=== PATIENT | male | born 1960 | race Caucasian/White ===

== ENCOUNTER 2016-09-19 20:12 | Inpatient (IN) | payer MEDICARE, BC ==
[2016-09-19] MEDS ORDERED: ONDANSETRON 4 MG/2 ML VIAL IVP STA (23:00)
[2016-09-19] MEDS ORDERED: RX INFO: IV CONTRAST WAS GIVEN 1 EACH MISC MISCELLANE PRN (23:00)
[2016-09-19] MEDS ORDERED: SODIUM CHLORIDE 0.9% 1,000 ML IV STA ×2 (23:01)
--- NOTE | 2016-09-19 23:08 | ED ---
General Adult HPI - General Source: patient, RN notes reviewed Mode of arrival: ambulatory Limitations: no limitations <Ronny Sandy - Last Filed: 09/20/16 00:09> <Jeffrey Johansen - Last Filed: 09/20/16 00:31> - General Chief complaint: Abdominal Pain Stated complaint: abdominal & back pain Time Seen by Provider: 09/19/16 22:54 - History of Present Illness Initial comments: Patient 56-year-old male who presents emergency room today with chief complaint of increased nausea vomiting abdominal and back pain over the last week. Patient states symptoms been on and off. States having increased today. States continuous vomiting. Admits to pain both in the abdomen and the back. He states pain located on the right side shooting down in his back. Patient states never had similar symptoms in the past. Patient denies any other complaints at this time. Patient denies any recent fever, chills, shortness of breath, chest pain, numbness or tingling, dysuria or hematuria, constipation or diarrhea, visual changes, or any other complaints. (Ronny Sandy) - Related Data Home Medications Medication Instructions Recorded Confirmed Allopurinol [Zyloprim] 300 mg PO DAILY 05/21/14 09/19/16 Calcium Carbonate/Vitamin D3 1 tab PO BID 05/21/14 09/19/16 [Calcium 500-Vit D3 400 Tablet] Cholecalciferol [Vitamin D3] 5,000 unit PO BID 05/21/14 09/19/[address] [Myfortic] 360 mg PO BID 05/21/14 09/19/16 Potassium Chloride [Klor-Con 20] 40 meq PO BID 05/21/14 09/19/16 Pravastatin Sodium [Pravachol] 40 mg PO HS 05/21/14 09/19/16 Tacrolimus [Prograf] 0.5 mg PO BID 05/21/14 09/19/16 amLODIPine [Norvasc] 5 mg PO BID 05/21/14 09/19/16 predniSONE 5 mg PO DAILY 05/21/14 09/19/16 Magnesium Oxide [Mag-Ox] 400 mg PO BID 08/01/14 09/19/16 Multivitamin/Iron/Folic Acid 1 tab PO DAILY 08/01/14 09/19/16 [Centrum Complete Multivit Tab] Carvedilol [Coreg] 6.25 mg PO BID 04/02/15 09/19/16 Hydrocodone/Acetaminophen 1 tab PO Q6HR PRN 04/02/15 09/19/16 [Hydrocodone/Acetaminophen 5-300] Ascorbic Acid [Vitamin C] 1,000 mg PO DAILY 05/06/15 09/19/16 Omeprazole [PriLOSEC] 20 mg PO AC-BRKFST 05/18/15 09/19/16 Aspirin 325 mg PO HS 10/14/15 09/19/16 Allergies Allergy/AdvReac Type Severity Reaction Status Date / Time No Known Allergies Allergy Verified 09/19/16 23:01 Review of Systems ROS Other: All systems not noted in ROS Statement are negative. <Ronny Sandy - Last Filed: 09/20/16 00:09> ROS Other: All systems not noted in ROS Statement are negative. <Jeffrey Johansen - Last Filed: 09/20/16 00:31> ROS Statement: Those systems with pertinent positive or pertinent negative responses have been documented in the HPI. Past Medical History Past Medical History: Coronary Artery Disease (CAD), Cancer, Diabetes Mellitus, Deep Vein Thrombosis (DVT), GERD/Reflux, Hyperlipidemia, Hypertension, Osteoarthritis (OA), Pneumonia, Renal Disease, Skin Disorder, Vascular Disorder Additional Past Medical History / Comment(s): 10/13/15 PT presented to [facility] ER with URI and RICHARDSON. Pt has had SOB,cough, weakness, fever,chills and mild nausea. He saw his PCP yesterday and was prescibbed ABX. He continued to worsen. Pt is admitted with clinical impression of URI, community acquired pneumonia. Other HX: charcot, hx diabetes-had pancreas transplant, HTN cardiovascular disease, murmur, DVT L leg, poor circulation, bilateral feet and hand neuropathy, diabetic retinopathy, psoriasis, wound rt ankle and R heel healed - had tx in wound clinic, pt had been in end stage renal disease and had hemodialysis for 3 yrs then had kidneys and pancreas transplant In 2008 at [facility], gout, osteopenia, multiple malignant cutanous lesions with removals. History of Any Multi-Drug Resistant Organisms: None Reported Past Surgical History: Heart Catheterization With Stent, Orthopedic Surgery Additional Past Surgical History / Comment(s): 2005 failed stress test-PCI with stent to Obtuse marginal, kidney & pancrease transplant 2008, cataracts removed , surgery to reconnect rt achilles tendon with dehisence and then several debridements of wound to R ankle and R heel, skin lesion removal-basal cell cancer, A/V fistula L upper arm, parathyroidectomy, R wrist fx with surgery. Past Anesthesia/Blood Transfusion Reactions: No Reported Reaction Additional Past Anesthesia/Blood Transfusion Reaction / Comment(s): Pt states he has received blood in the past without reaction. Date of Last Stent Placement:: 2005 Past Psychological History: No Psychological Hx Reported Additional Psychological History / Comment(s): Pt resides with his spouse. There is 1 dog in the home. He is normally independent. He drives. Smoking Status: Never smoker Past Alcohol Use History: Occasional Past Drug Use History: None Reported - Past Family History Father Family Medical History: CVA/TIA, Vascular Disorder Additional Family Medical History / Comment(s): cva x2. Father is 81 yrs old. Mother Additional Family Medical History / Comment(s): arthritis. Mother is 76 yrs old. <Ronny Sandy - Last Filed: 09/20/16 00:09> General Exam Limitations: no limitations <Ronny Sandy - Last Filed: 09/20/16 00:09> <Jeffrey Johansen - Last Filed: 09/20/16 00:31> - General Exam Comments Initial Comments: General: The patient is awake and alert, in moderate distress. Eye: Pupils are equal, round and reactive to light, extra-ocular movements are intact. No nystagmus. There is normal conjunctiva bilaterally. No signs of icterus. Ears, nose, mouth and throat: There are moist mucous membranes and no oral lesions. Neck: The neck is supple, there is no tenderness or JVD. Cardiovascular: There is a regular rate and rhythm. No murmur, rub or gallop is appreciated. Respiratory: Lungs are clear to auscultation, respirations are non-labored, breath sounds are equal. No wheezes, stridor, rales, or rhonchi. Gastrointestinal: Normal appearance of the abdomen. Normal bowel sounds. No pulsatile mass. Patient has diffuse minimal tenderness throughout the abdomen. No CVA tenderness. No guarding. No rebound. Musculoskeletal: Normal ROM, no tenderness. Strength 5/5. Sensation intact. Pulses equal bilaterally 2+. Neurological: A&O x 3. CN II-XII intact, There are no obvious motor or sensory deficits. Coordination appears grossly intact. Speech is normal. Skin: Skin is warm and dry and no rashes or lesions are noted. Psychiatric: Cooperative, appropriate mood & affect, normal judgment. (Ronny Sandy) EKG Findings - EKG Comments: EKG Findings:: EKG performed at 2313: A 12-lead EKG was performed and interpreted by me as showing the following: Rate is 78, and rhythm is normal sinus. There are normal QRS complexes and normal R-wave progression. ST segments have no elevation or depression, and WI segments appear normal. <Ronny Sandy - Last Filed: 09/20/16 00:09> Medical Decision Making - Lab Data Result diagrams: 09/19/16 23:05 09/19/16 23:05 <Ronny Sandy - Last Filed: 09/20/16 00:09> - Lab Data Result diagrams: 09/19/16 23:05 09/19/16 23:05 <Jeffrey Johansen - Last Filed: 09/20/16 00:31> - Medical Decision Making Patient's CT reviewed and shows incarcerated ventral hernia or umbilical hernia that contains bowel. There is dilated small bowel consistent with mechanical SBO. Distal small bowel has normal diameter. The transition point is probably the incarcerated hernia. Results discussed with the patient. Patient had NG tube started here in the emergency room. Case discussed with attending physician Dr. Johansen who did discuss case with admitting physician Dr. Brunson who will admit the patient. (Ronny Sandy) Medical decision-making. The patient presents with vomiting abdominal pain. He did pass a small amount of loose stool and gas earlier this evening. The pain to compression of the worst of the abdomen. The patient's white count 11 hemoglobin 14.8 hematocrit of 44 with an INR 1.1. Potassium is 4.7 BUN 22 creatinine 1.1 with a GFR 57. Glucose is 139. Amylase lipase within normal limits. Patient does have history of the renal transplant 9 years ago. The patient's CT of the abdomen was done and the radiologist's impression is there is no incarcerated ventral hernia or umbilical hernia contains bowel there is dilated small bowel consistent with mechanical small bowel obstruction. Distal small bowel has normal Diameter. The transition point is probably the incarcerated hernia. There is atherosclerotic valvular vascular disease. Nonobstructive calculi in the transplant kidney. Cardiomegaly and hiatal hernia. The bowel obstruction is new compared to the old exam of 08/01/2014. Hernia is increased. And there is a chronically enlarged stomach that could relate to gastroparesis. As read by Dr. Jack. I examined the patient is tender with palpation with guarding over the ventral hernia. I discussed the case with Dr. Renner. Patient be admitted to her practice NG tube placed, analgesics and rehydration. Dr. Johansen (Jeffrey Johansen) - Lab Data Lab Results 09/19/16 09/19/16 09/19/16 Range/Units 23:05 23:05 23:05 WBC 11.5 H (3.8-10.6) k/uL RBC 4.75 (4.30-5.90) m/uL Hgb 14.8 (13.0-17.5) gm/dL Hct 46.5 (39.0-53.0) % MCV 97.9 (80.0-100.0) fL MCH 31.1 (25.0-35.0) pg MCHC 31.8 (31.0-37.0) g/dL RDW 13.6 (11.5-15.5) % Plt Count 254 (150-450) k/uL Neutrophils % 88 % Lymphocytes % 4 % Monocytes % 6 % Eosinophils % 1 % Basophils % 0 % Neutrophils # 10.1 H (1.3-7.7) k/uL Lymphocytes # 0.4 L (1.0-4.8) k/uL Monocytes # 0.7 (0-1.0) k/uL Eosinophils # 0.1 (0-0.7) k/uL Basophils # 0.0 (0-0.2) k/uL PT 11.0 (9.0-12.0) sec INR 1.1 (<1.1) APTT 22.9 (22.0-30.0) sec Sodium 142 (137-145) mmol/L Potassium 4.7 (3.5-5.1) mmol/L Chloride 106 (98-107) mmol/L Carbon Dioxide 20 L (22-30) mmol/L Anion Gap 16 mmol/L BUN 22 H (9-20) mg/dL Creatinine 1.30 H (0.66-1.25) mg/dL Est GFR (MDRD) Af Amer >60 (>60 ml/min/1.73 sqM) Est GFR (MDRD) Non-Af 57 (>60 ml/min/1.73 sqM) Glucose 139 H (74-99) mg/dL Calcium 9.4 (8.4-10.2) mg/dL Total Bilirubin 0.6 (0.2-1.3) mg/dL AST 20 (17-59) U/L ALT 36 (21-72) U/L Alkaline Phosphatase 110 (38-126) U/L Total Protein 7.5 (6.3-8.2) g/dL Albumin 4.7 (3.5-5.0) g/dL Amylase 93 (30-110) U/L Lipase 167 (23-300) U/L Disposition Time of Disposition: 00:18 <Ronny Sandy - Last Filed: 09/20/16 00:09> <Jeffrey Johansen - Last Filed: 09/20/16 00:31> Clinical Impression: Small bowel obstruction, Incarcerated hernia Disposition: ADMITTED IP TO THIS [facility] Condition: Stable Referrals: Greg Lu MD [Primary Care Provider] - 1-2 days
[2016-09-19] MEDS ORDERED: HYDROmorphone 1 MG/ML 1 ML SYRINGE IVP STA (23:10)
[2016-09-19 23:18] LABS: Basophils % (A) 0 %; CH 32.3; CHCM 33.2; Eosinophils # (A) 0.1 k/uL (0-0.7); Eosinophils % (A) 1 %; HCT 46.5 % (39.0-53.0); HDW 2.46; HGB 14.8 gm/dL (13.0-17.5); Luc # (Auto) 0.18; Luc % (Auto) 2; Lymphocytes # (A) 0.4 k/uL (1.0-4.8); Lymphocytes % (A) 4 %; MCH 31.1 pg (25.0-35.0); MCHC 31.8 g/dL (31.0-37.0); MCV 97.9 fL (80.0-100.0); Mean Platelet Volume 7.8; Monocytes # (A) 0.7 k/uL (0-1.0); Monocytes % (A) 6 %; Neutrophils # (A) 10.1 k/uL (1.3-7.7); Neutrophils % (A) 88 %; RBC 4.75 m/uL (4.30-5.90); RDW 13.6 % (11.5-15.5); WBC 11.5 k/uL (3.8-10.6); WBC (Perox) 11.79
[2016-09-19 23:29] LABS: ALT 36 U/L (21-72); AST 20 U/L (17-59); Alkaline Phosphatase 110 U/L (38-126); Amylase 93 U/L (30-110); Anion Gap 16 mmol/L; Blood Urea Nitrogen 22 mg/dL (9-20); Calcium 9.4 mg/dL (8.4-10.2); Carbon Dioxide 20 mmol/L (22-30); Chloride 106 mmol/L (98-107); Glucose 139 mg/dL (74-99); Non-African American GFR(MDRD) 57 (>60 ml/min/1.73 sqM); Potassium 4.7 mmol/L (3.5-5.1); Sodium 142 mmol/L (137-145); Total Bilirubin 0.6 mg/dL (0.2-1.3); Total Protein 7.5 g/dL (6.3-8.2)
[2016-09-19 23:33] LABS: INR 1.1 (<1.1); Partial Thromboplastin Time 22.9 sec (22.0-30.0)
--- NOTE | 2016-09-20 00:02 | CT ---
EXAMINATION TYPE: CT abdomen pelvis wo con DATE OF EXAM: 09/19/2016 11:59 PM COMPARISON: 08/01/2014 HISTORY: abd pain CT DLP: 429.80 mGycm Automated exposure control for dose reduction was used. TECHNIQUE: Helical acquisition of images was performed from the lung bases through the pelvis. FINDINGS: Lung bases are clear of consolidation. There is no pleural effusion. Heart appears enlarged. There is a hiatal hernia. Gallbladder appears normal. Liver shows no focal defect. Bile ducts are not dilated. The stomach is l arge. There is no evidence of a splenic mass. Pancreas appears normal. There is severe thinning of th e renal cortex bilaterally. There is no hydronephrosis. There is a large umbilical or ventral hernia that contains loops of bowel. There are multiple dilated loops of small bowel that measure up to 4.4 cm. The large bowel appears relatively empty. There is a transplant kidney in the pelvis on the left side. There is a 8 mm calculus in the transplant kidney. There are other smaller calculi. There is no hydronephrosis. Bladder distends smoothly. There is no sign of a pelvic mass. IMPRESSION: THERE IS AN INCARCERATED VENTRAL HERNIA OR UMBILICAL HERNIA THAT CONTAINS BOWEL. THERE IS DILATED SMA LL BOWEL CONSISTENT WITH MECHANICAL SMALL BOWEL OBSTRUCTION. DISTAL SMALL BOWEL HAS NORMAL DIAMETER. THE TRANSITION POINT IS PROBABLY THE INCARCERATED HERNIA. ATHEROSCLEROTIC VASCULAR DISEASE. NONOBSTRUCTING CALCULI IN THE TRANSPLANT KIDNEY. Cardiomegaly. Hiatal hernia. The bowel obstruction is new compared to the old exam of August 01, 2014. There are hernia is increas ed. There is a chronically enlarged stomach that could relate to gastroparesis.
[2016-09-20] MEDS ORDERED: HYDROmorphone 1 MG/ML 1 ML SYRINGE IVP STA (00:17)
[2016-09-20] MEDS ORDERED: SODIUM CHLORIDE 0.9% 1,000 ML IV ONE (00:19)
[2016-09-20] MEDS ORDERED: NALOXONE 0.4 MG/ML 1 ML VIAL IV PRN (00:19)
[2016-09-20] MEDS ORDERED: HYDROmorphone 1 MG/ML 1 ML SYRINGE IV PRN (00:19)
[2016-09-20] MEDS ORDERED: ONDANSETRON 4 MG/2 ML VIAL IVP PRN (00:19)
[2016-09-20 02:10] VITALS: BMI 24.0
[2016-09-20 07:23] VITALS: RESP 20
[2016-09-20 09:02] LABS: Appearance,Urine Clear (Clear); Bilirubin,Urine Negative (Negative); Glucose,Urine (UA) Negative (Negative); Ketones,Urine Negative (Negative); Leukocyte Esterase,Urine Negative (Negative); Nitrite,Urine Negative (Negative); Protein,Urine Trace (Negative); Specific Gravity,Urine 1.015 (1.001-1.035); UA Billing (MACRO vs. MICRO) CHEM; Urobilinogen,Urine <2.0 mg/dL (<2.0)
--- NOTE | 2016-09-20 10:56 | P.GSHP ---
<Lexis Prasad - Last Filed: 09/20/16 10:39> History of Present Illness H&P Date: 09/20/16 Chief Complaint: Abdominal pain nausea vomiting 56-year-old pleasant gentleman presented on the day of admission to the emergency room to be evaluated for chief complaint of developing abdominal pain nausea vomiting onset 7 days prior. Patient stated the symptoms seem to be worse if he attempted to eat. He stated that 7 days ago he noted increased abdominal pain with bloating he did use [id number] Gas-X seemed to help. He would get relief couple days later the symptoms reoccurred. Patient became concerned presented to the emergency room with the above-mentioned symptoms. Patient denied any other complaints. Denied any fever chills shortness of breath chest pain or numbness or tingling or any burning on urination. CAT scan of the abdomen and pelvis with out contrast was obtained in the emergency room it did show incarcerated ventral hernia or umbilical hernia that contains bowel. There is dilated small bowel consistent with mechanical small bowel obstruction. Distal small bowel has normal diameter. Patient was seen in the emergency room a nasogastric tube was inserted. This morning the patient did have a moderate painless mushy soft brown stool. There was a significant improvement in the abdominal distention after having a bowel movement. The nasogastric tube was able to be removed patient stated he was passing gas anal with less abdominal distention Patient does have a significant past medical history for chronic kidney disease with pancreas and kidney transplant done at the [facility] in 2008. Patient stated that the kidney and pancreas transplant were done today due to patient's diabetes. Patient states he goes yearly to the [facility] is due to return in December 2016. Patient's coordinator is Bola telephone number [phone]. Patient states he is a transplant team that he sees yearly and they are aware of his hernia and he was told by them that they should just watch it is not creating any symptoms. - Review of Systems Comment: Essentially unremarkable except as mentioned in the present illness Past Medical History Past Medical History: Coronary Artery Disease (CAD), Cancer, Diabetes Mellitus, Deep Vein Thrombosis (DVT), GERD/Reflux, Hyperlipidemia, Hypertension, Osteoarthritis (OA), Pneumonia, Renal Disease, Skin Disorder, Vascular Disorder Additional Past Medical History / Comment(s): pt states he has history of diabetes mellitus before pancreas and left kidney transplant. pt states he no longer has diabetes but will still check his blood sugar every now and again. History of Any Multi-Drug Resistant Organisms: None Reported Past Surgical History: Heart Catheterization With Stent, Orthopedic Surgery Additional Past Surgical History / Comment(s): kidney & pancrease transplant 2008, cataracts removed, surgery to reconnect rt achilles tendon with dehisence and then several debridements of wound to R ankle and R heel, skin lesion removal-basal cell cancer, A/V fistula L upper arm, parathyroidectomy, R wrist fx with surgery. Past Anesthesia/Blood Transfusion Reactions: No Reported Reaction Additional Past Anesthesia/Blood Transfusion Reaction / Comment(s): Pt states he has received blood in the past without reaction. Date of Last Stent Placement:: 2005 Past Psychological History: No Psychological Hx Reported Additional Psychological History / Comment(s): Pt resides with his spouse. There is 1 dog in the home. He is normally independent. He drives. Smoking Status: Never smoker Past Alcohol Use History: Occasional Past Drug Use History: None Reported - Past Family History Father Family Medical History: CVA/TIA, Vascular Disorder Additional Family Medical History / Comment(s): cva x2. Father is 81 yrs old. Mother Additional Family Medical History / Comment(s): arthritis. Mother is 76 yrs old. Medications and Allergies Home Medications Medication Instructions Recorded Confirmed Type Allopurinol [Zyloprim] 300 mg PO DAILY 05/21/14 09/19/16 History Calcium Carbonate/Vitamin D3 1 tab PO BID 05/21/14 09/19/16 History [Calcium 500-Vit D3 400 Tablet] Cholecalciferol [Vitamin D3] 5,000 unit PO BID 05/21/14 09/19/[address] [Myfortic] 360 mg PO BID 05/21/14 09/19/16 History Potassium Chloride [Klor-Con 20] 40 meq PO BID 05/21/14 09/19/16 History Pravastatin Sodium [Pravachol] 40 mg PO HS 05/21/14 09/19/16 History Tacrolimus [Prograf] 0.5 mg PO BID 05/21/14 09/19/16 History amLODIPine [Norvasc] 5 mg PO BID 05/21/14 09/19/16 History predniSONE 5 mg PO DAILY 05/21/14 09/19/16 History Magnesium Oxide [Mag-Ox] 400 mg PO BID 08/01/14 09/19/16 History Multivitamin/Iron/Folic Acid 1 tab PO DAILY 08/01/14 09/19/16 History [Centrum Complete Multivit Tab] Carvedilol [Coreg] 6.25 mg PO BID 04/02/15 09/19/16 History Hydrocodone/Acetaminophen 1 tab PO Q6HR PRN 04/02/15 09/19/16 History [Hydrocodone/Acetaminophen 5-300] Ascorbic Acid [Vitamin C] 1,000 mg PO DAILY 05/06/15 09/19/16 History Omeprazole [PriLOSEC] 20 mg PO AC-BRKFST 05/18/15 09/19/16 History Aspirin 325 mg PO HS 10/14/15 09/19/16 History Allergies Allergy/AdvReac Type Severity Reaction Status Date / Time No Known Allergies Allergy Verified 09/19/16 23:01 Surgical - Exam Vital Signs Temp Pulse Resp BP Pulse Ox 98.6 F 69 20 146/54 98 09/19/16 20:30 09/19/16 20:30 09/19/16 20:30 09/19/16 20:30 09/19/16 20:30 GENERAL APPEARANCE: 56-year-old male patient is alert, oriented 3 reviewed, in no acute distress. Talkative pleasant cooperative VITAL SIGNS: HEENT: Head is normocephalic and atraumatic. Pupils are equal and reactive. The nares are patent. Oropharynx is clear without lesions. NECK: Supple without lymphadenopathy. Traches midline. HEART: S1, S2. Regular rate and rhythm. Positive systolic murmur radiating up into the carotid denying chest pain LUNGS: No crackles or wheezes are heard. Essentially clear with adequate air movement on room air sats are 94% ABDOMEN: Soft, nontender, nondistended with good bowel sounds. No peritoneal signs. No palpable organomegaly or masses. No guarding with palpitation to the abdominal wall. Well-healed surgical scars to the abdominal wall. Slight tenderness throughout the abdomen patient states improved nasal gastric tube removed EXTREMITIES: Normal skin color and turgor. No cyanosis, rash, ulceration, clubbing or edema. Radial pedal pulses are 2/4 bilaterally. 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 The left foot trace pedal edema patient states is chronic NEUROLOGICAL: No focal deficits. Strength and sensation are grossly intact. Results - Labs 09/19/16 23:05 09/19/16 23:05 Abnormal Lab Results - Last 24 Hours (Table) 09/20/16 Range/Units 08:46 Urine Protein Trace H (Negative) Assessment and Plan Plan: Impression Present on admission abdominal pain likely due to incarcerated ventral hernia or umbilical hernia that contains bowel Present on admission abdominal pain CAT scan of the abdomen and pelvis suggest dilated common bowel consistent with chemical small bowel obstruction resolving History of a renal and pancreas transplant 9 years ago at the [facility] Unknown heart murmur Known coronary artery disease with prior stenting History of diabetes on no insulin or oral agent followed by diet History of esophageal reflux disease Hyperlipidemia Present on his admission healed diabetic ulceration right ankle 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 jones. History of Charcot foot due to diabetes involving left foot Plan Nasal gastric tube removed Full liquid diet advance as tolerated Patient is instructed that he must wear the abdominal binder at all times except when in the shower Patient is to discuss with his transplant team about the ventral/umbilical hernia repair Resume home meds as appropriate DVT and GI prophylaxis Prepped for probable discharge today if tolerating diet Follow-up with [facility] coordinator for the transplant team [phone] The above dictated assessment and findings were discussed with dr Brunson. Impression and the plan of care have been dictated as directed. Lexis Prasad nurse practitioner acting as a scribe for Dr. Brunson <Hayley Brunson N - Last Filed: 09/21/16 11:12> - Review of Systems Comment: CONSTITUTIONAL: Denies any fever or chills. HEENT: Denies any trouble with vision, hearing or nosebleeds. No difficulty swallowing. LYMPHATIC: The patient denies any lumps and bumps around the neck. ENDOCRINE: Denies any thyroid disorders. Denies any blood sugar glucose intolerance. RESPIRATORY: Denies pneumonia. Denies any troubles with breathing or dyspnea on exertion. CARDIOVASCULAR: No acute chest pain, palpitations, or recent heart attacks. GASTROINTESTINAL: Occassional heart burn, constipation. No recent bright red blood per rectum. GENITOURINARY: Denies any blood in urine or increased urinary frequency. MUSCULOSKELETAL: Has occassional back pain, stiffness or joint arthritis. NEUROLOGIC: Denies any numbness or tingling along the distal extremities. No seizure disorders or headaches. PSYCHIATRIC: Denies acute depression or suidical ideation. HEMATOLOGIC: Has abnormal bleeding or bruising. BREASTS: Denies any breast lumps, pain or nipple discharge. Surgical - Exam Vital Signs Temp Pulse Resp BP Pulse Ox 98.6 F 69 20 146/54 98 09/19/16 20:30 09/19/16 20:30 09/19/16 20:30 09/19/16 20:30 09/19/16 20:30 Reducible 4 cm midline incisional hernia, no skin changes, no strangulation, incorporating small intestine Results - Labs 09/19/16 23:05 09/19/16 23:05 Microbiology - Last 24 Hours (Table) 09/20/16 08:46 Urine Culture - Preliminary Urine,Voided - Imaging CT scan - abdomen: report reviewed, image reviewed CT scan - pelvis: report reviewed, image reviewed (Features consistent with small bowel obstruction from incisional hernia. No free air.) Assessment and Plan Plan: I discussed care plan with the patient and his . They've agreed to pursue surgical intervention as outpatient with coordination with the transplant team.
[2016-09-20] MEDS ORDERED: HYDROcodone/APAP 5-325MG 1 EACH TAB PO PRN (11:03)
[2016-09-20] MEDS ORDERED: CALCIUM CARB-VIT D 500MG-200UN 1 EACH TAB PO SCH (11:30)
[2016-09-20] MEDS ORDERED: amLODIPine 5 MG TAB PO SCH (11:30)
[2016-09-20] MEDS ORDERED: PANTOPRAZOLE 40 MG TABLET PO SCH (11:30)
[2016-09-20] MEDS ORDERED: MAGNESIUM OXIDE 400 MG TAB PO SCH (11:30)
[2016-09-20] MEDS ORDERED: predniSONE 5 MG TAB PO SCH (11:30)
[2016-09-20] MEDS ORDERED: CARVEDILOL 6.25 MG TAB PO SCH (11:30)
[2016-09-20] MEDS ORDERED: TACROLIMUS 0.5 MG CAP PO SCH (11:30)
[2016-09-20] MEDS ORDERED: MYCOPHENOLATE SODIUM DR 180 MG TABLET.DR PO SCH (11:30)
[2016-09-20] MEDS ORDERED: ASCORBIC ACID 500 MG TAB PO SCH (12:00)
--- NOTE | 2016-09-20 14:06 | P.DS ---
Providers Date of admission: 09/20/16 00:18 Expected date of discharge: 09/20/16 Attending physician: Hayley Brunson Primary care physician: [facility] Course: 56-year-old pleasant gentleman presented on the day of admission to the emergency room to be evaluated for chief complaint of developing abdominal pain nausea vomiting onset 7 days prior. Patient stated the symptoms seem to be worse if he attempted to eat. He stated that 7 days ago he noted increased abdominal pain with bloating he did use [id number] Gas-X seemed to help. He would get relief couple days later the symptoms reoccurred. Patient became concerned presented to the emergency room with the above-mentioned symptoms. Patient denied any other complaints. Denied any fever chills shortness of breath chest pain or numbness or tingling or any burning on urination. CAT scan of the abdomen and pelvis with out contrast was obtained in the emergency room it did show incarcerated ventral hernia or umbilical hernia that contains bowel. There is dilated small bowel consistent with mechanical small bowel obstruction. Distal small bowel has normal diameter. Patient was seen in the emergency room a nasogastric tube was inserted. This morning the patient did have a moderate painless mushy soft brown stool. There was a significant improvement in the abdominal distention after having a bowel movement. The nasogastric tube was able to be removed patient stated he was passing gas anal with less abdominal distention Patient does have a significant past medical history for chronic kidney disease with pancreas and kidney transplant done at the [facility] in 2008. Patient stated that the kidney and pancreas transplant were done today due to patient's diabetes. Patient states he goes yearly to the [facility] is due to return in December 2016. Patient's coordinator is Bola telephone number [phone]. Patient states he is a transplant team that he sees yearly and they are aware of his hernia and he was told by them that they should just watch it is not creating any symptoms. A diet was initiated patient tolerated the diet there was no further abdominal pain patient had the abdominal binder on was instructed to wear it at all times except to shower. Patient was felt to be stable and appropriate to proceed with a discharge to home Impression Present on admission abdominal pain likely due to incarcerated ventral hernia or umbilical hernia that contains bowel Present on admission abdominal pain CAT scan of the abdomen and pelvis suggest dilated common bowel consistent with chemical small bowel obstruction resolving History of a renal and pancreas transplant 9 years ago at the [facility] Unknown heart murmur Known coronary artery disease with prior stenting History of diabetes on no insulin or oral agent followed by diet History of esophageal reflux disease Hyperlipidemia Present on his admission healed diabetic ulceration right ankle 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 jones. History of Charcot foot due to diabetes involving left foot The above dictated assessment and findings were discussed with dr Brunson. Impression and the plan of care have been dictated as directed. Lexis Prasad nurse practitioner acting as a scribe for Dr. Brunson Patient Condition at Discharge: Stable Plan - Discharge Summary Discharge Medication List Allopurinol [Zyloprim] 300 mg PO DAILY 05/21/14 [History] Calcium Carbonate/Vitamin D3 [Calcium 500-Vit D3 400 Tablet] 1 tab PO BID [History] Cholecalciferol [Vitamin D3] 5,000 unit PO BID 05/21/14 [History] Mycophenolate Sodium Dr [Myfortic] 360 mg PO BID 05/21/14 [History] Potassium Chloride [Klor-Con 20] 40 meq PO BID 05/21/14 [History] Pravastatin Sodium [Pravachol] 40 mg PO HS 05/21/14 [History] Tacrolimus [Prograf] 0.5 mg PO BID 05/21/14 [History] amLODIPine [Norvasc] 5 mg PO BID 05/21/14 [History] predniSONE 5 mg PO DAILY 05/21/14 [History] Magnesium Oxide [Mag-Ox] 400 mg PO BID 08/01/14 [History] Multivitamin/Iron/Folic Acid [Centrum Complete Multivit Tab] 1 tab PO DAILY 09/14 [History] Carvedilol [Coreg] 6.25 mg PO BID 04/02/15 [History] Hydrocodone/Acetaminophen [Hydrocodone/Acetaminophen 5-300] 1 tab PO Q6HR PRN [History] Ascorbic Acid [Vitamin C] 1,000 mg PO DAILY 05/06/15 [History] Omeprazole [PriLOSEC] 20 mg PO AC-BRKFST 05/18/15 [History] Aspirin 325 mg PO HS 10/14/15 [History] Follow up Appointment(s)/Referral(s): Greg Lu MD [Primary Care Provider] - 1-2 days Hayley Burnson MD [STAFF PHYSICIAN] - 1 Week Activity/Diet/Wound Care/Special Instructions: Patient is to be instructed on wearing the abdominal binder at all times except when showering Discharge Disposition: HOME SELF-CARE
[2016-09-20 16:18] VITALS: BP 154/70; PULSE 80; TEMP 99
[2016-09-20] MEDS ORDERED: ASPIRIN 325 MG TAB PO SCH (21:00)
[2016-09-20] MEDS ORDERED: CHOLECALCIFEROL 1,000 UNIT TAB PO SCH (21:00)
[2016-09-20] MEDS ORDERED: POTASSIUM CHLORIDE ER 20 MEQ TAB.ER PO SCH (21:00)
[2016-09-20] MEDS ORDERED: PRAVASTATIN SODIUM 40 MG TAB PO SCH (21:00)
[2016-09-21] MEDS ORDERED: ALLOPURINOL 300 MG TAB PO SCH (09:00)
[2016-09-21] MEDS ORDERED: MULTIVITAMINS, THERA 1 EACH TAB PO SCH (12:00)
== END 2016-09-20 16:45 | disposition home or self-care (01) | DRG 394 ==
LOC: EC 20:12 → 5MS5E 09-20 00:18
PROVIDERS: ADMIT Surgery Plastic and Reconstructive Surgery; ATTEND Surgery Plastic and Reconstructive Surgery
DX: K43.6 Other and unspecified ventral hernia with obstruction, without gangrene (principal); E11.40 Type 2 diabetes mellitus with diabetic neuropathy, unspecified; I11.9 Hypertensive heart disease without heart failure; K42.0 Umbilical hernia with obstruction, without gangrene; E11.319 Type 2 diabetes mellitus with unspecified diabetic retinopathy without macular edema; E11.610 Type 2 diabetes mellitus with diabetic neuropathic arthropathy; E78.5 Hyperlipidemia, unspecified; I25.10 Atherosclerotic heart disease of native coronary artery without angina pectoris; K21.9 Gastro-esophageal reflux disease without esophagitis; K44.9 Diaphragmatic hernia without obstruction or gangrene; M10.9 Gout, unspecified; M85.80 Other specified disorders of bone density and structure, unspecified site; L40.9 Psoriasis, unspecified; M19.90 Unspecified osteoarthritis, unspecified site; R01.1 Cardiac murmur, unspecified; Z94.0 Kidney transplant status; Z94.83 Pancreas transplant status; Z79.899 Other long term (current) drug therapy; Z79.82 Long term (current) use of aspirin; Z85.828 Personal history of other malignant neoplasm of skin; Z95.5 Presence of coronary angioplasty implant and graft
CPT/HCPCS: 36415; 43753; 74176; 80053; 81003; 82150; 83690; 85025; 85610; 85730; 87086; 93005; 96361; 96374; 96375; 96376; 99285

== ENCOUNTER 2018-02-15 14:19 | Emergency (ER) | payer MEDICARE, BC ==
--- NOTE | 2018-02-15 15:06 | ED ---
General Adult HPI - General Chief complaint: Recheck/Abnormal Lab/Rx Stated complaint: Post Op/ Arm bleeding Source: patient Mode of arrival: ambulatory Limitations: no limitations - History of Present Illness Initial comments: Dictation was produced using [employer]yn[employer] dictation software. please excuse any grammatical, word or spelling errors. Chief Complaint: 49-year-old male past medical history of coronary artery disease, kidney transplant, diabetes, skin disorder presents with left upper extremity wound check. History of Present Illness: He reports that last week he had surgery to his left upper extremity for removal of squamous cell cancer to his left upper extremity. He reports that he had this procedure done at [facility]. After the surgery and is discharged. He was told to leave the bandage on for approximately one week until his follow-up appointment. Patient noted that over the last 2-3 days he had worsening swelling in his left hand and persistent bleeding to his left upper extremity that soaked through the bandage. He called the plastic surgeon's office and was instructed to come to the emergency department for evaluation. Patient denies any constitutional symptoms. He has history of kidney transplant and is on immunosuppressant medications. The ROS documented in this emergency department record has been reviewed and confirmed by me. Those systems with pertinent positive or negative responses have been documented in the HPI. All other systems are other negative and/or noncontributory. - Related Data Home Medications Medication Instructions Recorded Confirmed Allopurinol [Zyloprim] 300 mg PO DAILY 05/21/14 02/15/18 Calcium Carbonate/Vitamin D3 1 tab PO BID 05/21/14 02/15/18 [Calcium 500-Vit D3 400 Tablet] Cholecalciferol [Vitamin D3] 5,000 unit PO BID 05/21/14 02/15/[address] [Myfortic] 360 mg PO BID 05/21/14 02/15/18 Potassium Chloride [Klor-Con 20] 40 meq PO BID 05/21/14 02/15/18 Pravastatin Sodium [Pravachol] 40 mg PO HS 05/21/14 02/15/18 Tacrolimus [Prograf] 0.5 mg PO BID 05/21/14 02/15/18 predniSONE 5 mg PO DAILY 05/21/14 02/15/18 Magnesium Oxide [Mag-Ox] 400 mg PO BID 08/01/14 02/15/18 Multivitamin/Iron/Folic Acid 1 tab PO DAILY 08/01/14 02/15/18 [Centrum Complete Multivit Tab] Carvedilol [Coreg] 6.25 mg PO BID 04/02/15 02/15/18 Ascorbic Acid [Vitamin C] 1,000 mg PO DAILY 05/06/15 02/15/18 Omeprazole [PriLOSEC] 20 mg PO AC-BRKFST 05/18/15 02/15/18 Aspirin 81 mg PO DAILY 11/08/16 02/15/18 HYDROcodone/APAP 5-325MG [[place] 1 tab PO TID PRN 02/15/18 02/15/18 5-325] amLODIPine [Norvasc] 10 mg PO BID 02/15/18 02/15/18 Allergies Allergy/AdvReac Type Severity Reaction Status Date / Time No Known Allergies Allergy Verified 02/15/18 14:40 Review of Systems ROS Statement: Those systems with pertinent positive or pertinent negative responses have been documented in the HPI. ROS Other: All systems not noted in ROS Statement are negative. Past Medical History Past Medical History: Coronary Artery Disease (CAD), Cancer, Diabetes Mellitus, Deep Vein Thrombosis (DVT), GERD/Reflux, Hyperlipidemia, Hypertension, Osteoarthritis (OA), Pneumonia, Renal Disease, Skin Disorder, Vascular Disorder Additional Past Medical History / Comment(s): pt states he has history of diabetes mellitus before pancreas and left kidney transplant. pt states he no longer has diabetes but will still check his blood sugar every now and again.admitted with clinical impression of URI, community acquired pneumonia. Other HX: charcot, hx diabetes-had pancreas transplant, HTN cardiovascular disease, murmur, DVT L leg, poor circulation, bilateral feet and hand neuropathy , diabetic retinopathy, psoriasis, wound rt ankle and R heel healed - had tx in wound clinic, pt had been in end stage renal disease and had hemodialysis for 3 yrs then had kidneys and pancreas transplant In 2008 at [facility] , gout, osteopenia, multiple malignant cutanous lesions with removals. Sqaumus cell carcinoma left forearm History of Any Multi-Drug Resistant Organisms: None Reported Past Surgical History: Heart Catheterization With Stent, Orthopedic Surgery Additional Past Surgical History / Comment(s): kidney & pancrease transplant 2008, cataracts removed, surgery to reconnect rt achilles tendon with dehisence and then several debridements of wound to R ankle and R heel, skin lesion removal-basal cell cancer, A/V fistula L upper arm, parathyroidectomy, R wrist fx with surgery. Sqaumus cell carcinoma removed September 2016, and again in january 2018 Past Anesthesia/Blood Transfusion Reactions: No Reported Reaction Additional Past Anesthesia/Blood Transfusion Reaction / Comment(s): Pt states he has received blood in the past without reaction. Date of Last Stent Placement:: 2005 Past Psychological History: No Psychological Hx Reported Smoking Status: Never smoker Past Alcohol Use History: Occasional Past Drug Use History: None Reported - Past Family History Father Family Medical History: CVA/TIA, Vascular Disorder Additional Family Medical History / Comment(s): cva x2. Father is 81 yrs old. Mother Additional Family Medical History / Comment(s): arthritis. Mother is 76 yrs old. General Exam - General Exam Comments Initial Comments: PHYSICAL EXAM: General Impression: Alert and oriented x3, not in acute distress HEENT: Normocephalic atraumatic, extra-ocular movements intact, pupils equal and reactive to light bilaterally, mucous membranes moist. Cardiovascular: Heart regular rate and rhythm, S1&S2 audible, no murmurs, rubs or gallops Chest: Lungs clear to auscultation bilaterally, no rhonchi, no wheeze, no rales Abdomen: Bowel sounds present, abdomen soft, non-tender, non-distended, no organomegaly Musculoskeletal: Pulses present and equal in all extremities, no peripheral edema Motor: Power 5/5 bilaterally, no focal deficits noted Neurological: CN II-XII grossly intact, no focal motor or sensory deficits noted Skin: Multiple scars to the left upper extremity. Bandage was removed showing no skin erythema. Left hand is swollen with 2+ pitting edema. Radial Pulses intact. Good cap refill. Psych: Normal affect and mood Limitations: no limitations Course Vital Signs 02/15/18 14:29 Temperature 98.9 F Pulse Rate 78 Respiratory 18 Rate Blood Pressure 173/66 O2 Sat by Pulse 97 Oximetry Medical Decision Making - Medical Decision Making ED course: 49-year-old male past medical history of squamous cell carcinoma, renal transplant on immunosuppressive medication presents with check to his left upper extremity. Vital signs upon arrival are within acceptable limits. Evaluation of the wound does not suggest any signs of infection. Wound is currently clean dry and intact. No active hemorrhage at this time. Swelling is and is secondary to tight bandage causing venous congestion. Pending discussion with Dr. Maddox who is the primary surgeon. Discussed patient case with the primary surgeon who requests that patient be re-bandage extending up to the hand to alleviate some of the swelling in the hand area. He requests that patient schedule an earlier appointment in the [place] office for wound check. Patient to be discharge. He is understandable and agreeable to plan. He states he was scheduled appointment in the [place] office with primary surgeon. Disposition Clinical Impression: Visit for wound check Disposition: HOME SELF-CARE Condition: Fair Is patient prescribed a controlled substance at d/c from ED?: No Referrals: Greg Lu MD [Primary Care Provider] - 1-2 days Time of Disposition: 15:35
[2018-02-15 15:51] VITALS: BP 138/65; PULSE 79; RESP 16; TEMP 99.3
== END 2018-02-15 15:55 | disposition home or self-care (01) ==
LOC: EC 14:19
DX: Z48.817 Encounter for surgical aftercare following surgery on the skin and subcutaneous tissue (principal); I87.8 Other specified disorders of veins; R60.0 Localized edema; E78.5 Hyperlipidemia, unspecified; I13.11 Hypertensive heart and chronic kidney disease without heart failure, with stage 5 chronic kidney disease, or end stage renal disease; N18.6 End stage renal disease; I25.10 Atherosclerotic heart disease of native coronary artery without angina pectoris; M10.9 Gout, unspecified; M19.90 Unspecified osteoarthritis, unspecified site; L40.9 Psoriasis, unspecified; K21.9 Gastro-esophageal reflux disease without esophagitis; Z79.82 Long term (current) use of aspirin; Z79.52 Long term (current) use of systemic steroids; Z85.828 Personal history of other malignant neoplasm of skin; Z94.0 Kidney transplant status
CPT/HCPCS: 99283

== ENCOUNTER 2018-11-26 16:48 | Inpatient (IN) | payer MEDICARE, BC ==
--- NOTE | 2018-11-26 17:04 | ED ---
Wound/Laceration HPI - General Chief Complaint: Wound/Laceration Stated Complaint: poss foot infection Time Seen by Provider: 11/26/18 16:54 Source: patient, RN notes reviewed, old records reviewed Mode of arrival: wheelchair Limitations: no limitations - History of Present Illness Initial Comments: This is a 58-year-old male the ER for evaluation. Patient resents today for evaluation regards to right foot drainage. Patient's orthopedic C7 the ER for evaluation with her evaluation regarding abscess infection of right foot. Patient has history of diabetes, history of Charcot foot. Patient denies fevers currently. Does have pain with ambulation. -: days(s) Extremity Location: Right: Foot Place: home Patient Tetanus UTD: Yes Context: fall Associated Symptoms: none - Related Data Home Medications Medication Instructions Recorded Confirmed Allopurinol [Zyloprim] 300 mg PO HS 05/21/14 11/26/18 Calcium Carbonate/Vitamin D3 1 tab PO BID 05/21/14 11/26/18 [Calcium 500-Vit D3 400 Tablet] Cholecalciferol [Vitamin D3] 5,000 unit PO BID 05/21/14 11/26/18 Potassium Chloride [Klor-Con 20] 40 meq PO BID 05/21/14 11/26/18 Pravastatin Sodium [Pravachol] 40 mg PO HS 05/21/14 11/26/18 Tacrolimus [Prograf] 0.5 mg PO BID 05/21/14 11/26/18 predniSONE 5 mg PO DAILY 05/21/14 11/26/18 Magnesium Oxide [Mag-Ox] 400 mg PO BID 08/01/14 11/26/18 Multivitamin/Iron/Folic Acid 1 tab PO DAILY 08/01/14 11/26/18 [Centrum Complete Multivit Tab] Carvedilol [Coreg] 6.25 mg PO BID 04/02/15 11/26/18 Omeprazole [PriLOSEC] 20 mg PO AC-BRKFST 05/18/15 11/26/18 Aspirin 81 mg PO HS 11/08/16 11/26/18 HYDROcodone/APAP 5-325MG [[place] 1 tab PO TID PRN 02/15/18 11/26/18 5-325] Losartan [Cozaar] 50 mg PO HS 11/26/18 11/26/18 Mycophenolate Sodium [Mycophenolic 360 mg PO DAILY 11/26/18 11/26/18 Acid] Mycophenolate Sodium [Mycophenolic 720 mg PO HS 11/26/18 11/26/18 Acid] amLODIPine [Norvasc] 5 mg PO HS 11/26/18 11/26/18 Allergies Allergy/AdvReac Type Severity Reaction Status Date / Time No Known Allergies Allergy Verified 11/26/18 17:13 Review of Systems ROS Statement: Those systems with pertinent positive or pertinent negative responses have been documented in the HPI. ROS Other: All systems not noted in ROS Statement are negative. Past Medical History Past Medical History: Coronary Artery Disease (CAD), Cancer, Diabetes Mellitus, Deep Vein Thrombosis (DVT), GERD/Reflux, Hyperlipidemia, Hypertension, Osteoarthritis (OA), Pneumonia, Renal Disease, Skin Disorder, Vascular Disorder Additional Past Medical History / Comment(s): pt states he has history of diabetes mellitus before pancreas and left kidney transplant. pt states he no longer has diabetes but will still check his blood sugar every now and again.admitted with clinical impression of URI, community acquired pneumonia. Other HX: charcot, hx diabetes-had pancreas transplant, HTN cardiovascular disease, murmur, DVT L leg, poor circulation, bilateral feet and hand neuropathy, diabetic retinopathy, psoriasis, wound rt ankle and R heel healed - had tx in wound clinic, pt had been in end stage renal disease and had hemodialysis for 3 yrs then had kidneys and pancreas transplant In 2008 at [facility], gout, osteopenia, multiple malignant cutanous lesions with removals. Sqaumus cell carcinoma left forearm History of Any Multi-Drug Resistant Organisms: None Reported Past Surgical History: Heart Catheterization With Stent, Orthopedic Surgery Additional Past Surgical History / Comment(s): kidney & pancrease transplant 2008, cataracts removed, surgery to reconnect rt achilles tendon with dehisence and then several debridements of wound to R ankle and R heel, skin lesion removal-basal cell cancer, A/V fistula L upper arm, parathyroidectomy, R wrist fx with surgery. Sqaumus cell carcinoma removed September 2016, and again in january 2018 Past Anesthesia/Blood Transfusion Reactions: No Reported Reaction Additional Past Anesthesia/Blood Transfusion Reaction / Comment(s): Pt states he has received blood in the past without reaction. Date of Last Stent Placement:: 2005 Past Psychological History: No Psychological Hx Reported Smoking Status: Never smoker Past Alcohol Use History: Occasional Past Drug Use History: None Reported - Past Family History Father Family Medical History: CVA/TIA, Vascular Disorder Additional Family Medical History / Comment(s): cva x2. Father is 81 yrs old. Mother Additional Family Medical History / Comment(s): arthritis. Mother is 76 yrs old. General Exam - General Exam Comments Initial Comments: Significant abscess, hematoma right foot drainage, lateral aspect of right foot 3 x 3 cm Limitations: no limitations General appearance: alert, in no apparent distress Head exam: Present: atraumatic, normocephalic, normal inspection Eye exam: Present: normal appearance, PERRL, EOMI. Absent: scleral icterus, c onjunctival injection, periorbital swelling ENT exam: Present: normal exam, mucous membranes moist Neck exam: Present: normal inspection. Absent: tenderness, meningismus, lymphadenopathy Respiratory exam: Present: normal lung sounds bilaterally. Absent: respiratory distress, wheezes, rales, rhonchi, stridor Cardiovascular Exam: Present: regular rate, normal rhythm, normal heart sounds. Absent: systolic murmur, diastolic murmur, rubs, gallop, clicks GI/Abdominal exam: Present: soft, normal bowel sounds. Absent: distended, tenderness, guarding, rebound, rigid Extremities exam: Present: normal inspection, full ROM, normal capillary refill. Absent: tenderness, pedal edema, joint swelling, calf tenderness Back exam: Present: normal inspection Neurological exam: Present: alert, oriented X3, CN II-XII intact Psychiatric exam: Present: normal affect, normal mood Skin exam: Present: warm, dry, intact, normal color. Absent: rash Course Vital Signs 11/26/18 11/26/18 16:49 18:49 Temperature 98.2 F 98.0 F Pulse Rate 86 85 Respiratory 18 12 Rate Blood Pressure 148/51 153/50 O2 Sat by Pulse 99 94 L Oximetry - Reevaluation(s) Reevaluation #1: 11/26/18 19:11 Medical record reviewed Reevaluation #2: 11/26/18 19:11 X-ray done showing Charcot foot likely osteoma Reevaluation #3: 11/26/18 19:11 Patient is in no significant distress or pain Medical Decision Making - Medical Decision Making 58 male the admitted for IV antibiotics secondary to likely osteomyelitis right foot - Lab Data Result diagrams: 11/26/18 18:30 04/29/19 18:30 Disposition Clinical Impression: Abscess, Diabetic foot ulcer, Charcot foot due to diabetes mellitus Disposition: ADMITTED IP TO THIS HOSP Condition: Fair Is patient prescribed a controlled substance at d/c from ED?: No
[2018-11-26] MEDS ORDERED: SODIUM CHLORIDE 0.9% 1,000 ML IV STA (17:53)
[2018-11-26] MEDS ORDERED: VANCOMYCIN IV PER PHARMACY 1 EACH MISC MISCELLANE PRN (17:53)
[2018-11-26] MEDS ORDERED: VANCOMYCIN 1,750 MG in SODIUM CHLORIDE 0.9% 500 ML 500 ML IVPB STA (17:57)
[2018-11-26 18:47] LABS: Basophils % (A) 0 %; Eosinophils % (A) 0 %; HCT 41.6 % (39.0-53.0); HGB 13.4 gm/dL (13.0-17.5); Lymphocytes # (A) 0.4 k/uL (1.0-4.8); Lymphocytes % (A) 3 %; MCH 30.7 pg (25.0-35.0); MCHC 32.3 g/dL (31.0-37.0); MCV 95.2 fL (80.0-100.0); Mean Platelet Volume 7.5; Monocytes # (A) 0.9 k/uL (0-1.0); Monocytes % (A) 7 %; Neutrophils # (A) 10.4 k/uL (1.3-7.7); Neutrophils % (A) 87 %; Platelet Count 197 k/uL (150-450); RBC 4.37 m/uL (4.30-5.90); WBC 11.9 k/uL (3.8-10.6)
[2018-11-26 18:56] LABS: Albumin 4.5 g/dL (3.5-5.0); Calcium 9.3 mg/dL (8.4-10.2); Magnesium 1.7 mg/dL (1.6-2.3); Phosphorus 3.6 mg/dL (2.5-4.5); Potassium 5.5 mmol/L (3.5-5.1)
[2018-11-26 19:00] LABS: Partial Thromboplastin Time 28.6 sec (22.0-30.0); Prothrombin Time 10.6 sec (9.0-12.0)
[2018-11-26] MEDS ORDERED: HYDROcodone/APAP 5-325MG 1 EACH TAB PO PRN (21:15)
[2018-11-26] MEDS: PRAVASTATIN SODIUM 40 MG TAB PO SCH (23:19)
[2018-11-26] MEDS: ACETAMINOPHEN TAB 325 MG TAB PO PRN (23:19)
[2018-11-26] MEDS: amLODIPine 5 MG TAB PO SCH (23:23)
[2018-11-26] MEDS: LOSARTAN 50 MG TAB PO SCH (23:23)
[2018-11-27] MEDS: HEPARIN SODIUM,PORCINE 5,000 UNIT/ML 1 ML VIAL SQ SCH ×3 (00:19→17:18)
[2018-11-27] MEDS ORDERED: VANCOMYCIN 1,500 MG in SODIUM CHLORIDE 0.9% 250 ML IVPB SCH (06:00)
[2018-11-27] MEDS: CARVEDILOL 6.25 MG TAB PO SCH ×2 (07:48→17:18)
[2018-11-27] MEDS: CALCIUM CARB-VIT D 500MG-200UN 1 EACH TAB PO SCH ×2 (07:48→21:45)
[2018-11-27] MEDS: MAGNESIUM OXIDE 400 MG TAB PO SCH ×2 (07:48→21:45)
[2018-11-27] MEDS: PANTOPRAZOLE 40 MG TABLET PO SCH (07:48)
[2018-11-27] MEDS: predniSONE 5 MG TAB PO SCH (07:48)
[2018-11-27] MEDS: TACROLIMUS 0.5 MG CAP PO SCH ×2 (07:49→21:46)
[2018-11-27] MEDS: MYCOPHENOLATE SODIUM DR 180 MG TABLET.DR PO SCH ×2 (07:49→21:46)
[2018-11-27] MEDS: MULTIVITAMINS, THERA 1 EACH TAB PO SCH (07:52)
[2018-11-27] MEDS ORDERED: POTASSIUM CHLORIDE ER 20 MEQ TAB.ER PO SCH (09:00)
--- NOTE | 2018-11-27 11:27 | P.HPIM ---
History of Present Illness H&P Date: 11/27/18 Chief Complaint: Right foot abscess. This is a 58-year-old male one of Dr. Lu with a previous medical history significant for hypertension and hypertensive cardio vascular disease with left ventricular hypertrophy, history of DVT of the left lower extremity, history of the end-stage renal disease was on hemodialysis post kidney and pancreas transplant in 2008 at the [facility], gout, Charcot foot, diabetes mellitus type 2, patient was in his usual state of health about last Monday when he tripped over an extension cord and he her the right side of the foot and he had a callus on the edge of the right foot he ended [facility] and he developed a blister to the right foot yesterday looked at it and he was surprised to see a big blister with increased erythema to the right dorsal aspect of the foot, he ended up going see Dr. Enriquez who referred her to the emergency department at [facility] he was admitted to the hospital under were service infectious disease consultation as well as vascular surgery consultation for I&D was obtained. Patient was started on vancomycin and Rocephin. Review of Systems Constitutional: Denies anorexia, Denies chills, Denies chronic headaches, Denies lethargy, Denies weakness, Denies weight gain, Denies weight loss Eyes: denies blurred vision, denies bulging eye, denies decreased vision Ears, nose, mouth and throat: Denies dysphagia, Denies neck lump, Denies swelling in throat, Denies sore throat Cardiovascular: Denies chest pain, Denies decreased exercise tolerance, Denies dyspnea on exertion, Denies rapid heart beat, Denies shortness of breath, Denies syncope Respiratory: Denies congestion, Denies cough, Denies cough with sputum, Denies home oxygen, Denies sleep apnea, Denies snoring, Denies wheezing Gastrointestinal: Denies abdominal pain, Denies bloating, Denies BRBPR, Denies heartburn, Denies loss of appetite, Denies melena, Denies nausea, Denies vomiting Genitourinary: Denies dysuria, Denies polyuria Musculoskeletal: Reports gait dysfunction, Reports hot joints Musculoskeletal: right: foot pain, foot swelling, absent: ankle pain, ankle stiffness, ankle swelling, elbow pain, hand pain, hand stiffness, hand swelling, hip pain, hip stiffness, hip swelling, knee pain, knee stiffness, knee swelling, shoulder pain, shoulder stiffness, shoulder swelling, wrist pain, wrist stiffness, wrist swelling Integumentary: Reports color changes, Reports foot/leg ulcers (Right foot abscess.) Neurological: Denies numbness, Denies weakness Psychiatric: Denies anxiety, Denies depression Endocrine: Denies fatigue, Denies weight change Past Medical History Past Medical History: Coronary Artery Disease (CAD), Cancer, Diabetes Mellitus, Deep Vein Thrombosis (DVT), GERD/Reflux, Hyperlipidemia, Hypertension, Osteoarthritis (OA), Pneumonia, Renal Disease, Skin Disorder, Vascular Disorder Additional Past Medical History / Comment(s): pt states he has history of diabetes mellitus before pancreas and left kidney transplant. pt states he no longer has diabetes but will still check his blood sugar every now and again.admitted with clinical impression of URI, community acquired pneumonia. Other HX: charcot, hx diabetes-had pancreas transplant, HTN cardiovascular disease, murmur, DVT L leg, poor circulation, bilateral feet and hand neuropathy, diabetic retinopathy, psoriasis, wound rt ankle and R heel healed - had tx in wound clinic, pt had been in end stage renal disease and had hemodialysis for 3 yrs then had kidneys and pancreas transplant In 2008 at [facility], gout, osteopenia, multiple malignant cutanous lesions with removals. Sqaumus cell carcinoma left forearm History of Any Multi-Drug Resistant Organisms: None Reported Past Surgical History: Heart Catheterization With Stent, Orthopedic Surgery Additional Past Surgical History / Comment(s): kidney & pancrease transplant 2008, cataracts removed, surgery to reconnect rt achilles tendon with dehisence and then several debridements of wound to R ankle and R heel, skin lesion removal-basal cell cancer, A/V fistula L upper arm, parathyroidectomy, R wrist fx with surgery. Sqaumus cell carcinoma removed September 2016, and again in january 2018 Past Anesthesia/Blood Transfusion Reactions: No Reported Reaction Additional Past Anesthesia/Blood Transfusion Reaction / Comment(s): Pt states he has received blood in the past without reaction. Date of Last Stent Placement:: 2005 Past Psychological History: No Psychological Hx Reported Smoking Status: Never smoker Past Alcohol Use History: Occasional Past Drug Use History: None Reported - Past Family History Father Family Medical History: CVA/TIA, Vascular Disorder Additional Family Medical History / Comment(s): cva x2. Father is 81 yrs old. Mother Additional Family Medical History / Comment(s): arthritis. Mother is 76 yrs old. Medications and Allergies Home Medications Medication Instructions Recorded Confirmed Type Allopurinol [Zyloprim] 300 mg PO HS 05/21/14 11/26/18 History Calcium Carbonate/Vitamin D3 1 tab PO BID 05/21/14 11/26/18 History [Calcium 500-Vit D3 400 Tablet] Cholecalciferol [Vitamin D3] 5,000 unit PO BID 05/21/14 11/26/18 History Potassium Chloride [Klor-Con 20] 40 meq PO BID 05/21/14 11/26/18 History Pravastatin Sodium [Pravachol] 40 mg PO HS 05/21/14 11/26/18 History Tacrolimus [Prograf] 0.5 mg PO BID 05/21/14 11/26/18 History predniSONE 5 mg PO DAILY 05/21/14 11/26/18 History Magnesium Oxide [Mag-Ox] 400 mg PO BID 08/01/14 11/26/18 History Multivitamin/Iron/Folic Acid 1 tab PO DAILY 08/01/14 11/26/18 History [Centrum Complete Multivit Tab] Carvedilol [Coreg] 6.25 mg PO BID 04/02/15 11/26/18 History Omeprazole [PriLOSEC] 20 mg PO AC-BRKFST 05/18/15 11/26/18 History Aspirin 81 mg PO HS 11/08/16 11/26/18 History HYDROcodone/APAP 5-325MG [[place] 1 tab PO TID PRN 02/15/18 11/26/18 History 5-325] Losartan [Cozaar] 50 mg PO HS 11/26/18 11/26/18 History Mycophenolate Sodium [Mycophenolic 360 mg PO DAILY 11/26/18 11/26/18 History Acid] Mycophenolate Sodium [Mycophenolic 720 mg PO HS 11/26/18 11/26/18 History Acid] amLODIPine [Norvasc] 5 mg PO HS 11/26/18 11/26/18 History Allergies Allergy/AdvReac Type Severity Reaction Status Date / Time No Known Allergies Allergy Verified 11/26/18 17:13 Physical Exam Vitals: Vital Signs Temp Pulse Pulse Resp BP BP Pulse Ox 11/27/18 08:16 70 16 11/27/18 07:00 98.3 F 70 16 145/72 95 11/27/18 00:00 84 18 11/26/18 23:00 98.9 F 66 18 105/56 94 L 11/26/18 20:44 97.9 F 84 18 182/68 98 11/26/18 18:49 98.0 F 85 12 153/50 94 L 11/26/18 16:49 98.2 F 86 18 148/51 99 Intake and Output 11/26/18 11/27/18 11/27/18 22:59 06:59 14:59 Intake Total 450 450 390 Balance 450 450 390 Intake: Amount of Fluid Infused ( 100 ml) Oral 350 450 390 Other: # Voids 2 2 # Bowel Movements 0 0 Weight 77.564 kg - Constitutional General appearance: average body habitus, no acute distress - EENT Eyes: anicteric sclerae, EOMI, PERRLA, no ptosis, no scleral icterus, normal appearance ENT: hearing grossly normal, NA/AT, normal oropharynx, no thrush Ears: bilateral: normal - Neck Neck: no lymphadenopathy, normal ROM, no rigidity, no stridor, no thyromegaly Carotids: bilateral: upstroke normal - Respiratory Respiratory: bilateral: diminished, negative: dullness, rales, rhonchi, wheezing, prolonged expiration, prolonged inspiration - Cardiovascular Heart sounds: normal: S1, S2 Abnormal Heart Sounds: systolic murmur, no S3 Gallop, no S4 Gallop, no click - Gastrointestinal General gastrointestinal: normal bowel sounds, no soft, no splenomegaly, no tenderness, no umbilical hernia, no ventral hernia - Integumentary Integumentary: normal, normal turgor - Neurologic Neurologic: CNII-XII intact - Musculoskeletal Musculoskeletal: strength equal bilaterally - Psychiatric Psychiatric: A&O x's 3, appropriate affect, intact judgment & insight Results CBC & Chem 7: 11/26/18 18:30 11/26/18 18:30 Labs: Abnormal Lab Results - Last 24 Hours (Table) 11/26/18 11/26/18 11/26/18 Range/Units 18:30 18:30 18:30 WBC 11.9 H (3.8-10.6) k/uL Neutrophils # 10.4 H (1.3-7.7) k/uL Lymphocytes # 0.4 L (1.0-4.8) k/uL ESR 19 H (0-15) mm/hr Potassium 5.5 H (3.5-5.1) mmol/L Carbon Dioxide 20 L (22-30) mmol/L BUN 30 H (9-20) mg/dL Creatinine 1.28 H (0.66-1.25) mg/dL Thrombosis Risk Factor Assmnt - DVT/VTE Prophylaxis DVT/VTE Prophylaxis: Pharmacologic Prophylaxis ordered - Choose All That Apply Any of the Below Risk Factors Present?: Yes Each Factor Represents 1 point: Age 41-60 years, Obesity (BMI >25), Swollen legs (current) Each Risk Factor Represents 3 Points: History of DVT/PE Thrombosis Risk Factor Assessment Total Risk Factor Score: 6 Thrombosis Risk Factor Assessment Level: High Risk Assessment and Plan Assessment: Assessment and plan: 1. Right foot abscess with possible osteomyelitis. Patient will be started on [facility] to dose its peak and trough, switch Rocephin into meropenem, and blood cultures 2, MRI of the right foot, vascular surgery consultation for I&D, infectious disease consultation. 2. Hypertension and hypertensive cardio vascular disease. Continue carvedilol 6.25 mg orally twice every day, losartan 50 mg orally once every day, amlodipine 5 mg orally once every day. 3. History of kidney and pancreas transplant back in 2008 at the [facility]. Continue patient on Prograf as well as CellCept. 4. Gout. Continue allopurinol 300 mg orally once every day. 5. History of diabetes mellitus type 2 post pancreatic transplant. 6. History of end-stage renal disease post kidney transplant. 7. Hyperlipidemia. Continue patient on Pravachol 40 mg orally once every day. 8. History of squamous cell cancer status post Mohs procedure of the left forearm. Currently under dermatology care. 9. History of DVT. Continue with heparin 5000 units subcutaneously every 8 hours. 10. GERD. Continue PPI. 11. History of diabetic polyneuropathy. Stable. 12. History of diabetic retinopathy. Stable. 13. History of psoriasis. Stable. 14. DVT prophylaxis. Continue patient on heparin 5000 units subcutaneously every 8 hours . 15. GI prophylaxis. Continue PPI. 16. Admit to inpatient. Estimate length of stay 2 midnights. 17. Patient is full code.
--- NOTE | 2018-11-27 12:15 | P.CONS ---
History of Present Illness - Reason for Consult Consult date: 11/27/18 Diabetic ulcer - History of Present Illness This is a 58-year-old male patient well known to ID service with a si gnificant past history of chronic kidney disease with pancreas and kidney transplant done in 2008. Patient has been in the wound healing center due to ulcer to the right heel with a right Achilles tendon reattachment that was done by Dr. Beverly with subsequent wound dehiscence. 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 This has subsequently healed but patient does have 2 areas of recurrence on the left arm and one on the right forearm for which he has follow up in place. Patient gives history that on Monday he tripped over an extension cord and went across the top of his right foot and he developed pain to the area. He applied an Nicola wrap which seemed to help a little bit but then on Monday [facility] september and developed significant pain following that. He also had chills that evening and has felt very tired since. On Mondays pain continued to worsen and he called Dr. Enriquez's office and was told to come into [facility] emergency center for evaluation. Patient was found to have a white count of 11.9, he was afebrile, BUN 30, creatinine 1.28, potassium 5.5. Urinalysis was negative. A blood culture was obtained and patient was seen by orthopedics and MRI of the foot has been ordered. There is a consult also in place with Dr. Alves. Patient is currently on Rocephin and vancomycin. Review of Systems All systems: negative Constitutional: Reports chills, Reports fatigue, Denies anorexia, Denies fever, Denies lethargy, Denies poor appetite Eyes: bilateral decreased vision, denies blurred vision, denies pain Ears, nose, mouth and throat: Denies dental pain, Denies headache, Denies mouth pain, Denies nasal congestion, Denies nasal discharge, Denies sore throat, Denies vertigo Cardiovascular: Denies chest pain, Denies decreased exercise tolerance, Denies dyspnea on exertion, Denies edema, Denies leg edema, Denies orthopnea, Denies shortness of breath, Denies syncope Respiratory: Reports cough (chronic), Denies cough with sputum, Denies dyspnea, Denies excessive sputum, Denies hemoptysis, Denies home oxygen, Denies wheezing Gastrointestinal: Denies abdominal pain, Denies diarrhea, Denies loss of appetite, Denies nausea, Denies vomiting Genitourinary: Denies dysuria, Denies urinary retention (urine is darker in color from normal) Musculoskeletal: Denies frequent falls, Denies gait dysfunction, Denies muscle weakness, Denies myalgias Integumentary: Reports color changes, Reports wounds, Denies pruritus, Denies rash Neurological: Denies aphasia, Denies change in mentation, Denies change in speech, Denies double vision, Denies gait dysfunction, Denies numbness, Denies seizures, Denies weakness Psychiatric: Denies anxiety, Denies depression Endocrine: Denies fatigue, Denies weight change Past Medical History Past Medical History: Coronary Artery Disease (CAD), Cancer, Diabetes Mellitus, Deep Vein Thrombosis (DVT), GERD/Reflux, Hyperlipidemia, Hypertension, O steoarthritis (OA), Pneumonia, Renal Disease, Skin Disorder, Vascular Disorder Additional Past Medical History / Comment(s): pt states he has history of diabetes mellitus before pancreas and left kidney transplant. pt states he no longer has diabetes but will still check his blood sugar every now and again.admitted with clinical impression of URI, community acquired pneumonia. Other HX: char[place], hx diabetes-had pancreas transplant, HTN cardiovascular disease, murmur, DVT L leg, poor circulation, bilateral feet and hand neuropathy, diabetic retinopathy, psoriasis, wound rt ankle and R heel healed - had tx in wound clinic, pt had been in end stage renal disease and had hemodialysis for 3 yrs then had kidneys and pancreas transplant In 2008 at [facility], gout, osteopenia, multiple malignant cutanous lesions with removals. Sqaumus cell carcinoma left forearm History of Any Multi-Drug Resistant Organisms: None Reported Past Surgical History: Heart Catheterization With Stent, Orthopedic Surgery Additional Past Surgical History / Comment(s): kidney & pancrease transplant 200 9, cataracts removed, surgery to reconnect rt achilles tendon with dehisence and then several debridements of wound to R ankle and R heel, skin lesion removal- basal cell cancer, A/V fistula L upper arm, parathyroidectomy, R wrist fx with surgery. Sqaumus cell carcinoma removed September 2016, and again in january 2018 Past Anesthesia/Blood Transfusion Reactions: No Reported Reaction Additional Past Anesthesia/Blood Transfusion Reaction / Comm: Pt states he has received blood in the past without reaction. Date of Last Stent Placement:: 2005 Past Psychological History: No Psychological Hx Reported Smoking Status: Never smoker Past Alcohol Use History: Occasional Additional Past Alcohol Use History / Comment(s): Patient is a lifelong nonsmoker. No marijuana or illicit drug use. No alcohol use. Patient lives at home with his and dog. Patient is independent and drives. Past Drug Use History: None Reported - Past Family History Father Family Medical History: CVA/TIA, Vascular Disorder Additional Family Medical History / Comment(s): cva x2. Father is 81 yrs old. Mother Additional Family Medical History / Comment(s): arthritis. Mother is 76 yrs old. Medications and Allergies Home Medications Medication Instructions Recorded Confirmed Type Allopurinol [Zyloprim] 300 mg PO HS 05/21/14 11/26/18 History Calcium Carbonate/Vitamin D3 1 tab PO BID 05/21/14 11/26/18 History [Calcium 500-Vit D3 400 Tablet] Cholecalciferol [Vitamin D3] 5,000 unit PO BID 05/21/14 11/26/18 History Potassium Chloride [Klor-Con 20] 40 meq PO BID 05/21/14 11/26/18 History Pravastatin Sodium [Pravachol] 40 mg PO HS 05/21/14 11/26/18 History Tacrolimus [Prograf] 0.5 mg PO BID 05/21/14 11/26/18 History predniSONE 5 mg PO DAILY 05/21/14 11/26/18 History Magnesium Oxide [Mag-Ox] 400 mg PO BID 08/01/14 11/26/18 History Multivitamin/Iron/Folic Acid 1 tab PO DAILY 08/01/14 11/26/18 History [Centrum Complete Multivit Tab] Carvedilol [Coreg] 6.25 mg PO BID 04/02/15 11/26/18 History Omeprazole [PriLOSEC] 20 mg PO AC-BRKFST 05/18/15 11/26/18 History Aspirin 81 mg PO HS 11/08/16 11/26/18 History HYDROcodone/APAP 5-325MG [[place] 1 tab PO TID PRN 02/15/18 11/26/18 History 5-325] Losartan [Cozaar] 50 mg PO HS 11/26/18 11/26/18 History Mycophenolate Sodium [Mycophenolic 360 mg PO DAILY 11/26/18 11/26/18 History Acid] Mycophenolate Sodium [Mycophenolic 720 mg PO HS 11/26/18 11/26/18 History Acid] amLODIPine [Norvasc] 5 mg PO HS 11/26/18 11/26/18 History Allergies Allergy/AdvReac Type Severity Reaction Status Date / Time No Known Allergies Allergy Verified 11/26/18 17:13 Physical Exam Vitals: Vital Signs Temp Pulse Pulse Resp BP BP Pulse Ox 11/27/18 08:16 70 16 11/27/18 07:00 98.3 F 70 16 145/72 95 11/27/18 00:00 84 18 11/26/18 23:00 98.9 F 66 18 105/56 94 L 11/26/18 20:44 97.9 F 84 18 182/68 98 11/26/18 18:49 98.0 F 85 12 153/50 94 L 11/26/18 16:49 98.2 F 86 18 148/51 99 Intake and Output 11/26/18 11/27/18 11/27/18 22:59 06:59 14:59 Intake Total 450 450 390 Balance 450 450 390 Intake: Amount of Fluid Infused ( 100 ml) Oral 350 450 390 Other: # Voids 2 2 # Bowel Movements 0 0 Weight 77.564 kg Gen: This is a 58-year-old male. He is sitting up in bed appears to be in no acute distress. HEENT: Head is atraumatic, normocephalic. Pupils equal, round. Sclerae is anicteric. NECK: Supple. No JVD. No lymphadenopathy. No thyromegaly. LUNGS: Clear to auscultation. No wheezes or rhonchi. No intercostal retractions. HEART: Regular rate and rhythm. Systolic murmur. ABDOMEN: Soft. Bowel sounds are present. No masses. No tenderness. EXTREMITIES: No pedal edema. No calf tenderness. Dorsalis pedis +2 bilaterally. Patient has a large what appears to be serous fluid filled bullous on the lateral right foot at the distal fifth metatarsal. Mild surrounding erythema and edema. Area is very tender to touch. NEUROLOGICAL: Patient is awake, alert and oriented x3. Cranial nerves 2 through 12 are grossly intact. Results Results: Laboratory Results WBC 11.9 k/uL (3.8-10.6) H 11/26/18 18:30 RBC 4.37 m/uL (4.30-5.90) 11/26/18 18:30 Hgb 13.4 gm/dL (13.0-17.5) 11/26/18 18:30 Hct 41.6 % (39.0-53.0) 11/26/18 18:30 MCV 95.2 fL (80.0-100.0) 11/26/18 18:30 MCH 30.7 pg (25.0-35.0) 11/26/18 18: MCHC 32.3 g/dL (31.0-37.0) 11/26/18 18: RDW 15.0 % (11.5-15.5) 11/26/18 18:30 Plt Count 197 k/uL (150-450) 11/26/18 18:30 Neutrophils % 87 % 11/26/18 18:30 Lymphocytes % 3 % 11/26/18 18:30 Monocytes % 7 % 11/26/18 18:30 Eosinophils % 0 % 11/26/18 18: Basophils % 0 % 11/26/18 18:30 Neutrophils # 10.4 k/uL (1.3-7.7) H 11/26/18 18:30 Lymphocytes # 0.4 k/uL (1.0-4.8) L 11/26/18 18: Monocytes # 0.9 k/uL (0-1.0) 11/26/18 18: Eosinophils # 0.0 k/uL (0-0.7) 11/26/18 18: Basophils # 0.0 k/uL (0-0.2) 11/26/18 18:30 ESR 19 mm/hr (0-15) H 11/26/18 18:30 PT 10.6 sec (9.0-12.0) 11/26/18 18:30 INR 1.0 (<1.2) 11/26/18 18:30 APTT 28.6 sec (22.0-30.0) 11/26/18 18:30 Sodium 137 mmol/L (137-145) 11/26/18 18:30 Potassium 5.5 mmol/L (3.5-5.1) H 11/26/18 18:30 Chloride 106 mmol/L (98-107) 11/26/18 18:30 Carbon Dioxide 20 mmol/L (22-30) L 11/26/18 18:30 Anion Gap 11 mmol/L 11/26/18 18:30 BUN 30 mg/dL (9-20) H 11/26/18 18:30 Creatinine 1.28 mg/dL (0.66-1.25) H 11/26/18 18:30 Est GFR (CKD-EPI)AfAm 70 (>60 ml/min/1.73 sqM) 11/26/18 18:30 Est GFR (CKD-EPI)NonAf 61 (>60 ml/min/1.73 sqM) 11/26/18 18:30 Glucose 86 mg/dL (74-99) 11/26/18 18:30 Plasma Lactic Acid Hector 1.0 mmol/L (0.7-2.0) 11/26/18 18:30 Calcium 9.3 mg/dL (8.4-10.2) 11/26/18 18:30 Phosphorus 3.6 mg/dL (2.5-4.5) 11/26/18 18:30 Magnesium 1.7 mg/dL (1.6-2.3) 11/26/18 18:30 Total Bilirubin 1.0 mg/dL (0.2-1.3) 11/26/18 18:30 AST 23 U/L (17-59) 11/26/18 18:30 ALT 39 U/L (21-72) 11/26/18 18:30 Alkaline Phosphatase 61 U/L (38-126) 11/26/18 18:30 Troponin I 0.021 ng/mL (0.000-0.034) 11/26/18 18:30 Total Protein 7.0 g/dL (6.3-8.2) 11/26/18 18:30 Albumin 4.5 g/dL (3.5-5.0) 11/26/18 18:30 CBC & Chem 7: 11/26/18 18:30 11/26/18 18:30 Labs: Abnormal Lab Results - Last 24 Hours (Table) 11/26/18 11/26/18 11/26/18 Range/Units 18:30 18:30 18:30 WBC 11.9 H (3.8-10.6) k/uL Neutrophils # 10.4 H (1.3-7.7) k/uL Lymphocytes # 0.4 L (1.0-4.8) k/uL ESR 19 H (0-15) mm/hr Potassium 5.5 H (3.5-5.1) mmol/L Carbon Dioxide 20 L (22-30) mmol/L BUN 30 H (9-20) mg/dL Creatinine 1.28 H (0.66-1.25) mg/dL Assessment and Plan Plan: This is a 58-year-old male patient who presented to the hospital with right foot abscess with possible osteomyelitis. Patient has received vancomycin and Rocephin. Antibiotics will be adjusted. Blood cultures and progress. Wound culture to be obtained. MRI of the foot is in progress. Patient is also followed by Dr. Alves and Dr. Enriquez. Continue supportive care. Patient will require tight glucose control for healing. Further recommendations as patient regresses. The above dictated assessment and findings were discussed with Dr. Myers. The impression and plan of care have been directed as dictated. Lora Perez nurse practitioner acting as scribe for Dr. Myers.
--- NOTE | 2018-11-27 13:14 | MR ---
EXAMINATION TYPE: MR foot RT wo/w con DATE OF EXAM: 11/27/2018 COMPARISON: None HISTORY: Rt foot wound at tarsometatarsal joint at 5th digit CONTRAST: Standard multiplanar, multisequence MRI departmental protocol utilizing 7.5 mL intravenous Gadavist g adolinium contrast. FINDINGS: Extensive arthropathy is seen of the midfoot and hindfoot with bony productive change and o sseous erosions. Subchondral osseous cysts are seen. In the area of interest deep to the base of the fifth metatarsal head there is soft tissue ulceration and focal edema measuring 3.2 cm in anterior posterior dimension there is enhancement at this locati on with a linear tract the skin surface leading to the base of the fifth metatarsal. At the very medi al margin of the base of the fifth metatarsal on image 15 of pre and postcontrast sagittal T1 nonfat sat weighted imaging there is a very small focus of T1 hypointense mildly enhancing marrow replacemen t measuring approximately 9 mm. Throughout the remainder of the hindfoot there is diffuse subcutaneou s edema. Evaluation of the ligaments and tendons is limited given diffuse soft tissue swelling and pa tient motion. Ankle mortise remains aligned in its visualized portions. No gross evidence of ligament ous tear. Previous brevis tendinosis is noted with enhancement and thickening of the tendon. Focal ar ea of bone marrow edema is seen of the anterior talar process near the sinus tarsus may be due to art hropathy. No acute fracture line is seen. IMPRESSION: 1. Plantar skin ulceration at the base of the fifth metatarsal of the right foot with subcutaneous ed art and fat stranding and very small area of osteomyelitis of the base of the fifth metatarsal. No fo raj drainable abscess. 2. Extensive hindfoot and midfoot arthropathy. Erosions are seen and erosive osteoarthropathy or, CPP D gout could be considered. 3. Previous brevis insertional tendinosis, likely reactive from the adjacent inflammatory change.
[2018-11-27 15:07] VITALS: BMI 25.2
--- NOTE | 2018-11-27 15:21 | P.CNOR ---
History of Present Illness - [facility] Consult date: 11/27/18 History of present illness: This patient is a 58-year old male with a past medical history of hypertension, DVT of the left lower extremity, end-stage renal disease on hemodialysis that is status-post kidney and pancreas transplant in 2008, Charcot foot, and history of diabetes mellitus type 2 that presented to [facility] ED on 11/26/18 for evaluation of a right foot ulcer. The patient was seen earlier in the day at Dr. Enriquez's office for right foot pain after tripping over a cord in the home. The patient was found to have a ulcer of the right plantar foot, and Dr. Enriquez recommended he present to [facility] ED for evaluation and treatment. The patient was subsequently admitted to internal medicine with consults placed to orthopedi cs, vascular surgery, and infectious disease. At the time of my examination, the patient states he has been experiencing pain in the right foot since he tripped over the power cord over the weekend. He states he was unaware of the draining ulcer on his foot until he presented to the Dr. Enriquez's office and his foot was inspected. He states he has been feeling chills yesterday and today. Patient denies chest pain, shortness of breath, nausea, vomiting. Patient denies any additional complaints at the time of my exam. Past Medical History Past Medical History: Coronary Artery Disease (CAD), Cancer, Diabetes Mellitus, Deep Vein Thrombosis (DVT), GERD/Reflux, Hyperlipidemia, Hypertension, Osteoarthritis (OA), Pneumonia, Renal Disease, Skin Disorder, Vascular Disorder Additional Past Medical History / Comment(s): pt states he has history of diabetes mellitus before pancreas and left kidney transplant. pt states he no longer has diabetes but will still check his blood sugar every now and again.admitted with clinical impression of URI, community acquired pneumonia. Other HX: [place], hx diabetes-had pancreas transplant, HTN cardiovascular disease, murmur, DVT L leg, poor circulation, bilateral feet and hand neuropathy , diabetic retinopathy, psoriasis, wound rt ankle and R heel healed - had tx in wound clinic, pt had been in end stage renal disease and had hemodialysis for 3 yrs then had kidneys and pancreas transplant In 2008 at [facility], gout, osteopenia, multiple malignant cutanous lesions with removals. Sqaumus cell carcinoma left forearm History of Any Multi-Drug Resistant Organisms: None Reported Past Surgical History: Heart Catheterization With Stent, Orthopedic Surgery Additional Past Surgical History / Comment(s): kidney & pancrease transplant 2008, cataracts removed, surgery to reconnect rt achilles tendon with dehisence and then several debridements of wound to R ankle and R heel, skin lesion removal-basal cell cancer, A/V fistula L upper arm, parathyroidectomy, R wrist fx with surgery. Sqaumus cell carcinoma removed September 2016, and again in january 2018 Past Anesthesia/Blood Transfusion Reactions: No Reported Reaction Additional Past Anesthesia/Blood Transfusion Reaction / Comm: Pt states he has received blood in the past without reaction. Date of Last Stent Placement:: 2005 Past Psychological History: No Psychological Hx Reported Smoking Status: Never smoker Past Alcohol Use History: Occasional Past Drug Use History: None Reported - Past Family History Father Family Medical History: CVA/TIA, Vascular Disorder Additional Family Medical History / Comment(s): cva x2. Father is 81 yrs old. Mother Additional Family Medical History / Comment(s): arthritis. Mother is 76 yrs old. Medications and Allergies Home Medications Medication Instructions Recorded Confirmed Type Allopurinol [Zyloprim] 300 mg PO HS 05/21/14 11/26/18 History Calcium Carbonate/Vitamin D3 1 tab PO BID 05/21/14 11/26/18 History [Calcium 500-Vit D3 400 Tablet] Cholecalciferol [Vitamin D3] 5,000 unit PO BID 05/21/14 11/26/18 History Potassium Chloride [Klor-Con 20] 40 meq PO BID 05/21/14 11/26/18 History Pravastatin Sodium [Pravachol] 40 mg PO HS 05/21/14 11/26/18 History Tacrolimus [Prograf] 0.5 mg PO BID 05/21/14 11/26/18 History predniSONE 5 mg PO DAILY 05/21/14 11/26/18 History Magnesium Oxide [Mag-Ox] 400 mg PO BID 08/01/14 11/26/18 History Multivitamin/Iron/Folic Acid 1 tab PO DAILY 08/01/14 11/26/18 History [Centrum Complete Multivit Tab] Carvedilol [Coreg] 6.25 mg PO BID 04/02/15 11/26/18 History Omeprazole [PriLOSEC] 20 mg PO AC-BRKFST 05/18/15 11/26/18 History Aspirin 81 mg PO HS 11/08/16 11/26/18 History HYDROcodone/APAP 5-325MG [[place] 1 tab PO TID PRN 02/15/18 11/26/18 History 5-325] Losartan [Cozaar] 50 mg PO HS 11/26/18 11/26/18 History Mycophenolate Sodium [Mycophenolic 360 mg PO DAILY 11/26/18 11/26/18 History Acid] Mycophenolate Sodium [Mycophenolic 720 mg PO HS 11/26/18 11/26/18 History Acid] amLODIPine [Norvasc] 5 mg PO HS 11/26/18 11/26/18 History Allergies Allergy/AdvReac Type Severity Reaction Status Date / Time No Known Allergies Allergy Verified 11/26/18 17:13 Physical Examination On examination, the patient is sitting up in bed in no apparent distress. The patient is alert and orientated x3. His breathing appears non labored. On inspection of the right foot, there is a roughly 2cm fluctuant mass on the lateral aspect of the foot. There is no active drainage. There is surrounding erythema with diffuse swelling of the foot. This area is tender to palpation. The patient is able to wiggle his toe without issue. There is no pain on PROM of the ankle. Foot is warm and well-perfused with brisk capillary refill. Sensation is intact to light touch of the plantar and dorsal foot, as well as the first webspace. The left calf is soft and non tender to palpation. Results MRI left foot 11/27/18: Plantar skin ulceration at the base of the 5th metatarsal base. Small area of osteomyelitis of the base of the 5th metatarsal base. No focal drainable abscess. Extensive hindfoot and midfoot arthropathy. - Labs Labs: Abnormal Lab Results - Last 24 Hours (Table) 11/26/18 11/26/18 11/26/18 Range/Units 18:30 18:30 18:30 WBC 11.9 H (3.8-10.6) k/uL Neutrophils # 10.4 H (1.3-7.7) k/uL Lymphocytes # 0.4 L (1.0-4.8) k/uL ESR 19 H (0-15) mm/hr Potassium 5.5 H (3.5-5.1) mmol/L Carbon Dioxide 20 L (22-30) mmol/L BUN 30 H (9-20) mg/dL Creatinine 1.28 H (0.66-1.25) mg/dL H & H 11/26/18 Range/Units 18:30 Hgb 13.4 (13.0-17.5) gm/dL Hct 41.6 (39.0-53.0) % Coagulation 11/26/18 Range/Units 18:30 INR 1.0 (<1.2) Result Diagrams: 11/26/18 18:30 11/26/18 18:30 Assessment and Plan Assessment: Plantar skin ulceration at the base of the fifth metatarsal, right foot Osteomyelitis, right foot Plan: - There is no surgical intervention planned at this time. - Non-weight bearing of the right lower extremity while wearing a CAM boot. - Antibiotics per infectious disease. - We will continue to follow patient while he remains inpatient and make recommendations as needed. - Patient discussed with Dr. Enriquez.
--- NOTE | 2018-11-27 16:23 | P.CON ---
Consult Note - . Consult date: 11/27/18 Assessment/Plan:: This is a 58-year-old male patient well known to ID service with a significant past history of chronic kidney disease with pancreas and kidney transplant done in 2008. Patient has been in the wound healing center due to ulcer to the right heel with a right Achilles tendon reattachment that was done by Dr. Beverly with subsequent wound dehiscence. 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 This has subsequently healed but patient does have 2 areas of recurrence on the left arm and one on the right forearm for which he has follow up in place. Patient gives history that on Monday he tripped over an extension cord and went across the top of his right foot and he developed pain to the area. He applied an Nicola wrap which seemed to help a little bit but then on Monday he walked with the [facility] for a 1 mile september and developed significant pain following that. He also had chills that evening and has felt very tired since. On Mondays pain continued to worsen and he called Dr. Enriquez's office and was told to come into [facility] for evaluation. Patient was found to have a white count of 11.9, he was afebrile, BUN 30, creatinine 1.28, potassium 5.5. Urinalysis was negative. A blood culture was obtained and patient was seen by orthopedics and MRI of the foot has been ordered. There is a consult also in place with Dr. Alves. Patient is currently on Rocephin and vancomycin. Please see the consult note as dictated by nurse practitioner Vladimir Lora Perez. Pleasant 58-year-old male who suffered minimal trauma to his foot as well as a large amount of walking and has not resulted in a significant abscesses formed on the lateral aspect of his right foot. The patient will be evaluated by foot and ankle surgery for further advice and potential surgical incision and drainage of this abscess. The patient fortunately is not very uncomfortable. MRI is pending. As far as the left arm there is evidence of some residual squamous cell carcinoma and he is being followed by the team out of town for the surgical intervention engrafting that is required. This area does not appear to be infected. Prior cultures reviewed which reveal evidence of MSSA and enterococcus from the prior foot wounds, constantly given the renal transplant and pancreatic transplant status would discontinue vancomycin therapy. We'll transition Rocephin to Unasyn and monitor cultures. Local wound care as a dry dressing until surgical intervention occurs. He should offload this completely at this point in time. I agree with evaluation, assessment and plan as dictated by nurse practitioner Mrs. Lora Perez.
[2018-11-27] MEDS: AMPICILLIN-SULBACTAM 3 GM in SODIUM CHLORIDE 0.9% 100 ML IVPB SCH (17:45)
[2018-11-27] MEDS: LOSARTAN 50 MG TAB PO SCH (21:44)
[2018-11-27] MEDS: PRAVASTATIN SODIUM 40 MG TAB PO SCH (21:44)
[2018-11-27] MEDS: ASPIRIN 81 MG PO SCH (21:44)
[2018-11-27] MEDS: ALLOPURINOL 300 MG TAB PO SCH (21:44)
[2018-11-27] MEDS: ACETAMINOPHEN TAB 325 MG TAB PO PRN (21:45)
[2018-11-27] MEDS: amLODIPine 5 MG TAB PO SCH (21:45)
[2018-11-28] MEDS: AMPICILLIN-SULBACTAM 3 GM in SODIUM CHLORIDE 0.9% 100 ML IVPB SCH ×5 (00:33→23:59)
[2018-11-28] MEDS: HEPARIN SODIUM,PORCINE 5,000 UNIT/ML 1 ML VIAL SQ SCH ×4 (01:25→23:59)
[2018-11-28 07:07] LABS: Glucose,Whole Blood 79 mg/dL (75-99)
[2018-11-28] MEDS: predniSONE 5 MG TAB PO SCH (08:06)
[2018-11-28] MEDS: MAGNESIUM OXIDE 400 MG TAB PO SCH ×2 (08:06→21:06)
[2018-11-28] MEDS: MYCOPHENOLATE SODIUM DR 180 MG TABLET.DR PO SCH ×2 (08:06→21:07)
[2018-11-28] MEDS: CALCIUM CARB-VIT D 500MG-200UN 1 EACH TAB PO SCH ×2 (08:06→21:06)
[2018-11-28] MEDS: TACROLIMUS 0.5 MG CAP PO SCH ×2 (08:06→21:07)
[2018-11-28] MEDS: CARVEDILOL 6.25 MG TAB PO SCH ×2 (08:06→16:41)
[2018-11-28] MEDS: MULTIVITAMINS, THERA 1 EACH TAB PO SCH (08:06)
[2018-11-28] MEDS: PANTOPRAZOLE 40 MG TABLET PO SCH (08:06)
[2018-11-28 09:03] LABS: Basophils % (A) 0 %; Eosinophils # (A) 0.2 k/uL (0-0.7); Eosinophils % (A) 2 %; HCT 39.7 % (39.0-53.0); HGB 12.6 gm/dL (13.0-17.5); Lymphocytes # (A) 0.3 k/uL (1.0-4.8); Lymphocytes % (A) 5 %; MCH 30.3 pg (25.0-35.0); MCHC 31.6 g/dL (31.0-37.0); MCV 95.7 fL (80.0-100.0); Mean Platelet Volume 7.9; Monocytes # (A) 0.5 k/uL (0-1.0); Monocytes % (A) 8 %; Neutrophils # (A) 5.4 k/uL (1.3-7.7); Neutrophils % (A) 84 %; Platelet Count 205 k/uL (150-450); RBC 4.15 m/uL (4.30-5.90); RDW 14.1 % (11.5-15.5); WBC 6.5 k/uL (3.8-10.6)
--- NOTE | 2018-11-28 09:14 | P.PN ---
Subjective Progress Note Date: 11/28/18 Mr. Bush continues to complain of pain in his foot but is otherwise doing well. He has no other complaints this morning. Objective - Vital Signs Vital signs: Vital Signs Temp 98.2 F 11/28/18 07:00 Pulse 64 11/28/18 07:00 Resp 12 11/28/18 07:00 BP 165/69 11/28/18 07:00 Pulse Ox 92 L 11/28/18 07:00 Intake & Output 11/27/18 11/28/18 11/28/18 18:59 06:59 18:59 Intake Total 1070 450 Balance 1070 450 Weight 77.564 kg Intake: Intake, IV Titration 500 Amount Vancomycin 1,750 mg In 500 Sodium Chloride 0.9% 500 ml 500 ml @ 167 mls/hr IVPB ONCE STA Rx#: [id number] Oral 570 450 Other: Voiding Method Toilet # Voids 2 1 - Exam The patient is in no apparent distress and is able to easily answer questions. A focused examination of the right foot was conducted. The dressing was taken down and there is an area of superficial ulceration over the lateral border of the foot at the fifth metatarsal base. There is nonviable skin over the wound and a malodorous purulent drainage. There is diffuse erythema and warmth surrounding the ulcer but no haroldo fluctuance or subcutaneous crepitance. - Labs CBC & Chem 7: 11/28/18 07:54 11/26/18 18:30 Labs: Abnormal Lab Results - Last 24 Hours (Table) 11/28/18 Range/Units 07:54 RBC 4.15 L (4.30-5.90) m/uL Hgb 12.6 L (13.0-17.5) gm/dL Lymphocytes # 0.3 L (1.0-4.8) k/uL Microbiology - Last 24 Hours (Table) 11/27/18 18:02 Gram Stain - Preliminary Foot - Right Wound Culture - Preliminary 11/26/18 18:30 Blood Culture - Preliminary Blood No Growth after 24 hours Assessment and Plan Plan: The patient's MRI from yesterday showed superficial ulceration over the fifth m etatarsal base but no deep abscess. There was also evidence of osteomyelitis the fifth metatarsal base. On inspection of the patient's wound today there is purulent drainage and nonviable skin over the ulcer which was debrided and irrigated at bedside. A dressing was applied. We have ordered a boot for the patient. I have no plans for formal operative debridement at this time. I will defer wound care recommendations and choice of antibiotics to Dr. Myers and the wound team. We will continue to follow while Mr. Bush is an inpatient and are available for surgical debridement if his condition worsens. Procedure: Consent was obtained from Mr. Bush for a bedside debridement of his right foot wound. The nonviable skin over the fifth metatarsal base were sharply debrided with a pair of scissors. There is a superficial pocket of purulence underneath the skin which was evacuated. Sterile saline was used to irrigate the wound. A dressing was applied with Adaptic, 4 x 4, and an Nicola wrap.
[2018-11-28 09:31] LABS: ALT 30 U/L (21-72); AST 18 U/L (17-59); Albumin 3.5 g/dL (3.5-5.0); Alkaline Phosphatase 61 U/L (38-126); Anion Gap 11 mmol/L; Blood Urea Nitrogen 18 mg/dL (9-20); Calcium 8.9 mg/dL (8.4-10.2); Carbon Dioxide 20 mmol/L (22-30); Chloride 111 mmol/L (98-107); Glucose 130 mg/dL (74-99); Magnesium 1.6 mg/dL (1.6-2.3); Potassium 4.3 mmol/L (3.5-5.1); Sodium 142 mmol/L (137-145); Total Bilirubin 0.7 mg/dL (0.2-1.3); Total Protein 5.8 g/dL (6.3-8.2)
[2018-11-28] MEDS ORDERED: LIDOCAINE 1% INJ 10MG/ML (20 ML MDV) ONE (11:22)
[2018-11-28 11:57] LABS: Glucose,Whole Blood 101 mg/dL (75-99)
[2018-11-28 12:54] LABS: Erythrocyte Sedimentation Rate 26 mm/hr (0-15)
--- NOTE | 2018-11-28 13:24 | IR ---
PICC LINE PLACEMENT: HISTORY: Infection requiring long-term antibiotic therapy PROCEDURE: Ultrasound and fluoroscopic guidance of PICC line placement. COMPLICATIONS: None ANESTHESIA: 1. 1% Lidocaine locally. FINDINGS/TECHNIQUE: The procedure was explained to the patient. The risks, complications, benefits and alternatives were discussed and any questions were answered. Informed consent was obtained. The patient was placed supine on the fluoroscopic table and prepped and draped in the usual sterile fash ion. Utilizing a 21 gauge needle and sonographic and fluoroscopic guidance, access in the right bas ilic vein was achieved and there is placement of a 0.018 guidewire. The vein is patent. A 4-F sheat h was placed over the guidewire. The guidewire and dilator were removed and a 4-F. PICC line was shay aide through the sheath with the tip at the level of the SVC. The sheath was removed, the catheter wa s flushed and sutured into position. The patient was stable throughout the procedure and remained st able upon discharge from the Department of Radiology. The vein puncture was patent under ultrasound. A cerna scale image was obtained to document patency of the vein punctured. All elements of the maximal barrier technique were utilized. FLUOROSCOPY TIME: 0.5 minutes and one image submitted IMPRESSION: Successful PICC line placement under ultrasound and fluoroscopic guidance.
--- NOTE | 2018-11-28 15:08 | P.PN ---
Subjective Progress Note Date: 11/28/18 This is a 58-year-old male one of Dr. Lu with a previous medical history significant for hypertension and hypertensive cardio vascular disease with left ventricular hypertrophy, history of DVT of the left lower extremity, history of the end-stage renal disease was on hemodialysis post kidney and pancreas transplant in 2008 at the [facility], gout, Charcot foot, diabetes mellitus type 2, patient was in his usual state of health about last Monday when he tripped over an extension cord and he her the right side of the foot and he had a callus on the edge of the right foot he ended up walking for about a mild for the [facility] and he developed a blister to the right foot yesterday looked at it and he was surprised to see a big blister with increased erythema to the right dorsal aspect of the foot, he ended up going see Dr. Enriquez who referred her to the emergency department at [facility] he was admitted to the hospital under were service infectious disease consultation as well as vascular surgery consultation for I&D was obtained. Patient was started on vancomycin and Rocephin. 11/28: MRI of the foot shows plantar skin ulceration at the base of the fifth metatarsal on the right foot with subcutaneous edema and fat stranding and very small area of osteomyelitis of the base of the fifth metatarsal. No focal drainable abscess. Extensive hindfoot and midfoot arthropathy. Erosions are seen any gross of osteoarthropathy or CPPD gout could be considered. Previous previous insertion tendinosis likely reactive from adjacent inflammatory change. Patient is followed by multiple consultants including Dr. Enriquez and he has performed a bedside I&D this morning. Nonweightbearing on the right lower extremity while wearing cam boot. Patient has been seen by Dr. Myers and currently on Unasyn. PICC line will be ordered for home or office IV antibiotics. Case management is following. Dr. Alves is on consult. Wound cultures and progress and blood cultures showing no growth after 24 hours. Repeat white count is normal at 6.5, hemoglobin 12.6, BUN 18 creatinine 0.95. Patient states that pain is currently well controlled. Review of Systems Constitutional: Denies anorexia, Denies chills, Denies chronic headaches, Denies lethargy, Denies weakness, Denies weight gain, Denies weight loss Eyes: denies blurred vision, denies bulging eye, denies decreased vision Ears, nose, mouth and throat: Denies dysphagia, Denies neck lump, Denies s welling in throat, Denies sore throat Cardiovascular: Denies chest pain, Denies decreased exercise tolerance, Denies dyspnea on exertion, Denies rapid heart beat, Denies shortness of breath, Denies syncope Respiratory: Denies congestion, Denies cough, Denies cough with sputum, Denies home oxygen, Denies sleep apnea, Denies snoring, Denies wheezing Gastrointestinal: Denies abdominal pain, Denies bloating, Denies BRBPR, Denies heartburn, Denies loss of appetite, Denies melena, Denies nausea, Denies vomiting Genitourinary: Denies dysuria, Denies polyuria Musculoskeletal: Reports gait dysfunction, Reports hot joints Musculoskeletal: right: foot pain, foot swelling, absent: ankle pain, ankle stiffness, ankle swelling, elbow pain, hand pain, hand stiffness, hand swelling, hip pain, hip stiffness, hip swelling, knee pain, knee stiffness, knee swelling, shoulder pain, shoulder stiffness, shoulder swelling, wrist pain, wrist stiffness, wrist swelling Integumentary: Reports color changes, Reports foot/leg ulcers (Right foot abscess.) Neurological: Denies numbness, Denies weakness Psychiatric: Denies anxiety, Denies depression Endocrine: Denies fatigue, Denies weight change Objective - Vital Signs Vital signs: Vital Signs Temp 98.2 F 11/28/18 07:00 Pulse 64 11/28/18 07:00 Resp 18 11/28/18 08:00 BP 165/69 11/28/18 07:00 Pulse Ox 92 L 11/28/18 07:00 Intake & Output 11/27/18 11/28/18 11/28/18 18:59 06:59 18:59 Intake Total 1070 450 Balance 1070 450 Weight 77.564 kg Intake: Intake, IV Titration 500 Amount Vancomycin 1,750 mg In 500 Sodium Chloride 0.9% 500 ml 500 ml @ 167 mls/hr IVPB ONCE STA Rx#: [id number] Oral 570 450 Other: Voiding Method Toilet Toilet # Voids 2 1 - Exam General appearance: average body habitus, no acute distress. Patient is sitting in a chair. - EENT Eyes: anicteric sclerae, EOMI, PERRLA, no ptosis, no scleral icterus, normal a ppearance ENT: hearing grossly normal, NA/AT, normal oropharynx, no thrush Ears: bilateral: normal - Neck Neck: no lymphadenopathy, normal ROM, no rigidity, no stridor, no thyromegaly Carotids: bilateral: upstroke normal - Respiratory Respiratory: bilateral: diminished, negative: dullness, rales, rhonchi, wheezing, prolonged expiration, prolonged inspiration - Cardiovascular Heart sounds: normal: S1, S2 Abnormal Heart Sounds: systolic murmur, no S3 Gallop, no S4 Gallop, no click - Gastrointestinal General gastrointestinal: normal bowel sounds, no soft, no splenomegaly, no tenderness, no umbilical hernia, no ventral hernia - Integumentary Integumentary: normal, normal turgor - Neurologic Neurologic: CNII-XII intact - Musculoskeletal Musculoskeletal: strength equal bilaterally - Psychiatric Psychiatric: A&O x's 3, appropriate affect, intact judgment & insight - Labs CBC & Chem 7: 11/28/18 07:54 11/28/18 07:54 Labs: Abnormal Lab Results - Last 24 Hours (Table) 11/28/18 11/28/18 Range/Units 07:54 07:54 RBC 4.15 L (4.30-5.90) m/uL Hgb 12.6 L (13.0-17.5) gm/dL Lymphocytes # 0.3 L (1.0-4.8) k/uL Chloride 111 H (98-107) mmol/L Carbon Dioxide 20 L (22-30) mmol/L Glucose 130 H (74-99) mg/dL Total Protein 5.8 L (6.3-8.2) g/dL Microbiology - Last 24 Hours (Table) 11/27/18 18:02 Gram Stain - Preliminary Foot - Right Wound Culture - Preliminary 11/26/18 18:30 Blood Culture - Preliminary Blood No Growth after 24 hours Assessment and Plan Plan: 1. Right foot abscess with osteomyelitis in the fifth metatarsal, status post bedside I&D. Continue Unasyn. Cultures are in progress. PICC line will be ordered for today. Consults with Dr. Enriquez, Dr. Myers and Dr. Alves appreciated. MRI as above. 2. Hypertension and hypertensive cardio vascular disease. Continue carvedilol 6.25 mg orally twice every day, losartan 50 mg orally once every day, amlodipine 5 mg orally once every day. 3. History of kidney and pancreas transplant back in 2008 at the [facility]. Continue patient on Prograf as well as CellCept. 4. Gout. Continue allopurinol 300 mg orally once every day. 5. History of diabetes mellitus type 2 post pancreatic transplant. 6. History of end-stage renal disease post kidney transplant. 7. Hyperlipidemia. Continue patient on Pravachol 40 mg orally once every day. 8. History of squamous cell cancer status post Mohs procedure of the left forearm. Currently under dermatology care. 9. History of DVT. Continue with heparin 5000 units subcutaneously every 8 hours. 10. GERD. Continue PPI. 11. History of diabetic polyneuropathy. Stable. 12. History of diabetic retinopathy. Stable. 13. History of psoriasis. Stable. 14. DVT prophylaxis. Continue patient on heparin 5000 units subcutaneously every 8 hours . 15. GI prophylaxis. Continue PPI. 16. Patient is full code. Discharge plan: Most likely return home with homecare and IV antibiotics. Impression and plan of care have been directed as dictated by the signing physician. Lora Perez nurse practitioner acting as scribe for signing [email or web address].
[2018-11-28] MEDS ORDERED: VANCOMYCIN TROUGH DUE 1 EACH MISC MISCELLANE ONE (17:00)
[2018-11-28] MEDS: amLODIPine 5 MG TAB PO SCH (21:06)
[2018-11-28] MEDS: LOSARTAN 50 MG TAB PO SCH (21:06)
[2018-11-28] MEDS: PRAVASTATIN SODIUM 40 MG TAB PO SCH (21:06)
[2018-11-28] MEDS: ALLOPURINOL 300 MG TAB PO SCH (21:06)
[2018-11-28] MEDS: ASPIRIN 81 MG PO SCH (21:06)
[2018-11-28] MEDS: ACETAMINOPHEN TAB 325 MG TAB PO PRN (21:07)
[2018-11-29] MEDS: AMPICILLIN-SULBACTAM 3 GM in SODIUM CHLORIDE 0.9% 100 ML IVPB SCH ×4 (06:02→23:53)
[2018-11-29] MEDS: MAGNESIUM OXIDE 400 MG TAB PO SCH ×2 (08:00→20:51)
[2018-11-29] MEDS: HEPARIN SODIUM,PORCINE 5,000 UNIT/ML 1 ML VIAL SQ SCH ×3 (08:00→23:53)
[2018-11-29] MEDS: PANTOPRAZOLE 40 MG TABLET PO SCH (08:00)
[2018-11-29] MEDS: MYCOPHENOLATE SODIUM DR 180 MG TABLET.DR PO SCH ×2 (08:00→20:55)
[2018-11-29] MEDS: CALCIUM CARB-VIT D 500MG-200UN 1 EACH TAB PO SCH ×2 (08:00→20:51)
[2018-11-29] MEDS: MULTIVITAMINS, THERA 1 EACH TAB PO SCH (08:01)
[2018-11-29] MEDS: predniSONE 5 MG TAB PO SCH (08:01)
[2018-11-29] MEDS: CARVEDILOL 6.25 MG TAB PO SCH ×2 (08:01→16:53)
[2018-11-29] MEDS: TACROLIMUS 0.5 MG CAP PO SCH ×2 (08:01→20:51)
--- NOTE | 2018-11-29 12:57 | P.PN ---
Subjective Progress Note Date: 11/29/18 This patient is a 58-year old male with a past medical history of hypertension, DVT of the left lower extremity, end-stage renal disease on hemodialysis that is status-post kidney and pancreas transplant in 2008, Charcot foot, and history of diabetes mellitus type 2 that presented to [facility] ED on 11/26/18 for evaluation of a right foot ulcer. The patient was seen earlier in the day at Dr. Enriquez's office for right foot pain after tripping over a cord in the home. The patient was found to have a ulcer of the right plantar foot, and Dr. Enriquez recommended he present to [facility] ED for evaluation and treatment. The patient was subsequently admitted to internal medicine with consults placed to ortho pedics, vascular surgery, and infectious disease. At the time of my examination, the patient states he has been experiencing pain in the right foot since he tripped over the power cord over the weekend. He states he was unaware of the draining ulcer on his foot until he presented to the Dr. Enriquez's office and his foot was inspected. Patient was admitted to internal medicine with consults placed to orthopedics, vascular surgery, and infectious disease. Dr. Enriquez performed a bedside debridement and irrigation of the ulcer at bedside yesterday, and a dressing was applied. Today, the patient states he is doing well. He is experiencing minimal pain in the foot, he states it felt better after the ulcer was debrided yesterday. He has been wearing the CAM boot. He denies additional complaints today. Objective - Vital Signs Vital signs: Vital Signs Temp 97.8 F 11/29/18 07:00 Pulse 68 11/29/18 07:00 Resp 15 11/29/18 08:00 BP 159/69 11/29/18 07:00 Pulse Ox 93 L 11/29/18 07:00 Intake & Output 11/28/18 11/29/18 11/29/18 18:59 06:59 18:59 Intake Total 240 Balance 240 Intake: Oral 240 Other: Voiding Method Toilet Toilet Toilet # Voids 3 2 - Exam On examination, the patient is sitting in a chair in no apparent distress. He is alert and oriented 3. There is a CAM boot on the right lower extremity. CAM boot is removed and reveals a Nicola wrap. Nicola wrap is removed and reveals saturated adaptic and 4x4, which were removed and replaced. There is an area of debrided skin over the lateral border of the foot. Diffuse erythema and warmth surrounding this area, no areas of fluctuance. Patient is able to wiggle his toes without issues. The foot is warm and well-perfused with brisk capillary refill. Clean dressing of adaptic, 4x4s, and NICOLA wrap is re-applied. - Labs CBC & Chem 7: 11/28/18 07:54 11/28/18 07:54 Labs: Abnormal Lab Results - Last 24 Hours (Table) 11/28/18 11/28/18 Range/Units 07:54 11:44 ESR 26 H (0-15) mm/hr POC Glucose (mg/dL) 101 H (75-99) mg/dL Microbiology - Last 24 Hours (Table) 11/26/18 18:30 Blood Culture - Preliminary Blood No Growth after 48 hours 11/27/18 18:02 Gram Stain - Preliminary Foot - Right Wound Culture - Preliminary Gram Neg Bacilli - Imaging and Cardiology MRI left foot 11/27/18: Plantar skin ulceration at the base of the 5th metatarsal base. Small area of osteomyelitis of the base of the 5th metatarsal base. No focal drainable abscess. Extensive hindfoot and midfoot arthropathy. Assessment and Plan Assessment: Plantar skin ulceration at the base of the fifth metatarsal, right foot. Status- post bedside debridement and irrigation on 11/28/[address] Enriquez. Osteomyelitis, right foot Plan: - There is no surgical intervention planned at this time. Defer further wound care to the infectious disease team. - Non-weight bearing of the right lower extremity while wearing a CAM boot. Crutches ordered. - Antibiotics per infectious disease. Wound cultures showing gram negative bacilli. - We will continue to follow patient while he remains inpatient and make recommendations as needed. - Patient discussed with Dr. Enriquez.
--- NOTE | 2018-11-29 13:57 | P.PN ---
Subjective Progress Note Date: 11/29/18 This is a 58-year-old male one of Dr. Lu with a previous medical history significant for hypertension and hypertensive cardio vascular disease with left ventricular hypertrophy, history of DVT of the left lower extremity, history of the end-stage renal disease was on hemodialysis post kidney and pancreas transplant in 2008 at the [facility], gout, Charcot foot, diabetes mellitus type 2, patient was in his usual state of health about last Monday when he tripped over an extension cord and he her the right side of the foot and he had a callus on the edge of the right foot he ended up walking for about a mild for the [facility] and he developed a blister to the right foot yesterday looked at it and he was surprised to see a big blister with increased erythema to the right dorsal aspect of the foot, he ended up going see Dr. Enriquez who referred her to the emergency department at [facility] he was admitted to the hospital under were service infectious disease consultation as well as vascular surgery consultation for I&D was obtained. Patient was started on vancomycin and Rocephin. 11/28: MRI of the foot shows plantar skin ulceration at the base of the fifth metatarsal on the right foot with subcutaneous edema and fat stranding and very small area of osteomyelitis of the base of the fifth metatarsal. No focal drainable abscess. Extensive hindfoot and midfoot arthropathy. Erosions are seen any gross of osteoarthropathy or CPPD gout could be considered. Previous previous insertion tendinosis likely reactive from adjacent inflammatory change. Patient is followed by multiple consultants including Dr. Enriquez and he has performed a bedside I&D this morning. Nonweightbearing on the right lower extremity while wearing cam boot. Patient has been seen by Dr. Myers and currently on Unasyn. PICC line will be ordered for home or office IV antibiotics. Case management is following. Dr. Alves is on consult. Wound cultures and progress and blood cultures showing no growth after 24 hours. Repeat white count is normal at 6.5, hemoglobin 12.6, BUN 18 creatinine 0.95. Patient states that pain is currently well controlled. 11/29: Patient has been afebrile, blood pressure 159/69, pulse ox 93% on room air, heart rate in the 60s. Yesterday we did increase losartan to 100 mg at bedtime. Blood cultures showing no growth after 48 hours. Wound culture is stating gram-negative bacilli. Patient states that his pain in his left foot is well controlled. He occasionally has a sharp pain. He is planning to go to [facility] office for IV antibiotics. He denies having any shortness of breath. He did have a bowel movement this morning. He was up and took a shower this morning. Anticipate wound culture report will be available tomorrow and patient will be discharged once all arrangements were set up for IV antibiotics. Review of Systems Constitutional: Denies anorexia, Denies chills, Denies chronic headaches, Denies lethargy, Denies weakness, Denies weight gain, Denies weight loss Eyes: denies blurred vision, denies bulging eye, denies decreased vision Ears, nose, mouth and throat: Denies dysphagia, Denies neck lump, Denies swel ling in throat, Denies sore throat Cardiovascular: Denies chest pain, Denies decreased exercise tolerance, Denies dyspnea on exertion, Denies rapid heart beat, Denies shortness of breath, Denies syncope Respiratory: Denies congestion, Denies cough, Denies cough with sputum, Denies home oxygen, Denies sleep apnea, Denies snoring, Denies wheezing Gastrointestinal: Denies abdominal pain, Denies bloating, Denies BRBPR, Denies heartburn, Denies loss of appetite, Denies melena, Denies nausea, Denies vomiting Genitourinary: Denies dysuria, Denies polyuria Musculoskeletal: Reports gait dysfunction, denies hot joints Musculoskeletal: right: foot pain, foot swelling, absent: ankle pain, ankle stiffness, ankle swelling, elbow pain, hand pain, hand stiffness, hand swelling, hip pain, hip stiffness, hip swelling, knee pain, knee stiffness, knee swelling, shoulder pain, shoulder stiffness, shoulder swelling, wrist pain, wrist stiffness, wrist swelling Integumentary: Reports color changes, Reports foot/leg ulcers Neurological: Denies numbness, Denies weakness Psychiatric: Denies anxiety, Denies depression Endocrine: Denies fatigue, Denies weight change Objective - Vital Signs Vital signs: Vital Signs Temp 97.8 F 11/29/18 07:00 Pulse 68 11/29/18 07:00 Resp 15 11/29/18 07:00 BP 159/69 11/29/18 07:00 Pulse Ox 93 L 11/29/18 07:00 Intake & Output 11/28/18 11/29/18 11/29/18 18:59 06:59 18:59 Intake Total 240 Balance 240 Intake: Oral 240 Other: Voiding Method Toilet Toilet # Voids 3 2 - Exam General appearance: average body habitus, no acute distress. Patient is sitting on edge of bed. - EENT Eyes: anicteric sclerae, EOMI, PERRLA, no ptosis, no scleral icterus, normal appearance ENT: hearing grossly normal, NA/AT, normal oropharynx, no thrush Ears: bilateral: normal - Neck Neck: no lymphadenopathy, normal ROM, no rigidity, no stridor, no thyromegaly Carotids: bilateral: upstroke normal - Respiratory Respiratory: bilateral: diminished, negative: dullness, rales, rhonchi, wheezing, prolonged expiration, prolonged inspiration - Cardiovascular Heart sounds: normal: S1, S2 Abnormal Heart Sounds: systolic murmur, no S3 Gallop, no S4 Gallop, no click - Gastrointestinal General gastrointestinal: normal bowel sounds, no soft, no splenomegaly, no tenderness, no umbilical hernia, no ventral hernia - Integumentary Integumentary: normal, normal turgor - Neurologic Neurologic: CNII-XII intact - Musculoskeletal Musculoskeletal: strength equal bilaterally - Psychiatric Psychiatric: A&O x's 3, appropriate affect, intact judgment & insight - Labs CBC & Chem 7: 11/28/18 07:54 11/28/18 07:54 Labs: Abnormal Lab Results - Last 24 Hours (Table) 11/28/18 11/28/18 11/28/18 Range/Units 07:54 07:54 11:44 RBC 4.15 L (4.30-5.90) m/uL Hgb 12.6 L (13.0-17.5) gm/dL Lymphocytes # 0.3 L (1.0-4.8) k/uL ESR 26 H (0-15) mm/hr Chloride 111 H (98-107) mmol/L Carbon Dioxide 20 L (22-30) mmol/L Glucose 130 H (74-99) mg/dL POC Glucose (mg/dL) 101 H (75-99) mg/dL Total Protein 5.8 L (6.3-8.2) g/dL Microbiology - Last 24 Hours (Table) 11/26/18 18:30 Blood Culture - Preliminary Blood No Growth after 48 hours 11/27/18 18:02 Gram Stain - Preliminary Foot - Right Wound Culture - Preliminary Gram Neg Bacilli Assessment and Plan Plan: 1. Right foot abscess with osteomyelitis in the fifth metatarsal, status post bedside I&D. Continue Unasyn. Wound cultures positive for gram-negative bacilli. PICC line completed. Consults with Dr. Enriquez, Dr. Myers and Dr. Alves appreciated. MRI as above. 2. Hypertension and hypertensive cardio vascular disease. Continue carvedilol 6.25 mg orally twice every day, losartan 50 mg orally once every day, amlodipine 5 mg orally once every day. 3. History of kidney and pancreas transplant back in 2008 at the [facility]. Continue patient on Prograf as well as CellCept. 4. Gout. Continue allopurinol 300 mg orally once every day. 5. History of diabetes mellitus type 2 post pancreatic transplant. 6. History of end-stage renal disease post kidney transplant. 7. Hyperlipidemia. Continue patient on Pravachol 40 mg orally once every day. 8. History of squamous cell cancer status post Mohs procedure of the left forearm. Currently under dermatology care. 9. History of DVT. Continue with heparin 5000 units subcutaneously every 8 hours. 10. GERD. Continue PPI. 11. History of diabetic polyneuropathy. Stable. 12. History of diabetic retinopathy. Stable. 13. History of psoriasis. Stable. 14. DVT prophylaxis. Continue patient on heparin 5000 units subcutaneously every 8 hours . 15. GI prophylaxis. Continue PPI. 16. Patient is full code. Discharge plan: Most likely return home and next 24 hours and IV antibiotics at [facility]. Impression and plan of care have been directed as dictated by the signing physician. Lora Perez nurse practitioner acting as scribe for signing physician.
[2018-11-29] MEDS: LOSARTAN 50 MG TAB PO SCH (20:50)
[2018-11-29] MEDS: ASPIRIN 81 MG PO SCH (20:50)
[2018-11-29] MEDS: ALLOPURINOL 300 MG TAB PO SCH (20:51)
[2018-11-29] MEDS: PRAVASTATIN SODIUM 40 MG TAB PO SCH (20:51)
[2018-11-29] MEDS: amLODIPine 5 MG TAB PO SCH (20:51)
[2018-11-29 21:02] LABS: Glucose,Whole Blood 91 mg/dL (75-99)
--- NOTE | 2018-11-29 23:30 | P.PN ---
Subjective Progress Note Date: 11/29/18 This is a 58-year-old male patient well known to ID service with a significant past history of chronic kidney disease with pancreas and kidney transplant done in 2008. Patient has been in the wound healing center due to ulcer to the right heel with a right Achilles tendon reattachment that was done by Dr. Beverly with subsequent wound dehiscence. This eventually healed and patient was most recently seen in the wound center in 2017 at which time he had squamous cell cancer with neural invasion removed from the right arm/M0H resection. This has subsequently healed but patient does have 2 areas of recurrence on the left arm and one on the right forearm for which he has follow up in place. Patient gives history that on Monday he tripped over an extension cord and went across the top of his right foot and he developed pain to the area. He applied an Nicola wrap which seemed to help a little bit but then on Monday he walked with the [employer] for a 1 mile march and develope d significant pain following that. He also had chills that evening and has felt very tired since. On Mondays pain continued to worsen and he called Dr. Enriquez's office and was told to come into [facility] emergency center for evaluation. Patient was found to have a white count of 11.9, he was afebrile, BUN 30, creatinine 1.28, potassium 5.5. Urinalysis was negative. A blood culture was obtained and patient was seen by orthopedics and MRI of the foot has been ordered. There is a consult also in place with Dr. Alves. Patient is currently on Rocephin and vancomycin. 11/29/2018 patient is status post incision and drainage of the foot abscess. Is feeling somewhat better. As noted MRI does reveal evidence of osteomyelitis. IV access and plans for outpatient intravenous antibiotic therapy are in process. Objective - Vital Signs Vital signs: Vital Signs Temp 97.7 F 11/29/18 20:01 Pulse 71 11/29/18 20:43 Resp 18 11/29/18 20:01 BP 145/77 11/29/18 20:43 Pulse Ox 96 11/29/18 20:43 Intake & Output 11/29/18 11/29/18 11/30/18 06:59 18:59 06:59 Intake Total 840 Balance 840 Intake: Oral 840 Other: Voiding Method Toilet Toilet # Voids 2 4 3 # Bowel Movements 1 - Exam Gen: This is a 58-year-old male. He is sitting up in bed appears to be in no acute distress. HEENT: Head is atraumatic, normocephalic. Pupils equal, round. Sclerae is anicteric. NECK: Supple. No JVD. No lymphadenopathy. No thyromegaly. LUNGS: Clear to auscultation. No wheezes or rhonchi. No intercostal retraction s. HEART: Regular rate and rhythm. Systolic murmur. ABDOMEN: Soft. Bowel sounds are present. No masses. No tenderness. EXTREMITIES: No pedal edema. No calf tenderness. Dorsalis pedis +2 bilateral ly. The foot ulceration is been incised and drained with removal of the necrotic tissue. Ascending erythema is minimal site is line tender NEUROLOGICAL: Patient is awake, alert and oriented x3. - Labs CBC & Chem 7: 11/28/18 07:54 11/28/18 07:54 Labs: Microbiology - Last 24 Hours (Table) 11/27/18 18:02 Gram Stain - Preliminary Foot - Right Wound Culture - Preliminary Morganella morganii Gram Neg Bacilli 11/26/18 18:30 Blood Culture - Preliminary Blood No Growth after 72 hours Laboratory Results WBC 6.5 k/uL (3.8-10.6) 11/28/18 07:54 RBC 4.15 m/uL (4.30-5.90) L 11/28/18 07:54 Hgb 12.6 gm/dL (13.0-17.5) L 11/28/18 07:54 Hct 39.7 % (39.0-53.0) 11/28/18 07:54 MCV 95.7 fL (80.0-100.0) 11/28/18 07:54 MCH 30.3 pg (25.0-35.0) 11/28/18 07:54 MCHC 31.6 g/dL (31.0-37.0) 11/28/18 07:54 RDW 14.1 % (11.5-15.5) 11/28/18 07:54 Plt Count 205 k/uL (150-450) 11/28/18 07:54 Neutrophils % 84 % 11/28/18 07:54 Lymphocytes % 5 % 11/28/18 07:54 Monocytes % 8 % 11/28/18 07:54 Eosinophils % 2 % 11/28/18 07:54 Basophils % 0 % 11/28/18 07:54 Neutrophils # 5.4 k/uL (1.3-7.7) 11/28/18 07:54 Lymphocytes # 0.3 k/uL (1.0-4.8) L 11/28/18 07:54 Monocytes # 0.5 k/uL (0-1.0) 11/28/18 07:54 Eosinophils # 0.2 k/uL (0-0.7) 11/28/18 07:54 Basophils # 0.0 k/uL (0-0.2) 11/28/18 07:54 ESR 26 mm/hr (0-15) H 11/28/18 07:54 PT 10.6 sec (9.0-12.0) 11/26/18 18:30 INR 1.0 (<1.2) 11/26/18 18:30 APTT 28.6 sec (22.0-30.0) 11/26/18 18:30 Sodium 142 mmol/L (137-145) 11/28/18 07:54 Potassium 4.3 mmol/L (3.5-5.1) 11/28/18 07:54 Chloride 111 mmol/L (98-107) H 11/28/18 07:54 Carbon Dioxide 20 mmol/L (22-30) L 11/28/18 07:54 Anion Gap 11 mmol/L 11/28/18 07:54 BUN 18 mg/dL (9-20) 11/28/18 07:54 Creatinine 0.95 mg/dL (0.66-1.25) 11/28/18 07:54 Est GFR (CKD-EPI)AfAm >90 (>60 ml/min/1.73 sqM) 11/28/18 07:54 Est GFR (CKD-EPI)NonAf 88 (>60 ml/min/1.73 sqM) 11/28/18 07:54 Glucose 130 mg/dL (74-99) H 11/28/18 07:54 POC Glucose (mg/dL) 91 mg/dL (75-99) 11/29/18 20:50 POC Glu Butter Fat Tester ID Junito Dickson 11/29/18 20:50 Plasma Lactic Acid Hector 1.0 mmol/L (0.7-2.0) 11/26/18 18:30 Calcium 8.9 mg/dL (8.4-10.2) 11/28/18 07:54 Phosphorus 3.6 mg/dL (2.5-4.5) 11/26/18 18:30 Magnesium 1.6 mg/dL (1.6-2.3) 11/28/18 07:54 Total Bilirubin 0.7 mg/dL (0.2-1.3) 11/28/18 07:54 AST 18 U/L (17-59) 11/28/18 07:54 ALT 30 U/L (21-72) 11/28/18 07:54 Alkaline Phosphatase 61 U/L (38-126) 11/28/18 07:54 Troponin I 0.021 ng/mL (0.000-0.034) 11/26/18 18:30 Total Protein 5.8 g/dL (6.3-8.2) L 11/28/18 07:54 Albumin 3.5 g/dL (3.5-5.0) 11/28/18 07:54 Microbiology 11/27/18 18:02 Foot - Right Gram Stain - Preliminary 11/27/18 18:02 Foot - Right Wound Culture - Preliminary Morganella morganii Gram Neg Bacilli 11/26/18 18:30 Blood Blood Culture - Preliminary No Growth after 72 hours Assessment and Plan (1) Diabetic foot ulcer Current Visit: Yes Status: Acute Code(s): E11.621 - TYPE 2 DIABETES MELLITUS WITH FOOT ULCER; L97.509 - NON-PRESSURE CHRONIC ULCER OTH PRT UNSP FOOT W UNSP SEVERITY SNOMED Code(s): 542510169 (2) Osteomyelitis of foot, right, acute Narrative/Plan: Pleasant 58-year-old male who suffered minimal trauma to his foot as well as a large amount of walking and has not resulted in a significant abscesses formed on the lateral aspect of his right foot. The patient will be evaluated by foot and ankle surgery for further advice and potential surgical incision and drainage of this abscess. The patient fortunately is not very uncomfortable. MRI is pending. As far as the left arm there is evidence of some residual squamous cell carcinoma and he is being followed by the team out of town for the surgical intervention engrafting that is required. This area does not appear to be infected. Prior cultures reviewed which reveal evidence of MSSA and enterococcus from the prior foot wounds, constantly given the renal transplant and pancreatic transplant status would discontinue vancomycin therapy. We'll transition Rocephin to Unasyn and monitor cultures. Local wound care as a dry dressing until surgical intervention occurs. He should offload this completely at this point in time. 11/29/2018 patient is having improvement of his status. Plans are in place for outpatient intravenous antibiotic therapy given the isolated Citrobacter gram- negative bacilli from the foot. IV access has been placed. Offloaded with especially boot is in place. Plans for his outpatient antibiotic therapy are in process. Current Visit: Yes Status: Acute Code(s): M86.171 - OTHER ACUTE OSTEOMYELITIS, RIGHT ANKLE AND FOOT SNOMED Code(s): 5170184564309347
[2018-11-30] MEDS: AMPICILLIN-SULBACTAM 3 GM in SODIUM CHLORIDE 0.9% 100 ML IVPB SCH ×2 (05:31→13:42)
[2018-11-30 07:22] LABS: Glucose,Whole Blood 84 mg/dL (75-99)
[2018-11-30] MEDS: MAGNESIUM OXIDE 400 MG TAB PO SCH (07:24)
[2018-11-30] MEDS: MULTIVITAMINS, THERA 1 EACH TAB PO SCH (07:24)
[2018-11-30] MEDS: predniSONE 5 MG TAB PO SCH (07:24)
[2018-11-30] MEDS: HEPARIN SODIUM,PORCINE 5,000 UNIT/ML 1 ML VIAL SQ SCH (07:24)
[2018-11-30] MEDS: PANTOPRAZOLE 40 MG TABLET PO SCH (07:24)
[2018-11-30] MEDS: CALCIUM CARB-VIT D 500MG-200UN 1 EACH TAB PO SCH (07:24)
[2018-11-30] MEDS: CARVEDILOL 6.25 MG TAB PO SCH (07:24)
[2018-11-30] MEDS: MYCOPHENOLATE SODIUM DR 180 MG TABLET.DR PO SCH (07:25)
[2018-11-30] MEDS: TACROLIMUS 0.5 MG CAP PO SCH (07:25)
[2018-11-30 08:37] VITALS: BP 148/65; PULSE 61; RESP 12; TEMP 98
[2018-11-30 11:56] LABS: Anion Gap 11 mmol/L; Blood Urea Nitrogen 14 mg/dL (9-20); Calcium 9.4 mg/dL (8.4-10.2); Carbon Dioxide 23 mmol/L (22-30); Chloride 108 mmol/L (98-107); Glucose 104 mg/dL (74-99); Magnesium 1.8 mg/dL (1.6-2.3); Potassium 4.8 mmol/L (3.5-5.1); Sodium 142 mmol/L (137-145)
--- NOTE | 2018-11-30 14:39 | P.DS ---
Providers Date of admission: 11/26/18 17:53 Expected date of discharge: 11/30/18 Attending physician: Greg Lu Consults: 11/26/18 17:53 Consult Physician Routine Consulting Provider: Lucian Enriquez Consult Reason/Comments: known Do you want consulting provider notified?: Yes 11/26/18 21:26 Consult Physician Routine Consulting Provider: Daniel Alves Consult Reason/Comments: Diabetic ulcer Do you want consulting provider notified?: Yes, Notify in am 11/26/18 21:27 Consult Physician Routine Consulting Provider: Greg Myers Consult Reason/Comments: Diabetic ulcer Do you want consulting provider notified?: Yes, Notify in am Primary care physician: Greg Aly [facility] Course: This is a 58-year-old male one of Dr. Lu with a previous medical history significant for hypertension and hypertensive cardio vascular disease with left ventricular hypertrophy, history of DVT of the left lower extremity, history of the end-stage renal disease was on hemodialysis post kidney and pancreas transplant in 2008 at the [facility], gout, Charcot foot, diabetes mellitus type 2, patient was in his usual state of health about last Monday when he tripped over an extension cord and he her the right side of the foot and he had a callus on the edge of the right foot he ended up walking for about a mild for the [facility] and he developed a blister to the right foot yesterday looked at it and he was surprised to see a big blister with increased erythema to the right dorsal aspect of the foot, he ended up going see Dr. Enriquez who referred her to the emergency department at [facility] he was admitted to the hospital under were service infectious disease consultation as well as vascular surgery consultation for I&D was obtained. Patient was started on vancomycin and Rocephin. 11/28: MRI of the foot shows plantar skin ulceration at the base of the fifth metatarsal on the right foot with subcutaneous edema and fat stranding and very small area of osteomyelitis of the base of the fifth metatarsal. No focal drainable abscess. Extensive hindfoot and midfoot arthropathy. Erosions are seen any gross of osteoarthropathy or CPPD gout could be considered. Previous previous insertion tendinosis likely reactive from adjacent inflammatory change. Patient is followed by multiple consultants including Dr. Enriquez and he has performed a bedside I&D this morning. Nonweightbearing on the right lower extremity while wearing cam boot. Patient has been seen by Dr. Myers and currently on Unasyn. PICC line will be ordered for home or office IV antibiotics. Case management is following. Dr. Alves is on consult. Wound cultures and progress and blood cultures showing no growth after 24 hours. Repeat white count is normal at 6.5, hemoglobin 12.6, BUN 18 creatinine 0.95. Patient states that pain is currently well controlled. 11/29: Patient has been afebrile, blood pressure 159/69, pulse ox 93% on room air, heart rate in the 60s. Yesterday we did increase losartan to 100 mg at bedtime. Blood cultures showing no growth after 48 hours. Wound culture is stating gram-negative bacilli. Patient states that his pain in his left foot is well controlled. He occasionally has a sharp pain. He is planning to go to [facility] office for IV antibiotics. He denies having any shortness of breath. He did have a bowel movement this morning. He was up and took a shower this morning. Anticipate wound culture report will be available tomorrow and patient will be discharged once all arrangements were set up for IV antibiotics. 11/30: Patient denies any new complaints. His pain is currently controlled. We have rechecked potassium and magnesium levels and patient's home dose of potassium 40 mg twice daily will be discontinued. Patient to follow-up in the office had recheck lab work done in the next week. Case management had made arrangements for home care as well as IV antibiotics at [facility]. Patient will be discharged home today in stable condition. Discharge diagnoses: 1. Right foot abscess with osteomyelitis in the fifth metatarsal, status post bedside I&D. 2. Hypertension and hypertensive cardiovascular disease. 3. History of kidney and pancreas transplant back in 2008 at the [facility]. 4. Gout, chronic. 5. History of diabetes mellitus type 2 post pancreatic transplant. 6. History of end-stage renal disease post kidney transplant. 7. Hyperlipidemia. 8. History of squamous cell cancer status post Mohs procedure of the left forearm. 9. History of DVT. 10. GERD. 11. History of diabetic polyneuropathy. Stable. 12. History of diabetic retinopathy. Stable. 13. History of psoriasis. Stable. Discharge plan: Most likely return home with [facility] and IV antibiotics at [facility]. Impression and plan of care have been directed as dictated by the signing physician. Lora Perez nurse practitioner acting as scribe for signing physician. Patient Condition at Discharge: Good Plan - Discharge Summary Discharge Rx Participant: No New Discharge Prescriptions: New cefTRIAXone [Rocephin] 2 gm IVPB Q24H #42 bag Losartan [Cozaar] 100 mg PO DAILY #60 tab Continue Cholecalciferol [Vitamin D3 (25 Mcg = 1000 Iu)] 5,000 unit PO BID Allopurinol [Zyloprim] 300 mg PO HS Tacrolimus [Prograf] 0.5 mg PO BID Pravastatin Sodium [Pravachol] 40 mg PO HS predniSONE 5 mg PO DAILY Calcium Carbonate/Vitamin D3 [Calcium 500-Vit D3 400 Tablet] 1 tab PO BID Multivitamin/Iron/Folic Acid [Centrum Complete Multivit Tab] 1 tab PO DAILY Magnesium Oxide [Mag-Ox] 400 mg PO BID Carvedilol [Coreg] 6.25 mg PO BID Omeprazole [PriLOSEC] 20 mg PO AC-BRKFST Aspirin 81 mg PO HS HYDROcodone/APAP 5-325MG [Redcrest 5-325] 1 tab PO TID PRN PRN Reason: Pain Mycophenolate Sodium [Mycophenolic Acid] 720 mg PO HS Mycophenolate Sodium [Mycophenolic Acid] 360 mg PO DAILY amLODIPine [Norvasc] 5 mg PO HS Discontinued Potassium Chloride [Klor-Con 20] 40 meq PO BID Losartan [Cozaar] 50 mg PO HS Discharge Medication List Allopurinol [Zyloprim] 300 mg PO HS 05/21/14 [History] Calcium Carbonate/Vitamin D3 [Calcium 500-Vit D3 400 Tablet] 1 tab PO BID 05/21/14 [History] Cholecalciferol [Vitamin D3 (25 Mcg = 1000 Iu)] 5,000 unit PO BID 05/21/14 [History] Pravastatin Sodium [Pravachol] 40 mg PO HS 05/21/14 [History] Tacrolimus [Prograf] 0.5 mg PO BID 05/21/14 [History] predniSONE 5 mg PO DAILY 05/21/14 [History] Magnesium Oxide [Mag-Ox] 400 mg PO BID 08/01/14 [History] Multivitamin/Iron/Folic Acid [Centrum Complete Multivit Tab] 1 tab PO DAILY 08/01/14 [History] Carvedilol [Coreg] 6.25 mg PO BID 04/02/15 [History] Omeprazole [PriLOSEC] 20 mg PO AC-BRKFST 05/18/15 [History] Aspirin 81 mg PO HS 11/08/16 [History] HYDROcodone/APAP 5-325MG [Redcrest 5-325] 1 tab PO TID PRN 02/15/18 [History] Mycophenolate Sodium [Mycophenolic Acid] 360 mg PO DAILY 11/26/18 [History] Mycophenolate Sodium [Mycophenolic Acid] 720 mg PO HS 11/26/18 [History] amLODIPine [Norvasc] 5 mg PO HS 11/26/18 [History] cefTRIAXone [Rocephin] 2 gm IVPB Q24H #42 bag 11/29/18 [Rx] Losartan [Cozaar] 100 mg PO DAILY #60 tab 11/30/18 [Rx] Follow up Appointment(s)/Referral(s): [facility], [NON-STAFF] - Greg Myers MD [STAFF PHYSICIAN] - 12/20/18 2:30 pm Greg Lu MD [Primary Care Provider] - 12/10/18 11:45 am Lucian Enriquez MD [Family Provider] - 6 Weeks Ambulatory/Diagnostic Orders: Basic Metabolic Panel [LAB.AMB] Location: None Selected Complete Blood Count w/diff [LAB.AMB] Location: None Selected Miscellaneous Lab Order [LAB.AMB] Location: None Selected Miscellaneous Therapy Services Order [THER.AMB] Location: None Selected Patient Instructions/Handouts: Diabetic Foot Ulcers (DC) Activity/Diet/Wound Care/Special Instructions: 1. Regular diet. 2. Patient will have IV infusions at Dr. Myers's office ([facility]) - address: [address] [place] [address], [address] [place] [address], phone # [phone]. First appointment is on 12/01/18 at 9:15 a.m. 3. Strict non-weight bearing on your right foot. Crutches for ambulation. Wear CAM boot at all times. 4. Wound Care per Dr. Myers: Change dressing every Mon/Mon/Monday - apply silver alginate to right foot ulcer, cover with 4x4 then roll gauze to secure and place off loading boot Discharge Disposition: HOME WITH HOME HEALTH SERVICES
--- NOTE | 2018-11-30 16:24 | P.PN ---
Subjective Progress Note Date: 11/30/18 This patient is a 58-year old male with a past medical history of hypertension, DVT of the left lower extremity, end-stage renal disease on hemodialysis that is status-post kidney and pancreas transplant in 2008, Charcot foot, and history of diabetes mellitus type 2 that presented to [facility] ED on 11/26/18 for evaluation of a right foot ulcer. The patient was seen earlier in the day at Dr. Enriquez's office for right foot pain after tripping over a cord in the home. The patient was found to have a ulcer of the right plantar foot, and Dr. Enriquez recommended he present to [facility] ED for evaluation and treatment. The patient was subsequently admitted to internal medicine with consults placed to ortho pedics, vascular surgery, and infectious disease. At the time of my examination, the patient states he has been experiencing pain in the right foot since he tripped over the power cord over the weekend. He states he was unaware of the draining ulcer on his foot until he presented to the Dr. Enriquez's office and his foot was inspected. Patient was admitted to internal medicine with consults placed to orthopedics, vascular surgery, and infectious disease. Dr. Enriquez performed a bedside debridement and irrigation of the ulcer at bedside yesterday, and a dressing was applied. Today, the patient states he is doing well. He is experiencing minimal pain in the foot. He has been wearing the CAM boot, he has been using the crutches and remaining non-weight bearing on the right foot, per patient. He denies additional complaints today. Objective - Vital Signs Vital signs: Vital Signs Temp 98.3 F 11/30/18 01:54 Pulse 66 11/30/18 01:54 Resp 16 11/30/18 03:07 BP 123/45 11/30/18 01:54 Pulse Ox 95 11/30/18 01:54 Intake & Output 11/29/18 11/30/18 11/30/18 18:59 06:59 18:59 Intake Total 840 Balance 840 Intake: Oral 840 Other: Voiding Method Toilet Toilet # Voids 4 2 # Bowel Movements 1 - Exam On examination, the patient is sitting in a chair in no apparent distress. He is alert and oriented 3. There is a CAM boot on the right lower extremity. CAM boot is removed and reveals a clean, dry, and intact Nicola wrap. Patient is able to wiggle his toes without issues. The foot is warm and well-perfused with brisk capillary refill. - Labs CBC & Chem 7: 11/28/18 07:54 11/30/18 11:33 Labs: Microbiology - Last 24 Hours (Table) 11/27/18 18:02 Gram Stain - Preliminary Foot - Right Wound Culture - Preliminary Morganella morganii Gram Neg Bacilli 11/26/18 18:30 Blood Culture - Preliminary Blood No Growth after 72 hours Assessment and Plan Assessment: Plantar skin ulceration at the base of the fifth metatarsal, right foot. Status- post bedside debridement and irrigation on 11/28/[address] Enriquez. Osteomyelitis, right foot Plan: - There is no surgical intervention planned at this time. Defer further wound care to the infectious disease team. - Non-weight bearing of the right lower extremity while wearing a CAM boot. Ambulation with crutches. - Antibiotics per infectious disease. Wound cultures showing gram negative bacilli. - We will continue to follow patient while he remains inpatient and make recommendations as needed. - Patient discussed with Dr. Enriquez.
--- NOTE | 2018-11-30 22:44 | P.PN ---
Subjective Progress Note Date: 11/30/18 This is a 58-year-old male patient well known to ID service with a significant past history of chronic kidney disease with pancreas and kidney transplant done in 2008. Patient has been in the wound healing center due to ulcer to the right heel with a right Achilles tendon reattachment that was done by Dr. Beverly with subsequent wound dehiscence. This eventually healed and patient was most recently seen in the wound center in 2017 at which time he had squamous cell cancer with neural invasion removed from the right arm/M0H resection. This has subsequently healed but patient does have 2 areas of recurrence on the left arm and one on the right forearm for which he has follow up in place. Patient gives history that on Monday he tripped over an extension cord and went across the top of his right foot and he developed pain to the area. He applied an Nicola wrap which seemed to help a little bit but then on Monday he walked with the [employer] for a 1 mile march and develope d significant pain following that. He also had chills that evening and has felt very tired since. On Mondays pain continued to worsen and he called Dr. Enriquez's office and was told to come into [facility] emergency center for evaluation. Patient was found to have a white count of 11.9, he was afebrile, BUN 30, creatinine 1.28, potassium 5.5. Urinalysis was negative. A blood culture was obtained and patient was seen by orthopedics and MRI of the foot has been ordered. There is a consult also in place with Dr. Alves. Patient is currently on Rocephin and vancomycin. 11/29/2018 patient is status post incision and drainage of the foot abscess. Is feeling somewhat better. As noted MRI does reveal evidence of osteomyelitis. IV access and plans for outpatient intravenous antibiotic therapy are in process. 11/30/2018 patient is improved. Is being ready for discharge home today.PICC placed, antibiotics arranged. Objective - Vital Signs Vital signs: Vital Signs Temp 98 F 11/30/18 07:00 Pulse 61 11/30/18 07:00 Resp 12 11/30/18 07:00 BP 148/65 11/30/18 07:00 Pulse Ox 94 L 11/30/18 07:00 Intake & Output 05/0311/30/18 12/01/18 06:59 18:59 06:59 Intake Total 180 Balance 180 Intake: Oral 180 Other: Voiding Method Toilet # Voids 2 3 - Exam Gen: This is a 58-year-old male. He is sitting up in bed appears to be in no acute distress. HEENT: Head is atraumatic, normocephalic. Pupils equal, round. Sclerae is anicteric. NECK: Supple. No JVD. No lymphadenopathy. No thyromegaly. LUNGS: Clear to auscultation. No wheezes or rhonchi. No intercostal retractions. HEART: Regular rate and rhythm. Systolic murmur. ABDOMEN: Soft. Bowel sounds are present. No masses. No tenderness. EXTREMITIES: No pedal edema. No calf tenderness. Dorsalis pedis +2 bilaterally. The foot ulceration is been incised and drained with removal of the necrotic tissue. Ascending erythema is minimal site is printing grey cloth tender NEUROLOGICAL: Patient is awake, alert and oriented x3. - Labs CBC & Chem 7: 11/28/18 07:54 11/30/18 11:33 Labs: Abnormal Lab Results - Last 24 Hours (Table) 11/30/18 Range/Units 11:33 Chloride 108 H (98-107) mmol/L Glucose 104 H (74-99) mg/dL Microbiology - Last 24 Hours (Table) 11/26/18 18:30 Blood Culture - Preliminary Blood No Growth after 96 hours 11/27/18 18:02 Gram Stain - Final Foot - Right Wound Culture - Final Morganella morganii Klebsiella oxytoca Laboratory Results WBC 6.5 k/uL (3.8-10.6) 11/28/18 07:54 RBC 4.15 m/uL (4.30-5.90) L 11/28/18 07:54 Hgb 12.6 gm/dL (13.0-17.5) L 11/28/18 07:54 Hct 39.7 % (39.0-53.0) 11/28/18 07:54 MCV 95.7 fL (80.0-100.0) 11/28/18 07:54 MCH 30.3 pg (25.0-35.0) 11/28/18 07:54 MCHC 31.6 g/dL (31.0-37.0) 11/28/18 07:54 RDW 14.1 % (11.5-15.5) 11/28/18 07:54 Plt Count 205 k/uL (150-450) 11/28/18 07:54 Neutrophils % 84 % 11/28/18 07:54 Lymphocytes % 5 % 11/28/18 07:54 Monocytes % 8 % 11/28/18 07:54 Eosinophils % 2 % 11/28/18 07:54 Basophils % 0 % 11/28/18 07:54 Neutrophils # 5.4 k/uL (1.3-7.7) 11/28/18 07:54 Lymphocytes # 0.3 k/uL (1.0-4.8) L 11/28/18 07:54 Monocytes # 0.5 k/uL (0-1.0) 11/28/18 07:54 Eosinophils # 0.2 k/uL (0-0.7) 11/28/18 07:54 Basophils # 0.0 k/uL (0-0.2) 11/28/18 07:54 ESR 26 mm/hr (0-15) H 11/28/18 07:54 PT 10.6 sec (9.0-12.0) 11/26/18 18:30 INR 1.0 (<1.2) 11/26/18 18:30 APTT 28.6 sec (22.0-30.0) 11/26/18 18:30 Sodium 142 mmol/L (137-145) 11/30/18 11:33 Potassium 4.8 mmol/L (3.5-5.1) 11/30/18 11:33 Chloride 108 mmol/L (98-107) H 11/30/18 11:33 Carbon Dioxide 23 mmol/L (22-30) 11/30/18 11:33 Anion Gap 11 mmol/L 11/30/18 11:33 BUN 14 mg/dL (9-20) 11/30/18 11:33 Creatinine 0.96 mg/dL (0.66-1.25) 11/30/18 11:33 Est GFR (CKD-EPI)AfAm >90 (>60 ml/min/1.73 sqM) 11/30/18 11:33 Est GFR (CKD-EPI)NonAf 87 (>60 ml/min/1.73 sqM) 11/30/18 11:33 Glucose 104 mg/dL (74-99) H 11/30/18 11:33 POC Glucose (mg/dL) 84 mg/dL (75-99) 11/30/18 07:07 POC Glu [employer] Photographer ID Malini Mcmullen 11/30/18 07:07 Plasma Lactic Acid Hector 1.0 mmol/L (0.7-2.0) 11/26/18 18:30 Calcium 9.4 mg/dL (8.4-10.2) 11/30/18 11:33 Phosphorus 3.6 mg/dL (2.5-4.5) 11/26/18 18:30 Magnesium 1.8 mg/dL (1.6-2.3) 11/30/18 11:33 Total Bilirubin 0.7 mg/dL (0.2-1.3) 11/28/18 07:54 AST 18 U/L (17-59) 11/28/18 07:54 ALT 30 U/L (21-72) 11/28/18 07:54 Alkaline Phosphatase 61 U/L (38-126) 11/28/18 07:54 Troponin I 0.021 ng/mL (0.000-0.034) 11/26/18 18:30 Total Protein 5.8 g/dL (6.3-8.2) L 11/28/18 07:54 Albumin 3.5 g/dL (3.5-5.0) 11/28/18 07:54 Microbiology 11/26/18 18:30 Blood Blood Culture - Preliminary No Growth after 96 hours 11/27/18 18:02 Foot - Right Gram Stain - Final 11/27/18 18:02 Foot - Right Wound Culture - Final Morganella morganii Klebsiella oxytoca Assessment and Plan (1) Diabetic foot ulcer Status: Acute Code(s): E11.621 - TYPE 2 DIABETES MELLITUS WITH FOOT ULCER; L97.509 - NON-PRESSURE CHRONIC ULCER OTH PRT UNSP FOOT W UNSP SEVERITY SNOMED Code(s): 936195994 (2) Osteomyelitis of foot, right, acute Narrative/Plan: Pleasant 58-year-old male who suffered minimal trauma to his foot as well as a large amount of walking and has not resulted in a significant abscesses formed on the lateral aspect of his right foot. The patient will be evaluated by foot and ankle surgery for further advice and potential surgical incision and drainage of this abscess. The patient fortunately is not very uncomfortable. MRI is pending. As far as the left arm there is evidence of some residual squamous cell carcinoma and he is being followed by the team out of town for the surgical intervention engrafting that is required. This area does not appear to be infected. Prior cultures reviewed which reveal evidence of MSSA and enterococcus from the prior foot wounds, constantly given the renal transplant and pancreatic transplant status would discontinue vancomycin therapy. We'll transition Rocephin to Unasyn and monitor cultures. Local wound care as a dry dressing until surgical intervention occurs. He should offload this completely at this point in time. 11/29/2018 patient is having improvement of his status. Plans are in place for outpatient intravenous antibiotic therapy given the isolated Citrobacter gram- negative bacilli from the foot. IV access has been placed. Offloaded with especially boot is in place. Plans for his outpatient antibiotic therapy are in process. 10/31/2018 further improvement this occurred. IV access is in place. The gram- negative bacilli that have been [facility] susceptible to Rocephin. He was treated with Rocephin 2 g daily in the outpatient setting. Arrangements are made. Discharge today. Status: Acute Code(s): M86.171 - OTHER ACUTE OSTEOMYELITIS, RIGHT ANKLE AND FOOT SNOMED Code(s): 4070405325127950
--- NOTE | 2018-12-03 15:31 | CDI ---
Documentation Clarification Form Date: 12/03/18 From: Magalie Snow Phone: If you have a question regarding this query, please contact Naomi Celis at [phone] between 8am and 5pm. Admit Date: 11/26/2018 5:53:00 PM Patient Name: Junito Bush Visit Number: [id number] Discharge Date: 11/30/2018 2:25:00 PM ATTENTION: The Clinical Documentation Specialists (CDI) and [facility] Coding Staff appreciate your assistance in clarifying documentation. Please respond to the clarification below the line at the bottom and electronically sign. The CDI & [facility] Coding staff will review the response and follow-up if needed. Please note: Queries are made part of the Legal Health Record. If you have any questions, please contact the author of this message via ITS. Dr. Lucian Enriquez Per your progress notes/operative note, a debridement was performed on 11/28 at the bedside. History/Risk Factors: Patient was admitted for diabetic ulcer of the right foot with osteomyelitis. The patient has a history of diabetic peripheral neuropathy, Charcot's, CAD and hypertension. Patient is post pancreas and kidney transplant. Clinical Indicators: Purulent drainage and nonviable skin over the ulcer. Treatment: Sharp debridement of nonviable skin with a pair of scissors In order to capture the severity of condition and code the appropriate procedure; could you please document the following: Excisional debridement (the removal of necrotic, devitalized tissue or slough by means of cutting away of tissue) Non-excisional debridement (the removal of necrotic, devitalized tissue or slough by means of flushing, brushing, or washing. (Irrigation) Other; please specify Unable to determine MTDD
== END 2018-11-30 14:25 | disposition home health service (06) | DRG 638 ==
LOC: EC 16:48 → 4SSUR 17:53
PROVIDERS: ADMIT Internal Medicine Geriatric Medicine; ATTEND Internal Medicine Geriatric Medicine
PROC: 02HV33Z Insertion of Infusion Device into Superior Vena Cava, Percutaneous Approach (ICD-10-PCS; 2018-11-28)
PROC: 0HBMXZZ Excision of Right Foot Skin, External Approach (ICD-10-PCS; principal; 2018-11-28 11:17)
DX: E11.621 Type 2 diabetes mellitus with foot ulcer (principal); M86.171 Other acute osteomyelitis, right ankle and foot; L97.419 Non-pressure chronic ulcer of right heel and midfoot with unspecified severity; Z94.83 Pancreas transplant status; Z94.0 Kidney transplant status; E11.42 Type 2 diabetes mellitus with diabetic polyneuropathy; E11.610 Type 2 diabetes mellitus with diabetic neuropathic arthropathy; E11.319 Type 2 diabetes mellitus with unspecified diabetic retinopathy without macular edema; E11.69 Type 2 diabetes mellitus with other specified complication; I11.9 Hypertensive heart disease without heart failure; E78.5 Hyperlipidemia, unspecified; I25.10 Atherosclerotic heart disease of native coronary artery without angina pectoris; K21.9 Gastro-esophageal reflux disease without esophagitis; M1A.9XX0 Chronic gout, unspecified, without tophus (tophi); M85.80 Other specified disorders of bone density and structure, unspecified site; M19.90 Unspecified osteoarthritis, unspecified site; R01.1 Cardiac murmur, unspecified; L40.9 Psoriasis, unspecified; Z79.82 Long term (current) use of aspirin; Z79.899 Other long term (current) drug therapy; Z79.52 Long term (current) use of systemic steroids; Z86.718 Personal history of other venous thrombosis and embolism; Z85.828 Personal history of other malignant neoplasm of skin; Z87.01 Personal history of pneumonia (recurrent); Z95.5 Presence of coronary angioplasty implant and graft; Z98.42 Cataract extraction status, left eye; Z98.41 Cataract extraction status, right eye; Z96.1 Presence of intraocular lens; Z82.3 Family history of stroke
CPT/HCPCS: 36573; 80048; 80053; 83605; 83735; 84100; 84484; 85025; 85610; 85652; 85730; 87040; 87070; 87077; 87186; 87205; 93005; 96365; 96368; 99285

== ENCOUNTER → 2018-12-26 | Outpatient (CLI) | payer MEDICARE, BC ==
--- NOTE | 2018-12-26 15:51 | US ---
EXAMINATION TYPE: US venous doppler duplex LE RT DATE OF EXAM: 12/26/2018 3:23 PM COMPARISON: US 2018 CLINICAL HISTORY: M79.661 PAIN RT LOWER LEG. Right leg pain and swelling, ulcer right lateral foot x 1 month SIDE PERFORMED: Right TECHNIQUE: The lower extremity deep venous system is examined utilizing real time linear array sonog maye with graded compression, doppler sonography and color-flow sonography. VESSELS IMAGED: External Iliac Vein (EIV) Common Femoral Vein Deep Femoral Vein Greater Saphenous Vein * Femoral Vein Popliteal Vein Small Saphenous Vein * Proximal Calf Veins (* superficial vessels) Right Leg: Appears negative for DVT IMPRESSION: No evidence for DVT at this time.
== END | disposition home or self-care (01) ==
LOC: RADUSWWP 13:42
PROVIDERS: ATTEND Nurse Practitioner Family
DX: M79.604 Pain in right leg (principal); M79.605 Pain in left leg; E63.8 Other specified nutritional deficiencies; E11.621 Type 2 diabetes mellitus with foot ulcer; L97.822 Non-pressure chronic ulcer of other part of left lower leg with fat layer exposed; M89.8X8 Other specified disorders of bone, other site
CPT/HCPCS: 93922

== ENCOUNTER 2019-01-09 11:29 | Emergency (ER) | payer MEDICARE, BC ==
[2019-01-09] MEDS ORDERED: GELATIN SPONGE,ABSORB (LARGE) 1 EACH SPONGE TOPICAL STA (12:43)
[2019-01-09 12:59] LABS: Anisocytosis Slight; Basophils % (A) 0 %; Eosinophils # (A) 0.1 k/uL (0-0.7); Eosinophils % (A) 2 %; HCT 38.5 % (39.0-53.0); HGB 12.5 gm/dL (13.0-17.5); Lymphocytes # (A) 0.4 k/uL (1.0-4.8); Lymphocytes % (A) 5 %; MCH 31.6 pg (25.0-35.0); MCHC 32.5 g/dL (31.0-37.0); Mean Platelet Volume 7.1; Monocytes # (A) 0.4 k/uL (0-1.0); Monocytes % (A) 5 %; Neutrophils # (A) 6.5 k/uL (1.3-7.7); Neutrophils % (A) 87 %; Platelet Count 208 k/uL (150-450); RBC 3.97 m/uL (4.30-5.90); RDW 16.4 % (11.5-15.5); WBC 7.5 k/uL (3.8-10.6)
--- NOTE | 2019-01-09 13:07 | ED ---
Skin/Abscess/FB HPI - General Chief complaint: Skin/Abscess/Foreign Body Stated complaint: wound leak Time Seen by Provider: 01/09/19 12:01 Source: patient, RN notes reviewed, old records reviewed Mode of arrival: ambulatory Limitations: no limitations - History of Present Illness Initial comments: Patient is a 58 year old male with bleeding wounds from left forearm from recent skin cancer resection surgery yesterday. Patient surgeon is Dr. Cook at [facility]. Patient reports that he was bleeding throught his multiple dressing and bandage. He was sent for wound check after calling his surgeon. - Related Data Home Medications Medication Instructions Recorded Confirmed Allopurinol [Zyloprim] 300 mg PO HS 05/21/14 01/09/19 Calcium Carbonate/Vitamin D3 1 tab PO BID 05/21/14 01/09/19 [Calcium 500-Vit D3 400 Tablet] Cholecalciferol [Vitamin D3 (25 5,000 unit PO BID 05/21/14 01/09/19 Mcg = 1000 Iu)] Pravastatin Sodium [Pravachol] 40 mg PO HS 05/21/14 01/09/19 Tacrolimus [Prograf] 0.5 mg PO DAILY 05/21/14 01/09/19 predniSONE 5 mg PO DAILY 05/21/14 01/09/19 Magnesium Oxide [Mag-Ox] 400 mg PO BID 08/01/14 01/09/19 Multivitamin/Iron/Folic Acid 1 tab PO DAILY 08/01/14 01/09/19 [Centrum Complete Multivit Tab] Carvedilol [Coreg] 6.25 mg PO BID 04/02/15 01/09/19 Omeprazole [PriLOSEC] 20 mg PO AC-BRKFST 05/18/15 01/09/19 Aspirin 81 mg PO HS 11/08/16 01/09/19 HYDROcodone/APAP 5-325MG [[place] 1 tab PO TID PRN 02/15/18 01/09/19 5-325] Mycophenolate Sodium [Mycophenolic 360 mg PO DAILY 11/26/18 01/09/19 Acid] Mycophenolate Sodium [Mycophenolic 720 mg PO HS 11/26/18 01/09/19 Acid] amLODIPine [Norvasc] 5 mg PO HS 11/26/18 01/09/19 Tacrolimus [Prograf] 1 mg PO HS 01/09/19 01/09/19 Previous Rx's Medication Instructions Recorded cefTRIAXone [Rocephin] 2 gm IVPB Q24H #42 bag 11/29/18 Losartan [Cozaar] 100 mg PO DAILY #60 tab 11/30/18 Allergies Allergy/AdvReac Type Severity Reaction Status Date / Time No Known Allergies Allergy Verified 01/09/19 12:58 Review of Systems ROS Statement: Those systems with pertinent positive or pertinent negative responses have been documented in the HPI. ROS Other: All systems not noted in ROS Statement are negative. Constitutional: Denies: fever Eyes: Denies: eye pain ENT: Denies: ear pain Respiratory: Denies: cough Cardiovascular: Denies: chest pain Endocrine: Denies: fatigue Gastrointestinal: Denies: abdominal pain Genitourinary: Reports: urgency Musculoskeletal: Denies: back pain Skin: Denies: rash Neurological: Denies: headache Past Medical History Past Medical History: Coronary Artery Disease (CAD), Cancer, Diabetes Mellitus, Deep Vein Thrombosis (DVT), GERD/Reflux, Hyperlipidemia, Hypertension, Osteoarthritis (OA), Pneumonia, Renal Disease, Skin Disorder, Vascular Disorder Additional Past Medical History / Comment(s): pt states he has history of diabetes mellitus before pancreas and left kidney transplant. pt states he no longer has diabetes but will still check his blood sugar every now and again.admitted with clinical impression of URI, community acquired pneumonia. Other HX: charcot, hx diabetes-had pancreas transplant, HTN cardiovascular disease, murmur, DVT L leg, poor circulation, bilateral feet and hand neuropathy, diabetic retinopathy, psoriasis, wound rt ankle and R heel healed - had tx in wound clinic, pt had been in end stage renal disease and had hemodialysis for 3 yrs then had kidneys and pancreas transplant In 2008 at [facility], gout, osteopenia, multiple malignant cutanous lesions with removals. Sqaumus cell carcinoma left forearm History of Any Multi-Drug Resistant Organisms: None Reported Past Surgical History: Heart Catheterization With Stent, Orthopedic Surgery Additional Past Surgical History / Comment(s): kidney & pancrease transplant 2008, cataracts removed, surgery to reconnect rt achilles tendon with dehisence and then several debridements of wound to R ankle and R heel, skin lesion removal-basal cell cancer, A/V fistula L upper arm, parathyroidectomy, R wrist fx with surgery. Sqaumus cell carcinoma removed September 2016, and again in january 2018 Past Anesthesia/Blood Transfusion Reactions: No Reported Reaction Additional Past Anesthesia/Blood Transfusion Reaction / Comment(s): Pt states he has received blood in the past without reaction. Date of Last Stent Placement:: 2005 Past Psychological History: No Psychological Hx Reported Smoking Status: Never smoker Past Alcohol Use History: Occasional Past Drug Use History: None Reported - Past Family History Father Family Medical History: CVA/TIA, Vascular Disorder Additional Family Medical History / Comment(s): cva x2. Father is 81 yrs old. Mother Additional Family Medical History / Comment(s): arthritis. Mother is 76 yrs old. General Exam - General Exam Comments Initial Comments: This is a 58 year old male, no distress. Limitations: no limitations General appearance: alert, in no apparent distress Head exam: Present: atraumatic, normocephalic, normal inspection Eye exam: Present: normal appearance, PERRL, EOMI. Absent: scleral icterus, conjunctival injection, periorbital swelling ENT exam: Present: normal exam, mucous membranes moist Neck exam: Present: normal inspection. Absent: tenderness, meningismus, lymphadenopathy Respiratory exam: Present: normal lung sounds bilaterally. Absent: respiratory distress, wheezes, rales, rhonchi, stridor Cardiovascular Exam: Present: regular rate, normal rhythm, normal heart sounds. Absent: systolic murmur, diastolic murmur, rubs, gallop, clicks Extremities exam: Present: normal inspection, full ROM, normal capillary refill, other (2 large 5cm by 4cm circular deep excision sites from left forearm with soaked bandages over dressing. Pateint wounds have stopped bleeding, and vaseline dressing shows clots over area. ). Absent: tenderness, pedal edema, joint swelling, calf tenderness Back exam: Present: normal inspection Neurological exam: Present: alert, oriented X3, CN II-XII intact Psychiatric exam: Present: normal affect, normal mood Skin exam: Present: warm, dry, intact, normal color. Absent: rash Course Vital Signs 01/09/19 01/09/19 11:54 13:56 Temperature 97.9 F 98.3 F Pulse Rate 66 70 Respiratory 20 18 Rate Blood Pressure 106/45 112/67 O2 Sat by Pulse 96 99 Oximetry Medical Decision Making - Medical Decision Making Patient is a 58 year old male with bleeding from surgical site from skin cancer removal on left forearm. I carefully removed saturated dressings and inspected surgical site. He was 2 areas that have clotting over the vaseline dressing. He has no active bleeding at this time. I called patient surgeon Dr. Cook, and he recommended to redress dressings, check hemogobin. This is stable at 12.5. Patient is asymptomatic from blood loss. I applied another vaseline dressing and gelfoam over these wounds. Patient then had accrylics, coband and acewrap over site. He was monitored for one hour without any dressing on and he had no bleeding. Discussed patient to remain in dressing until seen by PCP and surgoen. He has appt on Monday. - Lab Data Result diagrams: 01/09/19 12:49 Lab Results 01/09/19 Range/Units 12:49 WBC 7.5 (3.8-10.6) k/uL RBC 3.97 L (4.30-5.90) m/uL Hgb 12.5 L (13.0-17.5) gm/dL Hct 38.5 L (39.0-53.0) % MCV 97.0 (80.0-100.0) fL MCH 31.6 (25.0-35.0) pg MCHC 32.5 (31.0-37.0) g/dL RDW 16.4 H (11.5-15.5) % Plt Count 208 (150-450) k/uL Neutrophils % 87 % Lymphocytes % 5 % Monocytes % 5 % Eosinophils % 2 % Basophils % 0 % Neutrophils # 6.5 (1.3-7.7) k/uL Lymphocytes # 0.4 L (1.0-4.8) k/uL Monocytes # 0.4 (0-1.0) k/uL Eosinophils # 0.1 (0-0.7) k/uL Basophils # 0.0 (0-0.2) k/uL Anisocytosis Slight Disposition Clinical Impression: Post-op bleeding Disposition: HOME SELF-CARE Condition: Good Instructions (If sedation given, give patient instructions): Skin Adhesive Care (ED) Additional Instructions: Patient advised to follow-up with your surgeon on Monday. Keep the area wrap ped. Possible keep the arm up and elevated. Apply ice over the arm as well. Return to emergency department if any alarming signs or symptoms occur. Is patient prescribed a controlled substance at d/c from ED?: No Referrals: Greg Lu MD [Primary Care Provider] - 1-2 days Time of Disposition: 13:06
[2019-01-09 13:57] VITALS: BP 112/67; PULSE 70; RESP 18; TEMP 98.3
== END 2019-01-09 13:57 | disposition home or self-care (01) ==
LOC: EC 11:29
DX: L76.21 Postprocedural hemorrhage of skin and subcutaneous tissue following a dermatologic procedure (principal); I25.10 Atherosclerotic heart disease of native coronary artery without angina pectoris; M10.9 Gout, unspecified; K21.9 Gastro-esophageal reflux disease without esophagitis; E78.5 Hyperlipidemia, unspecified; M19.90 Unspecified osteoarthritis, unspecified site; I11.9 Hypertensive heart disease without heart failure; L40.9 Psoriasis, unspecified; Z79.52 Long term (current) use of systemic steroids; Z79.82 Long term (current) use of aspirin; Z79.899 Other long term (current) drug therapy; Z85.828 Personal history of other malignant neoplasm of skin; Z94.0 Kidney transplant status; Z86.718 Personal history of other venous thrombosis and embolism; Z94.83 Pancreas transplant status; Z95.5 Presence of coronary angioplasty implant and graft
CPT/HCPCS: 36415; 85025; 99284

== ENCOUNTER 2019-03-27 00:16 | Observation (INO) | payer MEDICARE, BC ==
[2019-03-27] MEDS ORDERED: ACETAMINOPHEN TAB 325 MG TAB PO STA (00:42)
[2019-03-27 01:05] LABS: Basophils % (A) 0 %; Eosinophils # (A) 0.1 k/uL (0-0.7); Eosinophils % (A) 2 %; HCT 35.8 % (39.0-53.0); HGB 11.6 gm/dL (13.0-17.5); Lymphocytes # (A) 0.5 k/uL (1.0-4.8); Lymphocytes % (A) 6 %; MCHC 32.5 g/dL (31.0-37.0); MCV 95.5 fL (80.0-100.0); Mean Platelet Volume 7.3; Monocytes % (A) 10 %; Neutrophils # (A) 7.6 k/uL (1.3-7.7); Neutrophils % (A) 81 %; Platelet Count 212 k/uL (150-450); RBC 3.75 m/uL (4.30-5.90); RDW 15.3 % (11.5-15.5); WBC 9.4 k/uL (3.8-10.6)
[2019-03-27 01:13] LABS: INR 0.9 (<1.2); Partial Thromboplastin Time 25.3 sec (22.0-30.0); Prothrombin Time 10.1 sec (9.0-12.0)
[2019-03-27 01:14] LABS: Albumin 3.6 g/dL (3.5-5.0); Calcium 9.1 mg/dL (8.4-10.2); Potassium 4.9 mmol/L (3.5-5.1); Total Bilirubin 0.3 mg/dL (0.2-1.3); Total Protein 6.1 g/dL (6.3-8.2)
--- NOTE | 2019-03-27 01:49 | ED ---
SOB HPI - General Chief Complaint: Shortness of Breath Stated Complaint: Fever Time Seen by Provider: 03/27/19 00:42 Source: patient Mode of arrival: ambulatory Limitations: no limitations - History of Present Illness Initial Comments: This patient is a 58-year-old man with history of kidney and pancreas transplant, secondary to diabetes, who presents with complaint that he started having fever and a feeling like his lungs were burning this evening. Patient has previously had pneumonia and was concerned that this may be related to that so he presents to be evaluated. MD Complaint: shortness of breath, chest pain -: hour(s) Quality: burning Consistency: constant Improves With: nothing Worsens With: inspiration Associated Symptoms: denies other symptoms Treatments Prior to Arrival: none - Related Data Home Oxygen Therapy: No Home Medications Medication Instructions Recorded Confirmed Allopurinol [Zyloprim] 300 mg PO HS 05/21/14 01/09/19 Calcium Carbonate/Vitamin D3 1 tab PO BID 05/21/14 01/09/19 [Calcium 500-Vit D3 400 Tablet] Cholecalciferol [Vitamin D3 (25 5,000 unit PO BID 05/21/14 01/09/19 Mcg = 1000 Iu)] Pravastatin Sodium [Pravachol] 40 mg PO HS 05/21/14 01/09/19 Tacrolimus [Prograf] 0.5 mg PO DAILY 05/21/14 01/09/19 predniSONE 5 mg PO DAILY 05/21/14 01/09/19 Magnesium Oxide [Mag-Ox] 400 mg PO BID 08/01/14 01/09/19 Multivitamin/Iron/Folic Acid 1 tab PO DAILY 08/01/14 01/09/19 [Centrum Complete Multivit Tab] Carvedilol [Coreg] 6.25 mg PO BID 04/02/15 01/09/19 Omeprazole [PriLOSEC] 20 mg PO AC-BRKFST 05/18/15 01/09/19 Aspirin 81 mg PO HS 11/08/16 01/09/19 HYDROcodone/APAP 5-325MG [[place] 1 tab PO TID PRN 02/15/18 01/09/19 5-325] Mycophenolate Sodium [Mycophenolic 360 mg PO DAILY 11/26/18 01/09/19 Acid] Mycophenolate Sodium [Mycophenolic 720 mg PO HS 11/26/18 01/09/19 Acid] amLODIPine [Norvasc] 5 mg PO HS 11/26/18 01/09/19 Tacrolimus [Prograf] 1 mg PO HS 01/09/19 01/09/19 Previous Rx's Medication Instructions Recorded cefTRIAXone [Rocephin] 2 gm IVPB Q24H #42 bag 11/29/18 Losartan [Cozaar] 100 mg PO DAILY #60 tab 11/30/18 Allergies Allergy/AdvReac Type Severity Reaction Status Date / Time No Known Allergies Allergy Verified 03/27/19 00:25 Review of Systems ROS Statement: Those systems with pertinent positive or pertinent negative responses have been documented in the HPI. ROS Other: All systems not noted in ROS Statement are negative. Constitutional: Reports: chills ENT: Denies: throat pain Respiratory: Reports: cough. Denies: dyspnea, wheezes Cardiovascular: Reports: as per HPI, chest pain. Denies: palpitations, edema, syncope Gastrointestinal: Denies: abdominal pain, nausea, vomiting Genitourinary: Denies: dysuria, hematuria Musculoskeletal: Denies: back pain Neurological: Denies: headache, weakness, numbness Past Medical History Past Medical History: Coronary Artery Disease (CAD), Cancer, Diabetes Mellitus, Deep Vein Thrombosis (DVT), GERD/Reflux, Hyperlipidemia, Hypertension, Osteoarthritis (OA), Pneumonia, Renal Disease, Skin Disorder, Vascular Disorder Additional Past Medical History / Comment(s): pt states he has history of diabetes mellitus before pancreas and left kidney transplant. pt states he no longer has diabetes but will still check his blood sugar every now and agai n.admitted with clinical impression of URI, community acquired pneumonia. Other HX: charcot, hx diabetes-had pancreas transplant, HTN cardiovascular disease, murmur, DVT L leg, poor circulation, bilateral feet and hand neuropathy, diabetic retinopathy, psoriasis, wound rt ankle and R heel healed - had tx in wound clinic, pt had been in end stage renal disease and had hemodialysis for 3 yrs then had kidneys and pancreas transplant In 2008 at [facility], gout, osteopenia, multiple malignant cutanous lesions with removals. Sqaumus cell carcinoma left forearm History of Any Multi-Drug Resistant Organisms: None Reported Past Surgical History: Heart Catheterization With Stent, Orthopedic Surgery Additional Past Surgical History / Comment(s): kidney & pancrease transplant 2008, cataracts removed, surgery to reconnect rt achilles tendon with dehisence and then several debridements of wound to R ankle and R heel, skin lesion removal-basal cell cancer, A/V fistula L upper arm, parathyroidectomy, R wrist f x with surgery. Squamous cell carcinoma removed September 2016, and again in january 2018, november 2018. Past Anesthesia/Blood Transfusion Reactions: No Reported Reaction Additional Past Anesthesia/Blood Transfusion Reaction / Comment(s): Pt states he has received blood in the past without reaction. Date of Last Stent Placement:: 2005 Past Psychological History: No Psychological Hx Reported Smoking Status: Never smoker Past Alcohol Use History: Occasional Past Drug Use History: None Reported - Past Family History Father Family Medical History: CVA/TIA, Vascular Disorder Additional Family Medical History / Comment(s): cva x2. Father is 81 yrs old. Mother Additional Family Medical History / Comment(s): arthritis. Mother is 76 yrs old. General Exam Limitations: no limitations General appearance: alert, in no apparent distress Head exam: Present: atraumatic, normocephalic Eye exam: Present: normal appearance. Absent: scleral icterus, conjunctival injection ENT exam: Present: normal oropharynx Neck exam: Present: normal inspection, full ROM. Absent: meningismus Respiratory exam: Present: normal lung sounds bilaterally. Absent: respiratory distress, wheezes, rales, rhonchi, stridor Cardiovascular Exam: Present: regular rate, normal rhythm, normal heart sounds. Absent: systolic murmur, diastolic murmur, rubs, gallop GI/Abdominal exam: Present: soft. Absent: tenderness, guarding, rebound, mass Extremities exam: Present: normal inspection, normal capillary refill, other (Chronic deformity left forearm). Absent: pedal edema Back exam: Present: normal inspection. Absent: CVA tenderness (R), CVA tenderness (L), vertebral tenderness Neurological exam: Present: alert Skin exam: Present: warm, dry, intact, normal color. Absent: rash Course Vital Signs 03/27/19 03/27/19 03/27/19 00:21 02:00 06:14 Temperature 99.1 F 98.4 F Pulse Rate 83 76 76 Respiratory 18 18 17 Rate Blood Pressure 151/75 133/54 147/49 O2 Sat by Pulse 95 96 95 Oximetry Medical Decision Making - Medical Decision Making Patient is 58-year-old man with fever. Given his history of transplant and therefore immunosuppression, and in addition given the finding of a bump of his creatinine from the baseline that I'm finding and previous labs, patient will be admitted for further workup and also to have nephrology consultation. Case discussed with Dr. Gonzalez, who did want additional studies and will see the patient. - Lab Data Result diagrams: 03/27/19 00:44 03/27/19 00:44 Lab Results 03/27/19 03/27/19 03/27/19 Range/Units 00:44 00:44 00:44 WBC 9.4 (3.8-10.6) k/uL RBC 3.75 L (4.30-5.90) m/uL Hgb 11.6 L (13.0-17.5) gm/dL Hct 35.8 L (39.0-53.0) % MCV 95.5 (80.0-100.0) fL MCH 31.0 (25.0-35.0) pg MCHC 32.5 (31.0-37.0) g/dL RDW 15.3 (11.5-15.5) % Plt Count 212 (150-450) k/uL Neutrophils % 81 % Lymphocytes % 6 % Monocytes % 10 % Eosinophils % 2 % Basophils % 0 % Neutrophils # 7.6 (1.3-7.7) k/uL Lymphocytes # 0.5 L (1.0-4.8) k/uL Monocytes # 1.0 (0-1.0) k/uL Eosinophils # 0.1 (0-0.7) k/uL Basophils # 0.0 (0-0.2) k/uL PT 10.1 (9.0-12.0) sec INR 0.9 (<1.2) APTT 25.3 (22.0-30.0) sec D-Dimer (<0.60) mg/L FEU Sodium 137 (137-145) mmol/L Potassium 4.9 (3.5-5.1) mmol/L Chloride 108 H (98-107) mmol/L Carbon Dioxide 21 L (22-30) mmol/L Anion Gap 8 mmol/L BUN 31 H (9-20) mg/dL Creatinine 1.29 H (0.66-1.25) mg/dL Est GFR (CKD-EPI)AfAm 70 (>60 ml/min/1.73 sqM) Est GFR (CKD-EPI)NonAf 60 (>60 ml/min/1.73 sqM) Glucose 108 H (74-99) mg/dL Plasma Lactic Acid Hector (0.7-2.0) mmol/L Calcium 9.1 (8.4-10.2) mg/dL Total Bilirubin 0.3 (0.2-1.3) mg/dL AST 20 (17-59) U/L ALT 19 L (21-72) U/L Alkaline Phosphatase 74 (38-126) U/L Troponin I (0.000-0.034) ng/mL Total Protein 6.1 L (6.3-8.2) g/dL Albumin 3.6 (3.5-5.0) g/dL Urine Color Urine Appearance (Clear) Urine pH (5.0-8.0) Ur Specific [place] (1.001-1.035) Urine Protein (Negative) Urine Glucose (UA) (Negative) Urine Ketones (Negative) Urine Blood (Negative) Urine Nitrite (Negative) Urine Bilirubin (Negative) Urine Urobilinogen (<2.0) mg/dL Ur Leukocyte Esterase (Negative) 03/27/19 03/27/19 03/27/19 Range/Units 00:44 00:44 01:05 WBC (3.8-10.6) k/uL RBC (4.30-5.90) m/uL Hgb (13.0-17.5) gm/dL Hct (39.0-53.0) % MCV (80.0-100.0) fL MCH (25.0-35.0) pg MCHC (31.0-37.0) g/dL RDW (11.5-15.5) % Plt Count (150-450) k/uL Neutrophils % % Lymphocytes % % Monocytes % % Eosinophils % % Basophils % % Neutrophils # (1.3-7.7) k/uL Lymphocytes # (1.0-4.8) k/uL Monocytes # (0-1.0) k/uL Eosinophils # (0-0.7) k/uL Basophils # (0-0.2) k/uL PT (9.0-12.0) sec INR (<1.2) APTT (22.0-30.0) sec D-Dimer 1.23 H (<0.60) mg/L FEU Sodium (137-145) mmol/L Potassium (3.5-5.1) mmol/L Chloride (98-107) mmol/L Carbon Dioxide (22-30) mmol/L Anion Gap mmol/L BUN (9-20) mg/dL Creatinine (0.66-1.25) mg/dL Est GFR (CKD-EPI)AfAm (>60 ml/min/1.73 sqM) Est GFR (CKD-EPI)NonAf (>60 ml/min/1.73 sqM) Glucose (74-99) mg/dL Plasma Lactic Acid Hector 0.7 (0.7-2.0) mmol/L Calcium (8.4-10.2) mg/dL Total Bilirubin (0.2-1.3) mg/dL AST (17-59) U/L ALT (21-72) U/L Alkaline Phosphatase (38-126) U/L Troponin I 0.022 (0.000-0.034) ng/mL Total Protein (6.3-8.2) g/dL Albumin (3.5-5.0) g/dL Urine Color Urine Appearance (Clear) Urine pH (5.0-8.0) Ur Specific [place] (1.001-1.035) Urine Protein (Negative) Urine Glucose (UA) (Negative) Urine Ketones (Negative) Urine Blood (Negative) Urine Nitrite (Negative) Urine Bilirubin (Negative) Urine Urobilinogen (<2.0) mg/dL Ur Leukocyte Esterase (Negative) 03/27/19 Range/Units 02:36 WBC (3.8-10.6) k/uL RBC (4.30-5.90) m/uL Hgb (13.0-17.5) gm/dL Hct (39.0-53.0) % MCV (80.0-100.0) fL MCH (25.0-35.0) pg MCHC (31.0-37.0) g/dL RDW (11.5-15.5) % Plt Count (150-450) k/uL Neutrophils % % Lymphocytes % % Monocytes % % Eosinophils % % Basophils % % Neutrophils # (1.3-7.7) k/uL Lymphocytes # (1.0-4.8) k/uL Monocytes # (0-1.0) k/uL Eosinophils # (0-0.7) k/uL Basophils # (0-0.2) k/uL PT (9.0-12.0) sec INR (<1.2) APTT (22.0-30.0) sec D-Dimer (<0.60) mg/L FEU Sodium (137-145) mmol/L Potassium (3.5-5.1) mmol/L Chloride (98-107) mmol/L Carbon Dioxide (22-30) mmol/L Anion Gap mmol/L BUN (9-20) mg/dL Creatinine (0.66-1.25) mg/dL Est GFR (CKD-EPI)AfAm (>60 ml/min/1.73 sqM) Est GFR (CKD-EPI)NonAf (>60 ml/min/1.73 sqM) Glucose (74-99) mg/dL Plasma Lactic Acid Hector (0.7-2.0) mmol/L Calcium (8.4-10.2) mg/dL Total Bilirubin (0.2-1.3) mg/dL AST (17-59) U/L ALT (21-72) U/L Alkaline Phosphatase (38-126) U/L Troponin I (0.000-0.034) ng/mL Total Protein (6.3-8.2) g/dL Albumin (3.5-5.0) g/dL Urine Color Yellow Urine Appearance Clear (Clear) Urine pH 7.0 (5.0-8.0) Ur Specific [place] 1.021 (1.001-1.035) Urine Protein Negative (Negative) Urine Glucose (UA) Negative (Negative) Urine Ketones Negative (Negative) Urine Blood Negative (Negative) Urine Nitrite Negative (Negative) Urine Bilirubin Negative (Negative) Urine Urobilinogen <2.0 (<2.0) mg/dL Ur Leukocyte Esterase Negative (Negative) - EKG Data -: EKG Interpreted by Nv EKG shows normal: sinus rhythm, axis (Normal), intervals (Normal), QRS complexes (Normal), ST-T waves (There are T-wave inversions in the inferior and lateral leads which are present on the comparison ECG from 11/26/2018) Rate: normal (Rate 81 bpm) Disposition Clinical Impression: Fever and chills, Transplant recipient, Acute kidney injury Disposition: ADMITTED IP TO THIS HOSP Condition: Fair
--- NOTE | 2019-03-27 02:34 | XR ---
ADDENDUM - Added by Tremayne Cee MD on 03/27/2019 2:34 AM (-07:00) EXAM: XR Chest, 2 Views CLINICAL HISTORY: ITS.REASON XR Reason: Fever TECHNIQUE: Frontal and lateral views of the chest. COMPARISON: 10/15/15 FINDINGS: Lungs: No consolidation or mass. Pleural space: No effusion. Heart: Unchanged heart size. Mediastinum: Unremarkable. Bones/joints: No acute findings. IMPRESSION: No acute cardiopulmonary process. EXAM: XR Chest, 2 Views CLINICAL HISTORY: ITS.REASON XR Reason: Fever TECHNIQUE: Frontal and lateral views of the chest. COMPARISON: 1715 FINDINGS: Lungs: No consolidation or mass. Pleural space: No effusion. Heart: Unchanged heart size. Mediastinum: Unremarkable. Bones/joints: No acute findings.
[2019-03-27] MEDS ORDERED: SODIUM CHLORIDE 0.9% 500 ML 500 ML IV STA (02:38)
[2019-03-27 02:42] LABS: Appearance,Urine Clear (Clear); Bilirubin,Urine Negative (Negative); Blood,Urine Negative (Negative); Color,Urine Yellow; Glucose,Urine (UA) Negative (Negative); Ketones,Urine Negative (Negative); Leukocyte Esterase,Urine Negative (Negative); Nitrite,Urine Negative (Negative); Protein,Urine Negative (Negative); Specific Gravity,Urine 1.021 (1.001-1.035); Urobilinogen,Urine <2.0 mg/dL (<2.0)
[2019-03-27] MEDS ORDERED: ENOXAPARIN 80 MG/0.8 ML SYRINGE SQ ONE (03:57)
[2019-03-27] MEDS: CARVEDILOL 6.25 MG TAB PO SCH ×2 (13:43→16:44)
[2019-03-27] MEDS: amLODIPine 5 MG TAB PO SCH (13:43)
[2019-03-27] MEDS: predniSONE 5 MG TAB PO SCH (13:56)
[2019-03-27] MEDS: MYCOPHENOLATE SODIUM DR 180 MG TABLET.DR PO SCH (13:56)
[2019-03-27] MEDS: TACROLIMUS 0.5 MG CAP PO SCH (13:56)
[2019-03-27] MEDS ORDERED: LEVOFLOXACIN 500MG-D5W PMX 500 MG in DEXTROSE/WATER 1 100ML.BAG IVPB SCH (14:00)
--- NOTE | 2019-03-27 14:54 | CT ---
EXAMINATION TYPE: High-resolution CT chest without contrast DATE OF EXAM: 03/27/2019 COMPARISON: None HISTORY: 58-year-old male shortness of breath, RICHARDSON. TECHNIQUE: Contiguous high-resolution axial scanning of the chest without IV contrast utilizing 1 mm slice thickness and 1 cm gap per HRCT protocol. Both prone and supine imaging was performed. CT DLP: 198 mGycm Automated exposure control for dose reduction was used. FINDINGS: Heart mildly enlarged with small anterior basilar pericardial fluid. Mitral annular and aortic valvul ar calcifications are present as well as coronary vessel calcifications. Aorta normal caliber with mild atherosclerotic arch calcifications and conventional arch vessel branc nadia anatomy. No thoracic lymphadenopathy by HR CT, noncontrast technique. Mild diffuse bronchial wall thickening. No cystic change, honeycombing, thickening of the bronchovasc ular bundles, bronchiectasis, tree-in-bud opacities, or centrilobular nodules. No groundglass. Streaky atelectasis posterior base which improves on prone imaging. HRCT technique limited for assess ment of small pulmonary nodules. There is a calcified granuloma at the right apex. Mild bilateral gynecomastia. Small hiatal hernia. Visualized upper abdomen shows moderate stool and atretic kidneys. Bones: Mild endplate spondylosis mid to lower thoracic spine. IMPRESSION: 1. MILD CARDIOMEGALY WITH SMALL ANTERIOR BASILAR PERICARDIAL FLUID. 2. MITRAL AND AORTIC VALVULAR CALCIFICATIONS WELL CAD. 3. MILD DIFFUSE BRONCHIAL WALL THICKENING COULD REPRESENT BRONCHITIS OR ASTHMA. CALCIFIED GRANULOMA R IGHT APEX. 4. NO SPECIFIC HRCT FINDINGS OF INTERSTITIAL LUNG DISEASE. 5. SMALL HIATAL HERNIA.
--- NOTE | 2019-03-27 15:58 | NM ---
EXAMINATION TYPE: NM pul vent and perfuse DATE OF EXAM: 03/27/2019 COMPARISON: NONE HISTORY: Difficulty in breathing TECHNIQUE: Utilizing inhalation of 34.2 mCi Tc 99m DTPA aerosol and intravenous injection of 5.42 mC i of Tc 99m MAA, ventilation and perfusion images are acquired post injection in multiple projections . FINDINGS: Normal radiotracer distribution is noted in the lungs. There is no evidence of mismatched defects. IMPRESSION: Low probability for pulmonary embolism.
--- NOTE | 2019-03-27 17:17 | US ---
EXAMINATION TYPE: US venous doppler duplex LE DATE OF EXAM: 03/27/2019 3:54 PM COMPARISON: CLINICAL HISTORY: RICHARDSON, hx DVT. Patient states having a hx of blood clot left leg in . On baby aspirin. No redness. SIDE PERFORMED: Bilateral TECHNIQUE: The lower extremity deep venous system is examined utilizing real time linear array sonog maye with graded compression, doppler sonography and color-flow sonography. VESSELS IMAGED: External Iliac Vein (EIV) Common Femoral Vein Deep Femoral Vein Greater Saphenous Vein * Femoral Vein Popliteal Vein Small Saphenous Vein *- only right SSV visualized Proximal Calf Veins (* superficial vessels) Suboptimal visualization due to arterial shadowing Right Leg: Negative for DVT Left Leg: Negative for DVT IMPRESSION: 1. Bilateral lower extremity negative for deep venous thrombosis.
[2019-03-27 20:19] VITALS: PULSE 65
[2019-03-27] MEDS ORDERED: PRAVASTATIN SODIUM 40 MG TAB PO SCH (21:00)
[2019-03-27] MEDS ORDERED: ASPIRIN 81 MG PO SCH (21:00)
[2019-03-27] MEDS ORDERED: TACROLIMUS 1 MG CAP PO SCH (21:00)
[2019-03-27] MEDS ORDERED: ALLOPURINOL 300 MG TAB PO SCH (21:00)
[2019-03-27] MEDS ORDERED: MYCOPHENOLATE SODIUM DR 180 MG TABLET.DR PO SCH (21:00)
[2019-03-27] MEDS ORDERED: LOSARTAN 50 MG TAB PO SCH (21:00)
[2019-03-27] MEDS: CHOLECALCIFEROL 1,000 UNIT TAB PO SCH (21:41)
[2019-03-27] MEDS: MAGNESIUM OXIDE 400 MG TAB PO SCH (21:42)
[2019-03-27] MEDS: CALCIUM CARB-VIT D 500MG-200UN 1 EACH TAB PO SCH (21:42)
--- NOTE | 2019-03-27 21:55 | P.HPIM ---
History of Present Illness H&P Date: 03/27/19 This is a 58-year-old male one of Dr. Lu with a previous medical history significant for hypertension and hypertensive cardio vascular disease with left ventricular hypertrophy, history of DVT of the left lower extremity, history of the end-stage renal disease was on hemodialysis post kidney and pancreas transplant in 2008 at the [facility], gout, Charcot foot, diabetes mellitus type 2, COPD, prior DVT in 1979, admitted to the emergency room secondary to sudden onset of fever 101.3 at 8 PM, accompanied by chills cough, no dysuria no diarrhea, no sick contacts, patient does not have any dizziness, patient flew from [place] seen through [employer], March 11, re turned March 12 for his routine follow-up in [facility] for his transplant, his [place] easily one-way was about 5 hours and 3-4 hours on his return trip to [place] patient was subsequently complaining of burning upon breathing, patient denies any lower extremity pain however he has lower extremity edema bilaterally. Emergency room, d-dimer was elevated, creatinine was 1.29 from a previous off 0.96, hemoglobin was 11.6 lactic acid normal 0.7, pro-calcitonin 0.06, urinalysis negative, d-dimer elevated at 1.23, chest x-ray shows no acute infiltrate we have requested additional imaging besides what the ER has done to include a VQ scan, CT high resolution chest, Dopplers of the leg Review of Systems Constitutional: Reports as per HPI, Reports chills, Reports fever, Denies anorexia, Denies chronic headaches, Denies chronic pain, Denies daytime sleepiness, Denies fatigue, Denies lethargy, Denies malaise, Denies night sweats, Denies poor appetite, Denies sweats, Denies weakness, Denies weight gain, Denies weight loss Ears, nose, mouth and throat: Reports as per HPI, Denies ant. neck pain, Denies bleeding gums, Denies dental pain, Denies dysphagia, Denies epistaxis, Denies headache, Denies hoarseness, Denies mouth pain, Denies nasal congestion, Denies nasal discharge, Denies neck fullness/pressure, Denies neck lump, Denies nose pain, Denies odynophagia, Denies post-nasal drip, Denies sinus pain, Denies s inus pressure, Denies swelling in mouth, Denies swelling in throat, Denies sore throat, Denies vertigo, Denies voice changes Cardiovascular: Reports as per HPI, Reports chest pain (Burning), Denies claudication, Denies decreased exercise tolerance, Denies dyspnea on exertion, Denies edema, Denies high blood pressure, Denies irregular heart beat, Denies leg edema, Denies lightheadedness, Denies orthopnea, Denies palpitations, Denies paroxysmal nocturnal dyspnea, Denies phlebitis, Denies rapid heart beat, Denies shortness of breath, Denies syncope Respiratory: Reports as per HPI, Reports pleurisy, Denies congestion, Denies cough, Denies cough with sputum, Denies dyspnea, Denies excessive sputum, Denies hemoptysis, Denies home oxygen, Denies pain, Denies pain on inspiration, Denies respiratory infections, Denies sleep apnea, Denies snoring, Denies wheezing Gastrointestinal: Reports as per HPI, Denies abdominal pain, Denies belching, Denies bloating, Denies BRBPR, Denies change in bowel habits, Denies coffee ground emesis, Denies constipation, Denies diarrhea, Denies dyspepsia, Denies early satiety, Denies excessive gas, Denies heartburn, Denies hematemesis, Denies hematochezia, Denies indigestion, Denies jaundice, Denies lactose intolerance, Denies loss of appetite, Denies melena, Denies nausea, Denies vomi ting Genitourinary: Reports as per HPI Musculoskeletal: Reports as per HPI, Denies arm numbness/tingling, Denies atrophy, Denies fractures, Denies frequent falls, Denies gait dysfunction, Denies hot joints, Denies leg numbness/tingling, Denies limitation of motion, Denies loss of height, Denies low back pain, Denies morning stiffness, Denies muscle cramps, Denies muscle weakness, Denies myalgias, Denies neck pain, Denies neck stiffness, Denies prior amputations, Denies redness of joints, Denies shooting arm pain, Denies shooting leg pain Integumentary: Reports as per HPI, Denies acne, Denies boils, Denies brittle nails, Denies change in hair/nails, Denies color changes, Denies darkening of skin, Denies depigmentation, Denies dryness, Denies foot/leg ulcers, Denies growths, Denies hirsutism, Denies lesions, Denies onychomycosis, Denies pruritus, Denies rash, Denies sores, Denies striae, Denies unusual bruising, D enies wounds Neurological: Reports as per HPI, Denies aphasia, Denies ataxia, Denies balance difficulties, Denies burning pain, Denies change in mentation, Denies change in smell/taste, Denies change in speech, Denies confusion, Denies convulsions, Denies double vision, Denies gait dysfunction, Denies head injury, Denies headaches, Denies hearing difficulties, Denies lack of coordination, Denies loss of vision, Denies memory loss, Denies migraines, Denies motor disturbance, Denies numbness, Denies paralysis, Denies paresthesias, Denies seizures, Denies sensory deficit, Denies spasticity, Denies syncope, Denies tic, Denies tingling, Denies transient paralysis, Denies tremors, Denies vertigo, Denies weakness, Denies visual changes Psychiatric: Reports as per HPI, Denies anhedonia, Denies anxiety, Denies anxiety attacks, Denies change in appetite, Denies change in libido, Denies change in sleep habits, Denies confusion, Denies depression, Denies difficulty concentrating, Denies disorientation, Denies hallucinations, Denies hopelessness, Denies hypersomnia, Denies insomnia, Denies irritability, Denies memory loss, Denies mood swings, Denies paranoia, Denies sadness/tearfulness, Denies sleep disturbances, Denies suicidal ideation Endocrine: Reports as per HPI Hematologic/Lymphatic: Reports as per HPI Allergic/Immunologic: Reports as per HPI, Denies allergic rhinitis, Denies anaphylaxis, Denies angioedema, Denies gluten intolerance, Denies persistent infections, Denies seasonal allergies, Denies urticaria, Denies wheezing Past Medical History Past Medical History: Coronary Artery Disease (CAD), Cancer, Diabetes Mellitus, Deep Vein Thrombosis (DVT), GERD/Reflux, Hyperlipidemia, Hypertension, Osteoarthritis (OA), Pneumonia, Renal Disease, Skin Disorder, Vascular Disorder Additional Past Medical History / Comment(s): Charcot, hx diabetes-had pancreas transplant, HTN cardiovascular disease, murmur, DVT L leg, poor circulation, bilateral feet and hand neuropathy, diabetic retinopathy, psoriasis, wound rt ankle and R heel, R dosal foot healed - had tx in wound clinic, pt recently had squamous skin cancer removed from R forearm-2 spots/one is healed and the second one is still being treated at [facility] and will need skin grafting, 10/2018 small area of osteomylitis R foot, pt had been in end stage renal disease and had hemodialysis for 3 yrs then had kidneys and pancreas transplant In 2008 at [facility], TMJ, gout, osteopenia, multiple malignant cutanous lesions with removals. History of Any Multi-Drug Resistant Organisms: None Reported Past Surgical History: Heart Catheterization With Stent, Orthopedic Surgery Additional Past Surgical History / Comment(s): kidney & pancreas transplant 2008, cataracts removed, bilateral eye vitrectomy, bilateral eye RK, surgery to reconnect rt achilles tendon with dehisence and then several debridements of wound to R ankle and R heel, skin lesion removal-basal cell cancer, A/V fistula L upper arm, parathyroidectomy, R wrist fx with surgery. Squamous cell carcinoma removed September 2016, and again in january 2018, november 2018. Past Anesthesia/Blood Transfusion Reactions: No Reported Reaction Additional Past Anesthesia/Blood Transfusion Reaction / Comment(s): Pt states he has received blood in the past without reaction. Date of Last Stent Placement:: 2005 Smoking Status: Never smoker - Past Family History Father Family Medical History: CVA/TIA, Vascular Disorder Additional Family Medical History / Comment(s): cva x2. Father is at the age of 84 yrs. Mother Family Medical History: Osteoarthritis (OA) Additional Family Medical History / Comment(s): Mother is 80 yrs old. Medications and Allergies Home Medications Medication Instructions Recorded Confirmed Type Allopurinol [Zyloprim] 300 mg PO HS 05/21/14 03/27/19 History Calcium Carbonate/Vitamin D3 1 tab PO BID 05/21/14 03/27/19 History [Calcium 500-Vit D3 400 Tablet] Cholecalciferol [Vitamin D3 (25 5,000 unit PO BID 05/21/14 03/27/19 History Mcg = 1000 Iu)] Pravastatin Sodium [Pravachol] 40 mg PO HS 05/21/14 03/27/19 History Tacrolimus [Prograf] 0.5 mg PO DAILY 05/21/14 03/27/19 History predniSONE 5 mg PO DAILY 05/21/14 03/27/19 History Magnesium Oxide [Mag-Ox] 400 mg PO BID 08/01/14 03/27/19 History Multivitamin/Iron/Folic Acid 1 tab PO DAILY 08/01/14 03/27/19 History [Centrum Complete Multivit Tab] Carvedilol [Coreg] 6.25 mg PO BID 04/02/15 03/27/19 History Omeprazole [PriLOSEC] 20 mg PO AC-BRKFST 05/18/15 03/27/19 History Aspirin 81 mg PO HS 11/08/16 03/27/19 History Mycophenolate Sodium [Mycophenolic 360 mg PO DAILY 11/26/18 03/27/19 History Acid] Mycophenolate Sodium [Mycophenolic 720 mg PO HS 11/26/18 03/27/19 History Acid] amLODIPine [Norvasc] 5 mg PO DAILY 11/26/18 03/27/19 History Tacrolimus [Prograf] 1 mg PO HS 01/09/19 03/27/19 History Losartan Potassium 100 mg PO HS 03/27/19 03/27/19 History Allergies Allergy/AdvReac Type Severity Reaction Status Date / Time No Known Allergies Allergy Verified 03/27/19 07:40 Physical Exam Vitals: Vital Signs Temp Pulse Pulse Resp BP BP Pulse Ox 03/27/19 12:39 98.6 F 71 20 169/58 94 L 03/27/19 07:00 79 18 160/68 93 L 03/27/19 06:14 98.4 F 76 17 147/49 95 03/27/19 02:00 76 18 133/54 96 03/27/19 00:21 99.1 F 83 18 151/75 95 Intake and Output 03/26/19 03/27/19 03/27/19 22:59 06:59 14:59 Output Total 500 Balance -500 Output: Urine 500 Other: # Voids 1 Weight 77.564 kg - Constitutional General appearance: cooperative, no acute distress - EENT Eyes: anicteric sclerae, EOMI, PERRLA, dentition normal, normal appearance ENT: NA/AT, normal oropharynx - Neck Neck: normal ROM - Respiratory Respiratory: bilateral: CTA, negative: diminished, dullness, rales - Cardiovascular Rhythm: regular Heart sounds: normal: S1, S2 Abnormal Heart Sounds: systolic murmur, no diastolic murmur, no rub, no S3 Gallop, no S4 Gallop, no click, no other - Gastrointestinal General gastrointestinal: normal bowel sounds, soft, tenderness (None) - Integumentary Integumentary: normal, normal turgor - Neurologic Neurologic: CNII-XII intact - Musculoskeletal Musculoskeletal: gait normal - Psychiatric Psychiatric: A&O x's 3, appropriate affect, intact judgment & insight Results CBC & Chem 7: 03/27/19 00:44 03/27/19 00:44 Labs: Abnormal Lab Results - Last 24 Hours (Table) 03/27/19 03/27/19 03/27/19 Range/Units 00:44 00:44 00:44 RBC 3.75 L (4.30-5.90) m/uL Hgb 11.6 L (13.0-17.5) gm/dL Hct 35.8 L (39.0-53.0) % Lymphocytes # 0.5 L (1.0-4.8) k/uL D-Dimer 1.23 H (<0.60) mg/L FEU Chloride 108 H (98-107) mmol/L Carbon Dioxide 21 L (22-30) mmol/L BUN 31 H (9-20) mg/dL Creatinine 1.29 H (0.66-1.25) mg/dL Glucose 108 H (74-99) mg/dL ALT 19 L (21-72) U/L Total Protein 6.1 L (6.3-8.2) g/dL Thrombosis Risk Factor Assmnt - DVT/VTE Prophylaxis DVT/VTE Prophylaxis: Pharmacologic Prophylaxis ordered - Choose All That Apply Any of the Below Risk Factors Present?: Yes Each Factor Represents 1 point: Age 41-60 years Other Risk Factors: Yes Each Risk Factor Represents 2 Points: Malignancy Each Risk Factor Represents 3 Points: History of DVT/PE Other congenital or acquired thrombophilia - If yes, enter type in comment: No Thrombosis Risk Factor Assessment Total Risk Factor Score: 6 Thrombosis Risk Factor Assessment Level: High Risk Assessment and Plan Plan: 1. pleurisy with fever and cough, recent prolonged trips, elevated d-dimer, whit ent would be scanned including high resolution CT of the chest to evaluate for pneumothorax, VQ scan to evaluate for the elevated d-dimer, patient cannot get contrast studies at this time secondary to elevated creatinine, venous Dopplers to be done, pro-calcitonin levels to be done, as the patient has intermediate immunosuppressants, consult be made with Dr. Myers infectious disease, IV Rocephin and., Until levels are back for pro-calcitonin and imaging computed tomography scan tests 2. Hypertension and hypertensive cardio vascular disease. Continue carvedilol 6.25 mg orally twice every day, losartan 50 mg orally once every day, amlodipine 5 mg orally once every day. 3. acute kidney injury CK D stage II, IV hydration and avoid nephrotoxins 4 History of kidney and pancreas transplant back in 2008 at the [facility] Continue patient on Prograf as well as CellCept. Consult Dr. Sweta MARKS for hydration, avoid nephrotoxins 5 Gout. Continue allopurinol 300 mg orally once every day. 6 History of diabetes mellitus type 2 post pancreatic transplant. 7. Hyperlipidemia. Continue patient on Pravachol 40 mg orally once every day. 8. History of squamous cell cancer status post Mohs procedure of the left forearm. Currently under dermatology care. 9. History of DVT. Continue with heparin 5000 units subcutaneously every 8 hours. 10. GERD. Continue PPI. 11. History of diabetic polyneuropathy. Stable. 12. History of diabetic retinopathy. Stable. 13. History of psoriasis. Stable. 14. DVT prophylaxis. Continue patient on heparin 5000 units subcutaneously every 8 hours . 15. GI prophylaxis. Continue PPI. 16. Admit to inpatient. Estimate length of stay 2 midnights. 17. Patient is full code.
--- NOTE | 2019-03-28 00:25 | P.CONS ---
History of Present Illness - Reason for Consult Consult date: 03/27/19 - Chief Complaint Shortness of breath and fever - History of Present Illness 58-year-old male who is a long history of diabetes and is status post renal pancreas transplant in 2008. He's been doing well except for difficulties with diabetic ulceration which have been followed in the wound healing Center. Earlier this year he had some trauma to her foot ulceration is now completely h ealed. Mid-February was his annual evaluation [facility] for his renal pancreas transplantation. The private flight was without difficulties to and from [place]. He was not noted to have any acute abnormality and no changes of his immunosuppression. On the day of admission the patient is sudden onset of fever and evidence of severe burning sensation throughout his chest. He had some shortness of breath which was not severe he did not have hemoptysis. Because of his status he presented to the emergency center and imaging studies have been performed and he was admitted for evaluation of his fever in immunocompromised host. Review of Systems HEENT:Denies headache or acute visual change. Denies sinus or mouth discomforts. Denies neck stiffness or pain. Denies significant oral cavity pain. Denies difficulty on swallowing. Lungs: As per the HPI second onset of burning discomfort with his chest with breathing cough without hemoptysis Cardiovascular: As noted per the HPI the burning sensation with breathing that has now improved, no chest wall pain, also without orthopnea, dyspnea on exertion, or syncope Gastrointestinal:Denies nausea, vomiting, diarrhea, constipation, hematemesis, melena, hematochezia. No no significant change of bowel habit noticed. Musculoskeletal: denies significant myalgias or arthralgias. No new joint swe lling. Denies new back pain. Skin: Denies new rash or lesions. No new ulcers or wounds are related.. Neuro: Denies headache or visual change. Denies any new onset weakness or difficulty with ambulation. Denies falls or seizures. Psychiatric:Denies anxiety or depression. Endocrine: Denies significant fatigue, denies significant weight loss or weight gain. Past Medical History Past Medical History: Coronary Artery Disease (CAD), Cancer, Diabetes Mellitus, Deep Vein Thrombosis (DVT), GERD/Reflux, Hyperlipidemia, Hypertension, Osteoarthritis (OA), Pneumonia, Renal Disease, Skin Disorder, Vascular Disorder Additional Past Medical History / Comment(s): Charcot, hx diabetes-had pancreas transplant, HTN cardiovascular disease, murmur, DVT L leg, poor circulation, bilateral feet and hand neuropathy, diabetic retinopathy, psoriasis, wound rt ankle and R heel, R dosal foot healed - had tx in wound clinic, pt recently had squamous skin cancer removed from R forearm-2 spots/one is healed and the second one is still being treated at [facility] and will need skin grafting, 10/2018 small area of osteomylitis R foot, pt had been in end stage renal disease and had hemodialysis for 3 yrs then had kidneys and pancreas transplant In 2008 at [facility], TMJ, gout, osteopenia, multiple malignant cutanous lesions with removals. History of Any Multi-Drug Resistant Organisms: None Reported Past Surgical History: Heart Catheterization With Stent, Orthopedic Surgery Additional Past Surgical History / Comment(s): kidney & pancreas transplant 2008 , cataracts removed, bilateral eye vitrectomy, bilateral eye RK, surgery to reconnect rt achilles tendon with dehisence and then several debridements of wound to R ankle and R heel, skin lesion removal-basal cell cancer, A/V fistula L upper arm, parathyroidectomy, R wrist fx with surgery. Squamous cell carcinoma removed September 2016, and again in january 2018, november 2018. Past Anesthesia/Blood Transfusion Reactions: No Reported Reaction Additional Past Anesthesia/Blood Transfusion Reaction / Comm: Pt states he has received blood in the past without reaction. Date of Last Stent Placement:: 2005 Additional Psychological History / Comment(s): Patient is a lifelong nonsmoker. No marijuana or illicit drug use. No alcohol use. Patient lives at home with his and dog. Patient is independent and drives. Smoking Status: Never smoker - Past Family History Father Family Medical History: CVA/TIA, Vascular Disorder Additional Family Medical History / Comment(s): cva x2. Father is at the age of 84 yrs. Mother Family Medical History: Osteoarthritis (OA) Additional Family Medical History / Comment(s): Mother is 80 yrs old. Medications and Allergies Home Medications and Allergies Comment(s): Current Medications Allopurinol (Zyloprim) 300 mg PO [facility] Last Admin: 03/27/19 21:41 Dose: 300 mg Documented by: Amlodipine Besylate (Norvasc) 5 mg PO DAILY [facility] Last Admin: 03/27/19 13:43 Dose: 5 mg Documented by: Aspirin (Aspirin) 81 mg PO [facility] Last Admin: 03/27/19 21:44 Dose: 81 mg Documented by: Calcium Carbonate (Oscal 500+D) 1 each PO BID [facility] Last Admin: 03/27/19 21:42 Dose: 1 each Documented by: Carvedilol (Coreg) 6.25 mg PO BID-W/MEALS [facility] Last Admin: 03/27/19 16:44 Dose: 6.25 mg Documented by: Cholecalciferol (Vitamin D3 (25 Mcg = 1000 Iu)) 5,000 unit PO BID [facility] Last Admin: 03/27/19 21:41 Dose: 5,000 unit Documented by: Ceftriaxone Sodium 2 gm/ (Sodium Chloride) 50 mls @ 100 mls/hr IVPB Q24H [facility] Last Admin: 03/27/19 13:56 Dose: 100 mls/hr Documented by: Losartan Potassium (Cozaar) 100 mg PO [facility] Last Admin: 03/27/19 21:40 Dose: 100 mg Documented by: Magnesium Oxide (Mag-Ox) 400 mg PO BID [facility] Last Admin: 03/27/19 21:42 Dose: 400 mg Documented by: Multivitamins (Theragran) 1 each PO DAILY [facility] Mycophenolate Sodium (Myfortic) 720 mg PO [facility] Last Admin: 03/27/19 21:43 Dose: 720 mg Documented by: Mycophenolate Sodium (Myfortic) 360 mg PO DAILY [facility] Last Admin: 03/27/19 13:56 Dose: 360 mg Documented by: Pantoprazole Sodium (Protonix) 40 mg PO AC-BRKFST [facility] Pravastatin Sodium (Pravachol) 40 mg PO [facility] Last Admin: 03/27/19 21:40 Dose: 40 mg Documented by: Prednisone () 5 mg PO DAILY [facility] Last Admin: 03/27/19 13:56 Dose: 5 mg Documented by: Tacrolimus (Prograf) 0.5 mg PO DAILY [facility] Last Admin: 03/27/19 13:56 Dose: 0.5 mg Documented by: Tacrolimus (Prograf) 1 mg PO [facility] Last Admin: 03/27/19 21:44 Dose: 1 mg Documented by: Home Medications Medication Instructions Recorded Confirmed Type Allopurinol [Zyloprim] 300 mg PO HS 05/21/14 03/27/19 History Calcium Carbonate/Vitamin D3 1 tab PO BID 05/21/14 03/27/19 History [Calcium 500-Vit D3 400 Tablet] Cholecalciferol [Vitamin D3 (25 5,000 unit PO BID 05/21/14 03/27/19 History Mcg = 1000 Iu)] Pravastatin Sodium [Pravachol] 40 mg PO HS 05/21/14 03/27/19 History Tacrolimus [Prograf] 0.5 mg PO DAILY 05/21/14 03/27/19 History predniSONE 5 mg PO DAILY 05/21/14 03/27/19 History Magnesium Oxide [Mag-Ox] 400 mg PO BID 08/01/14 03/27/19 History Multivitamin/Iron/Folic Acid 1 tab PO DAILY 08/01/14 03/27/19 History [Centrum Complete Multivit Tab] Carvedilol [Coreg] 6.25 mg PO BID 04/02/15 03/27/19 History Omeprazole [PriLOSEC] 20 mg PO AC-BRKFST 05/18/15 03/27/19 History Aspirin 81 mg PO HS 11/08/16 03/27/19 History Mycophenolate Sodium [Mycophenolic 360 mg PO DAILY 11/26/18 03/27/19 History Acid] Mycophenolate Sodium [Mycophenolic 720 mg PO HS 11/26/18 03/27/19 History Acid] amLODIPine [Norvasc] 5 mg PO DAILY 11/26/18 03/27/19 History Tacrolimus [Prograf] 1 mg PO HS 01/09/19 03/27/19 History Losartan Potassium 100 mg PO HS 03/27/19 03/27/19 History Allergies Allergy/AdvReac Type Severity Reaction Status Date / Time No Known Allergies Allergy Verified 03/27/19 07:40 Physical Exam Vitals: Vital Signs Temp Pulse Pulse Resp BP BP Pulse Ox 03/27/19 20:20 98.4 F 65 16 132/80 95 03/27/19 20:13 65 16 03/27/19 12:39 98.6 F 71 20 169/58 94 L 03/27/19 07:00 79 18 160/68 93 L 03/27/19 06:14 98.4 F 76 17 147/49 95 03/27/19 02:00 76 18 133/54 96 03/27/19 00:21 99.1 F 83 18 151/75 95 Intake and Output 03/27/19 03/27/19 03/28/19 14:59 22:59 06:59 Other: # Voids 1 HEENT: Anicteric conjunctiva are pink and moist nasal mucosa grossly intact without significant lesions, there is no thrush. Neck: The neck is supple without significant lymphadenopathy or thyromegaly. Lungs: Symmetrical air entry only a few wheezes are heard no bronchial sounds all dullness or egophony Heart: Regular rate and rhythm with an audible S1-S2, no S3 no S4. There is no significant murmur click or rub, PMI was nondisplaced. Abdomen: Positive bowel sounds soft and nontender without palpable masses or organomegaly. There was no guarding or rebound. Extremities: The upper extremities have excellent pulses they are symmetric, no significant petechiae or telangiectasia. No splinter hemorrhages were noted. The lower extremities are free from significant edema. The peripheral pulses were 2+ and symmetric. Neuro: Awake alert oriented to person place and time. There are no acute new gross focal sensory motor deficits. Results CBC & Chem 7: 03/27/19 00:44 03/27/19 00:44 Labs: Abnormal Lab Results - Last 24 Hours (Table) 03/27/19 03/27/19 03/27/19 Range/Units 00:44 00:44 00:44 RBC 3.75 L (4.30-5.90) m/uL Hgb 11.6 L (13.0-17.5) gm/dL Hct 35.8 L (39.0-53.0) % Lymphocytes # 0.5 L (1.0-4.8) k/uL D-Dimer 1.23 H (<0.60) mg/L FEU Chloride 108 H (98-107) mmol/L Carbon Dioxide 21 L (22-30) mmol/L BUN 31 H (9-20) mg/dL Creatinine 1.29 H (0.66-1.25) mg/dL Glucose 108 H (74-99) mg/dL ALT 19 L (21-72) U/L Total Protein 6.1 L (6.3-8.2) g/dL Laboratory Results WBC 9.4 k/uL (3.8-10.6) 03/27/19 00:44 RBC 3.75 m/uL (4.30-5.90) L 03/27/19 00:44 Hgb 11.6 gm/dL (13.0-17.5) L 03/27/19 00:44 Hct 35.8 % (39.0-53.0) L 03/27/19 00:44 MCV 95.5 fL (80.0-100.0) 03/27/19 00:44 MCH 31.0 pg (25.0-35.0) 03/27/19 00:44 MCHC 32.5 g/dL (31.0-37.0) 03/27/19 00:44 RDW 15.3 % (11.5-15.5) 03/27/19 00:44 Plt Count 212 k/uL (150-450) 03/27/19 00:44 Neutrophils % 81 % 03/27/19 00:44 Lymphocytes % 6 % 03/27/19 00:44 Monocytes % 10 % 08 00:44 Eosinophils % 2 % 03/27/19 00:44 Basophils % 0 % 03/27/19 00:44 Neutrophils # 7.6 k/uL (1.3-7.7) 03/27/19 00:44 Lymphocytes # 0.5 k/uL (1.0-4.8) L 03/27/19 00:44 Monocytes # 1.0 k/uL (0-1.0) 03/27/19 00:44 Eosinophils # 0.1 k/uL (0-0.7) 03/27/19 00:44 Basophils # 0.0 k/uL (0-0.2) 03/27/19 00:44 PT 10.1 sec (9.0-12.0) 03/27/19 00:44 INR 0.9 (<1.2) 03/27/19 00:44 APTT 25.3 sec (22.0-30.0) 03/27/19 00:44 D-Dimer 1.23 mg/L FEU (<0.60) H 03/27/19 00:44 Sodium 137 mmol/L (137-145) 03/27/19 00:44 Potassium 4.9 mmol/L (3.5-5.1) 03/27/19 00:44 Chloride 108 mmol/L (98-107) H 03/27/19 00:44 Carbon Dioxide 21 mmol/L (22-30) L 03/27/19 00:44 Anion Gap 8 mmol/L 03/27/19 00:44 BUN 31 mg/dL (9-20) H 03/27/19 00:44 Creatinine 1.29 mg/dL (0.66-1.25) H 03/27/19 00:44 Est GFR (CKD-EPI)AfAm 70 (>60 ml/min/1.73 sqM) 03/27/19 00:44 Est GFR (CKD-EPI)NonAf 60 (>60 ml/min/1.73 sqM) 03/27/19 00:44 Glucose 108 mg/dL (74-99) H 03/27/19 00:44 Plasma Lactic Acid Hector 0.7 mmol/L (0.7-2.0) 03/27/19 01:05 Calcium 9.1 mg/dL (8.4-10.2) 03/27/19 00:44 Total Bilirubin 0.3 mg/dL (0.2-1.3) 03/27/19 00:44 AST 20 U/L (17-59) 03/27/19 00:44 ALT 19 U/L (21-72) L 03/27/19 00:44 Alkaline Phosphatase 74 U/L (38-126) 03/27/19 00:44 Troponin I 0.022 ng/mL (0.000-0.034) 03/27/19 00:44 Total Protein 6.1 g/dL (6.3-8.2) L 03/27/19 00:44 Albumin 3.6 g/dL (3.5-5.0) 03/27/19 00:44 Procalcitonin 0.06 ng/mL (0.02-0.09) 03/27/19 00:54 Urine Color Yellow 03/27/19 02:36 Urine Appearance Clear (Clear) 03/27/19 02:36 Urine pH 7.0 (5.0-8.0) 03/27/19 02:36 Ur Specific [place] 1.021 (1.001-1.035) 03/27/19 02:36 Urine Protein Negative (Negative) 03/27/19 02:36 Urine Glucose (UA) Negative (Negative) 03/27/19 02:36 Urine Ketones Negative (Negative) 03/27/19 02:36 Urine Blood Negative (Negative) 03/27/19 02:36 Urine Nitrite Negative (Negative) 03/27/19 02:36 Urine Bilirubin Negative (Negative) 03/27/19 02:36 Urine Urobilinogen <2.0 mg/dL (<2.0) 03/27/19 02:36 Ur Leukocyte Esterase Negative (Negative) 03/27/19 02:36 CT without evidence of pneumonia, V/Q scan without evidence of pulmonary embolism Assessment and Plan (1) Fever and chills Narrative/Plan: 58 -year-old male that presents to Hospital for evaluation of a sudden onset of fever burning discomfort in his chest malaise and feeling quite poorly. As noted he does have a history of the renal's, pancreas transplant and was recently evaluated his transplant center was constant without any acute difficulties and no changes of immunosuppression to occurred. The patient's symptoms are consistent with an acute bronchitis viral versus bacterial. Given his immunocompromise status antibiotic therapy was initiated, he received a dose of Levaquin and recently a dose of ceftriaxone. Patient is feeling considerably better. The patient did have difficulties with acute renal failure and is receiving hydration and evaluation from nephrology. Evaluations for Legionella, Chlamydia and mycoplasma will be performed. Antibiotic de-escalation will happen rapidly. Current Visit: Yes Status: Acute Code(s): R50.9 - FEVER, UNSPECIFIED SNOMED Code(s): 138532192 (2) Acute kidney injury Current Visit: Yes Status: Acute Code(s): N17.9 - ACUTE KIDNEY FAILURE, UNSPECIFIED SNOMED Code(s): 15121948 (3) Acute bronchitis Current Visit: Yes Status: Acute Code(s): J20.9 - ACUTE BRONCHITIS, UNSPECIFIED SNOMED Code(s): 89843678 (4) Status post simultaneous kidney and pancreas transplant Current Visit: Yes Status: Acute Code(s): Z94.0 - KIDNEY TRANSPLANT STATUS; Z94.83 - PANCREAS TRANSPLANT STATUS SNOMED Code(s): 343978950
[2019-03-28 05:09] VITALS: BP 179/73; RESP 20; TEMP 97.9
[2019-03-28] MEDS: amLODIPine 5 MG TAB PO SCH (07:17)
[2019-03-28] MEDS: MAGNESIUM OXIDE 400 MG TAB PO SCH (07:17)
[2019-03-28] MEDS: CHOLECALCIFEROL 1,000 UNIT TAB PO SCH (07:17)
[2019-03-28] MEDS: CALCIUM CARB-VIT D 500MG-200UN 1 EACH TAB PO SCH (07:17)
[2019-03-28] MEDS: MYCOPHENOLATE SODIUM DR 180 MG TABLET.DR PO SCH (07:18)
[2019-03-28] MEDS: predniSONE 5 MG TAB PO SCH (07:18)
[2019-03-28] MEDS: CARVEDILOL 6.25 MG TAB PO SCH (07:18)
[2019-03-28] MEDS: TACROLIMUS 0.5 MG CAP PO SCH (07:19)
[2019-03-28] MEDS ORDERED: PANTOPRAZOLE 40 MG TABLET PO SCH (07:30)
[2019-03-28] MEDS ORDERED: MULTIVITAMINS, THERA 1 EACH TAB PO SCH (09:00)
[2019-03-28 10:24] LABS: HCT 37.6 % (39.0-53.0); HGB 12.2 gm/dL (13.0-17.5); MCH 31.5 pg (25.0-35.0); MCHC 32.6 g/dL (31.0-37.0); MCV 96.8 fL (80.0-100.0); Mean Platelet Volume 7.6; Platelet Count 218 k/uL (150-450); RBC 3.88 m/uL (4.30-5.90); WBC 5.9 k/uL (3.8-10.6)
[2019-03-28 10:37] LABS: African American GFR (CKD) >90 (>60 ml/min/1.73 sqM); Anion Gap 12 mmol/L; Blood Urea Nitrogen 20 mg/dL (9-20); Calcium 9.5 mg/dL (8.4-10.2); Carbon Dioxide 22 mmol/L (22-30); Chloride 107 mmol/L (98-107); Glucose 88 mg/dL (74-99); Potassium 4.2 mmol/L (3.5-5.1); Sodium 141 mmol/L (137-145)
--- NOTE | 2019-03-28 15:52 | P.DS ---
Providers Date of admission: 03/27/19 04:30 Expected date of discharge: 03/28/19 Attending physician: Malini Gonzalez Consults: 03/27/19 13:24 Consult Physician Routine Consulting Provider: Herman Sol Consult Reason/Comments: renal pancreas transplant Do you want consulting provider notified?: Yes 03/27/19 13:56 Consult Physician Routine Consulting Provider: Greg Myers Consult Reason/Comments: fever Do you want consulting provider notified?: Yes Primary care physician: Greg Lu [facility] Course: This is a 58-year-old male one of Dr. Lu with a previous medical history significant for hypertension and hypertensive cardio vascular disease with left ventricular hypertrophy, history of DVT of the left lower extremity, history of the end-stage renal disease was on hemodialysis post kidney and pancreas transplant in 2008 at the [facility], gout, Charcot foot, diabetes mellitus type 2, COPD, prior DVT in 1979, admitted to the emergency room secondary to sudden onset of fever 101.3 at 8 PM, accompanied by chills cough, no dysuria no diarrhea, no sick contacts, patient does not have any dizziness, patient flew from [place] seen through [employer], March 11, returned March 12 for his routine follow-up in [facility] for his transplant, his [employer] one-way was about 5 hours and 3-4 hours on his return trip to [place] patient was subsequently complaining of burning upon breathing, patient denies any lower extremity pain however he has lower extremity edema bilaterally. Emergency room, d-dimer was elevated, creatinine was 1.29 from a previous off 0.96, hemoglobin was 11.6 lactic acid normal 0.7, pro-calcitonin 0.06, urinalysis negative, d-dimer elevated at 1.23, chest x-ray shows no acute infiltrate we have requested additional imaging besides what the ER has done to include a VQ scan, CT high resolution chest, Dopplers of the leg 03/28: High resolution CAT scan of the chest revealed mild cardiomegaly with small anterior basilar pericardial fluid. Mitral and aortic valvular calcifications and CAD. Mild diffuse bronchial wall thickening could represent bronchitis or asthma. Calcified granuloma right apex. No specific findings of interstitial lung disease. Small hiatal hernia. VQ scan low probability for PE. Venous ultrasounds of the lower extremity negative for DVT bilaterally. Patient has been evaluated by Dr. Myers he has ordered Legionella, Chlamydia and Mycoplasma. Antibiotic de-escalation will have rapidly. Pro-calcitonin is 0.[address] Myers is recommending canceling all antibiotics. Urinalysis was clear. Patient states that he is feeling well today. He denies any fever or chills. He denies any sources of pain. Patient will be discharged home today in stable condition. Discharge diagnoses: 1. Pleurisy with fever and cough 2. Hypertension and hypertensive cardio vascular disease. 3. Acute kidney injury, CKD stage II 4. History of kidney and pancreas transplant back in 2008 at the [facility] 5. Gout. 6. History of diabetes mellitus type 2 post pancreatic transplant. 7. Hyperlipidemia. 8. History of squamous cell cancer status post Mohs procedure of the left forearm. 9. History of DVT. 10. GERD. 11. History of diabetic polyneuropathy. Stable. 12. History of diabetic retinopathy. Stable. 13. History of psoriasis. Stable. Discharge plan: Home Impression and plan of care have been directed as dictated by the signing physician. Lora Perez nurse practitioner acting as scribe for signing physician. Patient Condition at Discharge: Good Plan - Discharge Summary Discharge Rx Participant: No New Discharge Prescriptions: No Action Cholecalciferol [Vitamin D3 (25 Mcg = 1000 Iu)] 5,000 unit PO BID Allopurinol [Zyloprim] 300 mg PO HS Tacrolimus [Prograf] 0.5 mg PO DAILY Pravastatin Sodium [Pravachol] 40 mg PO HS predniSONE 5 mg PO DAILY Calcium Carbonate/Vitamin D3 [Calcium 500-Vit D3 400 Tablet] 1 tab PO BID Multivitamin/Iron/Folic Acid [Centrum Complete Multivit Tab] 1 tab PO DAILY Magnesium Oxide [Mag-Ox] 400 mg PO BID Carvedilol [Coreg] 6.25 mg PO BID Omeprazole [PriLOSEC] 20 mg PO AC-BRKFST Aspirin 81 mg PO HS Mycophenolate Sodium [Mycophenolic Acid] 720 mg PO HS Mycophenolate Sodium [Mycophenolic Acid] 360 mg PO DAILY amLODIPine [Norvasc] 5 mg PO DAILY Tacrolimus [Prograf] 1 mg PO HS Losartan Potassium 100 mg PO HS Discharge Medication List Allopurinol [Zyloprim] 300 mg PO HS 05/21/14 [History] Calcium Carbonate/Vitamin D3 [Calcium 500-Vit D3 400 Tablet] 1 tab PO BID 05/21/14 [History] Cholecalciferol [Vitamin D3 (25 Mcg = 1000 Iu)] 5,000 unit PO BID 05/21/14 [History] Pravastatin Sodium [Pravachol] 40 mg PO HS 05/21/14 [History] Tacrolimus [Prograf] 0.5 mg PO DAILY 05/21/14 [History] predniSONE 5 mg PO DAILY 05/21/14 [History] Magnesium Oxide [Mag-Ox] 400 mg PO BID 08/01/14 [History] Multivitamin/Iron/Folic Acid [Centrum Complete Multivit Tab] 1 tab PO DAILY 08/01/14 [History] Carvedilol [Coreg] 6.25 mg PO BID 04/02/15 [History] Omeprazole [PriLOSEC] 20 mg PO AC-BRKFST 05/18/15 [History] Aspirin 81 mg PO HS 11/08/16 [History] Mycophenolate Sodium [Mycophenolic Acid] 360 mg PO DAILY 11/26/18 [History] Mycophenolate Sodium [Mycophenolic Acid] 720 mg PO HS 11/26/18 [History] amLODIPine [Norvasc] 5 mg PO DAILY 11/26/18 [History] Tacrolimus [Prograf] 1 mg PO HS 01/09/19 [History] Losartan Potassium 100 mg PO HS 03/27/19 [History] Follow up Appointment(s)/Referral(s): Sana Kong MD [STAFF PHYSICIAN] - 1 Week (will see his own doctor.) Greg Lu MD [Primary Care Provider] - 04/19/19 Patient Instructions/Handouts: Fever in Adults (ED) Discharge Disposition: HOME SELF-CARE
--- NOTE | 2019-03-29 04:58 | CONS ---
CONSULTATION REASON FOR CONSULT: History of kidney pancreas transplant in [address] [facility] [place]. The patient also has underlying peripheral neuropathy, hypertensive heart disease. He was admitted to the hospital with history of fever of 101 degrees Fahrenheit at home. He also had some cough. The patient denied any abdominal pain, nausea, vomiting or chills. He has been started on antibiotics and maintained on IV fluids. Currently feeling better. Serum creatinine was 1.29 on admission. It is down to 1.02. Previous creatinine in November was 0.96. All cultures are currently negative. PAST MEDICAL HISTORY: Gout, coronary artery disease, end-stage renal disease, diabetes mellitus, hyperlipidemia, hypertension, osteoarthritis, peripheral vascular disease, Charcot foot, squamous cell carcinoma left forearm. PAST SURGICAL HISTORY: Kidney pancreas transplant 2008, cataract surgery, cardiac catheterization, coronary stent placement, several debridement of wound on the ankle and heel, removal of squamous cell cancer on the arm. SOCIAL HISTORY: Negative for smoking, drug abuse or alcohol abuse. REVIEW OF SYSTEMS: As per HPI. Other systems negative. MEDICATIONS: Medications at home prior to admission included Zyloprim, vitamin D, Pravachol, Prograf, prednisone, magnesium, Coreg, Prilosec, [place], CellCept, Norvasc, Prograf, Rocephin, Cozaar. ALLERGIES: None. PHYSICAL EXAMINATION: On examination, patient is comfortable, awake, not in any acute distress. Alert and oriented x3. Blood pressure was 179/73, heart rate 65 per minute. Patient is afebrile. EXAMINATION OF THE HEART: S1, S2. EXAMINATION OF THE LUNGS: Bilateral breath sounds are heard. Abdomen is soft, nontender. Examination of the lower extremities shows no significant edema. Patient has left Charcot foot. [employer] [place] exam shows patient moving all 4 extremities. LABS: Labs show hemoglobin 12.2, sodium 141, potassium 4.2, BUN 20, serum creatinine 1.02. UA is completely benign. ASSESSMENT: 1. Acute kidney injury, prerenal, currently improved with IV hydration. 2. Status post kidney pancreas transplant. Continue with current immunosuppression. 3. Bronchitis, maintained on Rocephin and improved. 4. Hypertension, maintained on angiotensin receptor blockers. Blood pressure is controlled. Continue with the Cozaar. 5. Dyslipidemia. PLAN: Continue with current immunosuppressive medications. Continue allopurinol and Cozaar for hypertension along with the Norvasc. Patient is stable for discharge from Nephrology standpoint if cleared by ID. Follow up as outpatient. MMODL / IJN: [id number] /
[2019-03-29 05:39] LABS: Mycoplasma IgM Antibody 0.13 INDEX (<=0.90)
[2019-04-02 20:09] LABS: C. pnuemoniae IgM <1:10 titer (<1:10)
== END 2019-03-28 12:52 | disposition home or self-care (01) ==
LOC: EC 00:16 → 4MS4W 04:30
PROVIDERS: ADMIT Family Medicine; ATTEND Family Medicine
DX: R09.1 Pleurisy (principal); I13.10 Hypertensive heart and chronic kidney disease without heart failure, with stage 1 through stage 4 chronic kidney disease, or unspecified chronic kidney disease; E11.22 Type 2 diabetes mellitus with diabetic chronic kidney disease; N18.2 Chronic kidney disease, stage 2 (mild); N17.9 Acute kidney failure, unspecified; Z94.0 Kidney transplant status; Z94.83 Pancreas transplant status; M10.9 Gout, unspecified; E78.5 Hyperlipidemia, unspecified; Z86.718 Personal history of other venous thrombosis and embolism; K21.9 Gastro-esophageal reflux disease without esophagitis; L40.9 Psoriasis, unspecified; E11.319 Type 2 diabetes mellitus with unspecified diabetic retinopathy without macular edema; E11.622 Type 2 diabetes mellitus with other skin ulcer; E11.42 Type 2 diabetes mellitus with diabetic polyneuropathy; E11.51 Type 2 diabetes mellitus with diabetic peripheral angiopathy without gangrene; R79.89 Other specified abnormal findings of blood chemistry; A52.16 Charcot's arthropathy (tabetic); J44.0 Chronic obstructive pulmonary disease with (acute) lower respiratory infection; J20.9 Acute bronchitis, unspecified; I25.10 Atherosclerotic heart disease of native coronary artery without angina pectoris; M19.90 Unspecified osteoarthritis, unspecified site; Z87.01 Personal history of pneumonia (recurrent); Z85.828 Personal history of other malignant neoplasm of skin; Z86.19 Personal history of other infectious and parasitic diseases; M26.609 Unspecified temporomandibular joint disorder, unspecified side; M85.80 Other specified disorders of bone density and structure, unspecified site; Z95.5 Presence of coronary angioplasty implant and graft; E89.0 Postprocedural hypothyroidism; Z79.899 Other long term (current) drug therapy; Z79.82 Long term (current) use of aspirin; Z79.52 Long term (current) use of systemic steroids; R01.1 Cardiac murmur, unspecified; Z82.3 Family history of stroke; Z82.61 Family history of arthritis; Z79.891 Long term (current) use of opiate analgesic
CPT/HCPCS: 96361; 96374; 99285; 36415; 93005; 85379; 86738 ×2; 80053; 80048; 87449; 86631; 86632; 83605; 84484; 85025; 85027; 85610; 85730; 81003; 87040; 87086; 84145; 71046; 93970; 71250; 78582; G0378 ×2; A9540; A9567; J7507; J0696; J1650; J7518 ×2; J7512 ×2

== ENCOUNTER → 2019-05-17 | Outpatient (CLI) | payer MEDICARE, BC ==
--- NOTE | 2019-05-17 08:39 | CT ---
EXAMINATION TYPE: CT abdomen pelvis wo con DATE OF EXAM: 05/17/2019 HISTORY: Fever CT DLP: 441.6 mGycm. Automated Exposure Control for Dose Reduction was Utilized. TECHNIQUE: CT scan of the abdomen and pelvis is performed without oral or IV contrast. COMPARISON: CT abdomen and pelvis September 19, 2016 FINDINGS: Within the limitations of a non-contrast study, the following observations are made. LUNG BASES: Calcification at level of mitral valve. Coronary artery calcification is present which is noted marked for underlying coronary artery disease. LIVER/GB: No significant abnormality is appreciated. PANCREAS: No significant abnormality is seen. SPLEEN: No significant abnormality is seen. ADRENALS: No significant abnormality is seen. KIDNEYS: Marked cortical thinning and [place] kidneys. Left pelvic transplant redemonstrated. Subcenti meter hyperdense focus anteriorly is stable axial image 50 consistent with proteinaceous cyst. 3 mm n onobstructing calculus right kidney axial image 57. BOWEL: Evaluation bowel slightly suboptimal secondary to lack of enteric contrast. No suspicious smal l or large bowel dilatation. Dependent density right lower quadrant bowel loops presumed ingested kelsy d products. GENITAL ORGANS: Mildly enlarged prostate gland consistent with BPH. LYMPH NODES: No greater than 1cm abdominal or pelvic lymph nodes are appreciated. OSSEOUS STRUCTURES: No significant abnormality is seen. OTHER: Mild to moderate calcified plaque of the aorta with more dense calcification involving smaller vessels consistent with history of nursing home end-stage renal disease. Interval treatment of ventral wall hernia. IMPRESSION: No source of fever identified on noncontrast CT.
== END ==
LOC: RADCTMAIN 05-14 11:06
PROVIDERS: ATTEND Internal Medicine Geriatric Medicine
DX: R50.9 Fever, unspecified (principal)
CPT/HCPCS: 74176

== ENCOUNTER → 2019-06-04 | Outpatient (CLI) | payer MEDICARE, BC ==
--- NOTE | 2019-06-04 09:20 | XR ---
EXAMINATION TYPE: XR chest 2V DATE OF EXAM: 06/04/2019 COMPARISON: Chest x-ray and CT chest March 27, 2019. HISTORY: Difficulty in breathing. TECHNIQUE: Frontal and lateral views of the chest are obtained. FINDINGS: There is no focal air space opacity, pleural effusion, or pneumothorax seen. The cardiac silhouette size remains enlarged. Vascular stent graft left shoulder region is noted. The osseous st ructures are intact. IMPRESSION: Cardiomegaly without acute pulmonary process.
== END | disposition home or self-care (01) ==
LOC: RADXRMAIN 08:53
PROVIDERS: ATTEND Internal Medicine Geriatric Medicine
DX: I51.7 Cardiomegaly (principal)
CPT/HCPCS: 71046

== ENCOUNTER → 2019-06-18 | Outpatient (CLI) | payer MEDICARE, BC ==
[~2019-06-18] MED LIST: LIDOCAINE 1% INJ 10MG/ML (20 ML MDV) IM ONE; cefTRIAXone 1,000 MG VIAL (IM USE) IM ONE
[2019-06-18 10:11] VITALS: BP 162/69; PULSE 77; RESP 16; TEMP 97.9
== END | disposition home or self-care (01) ==
LOC: PROCWHC3 09:06
PROVIDERS: ATTEND Nurse Practitioner Family
DX: E11.628 Type 2 diabetes mellitus with other skin complications (principal); L03.818 Cellulitis of other sites; S51.802D Unspecified open wound of left forearm, subsequent encounter
CPT/HCPCS: 96372; J2001; J0696

== ENCOUNTER 2019-06-19 14:07 | Inpatient (IN) | payer MEDICARE, BC ==
[2019-06-19] MEDS ORDERED: SODIUM CHLORIDE 0.9% 1,000 ML IV ONE (14:45)
[2019-06-19] MEDS: SODIUM CHLORIDE 0.9% 1,000 ML IV SCH (15:05)
[2019-06-19 15:24] LABS: Basophils % (A) 0 %; Eosinophils # (A) 0.1 k/uL (0-0.7); Eosinophils % (A) 1 %; HCT 38.3 % (39.0-53.0); HGB 12.5 gm/dL (13.0-17.5); Lymphocytes # (A) 0.4 k/uL (1.0-4.8); Lymphocytes % (A) 4 %; MCH 30.6 pg (25.0-35.0); MCHC 32.6 g/dL (31.0-37.0); MCV 93.9 fL (80.0-100.0); Mean Platelet Volume 5.8; Monocytes # (A) 0.5 k/uL (0-1.0); Monocytes % (A) 6 %; Neutrophils # (A) 7.4 k/uL (1.3-7.7); Neutrophils % (A) 87 %; Platelet Count 367 k/uL (150-450); RBC 4.08 m/uL (4.30-5.90); RDW 14.2 % (11.5-15.5); WBC 8.5 k/uL (3.8-10.6)
--- NOTE | 2019-06-19 15:24 | XR ---
EXAMINATION TYPE: XR forearm LT DATE OF EXAM: 06/19/2019 COMPARISON: NONE HISTORY: Swelling possible cellulitis Two views of the forearm demonstrate that the osseous structures appear to be intact and the joint sp aces appear to be preserved. There is no acute fracture or dislocation. Vascular calcifications are seen with soft tissue edema. No destructive changes. IMPRESSION: 1. No acute fracture or dislocation Nonspecific soft tissue edema with no acute fracture or destructive change.
[2019-06-19 15:33] LABS: Albumin 3.9 g/dL (3.5-5.0); Calcium 9.4 mg/dL (8.4-10.2); Total Bilirubin 0.5 mg/dL (0.2-1.3); Total Protein 6.8 g/dL (6.3-8.2)
--- NOTE | 2019-06-19 15:39 | ED ---
Skin/Abscess/FB HPI - General Chief complaint: Skin/Abscess/Foreign Body Stated complaint: Arm infection Time Seen by Provider: 06/19/19 14:22 Source: patient, RN notes reviewed, old records reviewed Mode of arrival: ambulatory Limitations: no limitations - History of Present Illness Initial comments: 5-year-old male presents today for evaluation for concern for a wound over his left forearm. Patient reports he has a history of skin cancer, and has been dealing with chronic wounds and poor healing for the past year. Patient is status post kidney and pancreas transplant, is on immunosuppressant drugs. Patient reports that he hasn't followed up with a wound care with the PA at his primary care doctor's office. They sent him here to receive IV antibiotics. He's been on doxycycline for the past 2 days, received Rocephin IM and primary care doctor's office.. He's been taking his antibiotics as prescribed. Patient initially came see the hospital today as he is scheduled to have an outpatient stress test but this was not able to be completed due to the machine was coming down. Patient reports he has no chest pain or shortness of breath at this time. - Related Data Home Medications Medication Instructions Recorded Confirmed Allopurinol [Zyloprim] 300 mg PO HS 05/21/14 06/18/19 Calcium Carbonate/Vitamin D3 1 tab PO BID 05/21/14 06/18/19 [Calcium 500-Vit D3 400 Tablet] Cholecalciferol [Vitamin D3 (25 5,000 unit PO BID 05/21/14 06/18/19 Mcg = 1000 Iu)] Pravastatin Sodium [Pravachol] 40 mg PO HS 05/21/14 06/18/19 Tacrolimus [Prograf] 0.5 mg PO DAILY 05/21/14 06/18/19 predniSONE 5 mg PO DAILY 05/21/14 06/18/19 Magnesium Oxide [Mag-Ox] 400 mg PO BID 08/01/14 06/18/19 Multivitamin/Iron/Folic Acid 1 tab PO DAILY 08/01/14 06/18/19 [Centrum Complete Multivit Tab] Carvedilol [Coreg] 6.25 mg PO BID 04/02/15 06/18/19 Omeprazole [PriLOSEC] 20 mg PO AC-BRKFST 05/18/15 06/18/19 Aspirin 81 mg PO HS 11/08/16 06/18/19 Mycophenolate Sodium [Mycophenolic 360 mg PO DAILY 11/26/18 06/18/19 Acid] Mycophenolate Sodium [Mycophenolic 720 mg PO HS 11/26/18 06/18/19 Acid] amLODIPine [Norvasc] 5 mg PO DAILY 11/26/18 06/18/19 Tacrolimus [Prograf] 1 mg PO HS 01/09/19 06/18/19 Losartan Potassium 100 mg PO HS 03/27/19 06/18/19 Allergies Allergy/AdvReac Type Severity Reaction Status Date / Time No Known Allergies Allergy Verified 06/19/19 14:16 Review of Systems ROS Statement: Those systems with pertinent positive or pertinent negative responses have been documented in the HPI. ROS Other: All systems not noted in ROS Statement are negative. Past Medical History Past Medical History: Coronary Artery Disease (CAD), Cancer, Diabetes Mellitus, Deep Vein Thrombosis (DVT), GERD/Reflux, Hyperlipidemia, Hypertension, Osteoarthritis (OA), Pneumonia, Renal Disease, Skin Disorder, Vascular Disorder Additional Past Medical History / Comment(s): Charcot, hx diabetes-had pancreas transplant, HTN cardiovascular disease, murmur, DVT L leg, poor circulation, bilateral feet and hand neuropathy, diabetic retinopathy, psoriasis, wound rt ankle and R heel, R dosal foot healed - had tx in wound clinic, pt recently had squamous skin cancer removed from R forearm-2 spots/one is healed and the second one is still being treated at [facility] and will need skin grafting, 10/2018 small area of osteomylitis R foot, pt had been in end stage renal disease and had hemodialysis for 3 yrs then had kidneys and pancreas transplant In 2008 at [facility], TMJ, gout, osteopenia, multiple malignant cutanous lesions with removals. History of Any Multi-Drug Resistant Organisms: C-DIFF Date of last positivie culture/infection: five years,unknown Past Surgical History: Heart Catheterization With Stent, Orthopedic Surgery Additional Past Surgical History / Comment(s): kidney & pancreas transplant 2008 , cataracts removed, bilateral eye vitrectomy, bilateral eye RK, surgery to reconnect rt achilles tendon with dehisence and then several debridements of wound to R ankle and R heel, skin lesion removal-basal cell cancer, A/V fistula L upper arm, parathyroidectomy, R wrist fx with surgery. Squamous cell carcinoma removed September 2016, and again in january 2018, november 2018. Past Anesthesia/Blood Transfusion Reactions: No Reported Reaction Additional Past Anesthesia/Blood Transfusion Reaction / Comment(s): Pt states he has received blood in the past without reaction. Date of Last Stent Placement:: 2005 Past Psychological History: No Psychological Hx Reported Smoking Status: Never smoker Past Alcohol Use History: Occasional Past Drug Use History: None Reported - Past Family History Father Family Medical History: CVA/TIA, Vascular Disorder Additional Family Medical History / Comment(s): cva x2. Father is at the age of 84 yrs. Mother Family Medical History: Osteoarthritis (OA) Additional Family Medical History / Comment(s): Mother is 80 yrs old. General Exam - General Exam Comments Initial Comments: 5-year-old male. Patient is in no acute distress with time. Pleasant. Limitations: no limitations General appearance: alert, in no apparent distress Head exam: Present: atraumatic, normocephalic, normal inspection Eye exam: Present: normal appearance, PERRL, EOMI. Absent: scleral icterus, conjunctival injection, periorbital swelling ENT exam: Present: normal exam, mucous membranes moist Neck exam: Present: normal inspection. Absent: tenderness, meningismus, lymphadenopathy Respiratory exam: Present: normal lung sounds bilaterally. Absent: respiratory distress, wheezes, rales, rhonchi, stridor Cardiovascular Exam: Present: regular rate, normal rhythm, normal heart sounds. Absent: systolic murmur, diastolic murmur, rubs, gallop, clicks GI/Abdominal exam: Present: soft, normal bowel sounds. Absent: distended, tenderness, guarding, rebound, rigid Extremities exam: Present: normal inspection, full ROM, normal capillary refill. Absent: tenderness, pedal edema, joint swelling, calf tenderness Left Elbow exam: Present: normal inspection, full ROM Forearm Wrist exam: Present: full ROM, erythema (Patient has erythema over the left forearm. She has 3 separate wounds. The most proximal her by 2 cm. Distal to that is a 3 cm right 2 cm wound with purulent drainage. Lateral to that is a 3 cm x 3 cm wound that is scabbed with purulent drainage noted. The second wound is deep, and evidence of tendon sheath is exposed. He has full range of motion of the hand and denies any significant pain at this time.), other. Absent: normal inspection Hand Wrist exam: Present: normal inspection, full ROM Neuro motor exam: Present: wrist extension intact, thumb opposition intact Back exam: Present: normal inspection, full ROM Neurological exam: Present: alert, oriented X3, CN II-XII intact, normal gait Psychiatric exam: Present: normal affect, normal mood Skin exam: Present: warm, dry, intact, normal color Course Vital Signs 06/19/19 14:16 Temperature 98.6 F Pulse Rate 92 Respiratory 16 Rate Blood Pressure 151/75 O2 Sat by Pulse 97 Oximetry Medical Decision Making - Medical Decision Making 5-year-old male with history of immunosuppression due to pancreas and kidney transplant. He presents today with a wound over his left arm. Patient has been on antibiotics of doxycycline and Rocephin for 2 days. He complains of worsening swelling in the hand. He has deep wounds that he's been dealing with for the past few months, and the swelling in erythema has worsened over the past few days. Patient had a wound culture that was positive for staph aureus and gram-negative bacilli. He's previously had pseudomonas. Discussed treatment with this time with Zosyn and vancomycin per pharmacy. Laboratory was obtained we did complete blood cultures and of the other wound culture today. Patient's labwork shows evidence of an elevated potassium of 6.3. Patient did have some mildly peaked T waves in V1 2 and 3. Patient was started on hyperkalemia protocol, given insulin and albuterol Kayexalate. On redraw potassium still is elevated at 6.2. Patient does take potassium supplements. Asians case discusse d with Dr. Rainey whom did discuss the case with Dr. Gonzalez. Patient will be admitted for hyperkalemia, and failure of outpatient treatment for left upper extremity wound. - Lab Data Result diagrams: 06/19/19 15:04 06/19/19 15:04 Lab Results 06/19/19 06/19/19 Range/Units 15:04 15:04 WBC 8.5 (3.8-10.6) k/uL RBC 4.08 L (4.30-5.90) m/uL Hgb 12.5 L (13.0-17.5) gm/dL Hct 38.3 L (39.0-53.0) % MCV 93.9 (80.0-100.0) fL MCH 30.6 (25.0-35.0) pg MCHC 32.6 (31.0-37.0) g/dL RDW 14.2 (11.5-15.5) % Plt Count 367 (150-450) k/uL Neutrophils % 87 % Lymphocytes % 4 % Monocytes % 6 % Eosinophils % 1 % Basophils % 0 % Neutrophils # 7.4 (1.3-7.7) k/uL Lymphocytes # 0.4 L (1.0-4.8) k/uL Monocytes # 0.5 (0-1.0) k/uL Eosinophils # 0.1 (0-0.7) k/uL Basophils # 0.0 (0-0.2) k/uL Sodium 140 (137-145) mmol/L Potassium 6.3 H* (3.5-5.1) mmol/L Chloride 108 H (98-107) mmol/L Carbon Dioxide 24 (22-30) mmol/L Anion Gap 8 mmol/L BUN 23 H (9-20) mg/dL Creatinine 1.19 (0.66-1.25) mg/dL Est GFR (CKD-EPI)AfAm 76 (>60 ml/min/1.73 sqM) Est GFR (CKD-EPI)NonAf 66 (>60 ml/min/1.73 sqM) Glucose 125 H (74-99) mg/dL Calcium 9.4 (8.4-10.2) mg/dL Total Bilirubin 0.5 (0.2-1.3) mg/dL AST 20 (17-59) U/L ALT 21 (21-72) U/L Alkaline Phosphatase 82 (38-126) U/L Total Protein 6.8 (6.3-8.2) g/dL Albumin 3.9 (3.5-5.0) g/dL 06/19/19 16:17 EKG performed shows normal sinus rhythm, left axis deviation. Voltage criteria for LVH, may be normal variant. T wave abnormality consider anterolateral ischemia. Ventricular rate of 85 beats were minute. Verbal is 162 ms. QRS ration is 102 ms. QT QTc is 360/437 ms. - Radiology Data Radiology results: report reviewed X-ray of the left forearm shows no acute fracture distal location. Nonspecific soft tissue edema with no acute fracture or destructive changes are noted. Read by Dr. Gomez. Disposition Clinical Impression: Hyperkalemia, Failure of outpatient treatment, Open wound of left upper arm, Status post simultaneous kidney and pancreas transplant, Transplant recipient Disposition: ADMITTED IP TO THIS HOSP Condition: Stable Is patient prescribed a controlled substance at d/c from ED?: No Referrals: Greg Lu MD [Primary Care Provider] - 1-2 days Time of Disposition: 16:18
[2019-06-19 15:42] LABS: Potassium 6.3 mmol/L (3.5-5.1)
[2019-06-19] MEDS ORDERED: CALCIUM GLUCONATE 1 GM in SODIUM CHLORIDE 0.9% 100 ML IVPB ONE (15:55)
[2019-06-19] MEDS ORDERED: DEXTROSE 10 % IN WATER 250 ML IV ONE (15:55)
[2019-06-19] MEDS ORDERED: INSULIN REGULAR 100 UNIT/ML VIAL IV ONE (15:55)
[2019-06-19] MEDS ORDERED: SODIUM POLYSTYRENE SULFONATE 15 GM/60 ML BOTTLE PO ONE (15:55)
[2019-06-19] MEDS ORDERED: ALBUTEROL NEB (CONC) 2.5 MG/0.5 ML INHALATION ONE (15:55)
[2019-06-19] MEDS ORDERED: PIPERACILLIN-TAZOBACTAM 3.375 GM in SODIUM CHLORIDE 0.9% 100 ML IVPB STA (15:57)
[2019-06-19] MEDS ORDERED: VANCOMYCIN IV PER PHARMACY 1 EACH MISC MISCELLANE PRN (16:09)
[2019-06-19] MEDS ORDERED: ONDANSETRON 4 MG/2 ML VIAL IVP PRN (16:19)
[2019-06-19] MEDS ORDERED: ACETAMINOPHEN TAB 325 MG TAB PO PRN (16:19)
[2019-06-19] MEDS ORDERED: NALOXONE 0.4 MG/ML 1 ML VIAL IV PRN (16:19)
[2019-06-19] MEDS ORDERED: KETOROLAC 30 MG/ML 1 ML VIAL IVP PRN (16:19)
[2019-06-19] MEDS ORDERED: MORPHINE SULFATE 4 MG/ML SYRINGE IV PRN (16:19)
[2019-06-19] MEDS ORDERED: IBUPROFEN 400 MG TAB PO PRN (16:19)
[2019-06-19] MEDS ORDERED: VANCOMYCIN 1,500 MG in SODIUM CHLORIDE 0.9% 250 ML IVPB ONE (16:30)
[2019-06-19 18:29] VITALS: BMI 27.8
[2019-06-19] MEDS ORDERED: DAPTOmycin 500 MG in SODIUM CHLORIDE 0.9% 50 ML IVPB SCH (22:00)
[2019-06-19] MEDS ORDERED: hydrALAZINE HCL 20 MG/ML 1 ML VIAL IVP PRN (22:46)
[2019-06-19] MEDS ORDERED: ALBUTEROL NEBULIZED 2.5 MG/3 ML INHALATION PRN (22:51)
[2019-06-20] MEDS: SODIUM CHLORIDE 0.9% 1,000 ML IV SCH (05:47)
[2019-06-20] MEDS ORDERED: VANCOMYCIN 1,500 MG in SODIUM CHLORIDE 0.9% 250 ML IVPB SCH (06:00)
[2019-06-20 06:38] LABS: Basophils % (A) 0 %; Eosinophils # (A) 0.2 k/uL (0-0.7); Eosinophils % (A) 4 %; HCT 35.4 % (39.0-53.0); HGB 11.4 gm/dL (13.0-17.5); Lymphocytes # (A) 0.5 k/uL (1.0-4.8); Lymphocytes % (A) 8 %; MCH 30.1 pg (25.0-35.0); MCHC 32.3 g/dL (31.0-37.0); MCV 93.2 fL (80.0-100.0); Mean Platelet Volume 5.6; Monocytes # (A) 0.6 k/uL (0-1.0); Monocytes % (A) 9 %; Neutrophils % (A) 77 %; Platelet Count 340 k/uL (150-450); RDW 14.2 % (11.5-15.5); WBC 6.5 k/uL (3.8-10.6)
[2019-06-20 07:11] LABS: ALT 22 U/L (21-72); AST 17 U/L (17-59); African American GFR (CKD) >90 (>60 ml/min/1.73 sqM); Albumin 3.3 g/dL (3.5-5.0); Alkaline Phosphatase 62 U/L (38-126); Anion Gap 8 mmol/L; Blood Urea Nitrogen 18 mg/dL (9-20); Calcium 8.8 mg/dL (8.4-10.2); Carbon Dioxide 24 mmol/L (22-30); Chloride 110 mmol/L (98-107); Glucose 92 mg/dL (74-99); Non-African American GFR(CKD) 88 (>60 ml/min/1.73 sqM); Sodium 142 mmol/L (137-145); Total Bilirubin 0.5 mg/dL (0.2-1.3); Total Protein 6.1 g/dL (6.3-8.2)
[2019-06-20] MEDS ORDERED: NON FORMULARY DRUG (Omeprazole [Prilosec] 20 MG) PO SCH (08:00)
--- NOTE | 2019-06-20 08:58 | P.HPIM ---
History of Present Illness H&P Date: 06/20/19 Chief Complaint: Wounds left arm This is a 59-year-old male patient of Dr. Lu with a previous medical history significant for hypertension and hypertensive cardiovascular disease with left ventricular hypertrophy, history of DVT of the left lower extremity, history of the end-stage renal disease was on hemodialysis post kidney and pancreas transplant in 2008 at the [facility], gout, Charcot foot, diabetes mellitus type 2, COPD. patient had a hospitalization in October of this year which time he was treated for a right foot abscess with osteomyelitis in the fifth metatarsal status post bedside I&D and was discharged home on IV Rocephin which he obtained at [facility] office . Patient also followed with the wound healing Center and had resolution of this wound. He now states he has a wound on his left arm since November when he had squamous cell skin cancer removed. He had 2 areas resected and one had skin grafting done and has healed. There is a distal wound that is still problematic and he has been following with Cindi Trejo DNP at [facility]. Patient was seen at the wound healing Center on Monday and was recommended for admission for IV antibiotics however patient had a stress test scheduled for Monday at the ardiology office which she did not want to miss. Patient received 1 dose of IM Rocephin and was given a prescription for doxycycline and plan was him to present to [facility] emergency center after he had a stress test completed. Unfortunately, there was a problem with the stress testing and this was canceled and patient thus came into [facility] emergency center yesterday for evaluation. He was found to be afebrile, WBC 6.5, hemoglobin 12.5, platelet count 367. Sodium 140, potassium 6.3, chloride 108, CO2 24, BUN 23 and creatinine 1.19, blood sugar 125, liver function tests within normal limits, albumin 3.9. The patient was given Kayexalate, regular in sulin dextrose and albuterol. Patient was also given 1 dose of vancomycin and 1 dose of Zosyn and then admitted to the cardiac stepdown unit. There are consult in place for Dr. Myers from infectious disease and Dr. Kong for nephrology. Repeat potassium this morning is 4.0. Patient will be transferred to [facility] floor. Regarding transplant, patient was last seen at [facility] in January and recently had lab work done on Monday at [facility]. He states his blood sugars have been running between 80 and 110 at home. He denies any fever or chills. He has had a good appetite. Review of Systems Constitutional: Denies chills, Denies fatigue, Denies fever, Denies lethargy, Denies poor appetite, Denies weakness Eyes: denies blurred vision, denies pain Ears, nose, mouth and throat: Denies dysphagia, Denies headache, Denies nasal congestion, Denies nasal discharge, Denies sore throat, Denies vertigo Cardiovascular: Denies chest pain, Denies decreased exercise tolerance, Denies dyspnea on exertion, Denies edema, Denies leg edema, Denies lightheadedness, Denies shortness of breath, Denies syncope Respiratory: Denies cough, Denies cough with sputum, Denies dyspnea, Denies excessive sputum, Denies hemoptysis, Denies home oxygen, Denies respiratory infections, Denies wheezing Gastrointestinal: Denies abdominal pain, Denies diarrhea, Denies loss of appetite, Denies nausea, Denies vomiting Genitourinary: Denies dysuria, Denies urinary frequency, Denies urinary retent ion Musculoskeletal: Denies frequent falls, Denies gait dysfunction, Denies muscle weakness, Denies myalgias Integumentary: Reports wounds, Denies pruritus, Denies rash Neurological: Denies change in mentation, Denies change in speech, Denies numbness, Denies seizures, Denies weakness Psychiatric: Denies anxiety, Denies depression Endocrine: Denies fatigue, Denies weight change Past Medical History Past Medical History: Coronary Artery Disease (CAD), Cancer, Diabetes Mellitus, Deep Vein Thrombosis (DVT), GERD/Reflux, Hyperlipidemia, Hypertension, Osteoarthritis (OA), Pneumonia, Renal Disease, Skin Disorder, Vascular Disorder Additional Past Medical History / Comment(s): Charcot, hx diabetes-had pancreas transplant, HTN cardiovascular disease, murmur, DVT L leg, poor circulation, bilateral feet and hand neuropathy, diabetic retinopathy, psoriasis, wound rt ankle and R heel, R dosal foot healed - had tx in wound clinic, pt recently had squamous skin cancer removed from R forearm-2 spots/one is healed and the second one is still being treated at [facility] and will need skin grafting, 10/2018 small area of osteomylitis R foot, pt had been in end stage renal disease and had hemodialysis for 3 yrs then had kidneys and pancreas transplant In 2008 at [facility], TMJ, gout, osteopenia, multiple malignant cutanous lesions with removals. History of Any Multi-Drug Resistant Organisms: C-DIFF Date of last positivie culture/infection: five years,unknown MDRO Source:: stool Past Surgical History: Heart Catheterization With Stent, Orthopedic Surgery Additional Past Surgical History / Comment(s): kidney & pancreas transplant 2008, cataracts removed, bilateral eye vitrectomy, bilateral eye RK, surgery to reconnect rt achilles tendon with dehisence and then several debridements of wound to R ankle and R heel, skin lesion removal-basal cell cancer, A/V fistula L upper arm, parathyroidectomy, R wrist fx with surgery. Squamous cell carcinoma removed September 2016, and again in january 2018, november 2018. Past Anesthesia/Blood Transfusion Reactions: No Reported Reaction Additional Past Anesthesia/Blood Transfusion Reaction / Comment(s): Pt states he has received blood in the past without reaction. Date of Last Stent Placement:: 2005 Past Psychological History: No Psychological Hx Reported Additional Psychological History / Comment(s): Patient is a lifelong nonsmoker. No marijuana or illicit drug use. No alcohol use. Patient lives at home with his and dog. Patient is independent and drives. Smoking Status: Never smoker Past Alcohol Use History: Occasional Additional Past Alcohol Use History / Comment(s): Patient is a lifelong nonsmoker. No marijuana or illicit drug use. No alcohol use. Patient lives at home with his and dog. Patient is independent and drives. Past Drug Use History: None Reported - Past Family History Father Family Medical History: CVA/TIA, Vascular Disorder Additional Family Medical History / Comment(s): cva x2. Father is at the age of 84 yrs. Mother Family Medical History: Osteoarthritis (OA) Additional Family Medical History / Comment(s): Mother is 80 yrs old. Medications and Allergies Home Medications Medication Instructions Recorded Confirmed Type Allopurinol [Zyloprim] 300 mg PO HS@199905/21/14 06/19/19 History Calcium Carbonate/Vitamin D3 1 tab PO BID@08,199905/21/14 06/19/19 History [Calcium 500-Vit D3 400 Tablet] Cholecalciferol [Vitamin D3 (25 5,000 unit PO BID@08,199905/21/14 06/19/19 History Mcg = 1000 Iu)] Pravastatin Sodium [Pravachol] 40 mg PO HS@199905/21/14 06/19/19 History Tacrolimus [Prograf] 0.5 mg PO HS@199905/21/14 06/19/19 History predniSONE 5 mg PO DAILY@0800 05/21/14 06/19/19 History Magnesium Oxide [Mag-Ox] 400 mg PO BID@08,199908/01/14 06/19/19 History Multivitamin/Iron/Folic Acid 1 tab PO DAILY@0800 08/01/14 06/19/19 History [Centrum Complete Multivit Tab] Carvedilol [Coreg] 6.25 mg PO BID@0800,199904/02/15 06/19/19 History Omeprazole [PriLOSEC] 20 mg PO DAILY@0800 05/18/15 06/19/19 History Aspirin 81 mg PO HS@199911/08/16 06/19/19 History Mycophenolate Sodium [Mycophenolic 360 mg PO DAILY@0800 11/26/18 06/19/19 History Acid] Mycophenolate Sodium [Mycophenolic 720 mg PO HS@199911/26/18 06/19/19 History Acid] Tacrolimus [Prograf] 1 mg PO DAILY@0800 01/09/19 06/19/19 History Losartan Potassium 100 mg PO HS@199903/27/19 06/19/19 History Albuterol Inhaler [Ventolin Hfa 2 puff INHALATION RT-Q4H PRN 06/19/19 06/19/19 History Inhaler] Ascorbic Acid [Vitamin C] 1,000 mg PO DAILY@0800 06/19/19 06/19/19 History Clindamycin Topical Soln 1 applic TOPICAL BID 06/19/19 06/19/19 History [Cleocin-T Topical Soln] Doxycycline Hyclate 100 mg PO BID 06/19/19 06/19/19 History HYDROcodone/APAP 5-325MG [[place] 0.5 tab PO Q6H PRN 06/19/19 06/19/19 History 5-325] Halobetasol Propionate [Ultravate] 1 applic TOPICAL BID PRN 06/19/19 06/19/19 History Potassium Chloride ER [K-Dur 20] 40 meq PO BID@0800,199906/19/19 06/19/19 History amLODIPine [Norvasc] 10 mg PO DAILY@0800 06/19/19 06/19/19 History Cefepime HCl [Maxipime] 2 gm IV Q12H #42 vial 06/20/19 Rx Allergies Allergy/AdvReac Type Severity Reaction Status Date / Time No Known Allergies Allergy Verified 06/19/19 16:42 Physical Exam Vitals: Vital Signs Temp Pulse Pulse Pulse Resp BP BP 06/20/19 04:00 98.2 F 78 16 135/59 06/19/19 23:59 98.2 F 80 16 127/58 06/19/19 20:00 98.4 F 87 18 140/63 06/19/19 19:02 92 06/19/19 17:33 99 F 89 16 131/65 06/19/19 16:53 88 06/19/19 16:40 88 06/19/19 16:35 97.5 F L 92 18 177/77 06/19/19 16:34 81 16 148/74 06/19/19 14:16 98.6 F 92 16 151/75 Pulse Ox 06/20/19 04:00 96 06/19/19 23:59 95 06/19/19 20:00 94 L 06/19/19 19:02 06/19/19 17:33 95 06/19/19 16:53 06/19/19 16:40 06/19/19 16:35 96 06/19/19 16:34 98 06/19/19 14:16 97 Intake and Output 06/19/19 06/20/19 06/20/19 22:59 06:59 14:59 Intake Total 350 650 Balance 350 650 Intake: Intake, IV Titration 350 650 Amount DAPTOmycin 500 mg In 50 Sodium Chloride 0.9% 50 ml @ 100 mls/hr IVPB Q24H [facility] Rx#:[id number] Piperacillin-Tazobactam 3 100 .375 gm In Sodium Chloride 0.9% 100 ml @ 200 mls/hr IVPB ONCE STA Rx#:[id number] Sodium Chloride 0.9% 1, 500 000 ml @ 100 mls/hr IV . Q10H [facility] Rx#:[id number] Vancomycin 1,500 mg In 250 Sodium Chloride 0.9% 250 ml @ 166.67 mls/hr IVPB ONCE ONE Rx#:[id number] cefTAZidime 2 gm In 100 Sodium Chloride 0.9% 100 ml @ 100 mls/hr IVPB Q8HR [facility] Rx#:[id number] Other: Voiding Method Toilet Toilet Weight 83 kg Gen: This is a 59-year-old male. Patient is sleeping arouses easily to verbal stimuli. He appears to be in no acute distress. HEENT: Head is atraumatic, normocephalic. Pupils equal, round. Sclerae is anicteric. Conjunctiva pink. Mucous members of the mouth are moist. NECK: Supple. No JVD. No lymphadenopathy. No thyromegaly. LUNGS: Clear to auscultation. No wheezes or rhonchi. No intercostal r etractions. HEART: Regular rate and rhythm. 3/6 systolic murmur. ABDOMEN: Soft. Bowel sounds are present. No masses. No tenderness. EXTREMITIES: No pedal edema. No calf tenderness. Dorsalis pedis +2 bilaterally. Charcot foot on the left. Healed wound on the right lateral fifth metatarsal. Wounds to the left forearm NEUROLOGICAL: Patient is awake, alert and oriented x3. Cranial nerves 2 through 12 are grossly intact. Results CBC & Chem 7: 06/20/19 06:16 06/20/19 06:16 Labs: Abnormal Lab Results - Last 24 Hours (Table) 06/19/19 06/19/19 06/19/19 Range/Units 15:04 15:04 15:47 RBC 4.08 L (4.30-5.90) m/uL Hgb 12.5 L (13.0-17.5) gm/dL Hct 38.3 L (39.0-53.0) % Lymphocytes # 0.4 L (1.0-4.8) k/uL Potassium 6.3 H* 6.2 H* (3.5-5.1) mmol/L Chloride 108 H (98-107) mmol/L BUN 23 H (9-20) mg/dL Glucose 125 H (74-99) mg/dL Total Protein (6.3-8.2) g/dL Albumin (3.5-5.0) g/dL 06/20/19 06/20/19 Range/Units 06:16 06:16 RBC 3.80 L (4.30-5.90) m/uL Hgb 11.4 L (13.0-17.5) gm/dL Hct 35.4 L (39.0-53.0) % Lymphocytes # 0.5 L (1.0-4.8) k/uL Potassium (3.5-5.1) mmol/L Chloride 110 H (98-107) mmol/L BUN (9-20) mg/dL Glucose (74-99) mg/dL Total Protein 6.1 L (6.3-8.2) g/dL Albumin 3.3 L (3.5-5.0) g/dL Thrombosis Risk Factor Assmnt - DVT/VTE Prophylaxis DVT/VTE Prophylaxis: Pharmacologic Prophylaxis ordered - Choose All That Apply Each Factor Represents 1 point: Age 41-60 years Other Risk Factors: Yes Each Risk Factor Represents 3 Points: History of DVT/PE Other congenital or acquired thrombophilia - If yes, enter type in comment: No Thrombosis Risk Factor Assessment Total Risk Factor Score: 4 Thrombosis Risk Factor Assessment Level: Moderate Risk Assessment and Plan Plan: 1. Nonhealing ulcer to the left forearm at skin cancer resection site. Failed outpatient treatment. Consult with Dr. Myers appreciated. Patient has been started on cefepime. Patient may require outpatient IV antibiotic infusion. 2. Hyperkalemia status post Kayexalate, regular insulin, dextrose and albuterol updraft. Consult with nephrology. Losartan is on hold. 3. Hypertension and hypertensive cardio vascular disease. Continue carvedilol 6.25 mg orally twice every day, amlodipine 5 mg orally once every day. Losartan 100 mg orally once every day is on hold. 4. History of kidney and pancreas transplant back in 2008 at the [facility]. Continue patient on Prograf as well as CellCept, prednisone. 5. Gout, chronic. Continue allopurinol 300 mg orally once every day. 6. History of diabetes mellitus type 2 post pancreatic transplant. 7. History of end-stage renal disease post kidney transplant. 8. Hyperlipidemia. Continue patient on Pravachol 40 mg orally once every day. 9. History of squamous cell cancer status post Mohs procedure of the left forearm. 10. History of DVT. Continue with heparin 5000 units subcutaneously every 12 hours. 11. GERD. Continue PPI. 12. History of diabetic polyneuropathy. Stable. 13. History of diabetic retinopathy. Stable. 14. History of psoriasis. Stable. 15. History of right foot abscess with osteomyelitis in the fifth metatarsal, status post bedside I&D and outpatient IV antibiotics, healed. 16. DVT prophylaxis. Continue patient on heparin 5000 units subcutaneously every 8 hours . 17. GI prophylaxis. Continue PPI. Admit to inpatient. Estimate length of stay 2 midnights. CODE STATUS: full code. Discharge plan: Return home. Patient may require outpatient IV antibiotics. These were previously provided at [facility]. Impression and plan of care have been directed as dictated by the signing physician. Lora Perez nurse practitioner acting as scribe for signing physician.
--- NOTE | 2019-06-20 09:17 | P.CONS ---
History of Present Illness - Reason for Consult Consult date: 06/20/19 - History of Present Illness This is a 59-year-old male well-known to ID service with a previous medical history significant for hypertension and hypertensive cardiovascular disease with left ventricular hypertrophy, history of DVT of the left lower extremity, history of the end-stage renal disease was on hemodialysis post kidney and pancreas transplant in 2008 at the [facility], gout, Charcot foot, diabetes mellitus type 2, COPD. patient had a hospitalization in October of this year which time he was treated for a right foot abscess with osteomyelitis in the fifth metatarsal status post bedside I&D and was discharged home on IV Rocephin which he obtained at [facility] office . [facility] and had resolution of this wound. He now states he has a wound on his left arm since November when he had squamous cell skin cancer removed. He had 2 areas resected and one had skin grafting done and has healed. There is a distal wound that is still problematic and he has been following with Cindi Trejo DNP at [facility]. Patient was seen at the wound healing Center on Monday and was recommended for admission for IV antibiotics however patient had a stress test scheduled for Monday at the cardiology office which she did not want to miss. Patient received 1 dose of IM Rocephin and was given a prescription for doxycycline and plan was him to present to [facility] emergency [facility] after he had a stress test completed. Unfortunately, there was a problem with the stress testing and this was canceled and patient thus came into [facility] emergency center yesterday for evaluation. He was found to be afebrile, WBC 6.5, hemoglobin 12.5, platelet count 367. Sodium 140, potassium 6.3, chloride 108, CO2 24, BUN 23 and creatinine 1.19, blood sugar 125, liver function tests within normal limits, albumin 3.9. The patient was given Kayexalate, regular insulin dextrose and albuterol. Patient was also given 1 dose of vancomycin and 1 dose of Zosyn and then admitted to the cardiac stepdown unit. There is a consult in place for nephrology. Repeat potassium this morning is 4.0. [facility]. Regarding transplant, patient was last seen at [facility] in January and recently had lab work done on Monday at [facility]. He states his blood sugars have been running between 80 and 110 at home. He denies any fever or chills. He has had a good appetite. Review of Systems Constitutional: Denies chills, Denies fatigue, Denies fever, Denies lethargy, Denies poor appetite, Denies weakness Eyes: denies blurred vision, denies pain Ears, nose, mouth and throat: Denies dysphagia, Denies headache, Denies nasal congestion, Denies nasal discharge, Denies sore throat, Denies vertigo Cardiovascular: Denies chest pain, Denies decreased exercise tolerance, Denies dyspnea on exertion, Denies edema, Denies leg edema, Denies lightheadedness, Denies shortness of breath, Denies syncope Respiratory: Denies cough, Denies cough with sputum, Denies dyspnea, Denies excessive sputum, Denies hemoptysis, Denies home oxygen, Denies respiratory infections, Denies wheezing Gastrointestinal: Denies abdominal pain, Denies diarrhea, Denies loss of appetite, Denies nausea, Denies vomiting Genitourinary: Denies dysuria, Denies urinary frequency, Denies urinary retenti on Musculoskeletal: Denies frequent falls, Denies gait dysfunction, Denies muscle weakness, Denies myalgias Integumentary: Reports wounds, Denies pruritus, Denies rash Neurological: Denies change in mentation, Denies change in speech, Denies numbness, Denies seizures, Denies weakness Psychiatric: Denies anxiety, Denies depression Endocrine: Denies fatigue, Denies weight change Past Medical History Past Medical History: Coronary Artery Disease (CAD), Cancer, Diabetes Mellitus, Deep Vein Thrombosis (DVT), GERD/Reflux, Hyperlipidemia, Hypertension, Osteoarthritis (OA), Pneumonia, Renal Disease, Skin Disorder, Vascular Disorder Additional Past Medical History / Comment(s): Charcot, hx diabetes-had pancreas transplant, HTN cardiovascular disease, murmur, DVT L leg, poor circulation, bilateral feet and hand neuropathy, diabetic retinopathy, psoriasis, wound rt ankle and R heel, R dosal foot healed - had tx in wound clinic, pt recently had squamous skin cancer removed from R forearm-2 spots/one is healed and the second one is still being treated at [facility] and will need skin grafting, 10/2018 small area of osteomylitis R foot, pt had been in end stage renal disease and had hemodialysis for 3 yrs then had kidneys and pancreas transplant In 2008 at [facility], TMJ, gout, osteopenia, multiple malignant cutanous lesions with removals. History of Any Multi-Drug Resistant Organisms: C-DIFF Year Discovered:: five years,unknown MDRO Source:: stool Past Surgical History: Heart Catheterization With Stent, Orthopedic Surgery Additional Past Surgical History / Comment(s): kidney & pancreas transplant 2008, cataracts removed, bilateral eye vitrectomy, bilateral eye RK, surgery to reconnect rt achilles tendon with dehisence and then several debridements of wound to R ankle and R heel, skin lesion removal-basal cell cancer, A/V fistula L upper arm, parathyroidectomy, R wrist fx with surgery. Squamous cell carcinoma removed September 2016, and again in january 2018, november 2018. Past Anesthesia/Blood Transfusion Reactions: No Reported Reaction Additional Past Anesthesia/Blood Transfusion Reaction / Comm: Pt states he has received blood in the past without reaction. Date of Last Stent Placement:: 2005 Past Psychological History: No Psychological Hx Reported Additional Psychological History / Comment(s): Patient is a lifelong nonsmoker. No marijuana or illicit drug use. No alcohol use. Patient lives at home with his and dog. Patient is independent and drives. Smoking Status: Never smoker Past Alcohol Use History: Occasional Additional Past Alcohol Use History / Comment(s): Patient is a lifelong nonsmoker. No marijuana or illicit drug use. No alcohol use. Patient lives at home with his and dog. Patient is independent and drives. Past Drug Use History: None Reported - Past Family History Father Family Medical History: CVA/TIA, Vascular Disorder Additional Family Medical History / Comment(s): cva x2. Father is at the age of 84 yrs. Mother Family Medical History: Osteoarthritis (OA) Additional Family Medical History / Comment(s): Mother is 80 yrs old. Medications and Allergies Home Medications Medication Instructions Recorded Confirmed Type Allopurinol [Zyloprim] 300 mg PO HS@199905/21/14 06/19/19 History Calcium Carbonate/Vitamin D3 1 tab PO BID@08,199905/21/14 06/19/19 History [Calcium 500-Vit D3 400 Tablet] Cholecalciferol [Vitamin D3 (25 5,000 unit PO BID@08,199905/21/14 06/19/19 History Mcg = 1000 Iu)] Pravastatin Sodium [Pravachol] 40 mg PO HS@199905/21/14 06/19/19 History Tacrolimus [Prograf] 0.5 mg PO HS@199905/21/14 06/19/19 History predniSONE 5 mg PO DAILY@0800 05/21/14 06/19/19 History Magnesium Oxide [Mag-Ox] 400 mg PO BID@0800,199908/01/14 06/19/19 History Multivitamin/Iron/Folic Acid 1 tab PO DAILY@0800 08/01/14 06/19/19 History [Centrum Complete Multivit Tab] Carvedilol [Coreg] 6.25 mg PO BID@08,199904/02/15 06/19/19 History Omeprazole [PriLOSEC] 20 mg PO DAILY@0800 05/18/15 06/19/19 History Aspirin 81 mg PO HS@199911/08/16 06/19/19 History Mycophenolate Sodium [Mycophenolic 360 mg PO DAILY@0811/26/18 06/19/19 History Acid] Mycophenolate Sodium [Mycophenolic 720 mg PO HS@199911/26/18 06/19/19 History Acid] Tacrolimus [Prograf] 1 mg PO DAILY@0800 01/09/19 06/19/19 History Losartan Potassium 100 mg PO HS@199903/27/19 06/19/19 History Albuterol Inhaler [Ventolin Hfa 2 puff INHALATION RT-Q4H PRN 06/19/19 06/19/19 History Inhaler] Ascorbic Acid [Vitamin C] 1,000 mg PO DAILY@0800 06/19/19 06/19/19 History Clindamycin Topical Soln 1 applic TOPICAL BID 06/19/19 06/19/19 History [Cleocin-T Topical Soln] Doxycycline Hyclate 100 mg PO BID 06/19/19 06/19/19 History HYDROcodone/APAP 5-325MG [[place] 0.5 tab PO Q6H PRN 06/19/19 06/19/19 History 5-325] Halobetasol Propionate [Ultravate] 1 applic TOPICAL BID PRN 06/19/19 06/19/19 History Potassium Chloride ER [K-Dur 20] 40 meq PO BID@0800,199906/19/19 06/19/19 History amLODIPine [Norvasc] 10 mg PO DAILY@0800 06/19/19 06/19/19 History Cefepime HCl [Maxipime] 2 gm IV Q12H #42 vial 06/20/19 Rx Allergies Allergy/AdvReac Type Severity Reaction Status Date / Time No Known Allergies Allergy Verified 06/19/19 16:42 Physical Exam Vitals: Vital Signs Temp Pulse Pulse Pulse Resp BP BP 06/20/19 04:00 98.2 F 78 16 135/59 06/19/19 23:59 98.2 F 80 16 127/58 06/19/19 20:00 98.4 F 87 18 140/63 06/19/19 19:02 92 06/19/19 17:33 99 F 89 16 131/65 06/19/19 16:53 88 06/19/19 16:40 88 06/19/19 16:35 97.5 F L 92 18 177/77 06/19/19 16:34 81 16 148/74 06/19/19 14:16 98.6 F 92 16 151/75 Pulse Ox 06/20/19 04:00 96 06/19/19 23:59 95 06/19/19 20:00 94 L 06/19/19 19:02 06/19/19 17:33 95 06/19/19 16:53 06/19/19 16:40 06/19/19 16:35 96 06/19/19 16:34 98 06/19/19 14:16 97 Intake and Output 06/19/19 06/20/19 06/20/19 22:59 06:59 14:59 Intake Total 350 650 Balance 350 650 Intake: Intake, IV Titration 350 650 Amount DAPTOmycin 500 mg In 50 Sodium Chloride 0.9% 50 ml @ 100 mls/hr IVPB Q24H [facility] Rx#:[id number] Piperacillin-Tazobactam 3 100 .375 gm In Sodium Chloride 0.9% 100 ml @ 200 mls/hr IVPB ONCE STA Rx#:[id number] Sodium Chloride 0.9% 1, 500 000 ml @ 100 mls/hr IV . Q10H [facility] Rx#:[id number] Vancomycin 1,500 mg In 250 Sodium Chloride 0.9% 250 ml @ 166.67 mls/hr IVPB ONCE ONE Rx#:[id number] cefTAZidime 2 gm In 100 Sodium Chloride 0.9% 100 ml @ 100 mls/hr IVPB Q8HR [facility] Rx#:[id number] Other: Voiding Method Toilet Toilet Weight 83 kg Gen: This is a 59-year-old male. Patient is sleeping arouses easily to verbal stimuli. He appears to be in no acute distress. HEENT: Head is atraumatic, normocephalic. Pupils equal, round. Sclerae is anicteric. Conjunctiva pink. Mucous members of the mouth are moist. NECK: Supple. No JVD. No lymphadenopathy. No thyromegaly. LUNGS: Clear to auscultation. No wheezes or rhonchi. No intercostal retractions. HEART: Regular rate and rhythm. 3/6 systolic murmur. ABDOMEN: Soft. Bowel sounds are present. No masses. No tenderness. EXTREMITIES: No pedal edema. No calf tenderness. Dorsalis pedis +2 bilaterally. Charcot foot on the left. Healed wound on the right lateral fifth metatarsal. Wounds to the left forearm NEUROLOGICAL: Patient is awake, alert and oriented x3. Cranial nerves 2 through 12 are grossly intact. Results CBC & Chem 7: 06/20/19 06:16 06/20/19 06:16 Labs: Abnormal Lab Results - Last 24 Hours (Table) 06/19/19 06/19/19 06/19/19 Range/Units 15:04 15:04 15:47 RBC 4.08 L (4.30-5.90) m/uL Hgb 12.5 L (13.0-17.5) gm/dL Hct 38.3 L (39.0-53.0) % Lymphocytes # 0.4 L (1.0-4.8) k/uL Potassium 6.3 H* 6.2 H* (3.5-5.1) mmol/L Chloride 108 H (98-107) mmol/L BUN 23 H (9-20) mg/dL Glucose 125 H (74-99) mg/dL Total Protein (6.3-8.2) g/dL Albumin (3.5-5.0) g/dL 06/20/19 06/20/19 Range/Units 06:16 06:16 RBC 3.80 L (4.30-5.90) m/uL Hgb 11.4 L (13.0-17.5) gm/dL Hct 35.4 L (39.0-53.0) % Lymphocytes # 0.5 L (1.0-4.8) k/uL Potassium (3.5-5.1) mmol/L Chloride 110 H (98-107) mmol/L BUN (9-20) mg/dL Glucose (74-99) mg/dL Total Protein 6.1 L (6.3-8.2) g/dL Albumin 3.3 L (3.5-5.0) g/dL Assessment and Plan Plan: This is a 59-year-old male presenting to the hospital with nonhealing ulcer to the left forearm at skin cancer resection site, failed outpatient treatment. He has underlying history of kidney and pancreatic transplant on antirejection medications. Patient also presented to the hospital with hyperkalemia. Patient transitioned to cefepime only. Local wound care will be addressed. Blood cultures status received. Continue supportive care. Further recommendations as patient progresses. The above dictated assessment and findings were discussed with Dr. Myers. The impression and plan of care have been directed as dictated. Lora Perez nurse practitioner acting as scribe for Dr. Myers.
[2019-06-20] MEDS: CARVEDILOL 6.25 MG TAB PO SCH ×2 (09:58→21:27)
[2019-06-20] MEDS: predniSONE 5 MG TAB PO SCH (09:58)
[2019-06-20] MEDS: amLODIPine 10 MG TAB PO SCH (09:58)
[2019-06-20] MEDS: TACROLIMUS 0.5 MG CAP PO SCH (09:58)
[2019-06-20] MEDS: HEPARIN SODIUM,PORCINE 5,000 UNIT/ML 1 ML VIAL SQ SCH ×2 (09:58→21:26)
[2019-06-20] MEDS: PANTOPRAZOLE 40 MG/10 ML VIAL IV SCH (09:59)
[2019-06-20] MEDS: MYCOPHENOLATE SODIUM DR 180 MG TABLET.DR PO SCH (09:59)
--- NOTE | 2019-06-20 10:21 | P.NPCON ---
History of Present Illness - Reason for Consult hyperkalemia - History of Present Illness Reason for consultation: Hyperkalemia and kidney transplant management History of present illness: Patient is a 59-year-old male seen in consultation for hyperkalemia and kidney transplant management. Patient underwent dual pancreatic kidney transplant in November 2008 at [facility]. Etiology is diabetic kidney disease. He is maintained on Prograf, CellCept and prednisone. GFR is at baseline. Patient's potassium level was 6.3 on admission which was medically treated. It was 4.0 this morning. Hemodynamically stable. Admits to good urine output. No hematuria or dysuria. Denies use of nonsteroidals. Patient was taking lovastatin at home which is currently held. Patient presented to the hospital due to wound on his left forearm. Patient states he had skin cancer removed earlier in the summer and was also going to wound care. Subsequently he developed more lesions on his arm and states he started to take doxycycline outpatient. However due to no improvement he came to the hospital. He is currently being followed by infectious disease and is maintained on IV daptomycin and ceftazidime. Oral intake is good. No vomiting or diarrhea. Vital signs are stable. General: The patient appeared well nourished and normally developed. HEENT: Head exam is unremarkable. Neck is without jugular venous distension. LUNGS: Lungs are clear to auscultation and percussion. Breath sounds decreased. HEART: Rate and Rhythm are regular. First and second heart sounds normal. No murmurs, rubs or gallops. ABDOMEN: Abdominal exam reveals normal bowel sounds. Non-tender and non-distended. No evidence of peritonitis. EXTREMITITES: No clubbing, cyanosis, or edema. Left forearm wrapped. No obvious drainage. Past Medical History Past Medical History: Coronary Artery Disease (CAD), Cancer, Diabetes Mellitus, Deep Vein Thrombosis (DVT), GERD/Reflux, Hyperlipidemia, Hypertension, Osteoarthritis (OA), Pneumonia, Renal Disease, Skin Disorder, Vascular Disorder Additional Past Medical History / Comment(s): Charcot, hx diabetes-had pancreas transplant, HTN cardiovascular disease, murmur, DVT L leg, poor circulation, bilateral feet and hand neuropathy, diabetic retinopathy, psoriasis, wound rt ankle and R heel, R dosal foot healed - had tx in wound clinic, pt recently had squamous skin cancer removed from R forearm-2 spots/one is healed and the second one is still being treated at [facility] and will need skin grafting, 10/2018 small area of osteomylitis R foot, pt had been in end stage renal disease and had hemodialysis for 3 yrs then had kidneys and pancreas transplant In 2008 at [facility], TMJ, gout, osteopenia, multiple malignant cutanous lesions with removals. History of Any Multi-Drug Resistant Organisms: C-DIFF Date of last positivie culture/infection: five years,unknown MDRO Source:: stool Past Surgical History: Heart Catheterization With Stent, Orthopedic Surgery Additional Past Surgical History / Comment(s): kidney & pancreas transplant 2008, cataracts removed, bilateral eye vitrectomy, bilateral eye RK, surgery to reconnect rt achilles tendon with dehisence and then several debridements of wound to R ankle and R heel, skin lesion removal-basal cell cancer, A/V fistula L upper arm, parathyroidectomy, R wrist fx with surgery. Squamous cell carcinoma removed September 2016, and again in january 2018, november 2018. Past Anesthesia/Blood Transfusion Reactions: No Reported Reaction Additional Past Anesthesia/Blood Transfusion Reaction / Comment(s): Pt states he has received blood in the past without reaction. Date of Last Stent Placement:: 2005 Past Psychological History: No Psychological Hx Reported Additional Psychological History / Comment(s): Patient is a lifelong nonsmoker. No marijuana or illicit drug use. No alcohol use. Patient lives at home with his and dog. Patient is independent and drives. Smoking Status: Never smoker Past Alcohol Use History: Occasional Additional Past Alcohol Use History / Comment(s): Patient is a lifelong nonsmoker. No marijuana or illicit drug use. No alcohol use. Patient lives at home with his and dog. Patient is independent and drives. Past Drug Use History: None Reported - Past Family History Father Family Medical History: CVA/TIA, Vascular Disorder Additional Family Medical History / Comment(s): cva x2. Father is at the age of 84 yrs. Mother Family Medical History: Osteoarthritis (OA) Additional Family Medical History / Comment(s): Mother is 80 yrs old. Medications and Allergies Home Medications Medication Instructions Recorded Confirmed Type Allopurinol [Zyloprim] 300 mg PO HS@199905/21/14 06/19/19 History Calcium Carbonate/Vitamin D3 1 tab PO BID@0800,199905/21/14 06/19/19 History [Calcium 500-Vit D3 400 Tablet] Cholecalciferol [Vitamin D3 (25 5,000 unit PO BID@0800,199905/21/14 06/19/19 History Mcg = 1000 Iu)] Pravastatin Sodium [Pravachol] 40 mg PO HS@199905/21/14 06/19/19 History Tacrolimus [Prograf] 0.5 mg PO HS@199905/21/14 06/19/19 History predniSONE 5 mg PO DAILY@0800 05/21/14 06/19/19 History Magnesium Oxide [Mag-Ox] 400 mg PO BID@08,199908/01/14 06/19/19 History Multivitamin/Iron/Folic Acid 1 tab PO DAILY@0800 08/01/14 06/19/19 History [Centrum Complete Multivit Tab] Carvedilol [Coreg] 6.25 mg PO BID@0800,199904/02/15 06/19/19 History Omeprazole [PriLOSEC] 20 mg PO DAILY@0800 05/18/15 06/19/19 History Aspirin 81 mg PO HS@199911/08/16 06/19/19 History Mycophenolate Sodium [Mycophenolic 360 mg PO DAILY@0800 11/26/18 06/19/19 History Acid] Mycophenolate Sodium [Mycophenolic 720 mg PO HS@199911/26/18 06/19/19 History Acid] Tacrolimus [Prograf] 1 mg PO DAILY@0800 01/09/19 06/19/19 History Losartan Potassium 100 mg PO HS@199903/27/19 06/19/19 History Albuterol Inhaler [Ventolin Hfa 2 puff INHALATION RT-Q4H PRN 06/19/19 06/19/19 History Inhaler] Ascorbic Acid [Vitamin C] 1,000 mg PO DAILY@0800 06/19/19 06/19/19 History Clindamycin Topical Soln 1 applic TOPICAL BID 06/19/19 06/19/19 History [Cleocin-T Topical Soln] Doxycycline Hyclate 100 mg PO BID 06/19/19 06/19/19 History HYDROcodone/APAP 5-325MG [[place] 0.5 tab PO Q6H PRN 06/19/19 06/19/19 History 5-325] Halobetasol Propionate [Ultravate] 1 applic TOPICAL BID PRN 06/19/19 06/19/19 History Potassium Chloride ER [K-Dur 20] 40 meq PO BID@0800,199906/19/19 06/19/19 History amLODIPine [Norvasc] 10 mg PO DAILY@0800 06/19/19 06/19/19 History Allergies Allergy/AdvReac Type Severity Reaction Status Date / Time No Known Allergies Allergy Verified 06/19/19 16:42 Physical Exam Vitals: Vital Signs Temp Pulse Pulse Pulse Resp BP BP 06/20/19 04:00 98.2 F 78 16 135/59 06/19/19 23:59 98.2 F 80 16 127/58 06/19/19 20:00 98.4 F 87 18 140/63 06/19/19 19:02 92 06/19/19 17:33 99 F 89 16 131/65 06/19/19 16:53 88 06/19/19 16:40 88 06/19/19 16:35 97.5 F L 92 18 177/77 06/19/19 16:34 81 16 148/74 06/19/19 14:16 98.6 F 92 16 151/75 Pulse Ox 06/20/19 04:00 96 06/19/19 23:59 95 06/19/19 20:00 94 L 06/19/19 19:02 06/19/19 17:33 95 06/19/19 16:53 06/19/19 16:40 06/19/19 16:35 96 06/19/19 16:34 98 06/19/19 14:16 97 Intake and Output 06/19/19 06/20/19 06/20/19 22:59 06:59 14:59 Intake Total 350 650 Balance 350 650 Intake: Intake, IV Titration 350 650 Amount DAPTOmycin 500 mg In 50 Sodium Chloride 0.9% 50 ml @ 100 mls/hr IVPB Q24H [facility] Rx#:[id number] Piperacillin-Tazobactam 3 100 .375 gm In Sodium Chloride 0.9% 100 ml @ 200 mls/hr IVPB ONCE STA Rx#:[id number] Sodium Chloride 0.9% 1, 500 000 ml @ 100 mls/hr IV . Q10H [facility] Rx#:[id number] Vancomycin 1,500 mg In 250 Sodium Chloride 0.9% 250 ml @ 166.67 mls/hr IVPB ONCE ONE Rx#:[id number] cefTAZidime 2 gm In 100 Sodium Chloride 0.9% 100 ml @ 100 mls/hr IVPB Q8HR [facility] Rx#:[id number] Other: Voiding Method Toilet Toilet Weight 83 kg Results - Lab Results Most recent lab results Calcium 8.8 mg/dL (8.4-10.2) 06/20/19 06:16 06/20/19 06:16 06/20/19 06:16 Assessment and Plan Plan: Assessment: 1. Status post dual kidney and pancreatic transplant in November 2008 at [facility]. Creatinine 0.94 today. 2. Hyperkalemia secondary to losartan. Prograf can also induce hyperkalemia. Better. 3. Left forearm nonhealing ulcer. Maintained on IV antibiotics. 4. Benign hypertension. Controlled. Plan: Check a.m. Prograf level. Hold losartan. Regular diet. Repeat electrolytes in the morning. Maintain current antirejection medications. Thank you for the consultation. I will continue to follow the patient with you during his hospital stay.
[2019-06-20] MEDS: CEFEPIME 2 GM in SODIUM CHLORIDE 0.9% 100 ML IVPB SCH ×2 (13:08→21:56)
[2019-06-20] MEDS ORDERED: ALLOPURINOL 300 MG TAB PO SCH (20:00)
[2019-06-20] MEDS ORDERED: PRAVASTATIN SODIUM 40 MG TAB PO SCH (20:00)
[2019-06-20] MEDS ORDERED: ASPIRIN 81 MG PO SCH (20:00)
[2019-06-20] MEDS ORDERED: MYCOPHENOLATE SODIUM DR 180 MG TABLET.DR PO SCH (20:00)
[2019-06-20] MEDS ORDERED: TACROLIMUS 0.5 MG CAP PO SCH (20:00)
[2019-06-20] MEDS: CALCIUM CARB-VIT D 500MG-200UN 1 EACH TAB PO SCH (21:26)
[2019-06-20] MEDS: CHOLECALCIFEROL 1,000 UNIT TAB PO SCH (21:26)
--- NOTE | 2019-06-20 22:28 | P.CON ---
Consult Note - . Consult date: 06/20/19 Assessment/Plan:: This is a 59-year-old male well-known to ID service with a previous medical history significant for hypertension and hypertensive cardiovascular disease with left ventricular hypertrophy, history of DVT of the left lower extremity, history of the end-stage renal disease was on hemodialysis post kidney and pancreas transplant in 2008 at the [facility], gout, Charcot foot, diabetes mellitus type 2, COPD. patient had a hospitalization in October of this year which time he was treated for a right foot abscess with osteomyelitis in the fifth metatarsal status post bedside I&D and was discharged home on IV Rocephin which he obtained at [facility] office . Patient also followed with the [facility] and had resolution of this wound. He now states he has a wound on his left arm since November when he had squamous cell skin cancer removed. He had 2 areas resected and one had skin grafting done and has healed. There is a distal wound that is still problematic and he has been following with Cindi Trejo DNP at the [facility]. Patient was seen at the wound healing Center on Monday and was recommended for admission for IV antibiotics however patient had a stress test scheduled for Monday at the cardiology office which she did not want to miss. Patient received 1 dose of IM Rocephin and was given a prescription for doxycycline and plan was him to present to [facility] emergency center after he had a stress test completed. Unfortunately, there was a problem with the stress testing and this was canceled and patient thus came into [facility] yesterday for evaluation. He was found to be afebrile, WBC 6.5, hemoglobin 12.5, platelet count 367. Sodium 140, potassium 6.3, chloride 108, CO2 24, BUN 23 and creatinine 1.19, blood sugar 125, liver function tests within normal limits, albumin 3.9. The patient was given Kayexalate, regular insulin dextrose and albuterol. Patient was also given 1 dose of vancomycin and 1 dose of Zosyn and then admitted to the cardiac stepdown unit. There is a consult in place for nephrology. Repeat potassium this morning is 4.0. Patient to be transferred to [facility] floor. Regarding transplant, patient was last seen at [facility] in January and recently had lab work done on Monday at [facility]. He states his blood sugars have been running between 80 and 110 at home. He denies any fever or chills. He has had a good appetite. Please see the consult is dictated by nurse practitioner Mrs. Lora Perez. Pleasant 59-year-old male well-known to our service presents to Hospital with ongoing difficulties to his left arm with nonhealing ulcerations after surgical resection of skin cancer. Following the wound center but the changed because he was admitted to hospital. Culture showing evidence of staph aureus and Pseudomonas in counseling will transition antibiotics to cefepime 2 g IV piggyback every 12 hours for the current infection. For the pleasure of discussing the case with the relationship advisor and they agreed for a PICC line to be placed into the right arm for his outpatient intravenous antibiotic therapy. Given the nonhealing nature of these ulcerations would request that he is seen by his vascular surgeon which can be done as an outpatient if needed to further evaluate blood flow to this arm. Local wound care with a honey dressing will be requested while he is here. We'll also like to of if possible so further records from the surgical intervention to the left arm to ensure there is no residual malignancy by their biopsies. I agree with evaluation, assessment and plan as dictated by nurse practitioner Mrs. Lora Perez.
[2019-06-20 23:25] VITALS: RESP 20
[2019-06-21 05:58] VITALS: BP 158/59; PULSE 74; TEMP 98
[2019-06-21] MEDS: CEFEPIME 2 GM in SODIUM CHLORIDE 0.9% 100 ML IVPB SCH (07:28)
[2019-06-21] MEDS: PANTOPRAZOLE 40 MG/10 ML VIAL IV SCH (07:29)
[2019-06-21] MEDS: CHOLECALCIFEROL 1,000 UNIT TAB PO SCH (07:30)
[2019-06-21] MEDS: CARVEDILOL 6.25 MG TAB PO SCH (07:30)
[2019-06-21] MEDS: CALCIUM CARB-VIT D 500MG-200UN 1 EACH TAB PO SCH (07:30)
[2019-06-21] MEDS: amLODIPine 10 MG TAB PO SCH (07:30)
[2019-06-21] MEDS: HEPARIN SODIUM,PORCINE 5,000 UNIT/ML 1 ML VIAL SQ SCH (07:30)
[2019-06-21] MEDS: TACROLIMUS 0.5 MG CAP PO SCH (08:43)
[2019-06-21] MEDS: MYCOPHENOLATE SODIUM DR 180 MG TABLET.DR PO SCH (08:43)
[2019-06-21] MEDS: predniSONE 5 MG TAB PO SCH (08:43)
[2019-06-21 09:27] LABS: African American GFR (CKD) >90 (>60 ml/min/1.73 sqM); Anion Gap 10 mmol/L; Blood Urea Nitrogen 21 mg/dL (9-20); Calcium 10.3 mg/dL (8.4-10.2); Carbon Dioxide 23 mmol/L (22-30); Chloride 107 mmol/L (98-107); Glucose 93 mg/dL (74-99); Magnesium 1.6 mg/dL (1.6-2.3); Non-African American GFR(CKD) 82 (>60 ml/min/1.73 sqM); Potassium 4.7 mmol/L (3.5-5.1); Sodium 140 mmol/L (137-145)
--- NOTE | 2019-06-21 10:39 | P.PN ---
Subjective Patient is seen in follow-up for renal transplant management. Patient received dual pancreatic kidney transplant in November 2008 at [facility]. Graft function is stable. Oral intake is good. No vomiting or diarrhea. Vital signs are stable. General: The patient appeared well nourished and normally developed. HEENT: Head exam is unremarkable. Neck is without jugular venous distension. LUNGS: Lungs are clear to auscultation and percussion. Breath sounds decreased. HEART: Rate and Rhythm are regular. First and second heart sounds normal. No murmurs, rubs or gallops. ABDOMEN: Abdominal exam reveals normal bowel sounds. Non-tender and non- distended. No evidence of peritonitis. EXTREMITITES: No clubbing, cyanosis, or edema. Objective - Vital Signs Vital signs: Vital Signs Temp 98 F 06/21/19 05:00 Pulse 74 06/21/19 05:00 Resp 20 06/21/19 05:00 BP 158/59 06/21/19 05:00 Pulse Ox 95 06/21/19 05:00 Intake & Output 06/20/19 06/21/19 06/21/19 18:59 06:59 18:59 Intake Total 1680 200 Balance 1680 200 Intake: Oral 1680 200 Other: Voiding Method Toilet # Voids 3 - Labs CBC & Chem 7: 06/20/19 06:16 06/21/19 07:54 Labs: Abnormal Lab Results - Last 24 Hours (Table) 06/21/19 Range/Units 07:54 BUN 21 H (9-20) mg/dL Calcium 10.3 H (8.4-10.2) mg/dL Microbiology - Last 24 Hours (Table) 06/19/19 15:04 Blood Culture - Preliminary Blood No Growth after 24 hours Assessment and Plan Plan: Assessment: 1. Status post dual kidney and pancreatic transplant in November 2008 at [facility]. Graft function stable. 2. Hyperkalemia secondary to losartan. Prograf can also induce hyperkalemia. Resolved. 3. Left forearm nonhealing ulcer. Maintained on IV antibiotics. Infectious disease following. 4. Benign hypertension. Blood pressure on the higher side. 5. Hypocalcemia secondary to calcium and vitamin D supplementation. Plan: Follow-up Prograf level. Resume losartan at 50 mg once daily. Repeat electrolytes in the morning. Maintain current antirejection medications. Discontinue Os-Addy D.
[2019-06-21] MEDS ORDERED: LOSARTAN 50 MG TAB PO SCH ×2 (10:45→21:00)
--- NOTE | 2019-06-21 14:37 | P.DS ---
Providers Date of admission: 06/19/19 16:11 Expected date of discharge: 06/21/19 Attending physician: Malini Gonzalez Consults: 06/19/19 16:19 Consult Physician Stat Consulting Provider: Greg Myers Consult Reason/Comments: failure outpatient treatment, left arm wound, transplant pt. Do you want consulting provider notified?: Yes 06/19/19 22:55 Consult Physician Routine Consulting Provider: Sana Kong Consult Reason/Comments: Hyperkalemia Do you want consulting provider notified?: Yes, Notify in am Primary care physician: Greg Lu [facility] Course: This is a 59-year-old male patient of Dr. Lu with a previous medical history significant for hypertension and hypertensive cardiovascular disease with left ventricular hypertrophy, history of DVT of the left lower extremity, history of the end-stage renal disease was on hemodialysis post kidney and pancreas transplant in 2008 at the [facility], gout, Charcot foot, diabetes mellitus type 2, COPD. patient had a hospitalization in October of this year which time he was treated for a right foot abscess with osteomyelitis in the fifth metatarsal status post bedside I&D and was discharged home on IV Rocephin which he obtained at [facility] office . Patient also followed with the wound healing Center and had resolution of this wound. He now states he has a wound on his left arm since November when he had squamous cell skin cancer removed. He had 2 areas resected and one had skin grafting done and has healed. There is a distal wound that is still problematic and he has been following with Cindi Trejo DNP at the [facility]. Patient was seen at the wound healing Center on Monday and was recommended for admission for IV antibiotics however patient had a stress test scheduled for Monday at the cardiology office which she did not want to miss. Patient received 1 dose of IM Rocephin and was given a prescription for doxycycline and plan was him to present to [facility] emergency center after he had a stress test completed. Unfortunately, there was a problem with the stress testing and this was canceled and patient thus came into [facility] emergency center yesterday for evaluation. He was found to be afebrile, WBC 6.5, hemoglobin 12.5, platelet count 367. Sodium 140, potassium 6.3, chloride 108, CO2 24, BUN 23 and creatinine 1.19, blood sugar 125, liver function tests within normal limits, albumin 3.9. The patient was given Kayexalate, regular insulin dextrose and albuterol. Patient was also given 1 dose of vancomycin and 1 dose of Zosyn and then admitted to the cardiac stepdown unit. There are consult in place for Dr. Myers from infectious disease and Dr. Kong for nephrology. Repeat potassium this morning is 4.0. Patient will be transferred to [facility] floor. Regarding transplant, patient was last seen at [facility] in January and recently had lab work done on Monday at [facility]. He states his blood sugars have been running between 80 and 110 at home. He denies any fever or chills. He has had a good appetite. 06/21: Patient has been seen by Dr. Myers with recommendations for Rocephin IV and ciprofloxacin oral as an outpatient. Arrangements will be made at [facility] office. Patient's Prograf and creatinine levels will need to be monitored closely while he is on ciprofloxacin. Midline has been ordered. Local wound care will be honey dressing. Patient has been seen by nephrology with recommendations to follow up on Prograf levels, okay to resume losartan at reduced dose, and maintain current antirejection medications, discontinue Os-Addy D. repeat lab work this morning reveals normal potassium of 4.7, BUN 21 creatinine 1.00, calcium 10.3. WBC 6.5 and hemoglobin 11.4. Patient will be discharged home today once all arrangements for outpatient IV antibiotics have been completed. Discharge diagnoses: 1. Nonhealing ulcer to the left forearm at skin cancer resection site. 2. Hyperkalemia secondary to losartan. 3. Hypertension and hypertensive cardio vascular disease. 4. History of kidney and pancreas transplant back in 2008 at the [facility]. 5. Gout, chronic. 6. History of diabetes mellitus type 2 post pancreatic transplant. 7. History of end-stage renal disease post kidney transplant. 8. Hyperlipidemia. 9. History of squamous cell cancer status post Mohs procedure of the left forearm. 10. History of DVT. 11. GERD. 12. History of diabetic polyneuropathy. Stable. 13. History of diabetic retinopathy. Stable. 14. History of psoriasis. Stable. 15. History of right foot abscess with osteomyelitis in the fifth metatarsal, status post bedside I&D and outpatient IV antibiotics, healed. Discharge plan: Return home. IV antibiotics at [facility]. Impression and plan of care have been directed as dictated by the signing physician. Lora Perez nurse practitioner acting as scribe for signing physician. Patient Condition at Discharge: Good Plan - Discharge Summary Discharge Rx Participant: No New Discharge Prescriptions: New cefTRIAXone [Rocephin] 2 gm IVPB Q24H #21 bag Losartan [Cozaar] 50 mg PO DAILY #30 tab Ciprofloxacin HCl [Cipro] 500 mg PO Q12HR #42 tablet Continue Cholecalciferol [Vitamin D3 (25 Mcg = 1000 Iu)] 5,000 unit PO BID@799,1999 Allopurinol [Zyloprim] 300 mg PO HS@1999 Tacrolimus [Prograf] 0.5 mg PO HS@1999 Pravastatin Sodium [Pravachol] 40 mg PO HS@1999 predniSONE 5 mg PO DAILY@0800 Multivitamin/Iron/Folic Acid [Centrum Complete Multivit Tab] 1 tab PO DAILY@0800 Magnesium Oxide [Mag-Ox] 400 mg PO BID@799,1999 Carvedilol [Coreg] 6.25 mg PO BID@799,1999 Omeprazole [PriLOSEC] 20 mg PO DAILY@0800 Aspirin 81 mg PO HS@1999 Mycophenolate Sodium [Mycophenolic Acid] 720 mg PO HS@1999 Mycophenolate Sodium [Mycophenolic Acid] 360 mg PO DAILY@0800 Tacrolimus [Prograf] 1 mg PO DAILY@0800 Halobetasol Propionate [Ultravate] 1 applic TOPICAL BID PRN PRN Reason: PSORIASIS Clindamycin Topical Soln [Cleocin-T Topical Soln] 1 applic TOPICAL BID Albuterol Inhaler [Ventolin Hfa Inhaler] 2 puff INHALATION RT-Q4H PRN PRN Reason: Shortness Of Breath amLODIPine [Norvasc] 10 mg PO DAILY@0800 HYDROcodone/APAP 5-325MG [[place] 5-325] 0.5 tab PO Q6H PRN PRN Reason: Pain Ascorbic Acid [Vitamin C] 1,000 mg PO DAILY@0800 Discontinued Calcium Carbonate/Vitamin D3 [Calcium 500-Vit D3 400 Tablet] 1 tab PO BID@799,1999 Losartan Potassium 100 mg PO HS@1999 Doxycycline Hyclate 100 mg PO BID Potassium Chloride ER [K-Dur 20] 40 meq PO BID@799,1999 Discharge Medication List Allopurinol [Zyloprim] 300 mg PO HS@199905/21/14 [History] Cholecalciferol [Vitamin D3 (25 Mcg = 1000 Iu)] 5,000 unit PO BID@05/21/14 [History] Pravastatin Sodium [Pravachol] 40 mg PO HS@199905/21/14 [History] Tacrolimus [Prograf] 0.5 mg PO HS@199905/21/14 [History] predniSONE 5 mg PO DAILY@79905/21/14 [History] Magnesium Oxide [Mag-Ox] 400 mg PO BID@799,199908/01/14 [History] Multivitamin/Iron/Folic Acid [Centrum Complete Multivit Tab] 1 tab PO DAILY@79908/01/14 [History] Carvedilol [Coreg] 6.25 mg PO BID@799,199904/02/15 [History] Omeprazole [PriLOSEC] 20 mg PO DAILY@79905/18/15 [History] Aspirin 81 mg PO HS@199911/08/16 [History] Mycophenolate Sodium [Mycophenolic Acid] 360 mg PO DAILY@79911/26/18 [History] Mycophenolate Sodium [Mycophenolic Acid] 720 mg PO HS@199911/26/18 [History] Tacrolimus [Prograf] 1 mg PO DAILY@79901/09/19 [History] Albuterol Inhaler [Ventolin Hfa Inhaler] 2 puff INHALATION RT-Q4H PRN 06/19/19 [History] Ascorbic Acid [Vitamin C] 1,000 mg PO DAILY@0806/19/19 [History] Clindamycin Topical Soln [Cleocin-T Topical Soln] 1 applic TOPICAL BID 06/19/19 [History] HYDROcodone/APAP 5-325MG [[place] 5-325] 0.5 tab PO Q6H PRN 06/19/19 [History] Halobetasol Propionate [Ultravate] 1 applic TOPICAL BID PRN 06/19/19 [History] amLODIPine [Norvasc] 10 mg PO DAILY@0806/19/19 [History] Ciprofloxacin HCl [Cipro] 500 mg PO Q12HR #42 tablet 06/21/19 [Rx] Losartan [Cozaar] 50 mg PO DAILY #30 tab 06/21/19 [Rx] cefTRIAXone [Rocephin] 2 gm IVPB Q24H #21 bag 06/21/19 [Rx] Follow up Appointment(s)/Referral(s): [facility], [NON-STAFF] - [facility],Infusion [NON-STAFF] - Greg Lu MD [Primary Care Provider] - 1 Week Greg Myers MD [STAFF PHYSICIAN] - 2 Weeks Patient Instructions/Handouts: Hyperkalemia (DC) Activity/Diet/Wound Care/Special Instructions: Please arrive at Dr. Myers office starting tomorrow 06/22/19 for IV antibiotic infusions at 9:00AM. Discharge Disposition: HOME SELF-CARE
== END 2019-06-21 15:00 | disposition home health service (06) | DRG 862 ==
LOC: EC 14:07 → 3SCARD 16:11 → 4MS4W 06-20 21:49
PROVIDERS: ADMIT Family Medicine; ATTEND Family Medicine
PROC: 05HB33Z Insertion of Infusion Device into Right Basilic Vein, Percutaneous Approach (ICD-10-PCS; principal; 2019-06-21 10:25)
DX: T81.41XA Infection following a procedure, superficial incisional surgical site, initial encounter (principal); N18.6 End stage renal disease; I13.11 Hypertensive heart and chronic kidney disease without heart failure, with stage 5 chronic kidney disease, or end stage renal disease; Z94.0 Kidney transplant status; Z94.83 Pancreas transplant status; Z85.828 Personal history of other malignant neoplasm of skin; E11.22 Type 2 diabetes mellitus with diabetic chronic kidney disease; E11.319 Type 2 diabetes mellitus with unspecified diabetic retinopathy without macular edema; E11.42 Type 2 diabetes mellitus with diabetic polyneuropathy; E11.610 Type 2 diabetes mellitus with diabetic neuropathic arthropathy; E78.5 Hyperlipidemia, unspecified; E83.51 Hypocalcemia; E87.5 Hyperkalemia; I25.10 Atherosclerotic heart disease of native coronary artery without angina pectoris; J44.9 Chronic obstructive pulmonary disease, unspecified; K21.9 Gastro-esophageal reflux disease without esophagitis; M1A.9XX0 Chronic gout, unspecified, without tophus (tophi); M85.80 Other specified disorders of bone density and structure, unspecified site; Z79.52 Long term (current) use of systemic steroids; Z79.82 Long term (current) use of aspirin; Z79.899 Other long term (current) drug therapy; Z86.718 Personal history of other venous thrombosis and embolism; Z99.2 Dependence on renal dialysis; E89.2 Postprocedural hypoparathyroidism; Z82.3 Family history of stroke; Z82.61 Family history of arthritis; T46.5X5A Adverse effect of other antihypertensive drugs, initial encounter; L40.9 Psoriasis, unspecified; Z87.01 Personal history of pneumonia (recurrent); Z95.5 Presence of coronary angioplasty implant and graft; L98.499 Non-pressure chronic ulcer of skin of other sites with unspecified severity; L08.9 Local infection of the skin and subcutaneous tissue, unspecified
CPT/HCPCS: 36410; 36415; 76937; 80048; 80053; 80197; 83605; 83735; 84132; 85025; 87040; 93005; 96361; 96365; 99285

== ENCOUNTER → 2019-07-23 | Outpatient (CLI) | payer MEDICARE, BC ==
[2019-07-23 07:50] LABS: HCT 43.5 % (39.0-53.0); HGB 13.5 gm/dL (13.0-17.5); MCH 29.4 pg (25.0-35.0); MCV 94.6 fL (80.0-100.0); Mean Platelet Volume 7.2; Platelet Count 242 k/uL (150-450); RDW 15.3 % (11.5-15.5); WBC 6.6 k/uL (3.8-10.6)
[2019-07-23 08:14] LABS: Potassium 4.5 mmol/L (3.5-5.1)
== END | disposition home or self-care (01) ==
LOC: LABPAT 07:13
PROVIDERS: ATTEND Internal Medicine Interventional Cardiology
DX: Z01.812 Encounter for preprocedural laboratory examination (principal); I25.10 Atherosclerotic heart disease of native coronary artery without angina pectoris
CPT/HCPCS: 36415; 80051; 82565; 84520; 85027

== ENCOUNTER 2019-08-14 09:22 | Day surgery (SDC) | payer MEDICARE, BC ==
[2019-08-06 15:42] VITALS: BMI 26.6
[~2019-08-14 09:22] MED LIST changes: +ALPRAZolam 0.25 MG TAB PO PRN; +ALPRAZolam 0.5 MG TAB PO PRN; +ATORVASTATIN 80 MG TAB PO STA; -LIDOCAINE 1% INJ 10MG/ML (20 ML MDV) IM ONE; +NITROGLYCERIN SL TABS 0.4 MG TAB SUBLINGUAL PRN; +SODIUM CHLORIDE 0.9% 1,000 ML in EMPTY BAG 1 BAG IV ONE; -cefTRIAXone 1,000 MG VIAL (IM USE) IM ONE
[2019-08-14] MEDS: ASPIRIN 325 MG TAB PO STA (09:45)
[2019-08-14 09:58] VITALS: RESP 16; TEMP 97.8
[2019-08-14] MEDS ORDERED: LIDOCAINE 1% INJ 10MG/ML (20 ML MDV) ONE (10:02)
[2019-08-14] MEDS: MIDAZOLAM 2 MG/2 ML VIAL IVP ONE ×2 (10:40→10:45)
[2019-08-14] MEDS ORDERED: LIDOCAINE 1% INJ 10MG/ML (20 ML MDV) SQ ONE (10:43)
[2019-08-14] MEDS ORDERED: NITROGLYCERIN SL TABS 0.4 MG TAB SUBLINGUAL ONE ×2 (10:51→10:52)
[2019-08-14] MEDS ORDERED: IOPAMIDOL-370 100ML BTL INJ ONE (11:05)
[2019-08-14] MEDS ORDERED: SODIUM CHLORIDE 0.9% 1,000 ML IV SCH (11:30)
--- NOTE | 2019-08-14 12:28 | CC ---
CARDIAC CATHETERIZATION REPORT DATE OF SERVICE: 08/14/2019. PROCEDURE: Coronary angiography. PERFORMED BY: Dr. Jose R Church. Moderate conscious sedation time was 21 minutes. CLINICAL INFORMATION: Mr. Junito Bush is a 59-year-old gentleman with a known history of end-stage renal disease, status post kidney transplantation. Now his creatinine is about 1.05 and he is doing well in this regard. He also had a pancreatic transplant along with kidney transplant. He has history of aortic stenosis, moderate and CAD. In 2005, I performed stenting of a large circumflex marginal of a dominant circumflex at that time. Because of symptoms of exertional shortness of breath and abnormal stress test with inferolateral defect, I recommended coronary angiography. Risks, benefits, options, rationale were explained. Procedure will be performed from the right femoral approach. PROCEDURE NOTE: Under local anesthesia and strict aseptic precautions, a 6-Italian sheath was placed in the right femoral artery. Using standard Kerri catheters, I performed coronary angiography, but I could not cross aortic valve. After some attempts, I did not persist. LV gram was not performed. LV pressures were not checked. CORONARY ANGIOGRAPHY FINDINGS: RIGHT CORONARY ARTERY: A small nondominant vessel diffusely diseased with multiple areas of narrowing but the vessel is small in caliber as well as distribution. LEFT MAIN CORONARY ARTERY: Short patent disease-free vessel that bifurcates into LAD and circumflex. Left main itself is free of significant disease. LEFT ANTERIOR DESCENDING CORONARY ARTERY: Good caliber vessel, runs along the anterior wall. There is a good-sized diagonal branch that comes off and this diagonal has what appears to be about a 70% stenosis involving the midportion of the diagonal branch with diffuse disease beyond that. The origin of the diagonal, however, has no significant disease. Immediately after the diagonal origin, LAD has at least a 50% narrowing and then runs all the way to the apex supplying a sizable amount of myocardium. The LAD has a 50% mid lesion after diagonal branch and the diagonal itself has a 70% to 80% lesion actually with diffuse disease and is a large distribution branch of a fair caliber of about 2.25 caliber. Mid LAD has at least a 50% lesion in multiple projections. LEFT POSTERIOR CIRCUMFLEX CORONARY ARTERY: This vessel was stented in 2005, has a drug- eluting Cypher stent. Circumflex is dominant, gives off a first obtuse marginal which has no more than 40% narrowing with very brisk flow. In multiple projections I cannot appreciate an any significant disease in the circumflex marginal that was stented. The ewiiaapaayp circumflex that continues in the AV groove and the distal posterolateral branches have minor diffuse disease but no significant stenosis. Circumflex therefore has a widely patent circumflex marginal that was stented and rest of the circumflex has diffuse disease and the distal branches of circumflex also have mild diffuse disease but no critical stenosis. LEFT VENTRICULOGRAM: Left ventriculogram was not performed. FINAL IMPRESSION: This patient has a 50% mid LAD lesion, a 70% diagonal lesion which is a long vessel of fair distribution but relatively smaller caliber, but the origin of the diagonal is free of significant disease. LAD has a 50% after the diagonal origin. The circumflex marginal that was stented is widely patent. The ewiiaapaayp circumflex has diffuse noncritical disease. Right is small nondominant diffusely disease. LV pressures were not obtained. RECOMMENDATIONS: Findings were discussed with the patient and . I am recommending medical therapy for now. I will bring him back in 2 weeks after checking renal function, will perform intervention of the diagonal, check the significance of the LAD lesion by FFR. Explained this to the patient in detail. He will be discharged later today after hydration. Will check renal function on Monday. MMODL / IJN: [id number] /
[2019-08-14 18:10] VITALS: BP 152/79; PULSE 65
--- NOTE | 2019-08-15 13:00 | ECHOF ---
Referral Reason:aortic stenosis MEASUREMENTS -------- HEIGHT: 175.3 cm WEIGHT: 87.5 kg BP: 162/72 RVIDd: 3.7 cm (< 3.3) IVSd: 2.2 cm (0.6 - 1.1) LVIDd: 3.8 cm (3.9 - 5.3) LVPWd: 2.0 cm (0.6 - 1.1) IVSs: 2.8 cm LVIDs: 2.1 cm LVPWs: 2.4 cm LAESV Index (A-L): 43.39 ml/m Ao Diam: 3.0 cm (2.0 - 3.7) AV Cusp: 1.6 cm (1.5 - 2.6) LA Diam: 4.7 cm (2.7 - 3.8) MV E Bonilla: 0.80 m/s MV DecT: 376 ms MV A Bonilla: 1.39 m/s MV E/A Ratio: 0.57 AV maxP.93 mmHg AV meanP.03 mmHg AR PHT: 416 ms RAP: 5.00 mmHg RVSP: 27.39 mmHg FINDINGS -------- Sinus rhythm. This was a technically adequate study. Patient is post cardiac catheterization and cannot be in lef t lateral position. The left ventricular size is normal. There is severe concentric left ventricular hypertrophy. Ove rall left ventricular systolic function is normal with, an EF between 55 - 60 %. The right ventricle is mildly enlarged. LA is moderately dilated 34-39 ml/m2 The right atrial size is normal. Interatrial and interventricular septum intact. There is mild aortic regurgitation. There is severe aortic stenosis present. Peak/mean gradient a cross the Aortic Valve is 68.93mmHg / 40.03mmHg. Severe mitral annular calcification present. Mild mitral regurgitation is present. Mild tricuspid regurgitation present. There is no evidence of pulmonary hypertension. The right v entricular systolic pressure, as measured by Doppler, is 27.39mmHg. There is no pulmonic regurgitation present. The aortic root size is normal. IVC Not well visulized. There is no pericardial effusion. CONCLUSIONS -------- 1. Sinus rhythm. 2. This was a technically adequate study. 3. Patient is post cardiac catheterization and cannot be in left lateral position. 4. The left ventricular size is normal. 5. There is severe concentric left ventricular hypertrophy. 6. Overall left ventricular systolic function is normal with, an EF between 55 - 60 %. 7. The right ventricle is mildly enlarged. 8. LA is moderately dilated 34-39 ml/m2 9. The right atrial size is normal. 10. Interatrial and interventricular septum intact. 11. There is mild aortic regurgitation. 12. There is severe aortic stenosis present. 13. Peak/mean gradient across the Aortic Valve is 68.93mmHg / 40.03mmHg. 14. Severe mitral annular calcification present. 15. Mild mitral regurgitation is present. 16. Mild tricuspid regurgitation present. 17. There is no evidence of pulmonary hypertension. 18. The right ventricular systolic pressure, as measured by Doppler, is 27.39mmHg. 19. There is no pulmonic regurgitation present. 20. The aortic root size is normal. 21. IVC Not well visulized. 22. There is no pericardial effusion. BOOM CONVEYOR OPERATOR: Clarisa Pacheco RDCS
== END 2019-08-14 18:10 | disposition home or self-care (01) ==
LOC: CATHCVL 09:22
PROVIDERS: ATTEND Internal Medicine Interventional Cardiology
DX: I25.110 Atherosclerotic heart disease of native coronary artery with unstable angina pectoris (principal); I08.3 Combined rheumatic disorders of mitral, aortic and tricuspid valves; Z95.5 Presence of coronary angioplasty implant and graft; I10 Essential (primary) hypertension; E78.5 Hyperlipidemia, unspecified; E78.00 Pure hypercholesterolemia, unspecified; L84 Corns and callosities; E66.3 Overweight; Z68.28 Body mass index [BMI] 28.0-28.9, adult; Z94.0 Kidney transplant status; Z94.83 Pancreas transplant status; Z87.448 Personal history of other diseases of urinary system; Z79.52 Long term (current) use of systemic steroids; Z79.82 Long term (current) use of aspirin; Z79.899 Other long term (current) drug therapy; Z79.2 Long term (current) use of antibiotics
CPT/HCPCS: 93306; 93454; C1769 ×3; C1760; C1894; J2250; J2001; Q9967

== ENCOUNTER 2019-10-05 18:19 | Emergency (ER) | payer MEDICARE, BC ==
[2019-10-05 18:38] VITALS: RESP 20
[2019-10-05] MEDS ORDERED: oxyCODONE-APAP 7.5-325MG 1 EACH TAB PO STA (18:43)
--- NOTE | 2019-10-05 19:05 | XR ---
EXAMINATION TYPE: XR forearm bilateral DATE OF EXAM: 10/05/2019 COMPARISON: Left forearm 06/19/2019 HISTORY: Fall. Bilateral pain. TECHNIQUE: 2 views each forearm FINDINGS: There is vascular calcification. There is an acute slightly impacted transverse fracture di stal right radial metaphysis. There is no dislocation. Right elbow appears intact. There is acute mid shaft fracture of the left radius. No significant displacement. There is nondispla aide transverse fracture between the middle and distal thirds of the left ulna. Left elbow appears int act. IMPRESSION: Acute fractures of the radius and ulna as above without significant displacement. No foca l bone destruction seen. Extensive atherosclerotic vascular calcification.
--- NOTE | 2019-10-05 20:13 | ED ---
Fall HPI - General Chief Complaint: Fall Stated Complaint: Fall Time Seen by Provider: 10/05/19 18:31 Source: patient Mode of arrival: ambulatory - History of Present Illness Initial Comments: 59-year-old male presenting today for chief complaint of bilateral forearm pain. Patient states that he was working on a float when he went to step backwards she tripped he cut himself with both his arms extended. Patient states that he does of her chronic wound on the left forearm. He states this is secondary to squamous cell and he is also on antirejection medications as well as chronic prednisone for a kidney and pancreas transplant that he had 15 years ago. Patient states that he has an appointment next week for discussion of further wound treatment for the left forearm. Upon arrival the area is bandaged. Patient denies any blood seeping through the area. Patient denies any pain at all. Shoulders he denies hitting his head he denies any neck upper and lower back pain. Patient states he did fall his bottom. He denies any hip pain and knee pain or ankle pain. Patient states that he did not pass out though this was not syncope it was a trip and fall. Remaining review of system negative upon arrival patient appears well and laboratory no signs of acute distress. - Related Data Home Medications Medication Instructions Recorded Confirmed Allopurinol [Zyloprim] 300 mg PO HS 05/21/14 08/14/19 Cholecalciferol [Vitamin D3 (25 5,000 unit PO BID@0800,199905/21/14 08/14/19 Mcg = 1000 Iu)] Pravastatin Sodium [Pravachol] 40 mg PO HS 05/21/14 08/14/19 Tacrolimus [Prograf] 0.5 mg PO HS@199905/21/14 08/14/19 predniSONE 5 mg PO [facility] 05/21/14 08/14/19 Magnesium Oxide [Mag-Ox] 500 mg PO BID@0800,199908/01/14 08/14/19 Multivitamin/Iron/Folic Acid 1 tab PO DAILY@0800 08/01/14 08/14/19 [Centrum Complete Multivit Tab] Carvedilol [Coreg] 6.25 mg PO BID@0800,199904/02/15 08/14/19 Omeprazole [PriLOSEC] 20 mg PO QAM 05/18/15 08/14/19 Aspirin 81 mg PO HS@199911/08/16 08/14/19 Mycophenolate Sodium [Mycophenolic 360 mg PO QAM 11/26/18 08/14/19 Acid] Mycophenolate Sodium [Mycophenolic 720 mg PO HS 11/26/18 08/14/19 Acid] Tacrolimus [Prograf] 1 mg PO QAM 01/09/19 08/14/19 Albuterol Inhaler [Ventolin Hfa 2 puff INHALATION RT-Q4H PRN 06/19/19 08/14/19 Inhaler] Ascorbic Acid [Vitamin C] 1,000 mg PO DAILY@0800 06/19/19 08/14/19 Halobetasol Propionate [Ultravate] 1 applic TOPICAL BID PRN 06/19/19 08/14/19 amLODIPine [Norvasc] 10 mg PO QA 06/19/19 08/14/19 Calcium Carbonate [Calcium] 600 mg PO BID 08/06/19 08/14/19 Cinnamon Bark [Cinnamon] 2,000 mg PO HS 08/06/19 08/14/19 Ferrous Sulfate [Feosol] 325 mg PO HS 08/06/19 08/14/19 Losartan [Cozaar] 50 mg PO HS 08/06/19 08/14/19 Potassium Chloride [Klor-Con 20] 20 meq PO BID 08/06/19 08/14/19 Sodium Bicarbonate Tab 650 mg PO BID 08/06/19 08/14/19 Allergies Allergy/AdvReac Type Severity Reaction Status Date / Time No Known Allergies Allergy Verified 10/05/19 18:30 Review of Systems ROS Statement: Those systems with pertinent positive or pertinent negative responses have been documented in the HPI. ROS Other: All systems not noted in ROS Statement are negative. Past Medical History Past Medical History: Coronary Artery Disease (CAD), Deep Vein Thrombosis (DVT), Hypertension Additional Past Medical History / Comment(s): current wound left forearm-tx wound center,[facility], hx diabetes-had pancreas transplant, HTN cardiovascular disease, murmur, DVT L leg, poor circulation, bilateral feet and hand neuropathy, diabetic retinopathy, psoriasis, wound rt ankle and R heel-both now healed, R dosal foot healed -, pt recently had squamous skin cancer removed from R forearm-2 spots/one is healed and the second one is still being treated at [facility] and will need skin grafting, 10/2018 small area of osteomylitis R foot, pt had been in end stage renal disease and had hemodialysis for 3 yrs then had kidneys and pancreas transplant In 2008 at [facility], TMJ, gout, osteopenia, multiple malignant cutanous lesions with removals. History of Any Multi-Drug Resistant Organisms: C-DIFF Date of last positivie culture/infection: ?5 yrs ago MDRO Source:: stool Past Surgical History: Heart Catheterization With Stent, Orthopedic Surgery Additional Past Surgical History / Comment(s): kidney & pancreas transplant 2008, cataracts removed, bilateral eye vitrectomy, bilateral eye RK, surgery to reconnect rt achilles tendon with dehisence and then several debridements of wound to R ankle and R heel, skin lesion removal-basal cell cancer, A/V fistula L upper arm, parathyroidectomy, R wrist fx with surgery. Squamous cell carcinoma removed September 2016, and again in january 2018, november 2018. Past Anesthesia/Blood Transfusion Reactions: No Reported Reaction Additional Past Anesthesia/Blood Transfusion Reaction / Comment(s): Pt states he has received blood in the past without reaction. Date of Last Stent Placement:: 2005 Past Psychological History: No Psychological Hx Reported Smoking Status: Never smoker Past Alcohol Use History: Occasional Past Drug Use History: None Reported - Past Family History Father Family Medical History: CVA/TIA, Vascular Disorder Additional Family Medical History / Comment(s): cva x2. Father is at the age of 84 yrs. Mother Family Medical History: Osteoarthritis (OA) Additional Family Medical History / Comment(s): Mother isalive General Exam - General Exam Comments Initial Comments: General: The patient is awake and alert, in no distress Eye: +3 mm pupils are equal, round and reactive to light, extra-ocular movements are intact. No nystagmus. There is normal conjunctiva bilaterally. No signs of icterus. Ears, nose, mouth and throat: There are moist mucous membranes and no oral lesions. No raccoon no colunga sign. Neck: The neck is supple, there is no tenderness or JVD. No midline or paravertebral tenderness of the cervical thoracic or lumbar spine. Cardiovascular: There is a regular rate and rhythm. No murmur, rub or gallop is appreciated. Respiratory: Lungs are clear to auscultation, respirations are non-labored, breath sounds are equal. No wheezes, stridor, rales, or rhonchi. Gastrointestinal: Soft, non-distended, non-tender abdomen without masses or organomegaly noted. There is no rebound or guarding present. Musculoskeletal: Normal ROM, no tenderness of the hips knees ankles elbows and shoulder bilaterally. Patient does have to tenderness with ROm at the wrist b/l described as more mid forearm for the left arm and more towards wrist on the right foreaerm Bandage was removed from left forearm, revealing a chronic wound which exposed muscle no bone exposure, no bleeding. Strength 5/5 at the wrists, elbows, shoulder b/l. Patient does have slight decrease in strength of digits 4 and 5 (patient states chronic since radiation/surgery on area and chronic wound, denies changes) Sensation intact proximal and distal to injury site. Radial pulses equal bilaterally 2+. Neurological: A&O x 3. CN II-XII intact grossly, There are no obvious motor or sensory deficits. Coordination appears grossly intact. Speech is normal. Skin: Skin is warm and dry and no rashes or lesions are noted. Psychiatric: Cooperative, appropriate mood & affect, normal judgment. Limitations: no limitations Course Vital Signs 10/05/19 10/05/19 18:28 20:18 Temperature 97.8 F 97.9 F Pulse Rate 69 65 Respiratory 20 20 Rate Blood Pressure 200/60 165/78 O2 Sat by Pulse 97 98 Oximetry Procedures - Orthopedic Splinting/Casting Injury #1 Side: left Upper Extremity Injury Location: short arm Upper Extremity Immobilizer: sugar tong splint, Nicola wrap, synthetic pre-padded splint Injury #2 Side: right Upper Extremity Injury Location: short arm Upper Extremity Immobilizer: thumb spica, Nicola wrap, synthetic pre-padded splint Medical Decision Making - Medical Decision Making 59-year-old male presenting today for chief complaint of bilateral forearm pain after fall. Patient states he tripped. Patient neurovascularly intact. There is chronic wound of the left forearm. This is secondary to squamous cell, delayed wound healing after surgery and radiation. Patient has chronic weakness and digits 4 and 5 patient denies any change. Otherwise patient appears neurovascularly intact of the upper extremity bilaterally. He is able to make the okay fingers crossed thumbs-up-- on the right hand he can oppose the small digit and thumb left hand patient has some slight difficulty (whcih he states is baseline). No exposure of bone, bandage changed. Patient has a sugar tong placed on the left arm with sling and thumb spica splint placed on the right arm. No significant displacement. Patient neurovascularly intact after splint placement. I discussed the case as well as the patient's chronic with attending provider as well. They should've the wound to the fracture at this time attending recommends splint with orthopedic f/u. Return parameters discussed at length wtih patient who verbalized understanding Disposition Clinical Impression: Fall, Left forearm fracture, Fracture of right distal radius, Left ulnar fracture, Fracture of radial shaft, left, closed Disposition: HOME SELF-CARE Condition: Good Instructions (If sedation given, give patient instructions): Wrist Fracture in Adults (ED) Additional Instructions: Please use medication as discussed. Please follow-up with family doctor in the next 2 days, please follow-up with Dr. Enriquez on Monday as discussed, call Monday morning to schedule appointment. Please return to emergency room if the symptoms increase or worsen or for any other concerns-redness near site of chronic wound, increasing pain, swelling. Is patient prescribed a controlled substance at d/c from ED?: No Referrals: Greg Lu MD [Primary Care Provider] - 1-2 days Lucian Enriquez MD [Medical Doctor] - 1-2 days Time of Disposition: 20:11
[2019-10-05 20:19] VITALS: BP 165/78; PULSE 65; TEMP 97.9
== END 2019-10-05 20:18 | disposition home or self-care (01) ==
LOC: EC 18:19
DX: S52.501A Unspecified fracture of the lower end of right radius, initial encounter for closed fracture (principal); S52.301A Unspecified fracture of shaft of right radius, initial encounter for closed fracture; S52.202A Unspecified fracture of shaft of left ulna, initial encounter for closed fracture; S51.802D Unspecified open wound of left forearm, subsequent encounter; I25.10 Atherosclerotic heart disease of native coronary artery without angina pectoris; I10 Essential (primary) hypertension; M10.9 Gout, unspecified; Z79.52 Long term (current) use of systemic steroids; Z79.82 Long term (current) use of aspirin; Z79.899 Other long term (current) drug therapy; Z95.5 Presence of coronary angioplasty implant and graft; Z85.828 Personal history of other malignant neoplasm of skin; Z92.3 Personal history of irradiation; Z94.83 Pancreas transplant status; Z94.0 Kidney transplant status; Z98.890 Other specified postprocedural states; W01.0XXA Fall on same level from slipping, tripping and stumbling without subsequent striking against object, initial encounter; X58.XXXD Exposure to other specified factors, subsequent encounter; Y93.89 Activity, other specified; Y92.89 Other specified places as the place of occurrence of the external cause
CPT/HCPCS: 29125; 99283

== ENCOUNTER → 2019-12-12 | Outpatient (CLI) | payer MEDICARE, BC ==
--- NOTE | 2019-12-12 17:15 | XR ---
EXAMINATION TYPE: XR forearm LT DATE OF EXAM: 12/12/2019 COMPARISON: 10/05/2019 HISTORY: Fracture with open reduction internal fixation TECHNIQUE: 2 view left forearm FINDINGS: Reduction internal fixation plate and screws are present. Fractures of the distal diaphysea l ulna and mid to distal radial fracture again evident. Callus formation and fusion is not evident ho maribelver. Alignment and positioning remains stable. IMPRESSION: 1. Incomplete healing post open reduction internal fixation fractures of the diaphyseal radius and u cold type artist.
== END | disposition home or self-care (01) ==
LOC: RADXRMAIN 15:20
PROVIDERS: ATTEND Nurse Practitioner Family
DX: S52.50 Unspecified fracture of the lower end of radius (principal); C79.89 Secondary malignant neoplasm of other specified sites

== ENCOUNTER 2020-04-02 06:56 | Inpatient (IN) | payer MEDICARE, BC ==
[2020-04-02] MEDS ORDERED: ONDANSETRON 4 MG/2 ML VIAL IVP STA (07:14)
[2020-04-02] MEDS ORDERED: IPRATROPIUM-ALBUTEROL 3 ML NEB INHALATION STA (07:14)
[2020-04-02] MEDS ORDERED: MORPHINE SULFATE 4 MG/ML SYRINGE IVP STA (07:14)
[2020-04-02] MEDS ORDERED: ACETAMINOPHEN TAB 325 MG TAB PO STA (07:15)
[2020-04-02 07:31] LABS: Anisocytosis Slight; Basophils % (A) 0 %; Eosinophils # (A) 0.2 k/uL (0-0.7); Eosinophils % (A) 3 %; HCT 46.5 % (39.0-53.0); HGB 14.8 gm/dL (13.0-17.5); Lymphocytes # (A) 0.4 k/uL (1.0-4.8); Lymphocytes % (A) 8 %; MCH 32.5 pg (25.0-35.0); MCHC 31.8 g/dL (31.0-37.0); MCV 102.1 fL (80.0-100.0); Macrocytosis Moderate; Mean Platelet Volume 7.3; Monocytes # (A) 0.1 k/uL (0-1.0); Monocytes % (A) 2 %; Neutrophils # (A) 4.6 k/uL (1.3-7.7); Neutrophils % (A) 87 %; Platelet Count 244 k/uL (150-450); RBC 4.56 m/uL (4.30-5.90); RDW 16.5 % (11.5-15.5); WBC 5.3 k/uL (3.8-10.6)
--- NOTE | 2020-04-02 07:31 | ED ---
General Adult HPI - General Source: patient, RN notes reviewed Mode of arrival: wheelchair Limitations: no limitations <Constantino Mosley - Last Filed: 04/02/20 08:18> <Junito Murphy - Last Filed: 04/02/20 08:37> - General Chief complaint: Shortness of Breath Stated complaint: RICH[place]ON Time Seen by Provider: 04/02/20 07:04 - History of Present Illness Initial comments: This is a 59-year-old male presents emergency Department chief complaint of shortness of breath. Patient states that he felt fine yesterday no complaints. Patient states he woke up 20 minutes and had slight nausea and GERD. Patient states he felt wheezing, shortness of breath. He has no known lung disease. Patient states he does have some mild discomforts in his abdomen. Patient denies any headache or dizziness. 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 Patient is a healing up fine. Patient states that he is scheduled to have a cardiac stent placed but this hasn't put out secondary to his amputation. Patient does admit that he is on antirejection medications for pancreatic and kidney transplant. Patient states this was on 2008. Patient denies any difficulty with diabetes at this time. He does have history of hypertension. (Constantino Mosley) - Related Data Home Medications Medication Instructions Recorded Confirmed Cholecalciferol [Vitamin D3 (25 5,000 unit PO BID@0800,199905/21/14 04/02/20 Mcg = 1000 Iu)] Pravastatin Sodium [Pravachol] 40 mg PO HS 05/21/14 04/02/20 Tacrolimus [Prograf] 0.5 mg PO HS@199905/21/14 04/02/20 allopurinoL [Zyloprim] 300 mg PO HS 05/21/14 04/02/20 predniSONE 10 mg PO QAM 05/21/14 04/02/20 Magnesium Oxide [Mag-Ox] 400 mg PO HS 08/01/14 04/02/20 Multivitamin/Iron/Folic Acid 1 tab PO DAILY@0800 08/01/14 04/02/20 [Centrum Complete Multivit Tab] carvediloL [Coreg] 6.25 mg PO BID@0800,199904/02/15 04/02/20 Omeprazole [PriLOSEC] 20 mg PO QAM 05/18/15 04/02/20 Aspirin 81 mg PO HS@199911/08/16 04/02/20 Tacrolimus [Prograf] 1 mg PO QAM 01/09/19 04/02/20 Ascorbic Acid [Vitamin C] 1,000 mg PO DAILY@0800 06/19/19 04/02/20 Halobetasol Propionate [Ultravate] 1 applic TOPICAL BID PRN 06/19/19 04/02/20 amLODIPine [Norvasc] 10 mg PO QAM 06/19/19 04/02/20 Calcium Carbonate [Calcium] 600 mg PO BID 08/06/19 04/02/20 Cinnamon Bark [Cinnamon] 2,000 mg PO HS 08/06/19 04/02/20 Ferrous Sulfate [Feosol] 325 mg PO HS 08/06/19 04/02/20 Losartan [Cozaar] 50 mg PO HS 08/06/19 04/02/20 Potassium Chloride [Klor-Con 20] 20 meq PO BID-W/MEALS 08/06/19 04/02/20 Sodium Bicarbonate Tab 650 mg PO BID 08/06/19 04/02/20 Albuterol Inhaler [Ventolin Hfa 1 - 2 puff INHALATION RT-Q6H PRN 04/02/20 04/02/20 Inhaler] Gabapentin [Neurontin] 100 mg PO DAILY PRN 04/02/20 04/02/20 Gabapentin [Neurontin] 100 mg PO HS 04/02/20 04/02/20 HYDROcodone/APAP 5-325MG [Hooven 1 tab PO Q6H PRN 04/02/20 04/02/20 5-325] Allergies Allergy/AdvReac Type Severity Reaction Status Date / Time No Known Allergies Allergy Verified 04/02/20 08:29 Review of Systems ROS Other: All systems not noted in ROS Statement are negative. <Constantino Mosley - Last Filed: 04/02/20 08:18> ROS Other: All systems not noted in ROS Statement are negative. <Junito Murphy - Last Filed: 04/02/20 08:37> ROS Statement: Those systems with pertinent positive or pertinent negative responses have been documented in the HPI. Past Medical History Past Medical History: Coronary Artery Disease (CAD), Deep Vein Thrombosis (DVT), Hypertension Additional Past Medical History / Comment(s): current wound left forearm-tx wound center,[facility], hx diabetes-had pancreas transplant, HTN cardiovascular disease, murmur, DVT L leg, poor circulation, bilateral feet and hand neuropathy, diabetic retinopathy, psoriasis, wound rt ankle and R heel-both now healed, R dosal foot healed -, pt recently had squamous skin cancer removed from R forearm-2 spots/one is healed and the second one is still being treated at [facility] and will need skin grafting, 10/2018 small area of osteomylitis R foot, pt had been in end stage renal disease and had hemodialysis for 3 yrs then had kidneys and pancreas transplant In 2008 at [facility], TMJ, gout, osteopenia, multiple malignant cutanous lesions with removals. History of Any Multi-Drug Resistant Organisms: C-DIFF Date of last positivie culture/infection: ?5 yrs ago MDRO Source:: stool Past Surgical History: Heart Catheterization With Stent, Orthopedic Surgery Additional Past Surgical History / Comment(s): kidney & pancreas transplant 2008, cataracts removed, bilateral eye vitrectomy, bilateral eye RK, surgery to reconnect rt achilles tendon with dehisence and then several debridements of wound to R ankle and R heel, skin lesion removal-basal cell cancer, A/V fistula L upper arm, parathyroidectomy, R wrist fx with surgery. 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 Date of Last Stent Placement:: 2005 Past Psychological History: No Psychological Hx Reported Smoking Status: Never smoker Past Alcohol Use History: Occasional Past Drug Use History: None Reported - Past Family History Father Family Medical History: CVA/TIA, Vascular Disorder Additional Family Medical History / Comment(s): cva x2. Father is at the age of 84 yrs. Mother Family Medical History: Osteoarthritis (OA) Additional Family Medical History / Comment(s): Mother isalive <LisaConstantino lind M - Last Filed: 04/02/20 08:18> General Exam Limitations: no limitations General appearance: alert, in no apparent distress Head exam: Present: atraumatic, normocephalic, normal inspection Eye exam: Present: normal appearance, PERRL, EOMI. Absent: scleral icterus, conjunctival injection, periorbital swelling ENT exam: Present: normal exam, normal oropharynx, mucous membranes moist, TM's normal bilaterally Neck exam: Present: normal inspection, full ROM. Absent: tenderness, meningismus, lymphadenopathy Respiratory exam: Present: normal lung sounds bilaterally, respiratory distress, wheezes, rhonchi. Absent: rales, stridor Cardiovascular Exam: Present: regular rate, normal rhythm, normal heart sounds. Absent: systolic murmur, diastolic murmur, rubs, gallop, clicks GI/Abdominal exam: Present: soft, normal bowel sounds, other (Old midline surgical scar noted). Absent: distended, tenderness, guarding, rebound, rigid Back exam: Absent: CVA tenderness (R), CVA tenderness (L) Neurological exam: Present: alert, oriented X3, CN II-XII intact Skin exam: Present: warm, dry, intact, normal color. Absent: rash <Constantino Mosley - Last Filed: 04/02/20 08:18> Course <Junito Murphy - Last Filed: 04/02/20 08:37> Vital Signs 04/02/20 04/02/20 04/02/20 07:00 07:37 08:00 Temperature 100.9 F H Pulse Rate 95 99 101 H Respiratory 18 Rate Blood Pressure 190/77 O2 Sat by Pulse 90 L Oximetry - Reevaluation(s) Reevaluation #1: 04/02/20 08:36 PA supervision: I proceeded [id number] evaluation the patient. He did present with complaints of shortness of breath and persistent cough. This started after an episode of reflux around 3 AM this morning he got really bad around 6 AM. He is markedly diminished breath sounds especially on the right was basilar rhonchi. X-ray shows evidence of multilobar infiltrate on the right. He will be admitted case is discussed with Dr. felix. (Junito Murphy) EKG Findings - EKG Comments: EKG Findings:: EKG performed at 7:09 normal sinus rhythm rate of 98 GA 144 QRS 88 QT/QTC 344/439 <Constantino Mosley - Last Filed: 04/02/20 08:18> Medical Decision Making - Lab Data Result diagrams: 04/02/20 07:20 04/02/20 07:20 <Constantino Mosley - Last Filed: 04/02/20 08:18> - Lab Data Result diagrams: 04/02/20 07:20 04/02/20 07:20 <Junito Murphy - Last Filed: 04/02/20 08:37> - Medical Decision Making 59-year-old male presents emergency from for shortness of breath. Patient's x- ray shows large right-sided pneumonia. Patient is on antirejection medications for fracture and sprain. Patient will be covered sign was Zosyn, azithromycin. Blood culture, lactic acid pain patient will be admitted for breathing treatments antibiotics and further monitoring. (Constantino Mosley) - Lab Data Lab Results 04/02/20 04/02/20 04/02/20 Range/Units 07:20 07:20 07:20 WBC 5.3 (3.8-10.6) k/uL RBC 4.56 (4.30-5.90) m/uL Hgb 14.8 (13.0-17.5) gm/dL Hct 46.5 (39.0-53.0) % MCV 102.1 H (80.0-100.0) fL MCH 32.5 (25.0-35.0) pg MCHC 31.8 (31.0-37.0) g/dL RDW 16.5 H (11.5-15.5) % Plt Count 244 (150-450) k/uL Neutrophils % 87 % Lymphocytes % 8 % Monocytes % 2 % Eosinophils % 3 % Basophils % 0 % Neutrophils # 4.6 (1.3-7.7) k/uL Lymphocytes # 0.4 L (1.0-4.8) k/uL Monocytes # 0.1 (0-1.0) k/uL Eosinophils # 0.2 (0-0.7) k/uL Basophils # 0.0 (0-0.2) k/uL Anisocytosis Slight Macrocytosis Moderate PT (9.0-12.0) sec INR (<1.2) APTT (22.0-30.0) sec Sodium 139 (137-145) mmol/L Potassium 5.2 H (3.5-5.1) mmol/L Chloride 108 H (98-107) mmol/L Carbon Dioxide 23 (22-30) mmol/L Anion Gap 8 mmol/L BUN 25 H (9-20) mg/dL Creatinine 1.06 (0.66-1.25) mg/dL Est GFR (CKD-EPI)AfAm 88 (>60 ml/min/1.73 sqM) Est GFR (CKD-EPI)NonAf 77 (>60 ml/min/1.73 sqM) Glucose 141 H (74-99) mg/dL Plasma Lactic Acid Hector 2.6 H* (0.7-2.0) mmol/L Calcium 9.7 (8.4-10.2) mg/dL Magnesium 1.6 (1.6-2.3) mg/dL Total Bilirubin 0.9 (0.2-1.3) mg/dL AST 35 (17-59) U/L ALT 22 (4-49) U/L Alkaline Phosphatase 78 (38-126) U/L Troponin I (0.000-0.034) ng/mL NT-Pro-B Natriuret Pep pg/mL Total Protein 6.8 (6.3-8.2) g/dL Albumin 4.2 (3.5-5.0) g/dL 04/02/20 04/02/20 04/02/20 Range/Units 07:20 07:20 07:40 WBC (3.8-10.6) k/uL RBC (4.30-5.90) m/uL Hgb (13.0-17.5) gm/dL Hct (39.0-53.0) % MCV (80.0-100.0) fL MCH (25.0-35.0) pg MCHC (31.0-37.0) g/dL RDW (11.5-15.5) % Plt Count (150-450) k/uL Neutrophils % % Lymphocytes % % Monocytes % % Eosinophils % % Basophils % % Neutrophils # (1.3-7.7) k/uL Lymphocytes # (1.0-4.8) k/uL Monocytes # (0-1.0) k/uL Eosinophils # (0-0.7) k/uL Basophils # (0-0.2) k/uL Anisocytosis Macrocytosis PT 10.6 (9.0-12.0) sec INR 1.0 (<1.2) APTT 20.5 L (22.0-30.0) sec Sodium (137-145) mmol/L Potassium (3.5-5.1) mmol/L Chloride (98-107) mmol/L Carbon Dioxide (22-30) mmol/L Anion Gap mmol/L BUN (9-20) mg/dL Creatinine (0.66-1.25) mg/dL Est GFR (CKD-EPI)AfAm (>60 ml/min/1.73 sqM) Est GFR (CKD-EPI)NonAf (>60 ml/min/1.73 sqM) Glucose (74-99) mg/dL Plasma Lactic Acid Hector (0.7-2.0) mmol/L Calcium (8.4-10.2) mg/dL Magnesium (1.6-2.3) mg/dL Total Bilirubin (0.2-1.3) mg/dL AST (17-59) U/L ALT (4-49) U/L Alkaline Phosphatase (38-126) U/L Troponin I 0.026 (0.000-0.034) ng/mL NT-Pro-B Natriuret Pep 3400 pg/mL Total Protein (6.3-8.2) g/dL Albumin (3.5-5.0) g/dL Disposition <Constantino Mosley - Last Filed: 04/02/20 08:18> <Junito Murphy - Last Filed: 04/02/20 08:37> Clinical Impression: Pneumonia, Hypoxia Disposition: ADMITTED IP TO THIS HOSP Condition: Serious Referrals: Greg Lu MD [Primary Care Provider] - 1-2 days
[2020-04-02 07:44] LABS: Albumin 4.2 g/dL (3.5-5.0); Calcium 9.7 mg/dL (8.4-10.2); Magnesium 1.6 mg/dL (1.6-2.3); Total Bilirubin 0.9 mg/dL (0.2-1.3); Total Protein 6.8 g/dL (6.3-8.2)
[2020-04-02 07:47] LABS: Potassium 5.2 mmol/L (3.5-5.1)
[2020-04-02] MEDS ORDERED: SODIUM CHLORIDE 0.9% 1,000 ML IV ONE (08:00)
[2020-04-02] MEDS ORDERED: PNEUMONIA PROTOCOL UTILIZED 1 EACH MISC PO PRN (08:13)
[2020-04-02] MEDS ORDERED: AZITHROMYCIN 500 MG in SODIUM CHLORIDE 0.9% 250 ML IVPB STA (08:13)
[2020-04-02] MEDS ORDERED: PIPERACILLIN-TAZOBACTAM 3.375 GM in SODIUM CHLORIDE 0.9% 100 ML IVPB STA (08:13)
[2020-04-02 08:18] LABS: Prothrombin Time 10.6 sec (9.0-12.0)
[2020-04-02 08:23] LABS: Partial Thromboplastin Time 20.5 sec (22.0-30.0)
--- NOTE | 2020-04-02 08:31 | XR ---
EXAMINATION TYPE: XR chest 2V DATE OF EXAM: 04/02/2020 COMPARISON: 06/04/2019 HISTORY: 59-year-old male shortness of breath, difficulty breathing TECHNIQUE: AP and lateral views FINDINGS: Heart borderline to mildly enlarged. Extensive airspace opacity throughout the right lung sparing the apex. Left lung and pleural space are clear. No pleural effusion. IMPRESSION: Extensive airspace disease throughout most of the right lung sparing the apex. Correlate for extensiv e pneumonia.
[2020-04-02] MEDS ORDERED: HALOBETASOL PROPIONATE TOPICAL PRN (11:35)
[2020-04-02] MEDS ORDERED: HYDROcodone/APAP 5-325MG 1 EACH TAB PO PRN (11:35)
[2020-04-02] MEDS ORDERED: GABAPENTIN 100 MG CAP PO PRN (11:35)
[2020-04-02] MEDS ORDERED: VANCOMYCIN IV PER PHARMACY 1 EACH MISC MISCELLANE PRN (11:39)
[2020-04-02] MEDS ORDERED: RX INFO: IV CONTRAST WAS GIVEN 1 EACH MISC MISCELLANE PRN (11:41)
[2020-04-02] MEDS: IPRATROPIUM-ALBUTEROL 3 ML NEB INHALATION SCH ×3 (12:14→19:59)
[2020-04-02] MEDS: PANTOPRAZOLE 40 MG/10 ML VIAL IVP SCH ×2 (12:24→20:30)
[2020-04-02] MEDS: VANCOMYCIN 1,500 MG in SODIUM CHLORIDE 0.9% 250 ML IVPB SCH (12:24)
--- NOTE | 2020-04-02 13:26 | P.HPIM ---
History of Present Illness H&P Date: 04/02/20 HISTORY OF PRESENT ILLNESS This is a 59-year-old male patient of Dr. Lu with a previous medical history significant for hypertension and hypertensive cardiovascular disease with left ventricular hypertrophy, history of DVT of the left lower extremity, history of the end-stage renal disease was on hemodialysis post kidney and pancreas transplant in 2008 at the [facility], gout, Charcot foot, diabetes mellitus type 2, COPD, treated for right foot abscess with osteomyelitis in the fifth metatarsal, He now states he has a wound on his left arm since November when he had squamous cell skin cancer removed. He had 2 areas resected and one had skin grafting done and has healed. Eventually patient underwent a recent above elbow amputation on March 03 that [facility] with Dr. Junito Blackwell. Patient had a recheck of the wound yesterday and it was healing well and he was cleared by surgeon for PTCA. Patient is also been cleared by his transplant team for PTCA. Patient underwent a heart catheterization with Dr. CORY Church in August of this year which time he was found to have an LAD lesion 50%, diagonal lesion 70% with plan to further evaluated LAD lesion by FFR. Patient states that he was feeling well yesterday. This morning he started having GERD symptoms and then developed cough and then wheezing. He was also feeling weak. He he has a bloody sputum. He denies having abdominal pain. He states he had an episode of diarrhea. He states he has had fever and chills. He denies any symptoms yesterday. Patient came into [facility] emergency center for evaluation. CBC was normal. Potassium 5.2, chloride 108, CO2 23, BUN 25 and creatinine 1.06. Sodium 139, blood sugar 141. Lactic acid was 2.6. Liver function tests normal. Troponin 0.026. ProBNP 3400. Chest x-ray reveals extensive airspace disease throughout most of the right lung sparing the apex. Correlate for extensive pneumonia. Patient be admitted to the MedSurg floor, consult requested with pulmonary medicine, nephrology. REVIEW OF SYSTEMS Constitutional: Reports fever, Reports chills. No weight change. Reports weakness, Reports fatigue Reports lethargy. EENT: No headache. No blurred vision or double vision, no loss of vision. No loss of Hearing, no ringing in the ears, no dizziness. No nasal drainage or congestion. No epistaxis. No sore throat. Lungs: Reports shortness of breath, Reports cough, Reports sputum production. Reports hemoptysis. Reports wheezing. Cardiovascular: No chest pain, chronic lower extremity edema. No palpitations. No paroxysmal nocturnal dyspnea. No orthopnea. No lightheadedness or dizziness. No syncopal episodes. Abdominal: Reports abdominal discomfort. No nausea, vomiting. Reports diarrhea. No constipation. No bloody or tarry stools. . Genitourinary: No dysuria, increased frequency, urgency. No urinary retention. Musculoskeletal: No myalgias. Reports muscle weakness, no gait dysfunction, no frequent falls. No back pain. No neck pain. Integumentary: No wounds, no lesions. No rash or pruritus. No unusual bruising. No change in hair or nails. Neurologic: No aphasia. No facial droop. No change in mentation. No head injury. No headache. No paralysis. No paresthesia. Psychiatric: No depression. No anxiety. No mood swings. Endocrine: No abnormal blood sugars. No weight change. No excessive sweating or thirst. No cold intolerance. SOCIAL HISTORY Patient is a lifelong nonsmoker. No marijuana or illicit drug use. No alcohol use. He lives at home with his and daughter. Patient is independent and drives. FAMILY HISTORY Mother is alive at age 80 with history of TIA and need for valve replacement. Father at age 84 with history of CVA 2. Patient has 2 brothers and one has osteoarthritis. He does not have any sisters or children. PHYSICAL EXAMINATION Gen: This is a 59-year-old male patient resting in the ER stretcher. He appears to have generalized weakness. No acute respiratory distress. HEENT: Head is atraumatic, normocephalic. Pupils equal, round. Sclerae is anicteric. NECK: Supple. No JVD. No lymphadenopathy. No thyromegaly. LUNGS: Rhonchi bilateral increased on the right side. No intercostal retractions. HEART: Regular rate and rhythm. 3/6 systolic murmur at the fifth intercostal space. ABDOMEN: Soft. Bowel sounds are present. No masses. No tenderness. EXTREMITIES: 2+ edema on the left lower extremity, 1+ on the right. No calf tenderness. Left above the elbow amputation. Wound has clear dressing over surgical site with no active bleeding, drainage. NEUROLOGICAL: Patient is awake, alert and oriented x3. Cranial nerves 2 through 12 are grossly intact. ASSESSMENT AND PLAN 1. Sepsis secondary to extensive right-sided pneumonia, possible gram-negative pneumonia in an immunocompromised host. Patient will be started on Zosyn and vancomycin, consult with Dr. Holt. COVID-19 testing. Continue DuoNeb treatments 4 times daily. 2. Hemoptysis. CT of the chest ordered. 3. Hypertension and hypertensive cardio vascular disease. Continue carvedilol 6.25 mg orally twice every day, amlodipine 10 mg orally once every day. Losartan 50 mg orally once every day. 4. History of kidney and pancreas transplant back in 2008 at the [facility]. Continue patient on Prograf and prednisone. Patient states he is off CellCept. 5. Gout, chronic. Continue allopurinol 300 mg orally once every day. 6. Chronic diastolic heart failure. Echocardiogram from July 2019 reveals severe concentric left hypertrophy, EF 55-60%, severe aortic stenosis, severe mitral calcification, mild mitral regurgitation, mild tricuspid regurgitation. 7. History of diabetes mellitus type 2 post pancreatic transplant. 8. History of end-stage renal disease post kidney transplant. 9. Hyperlipidemia. Continue patient on Pravachol 40 mg orally once every day. 10. 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 11. History of DVT. Continue with heparin 5000 units subcutaneously every 12 hours. 12. GERD. Protonix 41 g IV push twice daily. 13. History of diabetic polyneuropathy. Stable. Continue gabapentin 100 mg at bedtime and daily as needed. 14. History of diabetic retinopathy. Stable. 15. History of psoriasis. Stable. 16. History of right foot abscess with osteomyelitis in the fifth metatarsal, status post bedside I&D and outpatient IV antibiotics, healed. 17. DVT prophylaxis. Continue patient on heparin 5000 units subcutaneously every 8 hours . 18. GI prophylaxis. Continue PPI. Admit to inpatient. Estimate length of stay 2 midnights. CODE STATUS: full code. Discharge plan: Return home. Impression and plan of care have been directed as dictated by the signing physician. Lora Perez nurse practitioner acting as scribe for signing physician. Past Medical History Past Medical History: Coronary Artery Disease (CAD), Deep Vein Thrombosis (DVT), Hypertension Additional Past Medical History / Comment(s): current wound left forearm-tx wound center,Charcot, hx diabetes-had pancreas transplant, HTN cardiovascular disease, murmur, DVT L leg, poor circulation, bilateral feet and hand neuropathy, diabetic retinopathy, psoriasis, wound rt ankle and R heel-both now healed, R dosal foot healed -, pt recently had squamous skin cancer removed from R forearm-2 spots/one is healed and the second one is still being treated at [facility] and will need skin grafting, 10/2018 small area of osteomylitis R foot, pt had been in end stage renal disease and had hemodialysis for 3 yrs then had kidneys and pancreas transplant In 2008 at [facility], TMJ, gout, osteopenia, multiple malignant cutanous lesions with removals. History of Any Multi-Drug Resistant Organisms: C-DIFF Date of last positivie culture/infection: ?5 yrs ago MDRO Source:: stool Past Surgical History: Heart Catheterization With Stent, Orthopedic Surgery Additional Past Surgical History / Comment(s): kidney & pancreas transplant 2008, cataracts removed, bilateral eye vitrectomy, bilateral eye RK, surgery to reconnect rt achilles tendon with dehisence and then several debridements of wound to R ankle and R heel, skin lesion removal-basal cell cancer, A/V fistula L upper arm, parathyroidectomy, R wrist fx with surgery. 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 Date of Last Stent Placement:: 2005 Past Psychological History: No Psychological Hx Reported Smoking Status: Never smoker Past Alcohol Use History: Occasional Past Drug Use History: None Reported - Past Family History Father Family Medical History: CVA/TIA, Vascular Disorder Additional Family Medical History / Comment(s): cva x2. Father is at the age of 84 yrs. Mother Family Medical History: Osteoarthritis (OA) Additional Family Medical History / Comment(s): Mother isalive Medications and Allergies Home Medications Medication Instructions Recorded Confirmed Type Cholecalciferol [Vitamin D3 (25 5,000 unit PO BID@0800,199905/21/14 04/02/20 History Mcg = 1000 Iu)] Pravastatin Sodium [Pravachol] 40 mg PO HS 05/21/14 04/02/20 History Tacrolimus [Prograf] 0.5 mg PO HS@199905/21/14 04/02/20 History allopurinoL [Zyloprim] 300 mg PO HS 05/21/14 04/02/20 History predniSONE 10 mg PO QAM 05/21/14 04/02/20 History Magnesium Oxide [Mag-Ox] 400 mg PO HS 08/01/14 04/02/20 History Multivitamin/Iron/Folic Acid 1 tab PO DAILY@0800 08/01/14 04/02/20 History [Centrum Complete Multivit Tab] carvediloL [Coreg] 6.25 mg PO BID@08,199904/02/15 04/02/20 History Omeprazole [PriLOSEC] 20 mg PO QAM 05/18/15 04/02/20 History Aspirin 81 mg PO HS@199911/08/16 04/02/20 History Tacrolimus [Prograf] 1 mg PO QAM 01/09/19 04/02/20 History Ascorbic Acid [Vitamin C] 1,000 mg PO DAILY@0800 06/19/19 04/02/20 History Halobetasol Propionate [Ultravate] 1 applic TOPICAL BID PRN 06/19/19 04/02/20 History amLODIPine [Norvasc] 10 mg PO QAM 06/19/19 04/02/20 History Calcium Carbonate [Calcium] 600 mg PO BID 08/06/19 04/02/20 History Cinnamon Bark [Cinnamon] 2,000 mg PO HS 08/06/19 04/02/20 History Ferrous Sulfate [Feosol] 325 mg PO HS 08/06/19 04/02/20 History Losartan [Cozaar] 50 mg PO HS 08/06/19 04/02/20 History Potassium Chloride [Klor-Con 20] 20 meq PO BID-W/MEALS 08/06/19 04/02/20 History Sodium Bicarbonate Tab 650 mg PO BID 08/06/19 04/02/20 History Albuterol Inhaler [Ventolin Hfa 1 - 2 puff INHALATION RT-Q6H PRN 04/02/20 04/02/20 History Inhaler] Gabapentin [Neurontin] 100 mg PO DAILY PRN 04/02/20 04/02/20 History Gabapentin [Neurontin] 100 mg PO HS 04/02/20 04/02/20 History HYDROcodone/APAP 5-325MG [[place] 1 tab PO Q6H PRN 04/02/20 04/02/20 History 5-325] Allergies Allergy/AdvReac Type Severity Reaction Status Date / Time No Known Allergies Allergy Verified 04/02/20 08:29 Physical Exam Vitals: Vital Signs Temp Pulse Resp BP BP Pulse Ox 04/02/20 08:34 101.7 F H 20 116/43 98 04/02/20 08:00 101 H 04/02/20 07:37 99 04/02/20 07:00 100.9 F H 95 18 190/77 90 L Intake and Output 04/01/20 04/02/20 04/02/20 22:59 06:59 14:59 Other: Weight 86.183 kg Results CBC & Chem 7: 04/02/20 07:20 04/02/20 07:20 Labs: Abnormal Lab Results - Last 24 Hours (Table) 04/02/20 04/02/20 04/02/20 Range/Units 07:20 07:20 07:20 MCV 102.1 H (80.0-100.0) fL RDW 16.5 H (11.5-15.5) % Lymphocytes # 0.4 L (1.0-4.8) k/uL APTT (22.0-30.0) sec Potassium 5.2 H (3.5-5.1) mmol/L Chloride 108 H (98-107) mmol/L BUN 25 H (9-20) mg/dL Glucose 141 H (74-99) mg/dL Plasma Lactic Acid Hector 2.6 H* (0.7-2.0) mmol/L 04/02/20 Range/Units 07:40 MCV (80.0-100.0) fL RDW (11.5-15.5) % Lymphocytes # (1.0-4.8) k/uL APTT 20.5 L (22.0-30.0) sec Potassium (3.5-5.1) mmol/L Chloride (98-107) mmol/L BUN (9-20) mg/dL Glucose (74-99) mg/dL Plasma Lactic Acid Hector (0.7-2.0) mmol/L
--- NOTE | 2020-04-02 14:27 | CT ---
EXAMINATION TYPE: CT chest w con DATE OF EXAM: 04/02/2020 COMPARISON: 03/27/2019 HISTORY: Hemoptysis, cough. CT DLP: 506.8 mGycm Automated exposure control for dose reduction was used. CONTRAST: CT scan of the chest is performed with IV Contrast, patient injected with 100 mL of Isovue 300. FINDINGS: LUNGS: Large areas of airspace consolidation right upper lobe, right middle lobe and right lower lobe with air bronchograms seen. The findings are felt to reflect pneumonia. Infiltrates of other etiolog y are not excluded. Follow-up until resolution is advised. Left lower lobe atelectasis. MEDIASTINUM: There are no greater than 1 cm hilar or mediastinal lymph nodes. No pericardial effusi on is seen. Thoracic aorta is of normal caliber. The heart is not enlarged. UPPER ABDOMEN: No significant abnormality appreciated. OTHER: No additional significant abnormality is seen. IMPRESSION: Findings felt to reflect multifocal pneumonia throughout the right lung. Correlate clinically and fol low-up recommended until resolution. Infiltrate of other etiology not excluded.
[2020-04-02] MEDS: PIPERACILLIN-TAZOBACTAM 3.375 GM in SODIUM CHLORIDE 0.9% 100 ML IVPB SCH (16:07)
[2020-04-02] MEDS: POTASSIUM CHLORIDE ER 20 MEQ TAB.ER PO SCH (16:38)
[2020-04-02] MEDS: TACROLIMUS 0.5 MG CAP PO SCH (20:27)
[2020-04-02] MEDS: CHOLECALCIFEROL 1,000 UNIT TAB PO SCH (20:28)
[2020-04-02] MEDS: MAGNESIUM OXIDE 400 MG TAB PO SCH (20:28)
[2020-04-02] MEDS: carvediloL 6.25 MG TAB PO SCH (20:28)
[2020-04-02] MEDS: GABAPENTIN 100 MG CAP PO SCH (20:28)
[2020-04-02] MEDS: PRAVASTATIN SODIUM 40 MG TAB PO SCH (20:28)
[2020-04-02] MEDS: allopurinoL 300 MG TAB PO SCH (20:28)
[2020-04-02] MEDS: LOSARTAN 50 MG TAB PO SCH (20:28)
[2020-04-02] MEDS: FERROUS SULFATE 325 MG TAB PO SCH (20:29)
[2020-04-02] MEDS: CALCIUM CARBONATE 500 MG CHEWABLE PO SCH (20:29)
[2020-04-02] MEDS: SODIUM BICARBONATE TAB 650 MG TAB PO SCH (20:29)
[2020-04-02] MEDS: HEPARIN SODIUM,PORCINE 5,000 UNIT/ML 1 ML VIAL SQ SCH (20:29)
[2020-04-02 22:03] LABS: C Reactive Protein 65.8 mg/L (<10.0)
[2020-04-03] MEDS: PIPERACILLIN-TAZOBACTAM 3.375 GM in SODIUM CHLORIDE 0.9% 100 ML IVPB SCH ×4 (00:47→23:52)
[2020-04-03] MEDS: VANCOMYCIN 1,500 MG in SODIUM CHLORIDE 0.9% 250 ML IVPB SCH (01:00)
[2020-04-03] MEDS: POTASSIUM CHLORIDE ER 20 MEQ TAB.ER PO SCH (06:57)
[2020-04-03] MEDS: IPRATROPIUM-ALBUTEROL 3 ML NEB INHALATION SCH ×4 (07:21→18:46)
--- NOTE | 2020-04-03 08:16 | XR ---
EXAMINATION TYPE: XR chest 2V DATE OF EXAM: 04/03/2020 COMPARISON: 04/02/2020 HISTORY: 59-year-old male pneumonia TECHNIQUE: AP and lateral views FINDINGS: Heart mildly enlarged. Extensive consolidation throughout the right mid and lower lung persists but h as become slightly less confluent from prior exam. No sizable effusion. IMPRESSION: Slight improvement in the extensive airspace disease throughout the right mid and lower lung.
[2020-04-03] MEDS: predniSONE 10 MG TAB PO SCH (09:00)
[2020-04-03] MEDS ORDERED: AZITHROMYCIN 500 MG in SODIUM CHLORIDE 0.9% 250 ML IVPB SCH (09:00)
[2020-04-03] MEDS: PANTOPRAZOLE 40 MG/10 ML VIAL IVP SCH ×2 (09:00→20:23)
[2020-04-03] MEDS: ASCORBIC ACID 500 MG TAB PO SCH (09:00)
[2020-04-03] MEDS: HEPARIN SODIUM,PORCINE 5,000 UNIT/ML 1 ML VIAL SQ SCH ×2 (09:00→20:23)
[2020-04-03] MEDS: MULTIVITAMINS, THERA 1 EACH TAB PO SCH (09:01)
[2020-04-03] MEDS: amLODIPine 10 MG TAB PO SCH (09:01)
[2020-04-03] MEDS: TACROLIMUS 1 MG CAP PO SCH (09:01)
[2020-04-03] MEDS: carvediloL 6.25 MG TAB PO SCH ×2 (09:01→20:22)
[2020-04-03] MEDS: CALCIUM CARBONATE 500 MG CHEWABLE PO SCH ×2 (09:01→20:22)
[2020-04-03] MEDS: SODIUM BICARBONATE TAB 650 MG TAB PO SCH ×2 (09:01→20:23)
[2020-04-03] MEDS: CHOLECALCIFEROL 1,000 UNIT TAB PO SCH ×2 (09:07→20:22)
[2020-04-03] MEDS ORDERED: FUROSEMIDE 40 MG TAB PO SCH (10:30)
[2020-04-03] MEDS: guaiFENesin 600 MG TABLET.ER PO SCH ×2 (11:38→20:23)
--- NOTE | 2020-04-03 12:29 | P.PN ---
Subjective Progress Note Date: 04/03/20 HISTORY OF PRESENT ILLNESS This is a 59-year-old male patient of Dr. Lu with a previous medical history significant for hypertension and hypertensive cardiovascular dis ease with left ventricular hypertrophy, history of DVT of the left lower extremity, history of the end-stage renal disease was on hemodialysis post kidney and pancreas transplant in 2008 at the [facility], gout, Charcot foot, diabetes mellitus type 2, COPD, treated for right foot abscess with osteomyelitis in the fifth metatarsal, He now states he has a wound on his left arm since November when he had squamous cell skin cancer removed. He had 2 areas resected and one had skin grafting done and has healed. Eventually patient underwent a recent above elbow amputation on March 03 that [facility] with Dr. Junito Blackwell. Patient had a recheck of the wound yesterday and it was healing well and he was cleared by surgeon for PTCA. Patient is also been cleared by his transplant team for PTCA. Patient underwent a heart catheterization with Dr. CORY Church in August of this year which time he was found to have an LAD lesion 50%, diagonal lesion 70% with plan to further evalu ated LAD lesion by FFR. Patient states that he was feeling well yesterday. This morning he started having GERD symptoms and then developed cough and then wheezing. He was also feeling weak. He he has a bloody sputum. He denies having abdominal pain. He states he had an episode of diarrhea. He states he has had fever and chills. He denies any symptoms yesterday. Patient came into [facility] emergency center for evaluation. CBC was normal. Potassium 5.2, chloride 108, CO2 23, BUN 25 and creatinine 1.06. Sodium 139, blood sugar 141. Lactic acid was 2.6. Liver function tests normal. Troponin 0.026. ProBNP 3400. Chest x-ray reveals extensive airspace disease throughout most of the right lung sparing the apex. Correlate for extensive pneumonia. Patient be admitted to the MedSurg floor, consult requested with pulmonary medicine, nephrology. 04/03: Patient is seen today in follow-up. He states he is feeling tired. He states he occasionally has some wheezing. Lasix 40 mg oral daily added. Cough is not as much today as yesterday. He denies any blood in his sputum. Repeat chest x-ray reveals slight improvement in the extensive airspace disease throughout the right mid and lower lung. CAT scan of the chest reveals multifocal pneumonia throughout the right lung. Consult added for Dr. CORY Church, his gun perforator. REVIEW OF SYSTEMS Constitutional: Reports fever, Reports chills. No weight change. Reports weakness, Reports fatigue Reports lethargy. EENT: No headache. No blurred vision or double vision, no loss of vision. No loss of Hearing, no ringing in the ears, no dizziness. No nasal drainage or congestion. No epistaxis. No sore throat. Lungs: Reports shortness of breath, Reports cough, Reports sputum production. Reports hemoptysis-resolving. Reports wheezing. Cardiovascular: No chest pain, chronic lower extremity edema. No palpitations. No paroxysmal nocturnal dyspnea. No orthopnea. No lightheadedness or dizziness. No syncopal episodes. Abdominal: Reports abdominal discomfort. No nausea, vomiting. Reports diarrhea. No constipation. No bloody or tarry stools. . Genitourinary: No dysuria, increased frequency, urgency. No urinary retention. Musculoskeletal: No myalgias. Reports muscle weakness, no gait dysfunction, no frequent falls. No back pain. No neck pain. Integumentary: No wounds, no lesions. No rash or pruritus. No unusual bruising. No change in hair or nails. Neurologic: No aphasia. No facial droop. No change in mentation. No head injury. No headache. No paralysis. No paresthesia. Psychiatric: No depression. No anxiety. No mood swings. Endocrine: No abnormal blood sugars. No weight change. No excessive sweating or thirst. No cold intolerance. PHYSICAL EXAMINATION Gen: This is a 59-year-old male patient resting in the ER stretcher. He appears to have generalized weakness. No acute respiratory distress. HEENT: Head is atraumatic, normocephalic. Pupils equal, round. Sclerae is anicteric. NECK: Supple. No JVD. No lymphadenopathy. No thyromegaly. LUNGS: Rhonchi bilateral increased on the right side. No intercostal retracti ons. HEART: Regular rate and rhythm. 3/6 systolic murmur at the fifth intercostal space. ABDOMEN: Soft. Bowel sounds are present. No masses. No tenderness. EXTREMITIES: 2+ edema on the left lower extremity, 1+ on the right. No calf tenderness. Left above the elbow amputation. Wound has clear dressing over surgical site with no active bleeding, drainage. NEUROLOGICAL: Patient is awake, alert and oriented x3. Cranial nerves 2 through 12 are grossly intact. ASSESSMENT AND PLAN 1. Sepsis secondary to extensive right-sided pneumonia, possible gram-negative pneumonia in an immunocompromised host. Patient will be started on Zosyn and vancomycin, consult with Dr. Holt. COVID-19 testing negative. Continue DuoNeb treatments 4 times daily. 2. Hemoptysis. CT of the chest as above. 3. Hypertension and hypertensive cardio vascular disease. Continue carvedilol 6.25 mg orally twice every day, amlodipine 10 mg orally once every day. Losartan 50 mg orally once every day. 4. History of kidney and pancreas transplant back in 2008 at the [facility]. Continue patient on Prograf and prednisone. Patient states he is off CellCept. 5. Gout, chronic. Continue allopurinol 300 mg orally once every day. 6. Chronic diastolic heart failure. Echocardiogram from July 2019 reveals severe concentric left hypertrophy, EF 55-60%, severe aortic stenosis, severe mitral calcification, mild mitral regurgitation, mild tricuspid regurgitation. 7. History of diabetes mellitus type 2 post pancreatic transplant. 8. History of end-stage renal disease post kidney transplant. 9. Hyperlipidemia. Continue patient on Pravachol 40 mg orally once every day. 10. 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 11. History of DVT. Continue with heparin 5000 units subcutaneously every 12 hours. 12. GERD. Protonix 41 g IV push twice daily. 13. History of diabetic polyneuropathy. Stable. Continue gabapentin 100 mg at bedtime and daily as needed. 14. History of diabetic retinopathy. Stable. 15. History of psoriasis. Stable. 16. History of right foot abscess with osteomyelitis in the fifth metatarsal, status post bedside I&D and outpatient IV antibiotics, healed. 17. DVT prophylaxis. Continue patient on heparin 5000 units subcutaneously every 8 hours . 18. GI prophylaxis. Continue PPI. 19. History of coronary artery disease. Consult with Dr. Church. CODE STATUS: full code. Discharge plan: Return home. Impression and plan of care have been directed as dictated by the signing physician. Lora Perez nurse practitioner acting as scribe for signing physician. Objective - Vital Signs Vital signs: Vital Signs Temp 97.7 F 04/02/20 20:00 Pulse 84 04/03/20 07:34 Resp 20 04/03/20 04:00 BP 132/60 04/03/20 04:00 Pulse Ox 88 L 04/03/20 07:23 Intake & Output 04/02/20 04/03/20 04/03/20 18:59 06:59 18:59 Weight 86.183 kg 88.5 kg Other: Voiding Method Toilet Toilet Urinal Urinal # Voids 1 1 # Bowel Movements 0 - Labs CBC & Chem 7: 04/02/20 07:20 04/02/20 07:20 Labs: Abnormal Lab Results - Last 24 Hours (Table) 04/02/20 04/02/20 Range/Units 21:01 21:01 D-Dimer 1.49 H (<0.60) mg/L FEU C-Reactive Protein 65.8 H (<10.0) mg/L
--- NOTE | 2020-04-03 12:40 | P.CNPUL ---
History of Present Illness Consult date: 04/03/20 Requesting physician: Dianne López Reason for consult: abnormal CXR/CT (Aspiration pneumonia) Chief complaint: Shortness of breath, cough, congestion History of present illness: This is a very pleasant 59-year-old gentleman with a known history of coronary artery disease with previous stent placement, hypertension, diabetes mellitus, end-stage renal disease with previous pancreatic/kidney transplantation in 2008 at the [facility] and is on Prograf and prednisone. He also has a history of squamous cell carcinoma and nonhealing wound of the left upper extremity with subsequent recent amputation at [facility] on 03/03/2020. Early yesterday morning the patient developed nausea and significant acid reflux and felt as though he aspirated. He developed increasing shortness of breath chest tightness and wheezing and presented to the emergency room for the same. Chest x-ray revealed extensive airspace disease throughout most of the right lung sparing the apex. Computed tomography scan of the chest revealed multifocal pneumonia throughout the right lung. He is seen today in consultation on the selective care unit. He is awake and alert in no acute distress. He states he is breathing easier today compared to yesterday. Chest x-ray shows some slight improvement in the extensive air space disease throughout the right mid and lower lung rebollar. He is currently maintaining O2 saturations in the 90s on room air. He's been afebrile. He did present with a T-max of 101.7. He's been initiated on vancomycin and Zosyn. Blood culture reveals no growth to date. White count 5.3. Hemoglobin 14.8. D-dimer 1.49. Sodium 139. Potassium 5.2. Creatinine 1.06. Glucose 141. ProBNP 3400. Lopez virus not detected. Review of Systems REVIEW OF SYSTEMS: CONSTITUTIONAL: Denies any recent significant weight loss or weight gain. EYES: Denies change in vision. EARS, NOSE, MOUTH, THROAT: Denies headaches, denies sore throat. CARDIOVASCULAR: Denies chest pain, palpitations or syncopal episodes. RESPIRATORY: Positive for shortness of breath, cough, congestion no hemoptysis. GASTROINTESTINAL: Denies change in appetite, denies abdominal pain GENITOURINARY: Denies hematuria, denies infections. MUSKULOSKELETAL: Denies pain, denies swelling. INTEGUMENTARY: Denies rash, denies eczema. NEUROLOGICAL: Denies recent memory loss, no recent seizure activity. PSYCHIATRIC: Denies anxiety, denies depression. HEMATOLOGIC/LYMPHATIC: Denies anemia, denies enlarged lymph nodes. Past Medical History Past Medical History: Coronary Artery Disease (CAD), Deep Vein Thrombosis (DVT), Hypertension Additional Past Medical History / Comment(s): current wound left forearm-tx woun d center,Charcot, hx diabetes-had pancreas transplant, HTN cardiovascular disease, murmur, DVT L leg, poor circulation, bilateral feet and hand neuropathy, diabetic retinopathy, psoriasis, wound rt ankle and R heel-both now healed, R dosal foot healed -, pt recently had squamous skin cancer removed from R forearm-2 spots/one is healed and the second one is still being treated at [facility] and will need skin grafting, 10/2018 small area of osteomylitis R foot, pt had been in end stage renal disease and had hemodialysis for 3 yrs then had kidneys and pancreas transplant In 2008 at [facility], TMJ, gout, osteopenia, multiple malignant cutanous lesions with removals. History of Any Multi-Drug Resistant Organisms: C-DIFF Date of last positivie culture/infection: ?5 yrs ago MDRO Source:: stool Past Surgical History: Heart Catheterization With Stent, Orthopedic Surgery Additional Past Surgical History / Comment(s): kidney & pancreas transplant 2008, cataracts removed, bilateral eye vitrectomy, bilateral eye RK, surgery to reconnect rt achilles tendon with dehisence and then several debridements of wound to R ankle and R heel, skin lesion removal-basal cell cancer, A/V fistula L upper arm, parathyroidectomy, R wrist fx with surgery. 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 Date of Last Stent Placement:: 2005 Past Psychological History: No Psychological Hx Reported Smoking Status: Never smoker Past Alcohol Use History: Occasional Past Drug Use History: None Reported - Past Family History Father Family Medical History: CVA/TIA, Vascular Disorder Additional Family Medical History / Comment(s): cva x2. Father is at the age of 84 yrs. Mother Family Medical History: Osteoarthritis (OA) Additional Family Medical History / Comment(s): Mother isalive Medications and Allergies Home Medications Medication Instructions Recorded Confirmed Type Cholecalciferol [Vitamin D3 (25 5,000 unit PO BID@0800,199905/21/14 04/02/20 History Mcg = 1000 Iu)] Pravastatin Sodium [Pravachol] 40 mg PO HS 05/21/14 04/02/20 History Tacrolimus [Prograf] 0.5 mg PO HS@199905/21/14 04/02/20 History allopurinoL [Zyloprim] 300 mg PO HS 05/21/14 04/02/20 History predniSONE 10 mg PO QAM 05/21/14 04/02/20 History Magnesium Oxide [Mag-Ox] 400 mg PO HS 08/01/14 04/02/20 History Multivitamin/Iron/Folic Acid 1 tab PO DAILY@0800 08/01/14 04/02/20 History [Centrum Complete Multivit Tab] carvediloL [Coreg] 6.25 mg PO BID@0800,199904/02/15 04/02/20 History Omeprazole [PriLOSEC] 20 mg PO QAM 05/18/15 04/02/20 History Aspirin 81 mg PO HS@199911/08/16 04/02/20 History Tacrolimus [Prograf] 1 mg PO QAM 01/09/19 04/02/20 History Ascorbic Acid [Vitamin C] 1,000 mg PO DAILY@0800 06/19/19 04/02/20 History Halobetasol Propionate [Ultravate] 1 applic TOPICAL BID PRN 06/19/19 04/02/20 History amLODIPine [Norvasc] 10 mg PO QAM 06/19/19 04/02/20 History Calcium Carbonate [Calcium] 600 mg PO BID 08/06/19 04/02/20 History Cinnamon Bark [Cinnamon] 2,000 mg PO HS 08/06/19 04/02/20 History Ferrous Sulfate [Feosol] 325 mg PO HS 08/06/19 04/02/20 History Losartan [Cozaar] 50 mg PO HS 08/06/19 04/02/20 History Potassium Chloride [Klor-Con 20] 20 meq PO BID-W/MEALS 08/06/19 04/02/20 History Sodium Bicarbonate Tab 650 mg PO BID 08/06/19 04/02/20 History Albuterol Inhaler [Ventolin Hfa 1 - 2 puff INHALATION RT-Q6H PRN 04/02/20 04/02/20 History Inhaler] Gabapentin [Neurontin] 100 mg PO DAILY PRN 04/02/20 04/02/20 History Gabapentin [Neurontin] 100 mg PO HS 04/02/20 04/02/20 History HYDROcodone/APAP 5-325MG [[place] 1 tab PO Q6H PRN 04/02/20 04/02/20 History 5-325] Allergies Allergy/AdvReac Type Severity Reaction Status Date / Time No Known Allergies Allergy Verified 04/02/20 08:29 Physical Exam Vitals: Vital Signs Temp Pulse Pulse Resp BP BP Pulse Ox 04/03/20 12:00 98.0 F 85 18 160/65 94 L 04/03/20 11:22 82 04/03/20 11:09 81 04/03/20 08:00 98.0 F 80 18 151/67 93 L 04/03/20 07:34 84 04/03/20 07:23 87 88 L 04/03/20 04:00 82 20 132/60 91 L 04/03/20 00:00 90 20 132/62 91 L 04/02/20 20:13 86 20 04/02/20 20:00 97.7 F 78 20 136/63 93 L 04/02/20 19:59 85 18 04/02/20 16:15 84 20 04/02/20 16:02 88 20 04/02/20 16:00 20 04/02/20 15:00 98.6 F 20 145/67 98 04/02/20 13:45 80 18 114/44 98 Intake and Output 04/02/20 04/03/20 04/03/20 22:59 06:59 14:59 Other: Voiding Method Toilet Toilet Toilet Urinal Urinal Urinal # Voids 1 1 # Bowel Movements 0 Weight 88.5 kg GENERAL EXAM: Alert, very pleasant 59-year-old gentleman, on 5 L/m per nasal cannula, comfortable in no apparent distress. HEAD: Normocephalic. EYES: Normal reaction of pupils, equal size. NOSE: Clear with pink turbinates. THROAT: No erythema or exudates. NECK: No masses, no JVD. CHEST: No chest wall deformity. LUNGS: Equal air entry with bilateral rhonchi right greater than left. CVS: S1 and S2 normal with no audible murmur, regular rhythm. ABDOMEN: No hepatosplenomegaly, normal bowel sounds, no guarding or rigidity. SPINE: No scoliosis or deformity SKIN: No rashes CENTRAL NERVOUS SYSTEM: No focal deficits, tone is normal in all 4 extremities. EXTREMITIES: Left upper extremity amputation. There is no peripheral edema. No clubbing, no cyanosis. Peripheral pulses are intact. Results - Laboratory Findings CBC and BMP: 04/02/20 07:20 04/02/20 07:20 PT/INR, D-dimer PT 10.6 sec (9.0-12.0) 04/02/20 07:40 INR 1.0 (<1.2) 04/02/20 07:40 D-Dimer 1.49 mg/L FEU (<0.60) H 04/02/20 21:01 Abnormal lab findings: Abnormal Labs 04/02/20 04/02/20 04/02/20 07:20 07:20 07:20 MCV 102.1 H RDW 16.5 H Lymphocytes # 0.4 L APTT D-Dimer Potassium 5.2 H Chloride 108 H BUN 25 H Glucose 141 H Plasma Lactic Acid Hector 2.6 H* C-Reactive Protein 04/02/20 04/02/20 04/02/20 07:40 21:01 21:01 MCV RDW Lymphocytes # APTT 20.5 L D-Dimer 1.49 H Potassium Chloride BUN Glucose Plasma Lactic Acid Hector C-Reactive Protein 65.8 H - Diagnostic Findings Chest x-ray: image reviewed CT scan - chest: image reviewed Assessment and Plan Assessment: #1 Acute hypoxemic respiratory failure secondary to suspected aspiration pneumonia involving mainly the right mid and lower lung. CoVID 19 ruled out #2 Recent episode of nausea with acid reflux #3 History of pancreatic/kidney transplant in 2008 at the [facility] and maintained on Prograf and prednisone in the outpatient setting #4 Squamous cell carcinoma of the left upper extremity with nonhealing wound and subsequent amputation on 03/03/2020 at [facility] #5 Diabetes mellitus #6 Coronary artery disease with previous stent placement #7 Prior history of hemodialysis #8 Hypertension #9 Diabetic polyneuropathy #10 Diabetic retinopathy # 11 History of DVT Plan: The patient was seen and evaluated by Dr. Holt Chest x-ray, CAT scans and labs reviewed Discontinue vancomycin, continue Zosyn Follow-up chest x-ray in a.m. We will continue to follow and make further recommendations based on his clinical status I, the cosigning physician, performed a history & physical examination of the patient. Lungs sounds bilateral scattered rhonchi right greater than left. Maintaining good O2 saturations in the 90s on 5 L/m per nasal cannula. I di scussed the assessment and plan of care with my nurse practitioner, Angela Cooper. I attest to the above consultation as dictated by her. Time with Patient: Greater than 30
--- NOTE | 2020-04-03 16:31 | CONS ---
CONSULTATION REASON FOR CONSULTATION: Status post simultaneous kidney - pancreas transplant. HISTORY OF PRESENT ILLNESS: Patient is a 59-year-old male with history of simultaneous kidney pancreas transplant 11 years ago at [facility]. The patient's baseline creatinine is around 1- 0.9 mg/dL. He was admitted to the hospital with complaints of increasing weakness. He did have some chest discomfort. No significant nausea, vomiting or diarrhea. Patient recently had left above elbow amputation at [facility] for chronic nonhealing wound and skin cancer as well as fracture. There has not been any significant drainage from his incision or redness or fever. Patient's lactic acid was elevated on admission. He was found to have extensive right lung disease and is currently being treated for pneumonia. Chest CT done yesterday with IV contrast shows multifocal right lung pneumonia. Patient is maintained on Prograf and prednisone for immunosuppression. He is also maintained on angiotensin receptor blockers in the form of Cozaar for hypertension which he has been tolerating well. Blood pressure has not been low. Patient has had good urine output. PAST MEDICAL HISTORY: Significant for end-stage renal disease secondary to diabetes, currently post transplant about 9 years ago at [facility]. Patient had a simultaneous kidney-pancreas transplant, history of hypertension, DVT, Charcot foot, diabetic retinopathy, neuropathy, skin cancer, right forearm with wound and chronic infection with skin grafting, history of osteopenia, history of gout, TMJ, right heel ulcer. PAST SURGICAL HISTORY: Kidney-pancreas transplant 2008, cataract surgery, vitrectomy, recent above the elbow amputation of the left arm on March 03, 2020, parathyroidectomy, AV fistula. SOCIAL HISTORY: Negative for smoking, drug abuse or alcohol abuse. MEDICATIONS: Medications at home prior to admission included vitamin D, Pravachol, Prograf, Zyloprim, prednisone, magnesium, Coreg, Prilosec, vitamin C, Norvasc, calcium, cinnamon, iron, Cozaar, potassium, sodium bicarb, Neurontin, Cannon. ALLERGIES: None. REVIEW OF SYSTEMS: As per HPI. Other systems negative. PHYSICAL EXAMINATION: Patient is comfortable, awake, he is not in any acute distress. PROJECT DESIGN ENGINEER exam grossly intact. Blood pressure was 160/65, heart rate 85 per minute, he is afebrile. Examination of the heart S1, S2. Examination of the lungs, bilateral breath sounds are heard. Abdomen is soft, nontender. Examination of the lower extremities shows no evidence of edema. Chronic skin changes noted. PROJECT DESIGN ENGINEER exam grossly intact. Patient has left above the elbow amputation of the arm. LABS: Show sodium of 139, potassium 5.2, chloride 108, BUN 25, serum creatinine 1.06, hemoglobin 14.8 g/dL. ASSESSMENT: 1. Status post simultaneous kidney-pancreas transplant in 2008 at [facility]. Maintained on Prograf and prednisone. Renal function is at baseline. Blood sugar is mildly elevated at 141. Continue to monitor for now. 2. Severe right lung multifocal pneumonia, maintained on antibiotics. COVID PCR is negative. 3. Lactic acidosis, secondary to pneumonia. 4. Mild hyperkalemia associated with use of Prograf and in the setting of use of angiotensin receptor blockers as well as potassium supplementation. 5. Hypertension, currently controlled. PLAN: DC potassium and hold Lasix for now. If the potassium is not improved by tomorrow, we may need to hold the Cozaar. Check Prograf level tomorrow. Continue with the sodium bicarb and the current dose of Prograf. Continue antibiotics. Thank you for this consultation. Will continue to follow the patient with you during his hospitalization. MMODL / IJN: [id number] /
[2020-04-03 20:21] LABS: Glucose,Whole Blood 129 mg/dL (75-99)
[2020-04-03] MEDS: TACROLIMUS 0.5 MG CAP PO SCH (20:22)
[2020-04-03] MEDS: allopurinoL 300 MG TAB PO SCH (20:22)
[2020-04-03] MEDS: LOSARTAN 50 MG TAB PO SCH (20:23)
[2020-04-03] MEDS: GABAPENTIN 100 MG CAP PO SCH (20:23)
[2020-04-03] MEDS: PRAVASTATIN SODIUM 40 MG TAB PO SCH (20:23)
[2020-04-03] MEDS: FERROUS SULFATE 325 MG TAB PO SCH (20:23)
[2020-04-03] MEDS: MAGNESIUM OXIDE 400 MG TAB PO SCH (20:23)
[2020-04-04 06:10] LABS: Glucose,Whole Blood 90 mg/dL (75-99)
[2020-04-04] MEDS: IPRATROPIUM-ALBUTEROL 3 ML NEB INHALATION SCH ×4 (07:39→20:07)
--- NOTE | 2020-04-04 08:31 | XR ---
EXAMINATION TYPE: XR chest 1V portable DATE OF EXAM: 04/04/2020 Comparison: 04/03/2020 Clinical History: 59-year-old male with cough, pneumonia Findings: Heart mildly enlarged. Airspace opacity persists right mid and lower lung. Left lung and pleural spac es clear. Impression: Continued right mid and lower lung pneumonia.
[2020-04-04] MEDS: HEPARIN SODIUM,PORCINE 5,000 UNIT/ML 1 ML VIAL SQ SCH ×2 (08:46→20:43)
[2020-04-04] MEDS: PANTOPRAZOLE 40 MG/10 ML VIAL IVP SCH ×2 (08:46→20:43)
[2020-04-04] MEDS: PIPERACILLIN-TAZOBACTAM 3.375 GM in SODIUM CHLORIDE 0.9% 100 ML IVPB SCH ×3 (08:46→23:36)
[2020-04-04] MEDS: carvediloL 6.25 MG TAB PO SCH ×2 (08:47→20:43)
[2020-04-04] MEDS: SODIUM BICARBONATE TAB 650 MG TAB PO SCH ×2 (08:47→20:43)
[2020-04-04] MEDS: ASCORBIC ACID 500 MG TAB PO SCH (08:47)
[2020-04-04] MEDS: guaiFENesin 600 MG TABLET.ER PO SCH ×2 (08:47→20:42)
[2020-04-04] MEDS: CHOLECALCIFEROL 1,000 UNIT TAB PO SCH ×2 (08:47→20:42)
[2020-04-04] MEDS: MULTIVITAMINS, THERA 1 EACH TAB PO SCH (08:47)
[2020-04-04] MEDS: amLODIPine 10 MG TAB PO SCH (08:47)
[2020-04-04] MEDS: CALCIUM CARBONATE 500 MG CHEWABLE PO SCH ×2 (08:47→20:43)
[2020-04-04] MEDS: predniSONE 10 MG TAB PO SCH (08:47)
[2020-04-04] MEDS: TACROLIMUS 1 MG CAP PO SCH (08:48)
--- NOTE | 2020-04-04 08:55 | P.PN ---
Subjective Progress Note Date: 04/04/20 This is a 59-year-old male patient of Dr. Lu with a previous medical history significant for hypertension and hypertensive cardiovascular disease with left ventricular hypertrophy, history of DVT of the left lower extremity, history of the end-stage renal disease was on hemodialysis post kidne y and pancreas transplant in 2008 at the [facility], gout, Charcot foot, diabetes mellitus type 2, COPD, treated for right foot abscess with osteomyelitis in the fifth metatarsal, He now states he has a wound on his left arm since November when he had squamous cell skin cancer removed. He had 2 areas resected and one had skin grafting done and has healed. Eventually patient underwent a recent above elbow amputation on March 03 that [facility] with Dr. Junito Blackwell. Patient had a recheck of the wound yesterday and it was healing well and he was cleared by surgeon for PTCA. Patient is also been cleared by his transplant team for PTCA. Patient underwent a heart catheteri zation with Dr. CORY Church in August of this year which time he was found to have an LAD lesion 50%, diagonal lesion 70% with plan to further evaluated LAD lesion by FFR. Patient states that he was feeling well yesterday. This morning he started having GERD symptoms and then developed cough and then wheezing. He was also feeling weak. He he has a bloody sputum. He denies having abdominal pain. He states he had an episode of diarrhea. He states he has had fever and chills. He denies any symptoms yesterday. Patient came into [facility] emergency center for evaluation. CBC was normal. Potassium 5.2, chloride 108, CO2 23, BUN 25 and creatinine 1.06. Sodium 139, blood sugar 141. Lactic acid was 2.6. Liver function tests normal. Troponin 0.026. ProBNP 3400. Chest x-ray reveals extensive airspace disease throughout most of the right lung sparing the apex. Correlate for extensive pneumonia. Patient be admitted to the MedSurg floor, consult requested with pulmonary medicine, nephrology. 04/03: Patient is seen today in follow-up. He states he is feeling tired. He states he occasionally has some wheezing. Lasix 40 mg oral daily added. Cough is not as much today as yesterday. He denies any blood in his sputum. Repeat chest x-ray reveals slight improvement in the extensive airspace disease throughout the right mid and lower lung. CAT scan of the chest reveals multifocal pneumonia throughout the right lung. Consult added for Dr. CORY Church, his slackman. 04/04: Patient is found to be sitting up in bed resting comfortably without any acute distress. Patient continues to have occasional wheezing and coughing. Patient states that he is feeling better today compared to yesterday. He states that he is tired however he didn't sleep well last night. His repeat chest x- ray shows improvement to the mid and low lung. Temperature today 99, pulse rate 92, respirations 18, blood pressure 118/59. Pulse ox 94% on 4 L. REVIEW OF SYSTEMS Constitutional: Reports fever, Reports chills. No weight change. Reports weakness, Reports fatigue Reports lethargy. EENT: No headache. No blurred vision or double vision, no loss of vision. No loss of Hearing, no ringing in the ears, no dizziness. No nasal drainage or congestion. No epistaxis. No sore throat. Lungs: Reports shortness of breath, Reports cough, Reports sputum production. Reports hemoptysis-resolving. Reports wheezing. Cardiovascular: No chest pain, chronic lower extremity edema. No palpitations. No paroxysmal nocturnal dyspnea. No orthopnea. No lightheadedness or dizziness. No syncopal episodes. Abdominal: Reports abdominal discomfort. No nausea, vomiting. Reports diarrhea. No constipation. No bloody or tarry stools. . Genitourinary: No dysuria, increased frequency, urgency. No urinary retention. Musculoskeletal: No myalgias. Reports muscle weakness, no gait dysfunction, no frequent falls. No back pain. No neck pain. Integumentary: No wounds, no lesions. No rash or pruritus. No unusual bruising. No change in hair or nails. Neurologic: No aphasia. No facial droop. No change in mentation. No head injury. No headache. No paralysis. No paresthesia. Psychiatric: No depression. No anxiety. No mood swings. Endocrine: No abnormal blood sugars. No weight change. No excessive sweating or thirst. No cold intolerance. PHYSICAL EXAMINATION Gen: This is a 59-year-old male patient resting in the ER stretcher. He appears to have generalized weakness. No acute respiratory distress. HEENT: Head is atraumatic, normocephalic. Pupils equal, round. Sclerae is anicteric. NECK: Supple. No JVD. No lymphadenopathy. No thyromegaly. LUNGS: Rhonchi bilateral increased on the right side. No intercostal retractions. HEART: Regular rate and rhythm. 3/6 systolic murmur at the fifth intercostal space. ABDOMEN: Soft. Bowel sounds are present. No masses. No tenderness. EXTREMITIES: 2+ edema on the left lower extremity, 1+ on the right. No calf tenderness. Left above the elbow amputation. Wound has clear dressing over surgical site with no active bleeding, drainage. NEUROLOGICAL: Patient is awake, alert and oriented x3. Cranial nerves 2 through 12 are grossly intact. ASSESSMENT AND PLAN 1. Sepsis secondary to extensive right-sided pneumonia, possible gram-negative pneumonia in an immunocompromised host. Patient will be started on Zosyn and vancomycin, consult with Dr. Holt. COVID-19 testing negative. Continue DuoNeb treatments 4 times daily. 2. Hemoptysis[address] of the chest as above. 3. Hypertension and hypertensive cardio vascular disease. Continue carvedilol 6.25 mg orally twice every day, amlodipine 10 mg orally once every day. Losartan 50 mg orally once every day. 4. History of kidney and pancreas transplant back in 2008 at the [facility] [place]. Continue patient on Prograf and prednisone. Patient states he is off CellCept. 5. Gout, chronic. Continue allopurinol 300 mg orally once every day. 6. Chronic diastolic heart failure. Echocardiogram from July 2019 reveals severe concentric left hypertrophy, EF 55-60%, severe aortic stenosis, severe mitral calcification, mild mitral regurgitation, mild tricuspid regurgitation. 7. History of diabetes mellitus type 2 post pancreatic transplant. 8. History of end-stage renal disease post kidney transplant. 9. Hyperlipidemia. Continue patient on Pravachol 40 mg orally once every day. 10. 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 11. History of DVT. Continue with heparin 5000 units subcutaneously every 12 hours. 12. GERD. Protonix 41 g IV push twice daily. 13. History of diabetic polyneuropathy. Stable. Continue gabapentin 100 mg at bedtime and daily as needed. 14. History of diabetic retinopathy. Stable. 15. History of psoriasis. Stable. 16. History of right foot abscess with osteomyelitis in the fifth metatarsal, status post bedside I&D and outpatient IV antibiotics, healed. 17. DVT prophylaxis. Continue patient on heparin 5000 units subcutaneously every 8 hours . 18. GI prophylaxis. Continue PPI. 19. History of coronary artery disease. Consult with Dr. Church canceled per his request. CODE STATUS: full code. Discharge plan: Return home. Impression and plan of care have been directed as dictated by the signing physician. Cindi Trejo nurse practitioner acting as scribe for signing physician. Objective - Vital Signs Vital signs: Vital Signs Temp 98.5 F 04/04/20 04:00 Pulse 78 04/04/20 07:51 Resp 18 04/04/20 04:00 BP 134/61 04/04/20 04:00 Pulse Ox 95 04/04/20 07:39 Intake & Output 04/03/20 04/04/20 04/04/20 18:59 06:59 18:59 Intake Total 360 240 225 Output Total 900 Balance 360 -660 225 Weight 88.5 kg Intake: Oral 360 240 225 Output: Urine 900 Other: Voiding Method Toilet Urinal # Voids 1 1 - Labs CBC & Chem 7: 04/02/20 07:20 04/02/20 07:20 Labs: Abnormal Lab Results - Last 24 Hours (Table) 04/03/20 Range/Units 20:20 POC Glucose (mg/dL) 129 H (75-99) mg/dL Microbiology - Last 24 Hours (Table) 04/02/20 07:37 Blood Culture - Preliminary Blood No Growth after 24 hours
[2020-04-04] MEDS ORDERED: VANCOMYCIN TROUGH DUE 1 EACH MISC MISCELLANE ONE (11:00)
--- NOTE | 2020-04-04 11:52 | P.PN ---
Subjective Progress Note Date: 04/04/20 Principal diagnosis: Aspiration pneumonia This is a very pleasant 59-year-old gentleman with a known history of coronary artery disease with previous stent placement, hypertension, diabetes mellitus, end-stage renal disease with previous pancreatic/kidney transplantation in 2008 at the [facility] and is on Prograf and prednisone. He also has a history of squamous cell carcinoma and nonhealing wound of the left upper extremity with subsequent recent amputation at [facility] on 03/03/2020. Early yesterday morning the patient developed nausea and signi ficant acid reflux and felt as though he aspirated. He developed increasing shortness of breath chest tightness and wheezing and presented to the emergency room for the same. Chest x-ray revealed extensive airspace disease throughout most of the right lung sparing the apex. Computed tomography scan of the chest revealed multifocal pneumonia throughout the right lung. He is seen today in consultation on the selective care unit. He is awake and alert in no acute distress. He states he is breathing easier today compared to yesterday. Chest x-ray shows some slight improvement in the extensive air space disease throughout the right mid and lower lung rebollar. He is currently maintaining O2 saturations in the 90s on room air. He's been afebrile. He did present with a T-max of 101.7. He's been initiated on vancomycin and Zosyn. Blood culture reveals no growth to date. White count 5.3. Hemoglobin 14.8. D-dimer 1.49. Sodium 139. Potassium 5.2. Creatinine 1.06. Glucose 141. ProBNP 3400. Lopez virus not detected. The patient is seen today 04/04/2020 in follow-up on selective care unit. He is awake and alert in no acute distress. Breathing a bit easier today as compared to yesterday. Maintaining O2 saturation in the 90s on 4 L/m per nasal cannula. Afebrile. Hemodynamically stable. Blood culture reveals no growth to date. Glucose 90. Remains on bronchodilators, antibiotics. Chest x-ray continues to show airspace opacities persistent in the right mid and lower lungs. Objective - Vital Signs Vital signs: Vital Signs Temp 99 F 04/04/20 08:55 Pulse 88 04/04/20 11:28 Resp 18 04/04/20 08:55 BP 118/59 04/04/20 08:55 Pulse Ox 94 L 04/04/20 08:55 Intake & Output 04/03/20 04/04/20 04/04/20 18:59 06:59 18:59 Intake Total 360 240 225 Output Total 900 Balance 360 -660 225 Weight 88.5 kg Intake: Oral 360 240 225 Output: Urine 900 Other: Voiding Method Toilet Urinal # Voids 1 1 - Exam GENERAL EXAM: Alert, very pleasant 59-year-old gentleman, on 4 L/m per nasal cannula, comfortable in no apparent distress. HEAD: Normocephalic. EYES: Normal reaction of pupils, equal size. NOSE: Clear with pink turbinates. THROAT: No erythema or exudates. NECK: No masses, no JVD. CHEST: No chest wall deformity. LUNGS: Equal air entry with bilateral rhonchi right greater than left. CVS: S1 and S2 normal with no audible murmur, regular rhythm. ABDOMEN: No hepatosplenomegaly, normal bowel sounds, no guarding or rigidity. SPINE: No scoliosis or deformity SKIN: No rashes CENTRAL NERVOUS SYSTEM: No focal deficits, tone is normal in all 4 extremities. EXTREMITIES: Left upper extremity amputation. There is no peripheral edema. No clubbing, no cyanosis. Peripheral pulses are intact. - Labs CBC & Chem 7: 04/02/20 07:20 04/02/20 07:20 Labs: Abnormal Lab Results - Last 24 Hours (Table) 04/03/20 Range/Units 20:20 POC Glucose (mg/dL) 129 H (75-99) mg/dL Microbiology - Last 24 Hours (Table) 04/02/20 07:37 Blood Culture - Preliminary Blood No Growth after 48 hours Assessment and Plan Assessment: #1 Acute hypoxemic respiratory failure secondary to suspected aspiration pneumonia involving mainly the right mid and lower lung. CoVID 19 ruled out #2 Recent episode of nausea with acid reflux #3 History of pancreatic/kidney transplant in 2008 at the [facility] and maintained on Prograf and prednisone in the outpatient setting #4 Squamous cell carcinoma of the left upper extremity with nonhealing wound and subsequent amputation on 03/03/2020 at [facility] #5 Diabetes mellitus #6 Coronary artery disease with previous stent placement #7 Prior history of hemodialysis #8 Hypertension #9 Diabetic polyneuropathy #10 Diabetic retinopathy # 11 History of DVT Plan: The patient was seen and evaluated by Dr. Jonathon Continue bronchodilators, prednisone,Zosyn Repeat chest x-ray in a.m. We will continue to follow and make further recommendations based on his clinical status I, the cosigning physician, performed a history & physical examination of the patient. Lungs sounds bilateral scattered rhonchi right greater than left. Maintaining good O2 saturations in the 90s on 5 L/m per nasal cannula. I discussed the assessment and plan of care with my nurse practitioner, Angela Cooper. I attest to the above consultation as dictated by her.
[2020-04-04 12:03] LABS: Glucose,Whole Blood 100 mg/dL (75-99)
--- NOTE | 2020-04-04 15:36 | P.PN ---
Subjective Progress Note Date: 04/04/20 Follow-up for kidney pancreas transplant. Objective - Vital Signs Vital signs: Vital Signs Temp 99 F 04/04/20 08:55 Pulse 86 04/04/20 15:10 Resp 18 04/04/20 08:55 BP 118/59 04/04/20 08:55 Pulse Ox 94 L 04/04/20 08:55 Intake & Output 04/03/20 04/04/20 04/04/20 18:59 06:59 18:59 Intake Total 360 240 465 Output Total 900 400 Balance 360 -660 65 Weight 88.5 kg Intake: Oral 360 240 465 Output: Urine 900 400 Other: Voiding Method Toilet Urinal # Voids 1 1 - Exam No acute distress S1-S2 heard Lungs clear Abdomen soft Trace edema - Labs CBC & Chem 7: 04/02/20 07:20 04/02/20 07:20 Labs: Abnormal Lab Results - Last 24 Hours (Table) 04/03/20 04/04/20 Range/Units 20:20 12:02 POC Glucose (mg/dL) 129 H 100 H (75-99) mg/dL Microbiology - Last 24 Hours (Table) 04/02/20 07:37 Blood Culture - Preliminary Blood No Growth after 48 hours Assessment and Plan Assessment: #1 status post simultaneous kidney pancreas transplant in 2019 [facility]. Baseline creatinine 0.9-1.1 MG per DL. #2 CK D3 status post renal transplant #3 multifocal pneumonia #4 lactic acidosis resolved #5 mild hyperkalemia resolved Plan: #1 renal function stable currently at baseline. #2 continue immunosuppressants #3 avoid nephrotoxic agents and hypotensive episodes. #4 antibiotics per primary team
[2020-04-04 17:16] LABS: Glucose,Whole Blood 264 mg/dL (75-99)
[2020-04-04] MEDS: LOSARTAN 50 MG TAB PO SCH (20:42)
[2020-04-04] MEDS: FERROUS SULFATE 325 MG TAB PO SCH (20:42)
[2020-04-04] MEDS: TACROLIMUS 0.5 MG CAP PO SCH (20:42)
[2020-04-04] MEDS: MAGNESIUM OXIDE 400 MG TAB PO SCH (20:42)
[2020-04-04] MEDS: PRAVASTATIN SODIUM 40 MG TAB PO SCH (20:42)
[2020-04-04] MEDS: GABAPENTIN 100 MG CAP PO SCH (20:43)
[2020-04-04] MEDS: allopurinoL 300 MG TAB PO SCH (20:43)
[2020-04-05 06:08] LABS: Glucose,Whole Blood 106 mg/dL (75-99)
[2020-04-05] MEDS: IPRATROPIUM-ALBUTEROL 3 ML NEB INHALATION SCH ×4 (08:39→20:32)
--- NOTE | 2020-04-05 08:44 | XR ---
EXAMINATION TYPE: XR chest 1V portable DATE OF EXAM: 04/05/2020 CLINICAL HISTORY: Aspiration pneumonia TECHNIQUE: Portable upright view of the chest obtained COMPARISON: 04/04/2020 chest radiograph FINDINGS: The cardiomediastinal silhouette is within normal limits for size. Pulmonary vasculature i s normal. There is patchy airspace opacity of the right mid and lower lung which is decreased versus 04/04/2020. No pleural effusion or pneumothorax. Left axillary vascular stent. IMPRESSION: Right mid and lower lung pneumonia mildly improved versus 04/04/2020.
--- NOTE | 2020-04-05 08:45 | P.PN ---
Subjective Progress Note Date: 04/05/20 This is a 59-year-old male patient of Dr. Lu with a previous medical history significant for hypertension and hypertensive cardiovascular disease with left ventricular hypertrophy, history of DVT of the left lower extremity, history of the end-stage renal disease was on hemodialysis post kidne y and pancreas transplant in 2008 at the [facility], gout, Charcot foot, diabetes mellitus type 2, COPD, treated for right foot abscess with osteomyelitis in the fifth metatarsal, He now states he has a wound on his left arm since November when he had squamous cell skin cancer removed. He had 2 areas resected and one had skin grafting done and has healed. Eventually patient underwent a recent above elbow amputation on March 03 that [facility] with Dr. Junito Blackwell. Patient had a recheck of the wound yesterday and it was healing well and he was cleared by surgeon for PTCA. Patient is also been cleared by his transplant team for PTCA. Patient underwent a heart catheteri zation with Dr. CORY Church in August of this year which time he was found to have an LAD lesion 50%, diagonal lesion 70% with plan to further evaluated LAD lesion by FFR. Patient states that he was feeling well yesterday. This morning he started having GERD symptoms and then developed cough and then wheezing. He was also feeling weak. He he has a bloody sputum. He denies having abdominal pain. He states he had an episode of diarrhea. He states he has had fever and chills. He denies any symptoms yesterday. Patient came into [facility] emergency center for evaluation. CBC was normal. Potassium 5.2, chloride 108, CO2 23, BUN 25 and creatinine 1.06. Sodium 139, blood sugar 141. Lactic acid was 2.6. Liver function tests normal. Troponin 0.026. ProBNP 3400. Chest x-ray reveals extensive airspace disease throughout most of the right lung sparing the apex. Correlate for extensive pneumonia. Patient be admitted to the MedSurg floor, consult requested with pulmonary medicine, nephrology. 04/03: Patient is seen today in follow-up. He states he is feeling tired. He states he occasionally has some wheezing. Lasix 40 mg oral daily added. Cough is not as much today as yesterday. He denies any blood in his sputum. Repeat chest x-ray reveals slight improvement in the extensive airspace disease throughout the right mid and lower lung. CAT scan of the chest reveals multifocal pneumonia throughout the right lung. Consult added for Dr. CORY Church, his outside sales account manager. 04/04: Patient is found to be sitting up in bed resting comfortably without any acute distress. Patient continues to have occasional wheezing and coughing. Patient states that he is feeling better today compared to yesterday. He states that he is tired however he didn't sleep well last night. His repeat chest x- ray shows improvement to the mid and low lung. Temperature today 99, pulse rate 92, respirations 18, blood pressure 118/59. Pulse ox 94% on 4 L. 04/05: Patient is found sitting up in chair resting comfortable without any acute distress. Patient states that he is feeling much better as able to breathe better. Patient was seen by pulmonology who stated that if he continues he will probably be discharged tomorrow home. Patient remains afebrile. Heart rate 80, respirations 18, blood pressure 177/72, 94% on 4 L. REVIEW OF SYSTEMS Constitutional: Reports fever, Reports chills. No weight change. Reports weakness, Reports fatigue Reports lethargy. EENT: No headache. No blurred vision or double vision, no loss of vision. No loss of Hearing, no ringing in the ears, no dizziness. No nasal drainage or congestion. No epistaxis. No sore throat. Lungs: Reports shortness of breath, Reports cough, Reports sputum production. Reports hemoptysis-resolving. Reports wheezing. Cardiovascular: No chest pain, chronic lower extremity edema. No palpitations. No paroxysmal nocturnal dyspnea. No orthopnea. No lightheadedness or dizziness. No syncopal episodes. Abdominal: Reports abdominal discomfort. No nausea, vomiting. Reports diar bertram. No constipation. No bloody or tarry stools. . Genitourinary: No dysuria, increased frequency, urgency. No urinary retention. Musculoskeletal: No myalgias. Reports muscle weakness, no gait dysfunction, no frequent falls. No back pain. No neck pain. Integumentary: No wounds, no lesions. No rash or pruritus. No unusual bruising. No change in hair or nails. Neurologic: No aphasia. No facial droop. No change in mentation. No head injury. No headache. No paralysis. No paresthesia. Psychiatric: No depression. No anxiety. No mood swings. Endocrine: No abnormal blood sugars. No weight change. No excessive sweating or thirst. No cold intolerance. PHYSICAL EXAMINATION Gen: This is a 59-year-old male patient resting in the ER stretcher. He appears to have generalized weakness. No acute respiratory distress. HEENT: Head is atraumatic, normocephalic. Pupils equal, round. Sclerae is anicteric. NECK: Supple. No JVD. No lymphadenopathy. No thyromegaly. LUNGS: Rhonchi bilateral increased on the right side. No intercostal retractions. HEART: Regular rate and rhythm. / systolic murmur at the fifth intercostal space. ABDOMEN: Soft. Bowel sounds are present. No masses. No tenderness. EXTREMITIES: 2+ edema on the left lower extremity, 1+ on the right. No calf tenderness. Left above the elbow amputation. Wound has clear dressing over surgical site with no active bleeding, drainage. NEUROLOGICAL: Patient is awake, alert and oriented x3. Cranial nerves 2 through 12 are grossly intact. ASSESSMENT AND PLAN 1. Sepsis secondary to extensive right-sided pneumonia, possible gram-negative pneumonia in an immunocompromised host. Patient will be started on Zosyn and vancomycin, consult with Dr. Holt. COVID-19 testing negative. Continue DuoNeb treatments 4 times daily. Chest x-ray result 04/05: Right and mid lower lung pneumonia mildly improved versus yesterday. 2. Hemoptysis. CT of the chest as above. 3. Hypertension and hypertensive cardio vascular disease. Continue carvedilol 6.25 mg orally twice every day, amlodipine 10 mg orally once every day. Losartan 50 mg orally once every day. 4. History of kidney and pancreas transplant back in 2008 at the [facility]. Continue patient on Prograf and prednisone. Patient states he is off CellCept. 5. Gout, chronic. Continue allopurinol 300 mg orally once every day. 6. Chronic diastolic heart failure. Echocardiogram from July 2019 reveals severe concentric left hypertrophy, EF 55-60%, severe aortic stenosis, severe mitral calcification, mild mitral regurgitation, mild tricuspid regurgitation. 7. History of diabetes mellitus type 2 post pancreatic transplant. 8. History of end-stage renal disease post kidney transplant. 9. Hyperlipidemia. Continue patient on Pravachol 40 mg orally once every day. 10. 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 11. History of DVT. Continue with heparin 5000 units subcutaneously every 12 hours. 12. GERD. Protonix 41 g IV push twice daily. 13. History of diabetic polyneuropathy. Stable. Continue gabapentin 100 mg at bedtime and daily as needed. 14. History of diabetic retinopathy. Stable. 15. History of psoriasis. Stable. 16. History of right foot abscess with osteomyelitis in the fifth metatarsal, status post bedside I&D and outpatient IV antibiotics, healed. 17. DVT prophylaxis. Continue patient on heparin 5000 units subcutaneously every 8 hours . 18. GI prophylaxis. Continue PPI. 19. History of coronary artery disease. Consult with Dr. Ranjit barbosa per his request. CODE STATUS: full code. Discharge plan: Return home. Impression and plan of care have been directed as dictated by the signing physician. Cindi Trejo nurse practitioner acting as scribe for signing physician. Objective - Vital Signs Vital signs: Vital Signs Temp 97.9 F 04/05/20 03:42 Pulse 88 04/05/20 08:39 Resp 20 04/05/20 03:42 BP 150/65 04/05/20 03:42 Pulse Ox 93 L 04/05/20 03:42 Intake & Output 04/04/20 04/05/20 04/05/20 18:59 06:59 18:59 Intake Total 790 480 Output Total 1000 700 Balance -210 -220 Weight 87 kg Intake: Intake, IV Titration 100 Amount Piperacillin-Tazobactam 3 100 .375 gm In Sodium Chloride 0.9% 100 ml @ 25 mls/hr IVPB Q8HR [facility] Rx# :[id number] Oral 690 480 Output: Urine 1000 700 Other: # Voids 1 - Labs CBC & Chem 7: 04/02/20 07:20 04/02/20 07:20 Labs: Abnormal Lab Results - Last 24 Hours (Table) 04/04/20 04/04/20 04/05/20 Range/Units 12:02 17:14 06:04 POC Glucose (mg/dL) 100 H 264 H 106 H (75-99) mg/dL Microbiology - Last 24 Hours (Table) 04/02/20 07:37 Blood Culture - Preliminary Blood No Growth after 48 hours
[2020-04-05] MEDS: PIPERACILLIN-TAZOBACTAM 3.375 GM in SODIUM CHLORIDE 0.9% 100 ML IVPB SCH ×2 (09:07→15:49)
[2020-04-05] MEDS: PANTOPRAZOLE 40 MG/10 ML VIAL IVP SCH ×2 (09:08→20:23)
[2020-04-05] MEDS: MULTIVITAMINS, THERA 1 EACH TAB PO SCH (09:09)
[2020-04-05] MEDS: ASCORBIC ACID 500 MG TAB PO SCH (09:09)
[2020-04-05] MEDS: CHOLECALCIFEROL 1,000 UNIT TAB PO SCH ×2 (09:09→20:24)
[2020-04-05] MEDS: guaiFENesin 600 MG TABLET.ER PO SCH ×2 (09:09→20:24)
[2020-04-05] MEDS: HEPARIN SODIUM,PORCINE 5,000 UNIT/ML 1 ML VIAL SQ SCH ×2 (09:09→20:24)
[2020-04-05] MEDS: CALCIUM CARBONATE 500 MG CHEWABLE PO SCH ×2 (09:10→20:24)
[2020-04-05] MEDS: predniSONE 10 MG TAB PO SCH (09:10)
[2020-04-05] MEDS: carvediloL 6.25 MG TAB PO SCH ×2 (09:10→20:25)
[2020-04-05] MEDS: TACROLIMUS 1 MG CAP PO SCH (09:10)
[2020-04-05] MEDS: SODIUM BICARBONATE TAB 650 MG TAB PO SCH ×2 (09:10→20:24)
[2020-04-05] MEDS: amLODIPine 10 MG TAB PO SCH (09:10)
--- NOTE | 2020-04-05 11:22 | P.PN ---
Subjective Progress Note Date: 04/05/20 Follow-up for kidney pancreas transplant. Objective - Vital Signs Vital signs: Vital Signs Temp 96.3 F L 04/05/20 09:18 Pulse 80 04/05/20 09:18 Resp 18 04/05/20 09:18 BP 177/72 04/05/20 09:18 Pulse Ox 94 L 04/05/20 09:18 Intake & Output 04/04/20 04/05/20 04/05/20 18:59 06:59 18:59 Intake Total 790 480 236 Output Total 1000 700 Balance -210 -220 236 Weight 87 kg Intake: Intake, IV Titration 100 Amount Piperacillin-Tazobactam 3 100 .375 gm In Sodium Chloride 0.9% 100 ml @ 25 mls/hr IVPB Q8HR [facility] Rx# :[id number] Oral 690 480 236 Output: Urine 1000 700 Other: # Voids 1 1 - Exam No acute distress S1-S2 heard Lungs clear Abdomen soft Trace edema - Labs CBC & Chem 7: 04/02/20 07:20 04/02/20 07:20 Labs: Abnormal Lab Results - Last 24 Hours (Table) 04/04/20 04/04/20 04/05/20 Range/Units 12:02 17:14 06:04 POC Glucose (mg/dL) 100 H 264 H 106 H (75-99) mg/dL Microbiology - Last 24 Hours (Table) 04/02/20 07:37 Blood Culture - Preliminary Blood No Growth after 72 hours Assessment and Plan Assessment: #1 status post simultaneous kidney pancreas transplant in 2019 [facility]. Baseline creatinine 0.9-1.1 MG per DL. #2 CK D3 status post renal transplant #3 multifocal pneumonia #4 lactic acidosis resolved #5 mild hyperkalemia resolved Plan: #1 renal function stable currently at baseline. No new labs today. #2 continue immunosuppressants #3 avoid nephrotoxic agents and hypotensive episodes. #4 antibiotics per primary team
--- NOTE | 2020-04-05 12:24 | P.PN ---
Subjective Progress Note Date: 04/05/20 Principal diagnosis: Aspiration pneumonia This is a very pleasant 59-year-old gentleman with a known history of coronary artery disease with previous stent placement, hypertension, diabetes mellitus, end-stage renal disease with previous pancreatic/kidney transplantation in 2008 at the [facility] and is on Prograf and prednisone. He also has a history of squamous cell carcinoma and nonhealing wound of the left upper extremity with subsequent recent amputation at [facility] on 03/03/2020. Early yesterday morning the patient developed nausea and signi ficant acid reflux and felt as though he aspirated. He developed increasing shortness of breath chest tightness and wheezing and presented to the emergency room for the same. Chest x-ray revealed extensive airspace disease throughout most of the right lung sparing the apex. Computed tomography scan of the chest revealed multifocal pneumonia throughout the right lung. He is seen today in consultation on the selective care unit. He is awake and alert in no acute distress. He states he is breathing easier today compared to yesterday. Chest x-ray shows some slight improvement in the extensive air space disease throughout the right mid and lower lung rebollar. He is currently maintaining O2 saturations in the 90s on room air. He's been afebrile. He did present with a T-max of 101.7. He's been initiated on vancomycin and Zosyn. Blood culture reveals no growth to date. White count 5.3. Hemoglobin 14.8. D-dimer 1.49. Sodium 139. Potassium 5.2. Creatinine 1.06. Glucose 141. ProBNP 3400. Lopez virus not detected. The patient is seen today 04/04/2020 in follow-up on selective care unit. He is awake and alert in no acute distress. Breathing a bit easier today as compared to yesterday. Maintaining O2 saturation in the 90s on 4 L/m per nasal cannula. Afebrile. Hemodynamically stable. Blood culture reveals no growth to date. Glucose 90. Remains on bronchodilators, antibiotics. Chest x-ray continues to show airspace opacities persistent in the right mid and lower lungs. The patient is seen today 04/05/2020 in follow-up on the selective care unit. He is currently sitting up in a chair at the bedside. Awake and alert in no acute distress. Breathing quite a bit better today. Chest x-ray continues to show improved aeration in the right mid and lower lung. He is maintaining O2 saturations in the mid 90s on 4 L/m per nasal cannula. Afebrile. Blood culture reveals no growth. Blood glucose 106. He remains on Zosyn and bronchodilators. Objective - Vital Signs Vital signs: Vital Signs Temp 96.3 F L 04/05/20 09:18 Pulse 88 04/05/20 12:12 Resp 18 04/05/20 09:18 BP 177/72 04/05/20 09:18 Pulse Ox 94 L 04/05/20 09:18 Intake & Output 04/04/20 04/05/20 04/05/20 18:59 06:59 18:59 Intake Total 790 480 236 Output Total 1000 700 Balance -210 -220 236 Weight 87 kg Intake: Intake, IV Titration 100 Amount Piperacillin-Tazobactam 3 100 .375 gm In Sodium Chloride 0.9% 100 ml @ 25 mls/hr IVPB Q8HR [facility] Rx# :[id number] Oral 690 480 236 Output: Urine 1000 700 Other: # Voids 1 1 - Exam GENERAL EXAM: Alert, very pleasant 59-year-old gentleman, on 4 L/m per nasal cannula, comfortable in no apparent distress. HEAD: Normocephalic. EYES: Normal reaction of pupils, equal size. NOSE: Clear with pink turbinates. THROAT: No erythema or exudates. NECK: No masses, no JVD. CHEST: No chest wall deformity. LUNGS: Equal air entry with bilateral rhonchi right greater than left. CVS: S1 and S2 normal with no audible murmur, regular rhythm. ABDOMEN: No hepatosplenomegaly, normal bowel sounds, no guarding or rigidity. SPINE: No scoliosis or deformity SKIN: No rashes CENTRAL NERVOUS SYSTEM: No focal deficits, tone is normal in all 4 extremities. EXTREMITIES: Left upper extremity amputation. There is no peripheral edema. No clubbing, no cyanosis. Peripheral pulses are intact. - Labs CBC & Chem 7: 04/02/20 07:20 04/02/20 07:20 Labs: Abnormal Lab Results - Last 24 Hours (Table) 04/04/20 04/05/20 Range/Units 17:14 06:04 POC Glucose (mg/dL) 264 H 106 H (75-99) mg/dL Microbiology - Last 24 Hours (Table) 04/02/20 07:37 Blood Culture - Preliminary Blood No Growth after 72 hours Assessment and Plan Assessment: #1 Acute hypoxemic respiratory failure secondary to suspected aspiration pneumonia involving mainly the right mid and lower lung. CoVID 19 ruled out #2 Recent episode of nausea with acid reflux #3 History of pancreatic/kidney transplant in 2008 at the [facility] and maintained on Prograf and prednisone in the outpatient setting #4 Squamous cell carcinoma of the left upper extremity with nonhealing wound and subsequent amputation on 03/03/2020 at [facility] #5 Diabetes mellitus #6 Coronary artery disease with previous stent placement #7 Prior history of hemodialysis #8 Hypertension #9 Diabetic polyneuropathy #10 Diabetic retinopathy #11 History of DVT Plan: The patient was seen and evaluated by Dr. Holt Continue bronchodilators, prednisone, Zosyn Titrate down the FiO2 as tolerated Probable discharge in the a.m. We will continue to follow and make further recommendations based on his clinical status I, the cosigning physician, performed a history & physical examination of the patient. Lungs sounds bilateral scattered rhonchi right greater than left. Maintaining good O2 saturations in the 90s on 4 L/m per nasal cannula. I discussed the assessment and plan of care with my nurse practitioner, Angela Cooper. I attest to the above consultation as dictated by her.
[2020-04-05] MEDS: GABAPENTIN 100 MG CAP PO SCH (20:24)
[2020-04-05] MEDS: MAGNESIUM OXIDE 400 MG TAB PO SCH (20:24)
[2020-04-05] MEDS: TACROLIMUS 0.5 MG CAP PO SCH (20:25)
[2020-04-05] MEDS: FERROUS SULFATE 325 MG TAB PO SCH (20:25)
[2020-04-05] MEDS: LOSARTAN 50 MG TAB PO SCH (20:25)
[2020-04-05] MEDS: allopurinoL 300 MG TAB PO SCH (20:25)
[2020-04-05] MEDS: PRAVASTATIN SODIUM 40 MG TAB PO SCH (20:25)
[2020-04-06] MEDS: PIPERACILLIN-TAZOBACTAM 3.375 GM in SODIUM CHLORIDE 0.9% 100 ML IVPB SCH ×2 (00:05→08:57)
[2020-04-06 06:11] LABS: Glucose,Whole Blood 90 mg/dL (75-99)
[2020-04-06] MEDS: IPRATROPIUM-ALBUTEROL 3 ML NEB INHALATION SCH ×2 (07:20→10:58)
[2020-04-06 07:25] LABS: Calcium 9.2 mg/dL (8.4-10.2); Potassium 3.8 mmol/L (3.5-5.1)
[2020-04-06] MEDS: CHOLECALCIFEROL 1,000 UNIT TAB PO SCH (08:56)
[2020-04-06] MEDS: SODIUM BICARBONATE TAB 650 MG TAB PO SCH (08:59)
[2020-04-06] MEDS: CALCIUM CARBONATE 500 MG CHEWABLE PO SCH (08:59)
[2020-04-06] MEDS: ASCORBIC ACID 500 MG TAB PO SCH (08:59)
[2020-04-06] MEDS: guaiFENesin 600 MG TABLET.ER PO SCH (08:59)
[2020-04-06] MEDS: predniSONE 10 MG TAB PO SCH (08:59)
[2020-04-06] MEDS: MULTIVITAMINS, THERA 1 EACH TAB PO SCH (09:00)
[2020-04-06] MEDS: carvediloL 6.25 MG TAB PO SCH (09:00)
[2020-04-06] MEDS: amLODIPine 10 MG TAB PO SCH (09:00)
[2020-04-06] MEDS: TACROLIMUS 1 MG CAP PO SCH (09:00)
[2020-04-06] MEDS: HEPARIN SODIUM,PORCINE 5,000 UNIT/ML 1 ML VIAL SQ SCH (09:02)
[2020-04-06] MEDS: PANTOPRAZOLE 40 MG/10 ML VIAL IVP SCH (09:02)
[2020-04-06 09:35] VITALS: BP 136/61; RESP 18; TEMP 97.7
--- NOTE | 2020-04-06 09:57 | XR ---
EXAMINATION TYPE: XR chest 1V portable DATE OF EXAM: 04/06/2020 Comparison: 04/05/2020 Clinical History: 59-year-old male PNEUMONIA RLL Findings: Vascular stent at the left axilla. Heart borderline enlarged. Patchy opacity at the right mid and low er lung remains but has become slightly less confluent. No pleural effusion. Impression: Persistent but improving patchy infiltrate right mid and lower lung.
--- NOTE | 2020-04-06 10:18 | P.PN ---
Subjective Progress Note Date: 04/06/20 Principal diagnosis: Aspiration pneumonia This is a very pleasant 59-year-old gentleman with a known history of coronary artery disease with previous stent placement, hypertension, diabetes mellitus, end-stage renal disease with previous pancreatic/kidney transplantation in 2008 at the [facility] and is on Prograf and prednisone. He also has a history of squamous cell carcinoma and nonhealing wound of the left upper extremity with subsequent recent amputation at [facility] on 03/03/2020. Early yesterday morning the patient developed nausea and signi ficant acid reflux and felt as though he aspirated. He developed increasing shortness of breath chest tightness and wheezing and presented to the emergency room for the same. Chest x-ray revealed extensive airspace disease throughout most of the right lung sparing the apex. Computed tomography scan of the chest revealed multifocal pneumonia throughout the right lung. He is seen today in consultation on the selective care unit. He is awake and alert in no acute distress. He states he is breathing easier today compared to yesterday. Chest x-ray shows some slight improvement in the extensive air space disease throughout the right mid and lower lung rebollar. He is currently maintaining O2 saturations in the 90s on room air. He's been afebrile. He did present with a T-max of 101.7. He's been initiated on vancomycin and Zosyn. Blood culture reveals no growth to date. White count 5.3. Hemoglobin 14.8. D-dimer 1.49. Sodium 139. Potassium 5.2. Creatinine 1.06. Glucose 141. ProBNP 3400. Lopez virus not detected. The patient is seen today 04/04/2020 in follow-up on selective care unit. He is awake and alert in no acute distress. Breathing a bit easier today as compared to yesterday. Maintaining O2 saturation in the 90s on 4 L/m per nasal cannula. Afebrile. Hemodynamically stable. Blood culture reveals no growth to date. Glucose 90. Remains on bronchodilators, antibiotics. Chest x-ray continues to show airspace opacities persistent in the right mid and lower lungs. The patient is seen today 04/05/2020 in follow-up on the selective care unit. He is currently sitting up in a chair at the bedside. Awake and alert in no acute distress. Breathing quite a bit better today. Chest x-ray continues to show improved aeration in the right mid and lower lung. He is maintaining O2 saturations in the mid 90s on 4 L/m per nasal cannula. Afebrile. Blood culture reveals no growth. Blood glucose 106. He remains on Zosyn and bronchodilators. The patient is seen today 04/06/2020 in follow-up on the selective care unit. He is awake and alert in no acute distress. Breathing is nearly back to his baseline. He continues with a dry nonproductive cough. Still has some issues with acid reflux. Head of bed elevated. He is maintaining O2 saturation in the 90s on room air. He's afebrile. Hemodynamically stable. Sodium 137. Potassium 3.8. Creatinine 1.20. Today's chest x-ray continues to show significant improvement. Objective - Vital Signs Vital signs: Vital Signs Temp 97.7 F 04/06/20 08:45 Pulse 73 04/06/20 08:45 Resp 18 04/06/20 08:45 BP 136/61 04/06/20 08:45 Pulse Ox 94 L 04/06/20 08:45 Intake & Output 04/05/20 04/06/20 04/06/20 18:59 06:59 18:59 Intake Total 808 240 Output Total 1375 Balance 808 -1375 240 Weight 90.7 kg Intake: Intake, IV Titration 100 Amount Piperacillin-Tazobactam 3 100 .375 gm In Sodium Chloride 0.9% 100 ml @ 25 mls/hr IVPB Q8HR [facility] Rx# :[id number] Oral 708 240 Output: Urine 1375 Other: Voiding Method Toilet Urinal # Voids 1 1 - Exam GENERAL EXAM: Alert, very pleasant 59-year-old gentleman, on room air, comfortable in no apparent distress. HEAD: Normocephalic. EYES: Normal reaction of pupils, equal size. NOSE: Clear with pink turbinates. THROAT: No erythema or exudates. NECK: No masses, no JVD. CHEST: No chest wall deformity. LUNGS: Equal air entry with few scattered rhonchi right greater than left. CVS: S1 and S2 normal with no audible murmur, regular rhythm. ABDOMEN: No hepatosplenomegaly, normal bowel sounds, no guarding or rigidity. SPINE: No scoliosis or deformity SKIN: No rashes CENTRAL NERVOUS SYSTEM: No focal deficits, tone is normal in all 4 extremities. EXTREMITIES: Left upper extremity amputation. There is no peripheral edema. No clubbing, no cyanosis. Peripheral pulses are intact. - Labs CBC & Chem 7: 04/02/20 07:20 04/06/20 06:17 Labs: Abnormal Lab Results - Last 24 Hours (Table) 04/06/20 Range/Units 06:17 BUN 22 H (9-20) mg/dL Microbiology - Last 24 Hours (Table) 04/02/20 07:37 Blood Culture - Preliminary Blood No Growth after 96 hours Assessment and Plan Assessment: #1 Acute hypoxemic respiratory failure secondary to suspected aspiration pneumonia involving mainly the right mid and lower lung. Recovered. #2 Recent episode of nausea with acid reflux, aspiration #3 History of pancreatic/kidney transplant in 2008 at the [facility] and maintained on Prograf and prednisone in the outpatient setting #4 Squamous cell carcinoma of the left upper extremity with nonhealing wound and subsequent amputation on 03/03/2020 at [facility] #5 Diabetes mellitus #6 Coronary artery disease with previous stent placement #7 Prior history of hemodialysis #8 Hypertension #9 Diabetic polyneuropathy #10 Diabetic retinopathy #11 History of DVT Plan: The patient was seen and evaluated by Dr. Holt Chest x-ray reviewed, improved He is cleared for discharge from the pulmonary standpoint Continue bronchodilators, prednisone, Augmentin Aspiration precautions, optimize GERD medication I, the cosigning physician, performed a history & physical examination of the patient. Lungs sounds with few scattered rhonchi right greater than left. Maintaining good O2 saturations in the 90s on room air. I discussed the assessment and plan of care with my nurse practitioner, Angela Cooper. I attest to the above consultation as dictated by her.
[2020-04-06 11:07] VITALS: PULSE 88
[2020-04-06 11:59] LABS: Glucose,Whole Blood 103 mg/dL (75-99)
--- NOTE | 2020-04-06 12:26 | P.DS ---
Providers Date of admission: 04/02/20 08:22 Attending physician: Dianne López MD Consults: 04/02/20 13:00 Consult Physician Routine Consulting Provider: Babar Holt Consult Reason/Comments: extensive pneumonia, hemoptysis Do you want consulting provider notified?: Yes Consult Physician Routine Consulting Provider: Sana Kong Consult Reason/Comments: renal pancreas transplant Do you want consulting provider notified?: Yes 04/03/20 10:12 Consult Physician Routine Consulting Provider: Gwen Church Consult Reason/Comments: CAD Do you want consulting provider notified?: Yes Primary care physician: [place] [facility] Course: This is a 59-year-old male patient of Dr. Lu with a previous medical history significant for hypertension and hypertensive cardiovascular disease with left ventricular hypertrophy, history of DVT of the left lower extremity, history of the end-stage renal disease was on hemodialysis post kidney and pancreas transplant in 2008 at the [facility], gout, Charcot foot, diabetes mellitus type 2, COPD, treated for right foot abscess with osteomyelitis in the fifth metatarsal, He now states he has a wound on his left arm since November when he had squamous cell skin cancer removed. He had 2 areas resected and one had skin grafting done and has healed. Eventually patient underwent a recent above elbow amputation on March 03 that [facility] with Dr. Junito Blackwell. Patient had a recheck of the wound yesterday and it was healing well and he was cleared by surgeon for PTCA. Patient is also been cleared by his transplant team for PTCA. Patient underwent a heart catheterization with Dr. CORY Church in August of this year which time he was found to have an LAD lesion 50%, diagonal lesion 70% with plan to further evaluated LAD lesion by FFR. Patient states that he was feeling well yesterday. This morning he started having GERD symptoms and then developed cough and then wheezing. He was also feeling weak. He he has a bloody sputum. He denies having abdominal pain. He states he had an episode of diarrhea. He states he has had fever and chills. He denies any symptoms yesterday. Patient came into [facility] emergency center for evaluation. CBC was normal. Potassium 5.2, chloride 108, CO2 23, BUN 25 and creatinine 1.06. Sodium 139, blood sugar 141. Lactic acid was 2.6. Liver function tests normal. Troponin 0.026. ProBNP 3400. Chest x-ray reveals extensive airspace disease throughout most of the right lung sparing the apex. Correlate for extensive pneumonia. Patient be admitted to the [facility] floor, consult requested with pulmonary medicine, nephrology. 04/03: Patient is seen today in follow-up. He states he is feeling tired. He states he occasionally has some wheezing. Lasix 40 mg oral daily added. Cough is not as much today as yesterday. He denies any blood in his sputum. Repeat chest x-ray reveals slight improvement in the extensive airspace disease throughout the right mid and lower lung. CAT scan of the chest reveals multifocal pneumonia throughout the right lung. Consult added for Dr. CORY Church, his pipeline operator. 04/04: Patient is found to be sitting up in bed resting comfortably without any acute distress. Patient continues to have occasional wheezing and coughing. Patient states that he is feeling better today compared to yesterday. He states that he is tired however he didn't sleep well last night. His repeat chest x- ray shows improvement to the mid and low lung. Temperature today 99, pulse rate 92, respirations 18, blood pressure 118/59. Pulse ox 94% on 4 L. 04/05: Patient is found sitting up in chair resting comfortable without any acute distress. Patient states that he is feeling much better as able to breathe better. Patient was seen by pulmonology who stated that if he continues he will probably be discharged tomorrow home. Patient remains afebrile. Heart rate 80, respirations 18, blood pressure 177/72, 94% on 4 L. 04/06: Patient is found sitting up in a chair resting comfortable without any distress. Patient is feeling much better and ready to go home. Patient found to have 2+ pitting edema to bilateral lower extremities. He does not take any diuretics at home. Discharge diagnosis: 1. Sepsis secondary to extensive right-sided pneumonia, possible gram-negative pneumonia in an immunocompromised host. 2. Hemoptysis. 3. Hypertension and hypertensive cardio vascular disease. 4. History of kidney and pancreas transplant back in 2008 at the [facility]. 5. Gout, chronic. 6. Chronic diastolic heart failure. 7. History of diabetes mellitus type 2 post pancreatic transplant. 8. History of end-stage renal disease post kidney transplant. 9. Hyperlipidemia. 10. 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 11. History of DVT. 12. GERD. 13. History of diabetic polyneuropathy. 14. History of diabetic retinopathy. 15. History of psoriasis. 16. History of right foot abscess with osteomyelitis in the fifth metatarsal, status post bedside I&D and outpatient IV antibiotics, 17. History of coronary artery disease. Consult with Dr. Church canceled per his request. Discharge disposition home with self-care Impression and plan of care have been directed as dictated by the signing physician. Cindi Trejo nurse practitioner acting as scribe for signing physician. Patient Condition at Discharge: Serious Plan - Discharge Summary Discharge Rx Participant: No New Discharge Prescriptions: New Amoxicillin/Potassium Clav [Augmentin 875-125 Tablet] 1 tab PO Q12HR 6 Days #12 tab Potassium Chloride ER [K-Dur 10] 10 meq PO DAILY #30 tab Furosemide [Lasix] 40 mg PO DAILY #30 tablet methylPREDNISolone Dose Pack [Medrol Dose Pack] 4 mg PO DIRECTED #21 package Continue Cholecalciferol [Vitamin D3 (25 Mcg = 1000 Iu)] 5,000 unit PO BID@0800,1999 allopurinoL [Zyloprim] 300 mg PO HS Tacrolimus [Prograf] 0.5 mg PO HS@1999 Pravastatin Sodium [Pravachol] 40 mg PO HS predniSONE 10 mg PO QAM Multivitamin/Iron/Folic Acid [Centrum Complete Multivit Tab] 1 tab PO DAILY@0800 Magnesium Oxide [Mag-Ox] 400 mg PO HS carvediloL [Coreg] 6.25 mg PO BID@0800,1999 Omeprazole [PriLOSEC] 20 mg PO QAM Aspirin 81 mg PO HS@2000 Tacrolimus [Prograf] 1 mg PO QAM Halobetasol Propionate [Ultravate] 1 applic TOPICAL BID PRN PRN Reason: PSORIASIS amLODIPine [Norvasc] 10 mg PO QAM Ascorbic Acid [Vitamin C] 1,000 mg PO DAILY@0800 Calcium Carbonate [Calcium] 600 mg PO BID Cinnamon Bark [Cinnamon] 2,000 mg PO HS Ferrous Sulfate [Iron (65 MG Elemental)] 325 mg PO HS Losartan [Cozaar] 50 mg PO HS Potassium Chloride [Klor-Con 20] 20 meq PO BID-W/MEALS Sodium Bicarbonate Tab 650 mg PO BID Albuterol Inhaler [Ventolin Hfa Inhaler] 1 - 2 puff INHALATION RT-Q6H PRN PRN Reason: Shortness Of Breath Gabapentin [Neurontin] 100 mg PO DAILY PRN PRN Reason: Pain Gabapentin [Neurontin] 100 mg PO HS HYDROcodone/APAP 5-325MG [Black Diamond 5-325] 1 tab PO Q6H PRN PRN Reason: Pain Discharge Medication List Cholecalciferol [Vitamin D3 (25 Mcg = 1000 Iu)] 5,000 unit PO BID@799,199905/21/14 [History] Pravastatin Sodium [Pravachol] 40 mg PO HS 05/21/14 [History] Tacrolimus [Prograf] 0.5 mg PO HS@199905/21/14 [History] allopurinoL [Zyloprim] 300 mg PO HS 05/21/14 [History] predniSONE 10 mg PO QAM 05/21/14 [History] Magnesium Oxide [Mag-Ox] 400 mg PO HS 08/01/14 [History] Multivitamin/Iron/Folic Acid [Centrum Complete Multivit Tab] 1 tab PO DAILY@0808/01/14 [History] carvediloL [Coreg] 6.25 mg PO BID@799,199904/02/15 [History] Omeprazole [PriLOSEC] 20 mg PO QAM 05/18/15 [History] Aspirin 81 mg PO HS@199911/08/16 [History] Tacrolimus [Prograf] 1 mg PO QAM 01/09/19 [History] Ascorbic Acid [Vitamin C] 1,000 mg PO DAILY@0800 06/19/19 [History] Halobetasol Propionate [Ultravate] 1 applic TOPICAL BID PRN 06/19/19 [History] amLODIPine [Norvasc] 10 mg PO QAM 06/19/19 [History] Calcium Carbonate [Calcium] 600 mg PO BID 08/06/19 [History] Cinnamon Bark [Cinnamon] 2,000 mg PO HS 08/06/19 [History] Ferrous Sulfate [Iron (65 MG Elemental)] 325 mg PO HS 08/06/19 [History] Losartan [Cozaar] 50 mg PO HS 08/06/19 [History] Potassium Chloride [Klor-Con 20] 20 meq PO BID-W/MEALS 08/06/19 [History] Sodium Bicarbonate Tab 650 mg PO BID 08/06/19 [History] Albuterol Inhaler [Ventolin Hfa Inhaler] 1 - 2 puff INHALATION RT-Q6H PRN 04/02/20 [History] Gabapentin [Neurontin] 100 mg PO DAILY PRN 04/02/20 [History] Gabapentin [Neurontin] 100 mg PO HS 04/02/20 [History] HYDROcodone/APAP 5-325MG [Black Diamond 5-325] 1 tab PO Q6H PRN 04/02/20 [History] Amoxicillin/Potassium Clav [Augmentin 875-125 Tablet] 1 tab PO Q12HR 6 Days #12 tab 04/06/20 [Rx] Furosemide [Lasix] 40 mg PO DAILY #30 tablet 04/06/20 [Rx] Potassium Chloride ER [K-Dur 10] 10 meq PO DAILY #30 tab 04/06/20 [Rx] methylPREDNISolone Dose Pack [Medrol Dose Pack] 4 mg PO DIRECTED #21 package 04/06/20 [Rx] Follow up Appointment(s)/Referral(s): Babar Holt MD [STAFF PHYSICIAN] - 1 Week (Please make appointment when office is open) Greg Lu MD [Primary Care Provider] - 1 Week (Please make appointment when office is open) Patient Instructions/Handouts: Viral Pneumonia (GEN) Discharge Disposition: HOME SELF-CARE
--- NOTE | 2020-04-06 13:13 | P.PN ---
Subjective Progress Note Date: 04/06/20 Follow-up for kidney pancreas transplant. No chest pain shortness of breath palpitations. No nausea vomiting diarrhea. Good urine output. Objective - Vital Signs Vital signs: Vital Signs Temp 97.7 F 04/06/20 08:45 Pulse 88 04/06/20 11:07 Resp 18 04/06/20 08:45 BP 136/61 04/06/20 08:45 Pulse Ox 94 L 04/06/20 08:45 Intake & Output 04/05/20 04/06/20 04/06/20 18:59 06:59 18:59 Intake Total 808 240 Output Total 1375 Balance 808 -1375 240 Weight 90.7 kg Intake: Intake, IV Titration 100 Amount Piperacillin-Tazobactam 3 100 .375 gm In Sodium Chloride 0.9% 100 ml @ 25 mls/hr IVPB Q8HR [facility] Rx# :[id number] Oral 708 240 Output: Urine 1375 Other: Voiding Method Toilet Urinal # Voids 1 1 0 - Exam No acute distress S1-S2 heard Lungs clear Abdomen soft Trace edema - Labs CBC & Chem 7: 04/02/20 07:20 04/06/20 06:17 Labs: Abnormal Lab Results - Last 24 Hours (Table) 04/06/20 04/06/20 Range/Units 06:17 11:45 BUN 22 H (9-20) mg/dL POC Glucose (mg/dL) 103 H (75-99) mg/dL Microbiology - Last 24 Hours (Table) 04/02/20 07:37 Blood Culture - Preliminary Blood No Growth after 96 hours Assessment and Plan Assessment: #1 status post simultaneous kidney pancreas transplant in 2019 [facility]. Baseline creatinine 0.9-1.1 MG per DL. #2 CK D3 status post renal transplant #3 multifocal pneumonia #4 lactic acidosis resolved #5 mild hyperkalemia resolved Plan: #1 renal function stable currently at baseline. #2 continue immunosuppressants #3 avoid nephrotoxic agents and hypotensive episodes. #4 antibiotics per primary team
== END 2020-04-06 14:08 | disposition home or self-care (01) | DRG 871 ==
LOC: EC 06:56 → 4SSUR 08:22 → 3SCARD 13:36
PROVIDERS: ADMIT Internal Medicine; ATTEND Internal Medicine
DX: A41.50 Gram-negative sepsis, unspecified (principal); J96.01 Acute respiratory failure with hypoxia; J69.0 Pneumonitis due to inhalation of food and vomit; J15.6 Pneumonia due to other Gram-negative bacteria; N18.6 End stage renal disease; Z94.83 Pancreas transplant status; I13.2 Hypertensive heart and chronic kidney disease with heart failure and with stage 5 chronic kidney disease, or end stage renal disease; E87.2 Acidosis; R04.2 Hemoptysis; J44.0 Chronic obstructive pulmonary disease with (acute) lower respiratory infection; I50.32 Chronic diastolic (congestive) heart failure; Z94.0 Kidney transplant status; D89.9 Disorder involving the immune mechanism, unspecified; E11.610 Type 2 diabetes mellitus with diabetic neuropathic arthropathy; E11.319 Type 2 diabetes mellitus with unspecified diabetic retinopathy without macular edema; E11.22 Type 2 diabetes mellitus with diabetic chronic kidney disease; E11.42 Type 2 diabetes mellitus with diabetic polyneuropathy; R65.20 Severe sepsis without septic shock; Z20.828 Contact with and (suspected) exposure to other viral communicable diseases; E87.5 Hyperkalemia; E89.2 Postprocedural hypoparathyroidism; I08.3 Combined rheumatic disorders of mitral, aortic and tricuspid valves; I25.10 Atherosclerotic heart disease of native coronary artery without angina pectoris; E78.5 Hyperlipidemia, unspecified; K21.9 Gastro-esophageal reflux disease without esophagitis; M1A.9XX0 Chronic gout, unspecified, without tophus (tophi); L40.9 Psoriasis, unspecified; M26.609 Unspecified temporomandibular joint disorder, unspecified side; M85.80 Other specified disorders of bone density and structure, unspecified site; Z79.52 Long term (current) use of systemic steroids; Z79.82 Long term (current) use of aspirin; Z79.899 Other long term (current) drug therapy; Z89.222 Acquired absence of left upper limb above elbow; Z86.718 Personal history of other venous thrombosis and embolism; Z86.19 Personal history of other infectious and parasitic diseases; Z85.828 Personal history of other malignant neoplasm of skin; Z95.5 Presence of coronary angioplasty implant and graft; Z87.39 Personal history of other diseases of the musculoskeletal system and connective tissue; Z86.69 Personal history of other diseases of the nervous system and sense organs; Z86.39 Personal history of other endocrine, nutritional and metabolic disease; Z86.31 Personal history of diabetic foot ulcer; Z98.42 Cataract extraction status, left eye; Z98.41 Cataract extraction status, right eye; Z98.890 Other specified postprocedural states; Z82.3 Family history of stroke; Z82.61 Family history of arthritis; Z82.49 Family history of ischemic heart disease and other diseases of the circulatory system
CPT/HCPCS: 36415; 71045; 71046; 71260; 80048; 80053; 83605; 83615; 83735; 83880; 84484; 85025; 85379; 85610; 85730; 86140; 87040; 93005; 94640; 94760; 96365; 96367; 96375; 99285

== ENCOUNTER 2020-05-18 06:24 | Day surgery (SDC) | payer MEDICARE, BC ==
[2020-05-13 14:55] VITALS: BMI 29.5
[~2020-05-18 06:24] MED LIST changes: -ATORVASTATIN 80 MG TAB PO STA
[2020-05-18] MEDS ORDERED: ASPIRIN 325 MG TAB PO ONE (07:00)
[2020-05-18] MEDS ORDERED: ATORVASTATIN 80 MG TAB PO ONE (07:00)
[2020-05-18] MEDS ORDERED: SODIUM CHLORIDE 0.9% 1,000 ML IV ONE (07:00)
[2020-05-18 07:25] VITALS: RESP 16; TEMP 97.8
[2020-05-18] MEDS ORDERED: NITROGLYCERIN SL TABS 0.4 MG TAB SUBLINGUAL ONE (07:44)
[2020-05-18] MEDS ORDERED: MIDAZOLAM 2 MG/2 ML VIAL IVP ONE ×2 (07:44→07:55)
[2020-05-18] MEDS ORDERED: LIDOCAINE 1% INJ 10MG/ML (20 ML MDV) SQ ONE (07:46)
[2020-05-18] MEDS ORDERED: BIVALIRUDIN 250 MG in SODIUM CHLORIDE 0.9% 50 ML IV ONE (08:07)
[2020-05-18] MEDS ORDERED: BIVALIRUDIN BOLUS 250 MG/50 ML IV ONE (08:07)
[2020-05-18] MEDS ORDERED: NITROGLYCERIN 1000MCG/10ML SYRINGE INTRACORON ONE (08:14)
[2020-05-18] MEDS ORDERED: IOPAMIDOL-370 100ML BTL INJ ONE ×2 (08:34→08:51)
[2020-05-18] MEDS ORDERED: SODIUM CHLORIDE 0.9% 1,000 ML IV SCH (09:30)
[2020-05-18] MEDS ORDERED: HALOBETASOL PROPIONATE TOPICAL PRN (09:51)
[2020-05-18] MEDS ORDERED: HYDROcodone/APAP 5-325MG 1 EACH TAB PO PRN (09:51)
--- NOTE | 2020-05-18 10:09 | CC ---
CARDIAC CATHETERIZATION REPORT DATE OF SERVICE: 05/18/2020. PROCEDURE: 1. Selective left selective coronary angiography of left coronary artery. 2. PTCA of a chronic total occlusion of the distal circumflex marginal branch. 3. Fractional flow reserve assessment of the mid LAD lesion. An IFR was performed. ANESTHESIA: Moderate conscious sedation time was 68 minutes. Patient was administered Versed. Oxygen saturation, hemodynamics and EKG were monitored closely. CLINICAL INFORMATION: Mr. Junito Bush is a 59-year-old gentleman with a known history of CAD, previous stenting of circumflex performed in 2005. He also has a renal and pancreatic transplant performed and has been doing well. Because of a significant squamous cell cancer, invasive type in the left forearm, he had surgery with poor wound healing and a fall and fracture and eventual amputation above the elbow on the left side. This happened in the last couple of months. In July, when I performed a cardiac cath, his circumflex stent was patent, but distally there was some diffuse disease, but there was decent flow in a small obtuse marginal branch. LAD had a 60% lesion and diagonal had a tight lesion. The plan was to perform FFR of LAD and then if normal, consider intervention of the diagonal. With this in mind, he was brought in for the procedure after adequate hydration. PROCEDURE NOTE: Under local anesthesia and strict aseptic precautions, a 6-German introducer was placed in the right femoral artery. Using an JL3.5 guide catheter, I cannulated the left coronary artery. Right coronary is nondominant, was not injected. An FFR wire was advanced under fluoroscopic guidance and kept distally. IFR was performed with 3 different values were obtained. There were in the range of 0.84 and 0.85 suggesting that the LAD had a significant lesion. I then noted that the circumflex beyond the stented segment had a chronic total occlusion with heavy calcification. I felt he may be better off with aortic valve replacement and bypass surgery with graft to the LAD diagonal and maybe to the distal circumflex, but this seemed to be a chronic total occlusion since July with sluggish flow. I therefore recommended that I will perform intervention of this and perform this in the same setting. PCI PROCEDURE DETAILS: I performed FFR/IFR of the LAD lesion and this was significant at 0.84 and 0.85. Using a long run-through wire, I crossed the proximal portion of the total occlusion and could not advance the wire further. I used a SuperCross straight. With this, I was able to make some progress. I gave 2 inflations with a 2.0 NC Trek balloon. There was modest improvement in the angiographic appearance. Overall, but this appears to be still a total occlusion. Patient remained hemodynamically stable. There is improvement and flow in the distal circumflex, but there are 2 chronic total occlusions. The proximal one I was able to open, the distal one I had difficulty crossing with the wire. I therefore did not pursue with the procedure and explained to the patient and in detail that we have progression of disease in circumflex, which is a small system, but more importantly the mid LAD has a significant lesion in the diagonal as well. I am therefore going to request Dr. Leightno Aguilar to see him for aortic valve replacement with grafts to LAD, diagonal and possibly to the distal circumflex PLV branch and circumflex is a dominant vessel. The sheath was taken out. Manual compression applied and FemoStop applied and he was sent to the room in a stable condition. Results and recommendations were discussed with the patient and his . This was therefore an unsuccessful PTCA of a total occlusion of the mid circumflex marginal. The patient has significant lesion in the LAD based on fractional flow reserve assessment and also significant lesion in the diagonal vessel. I am recommending aortic valve replacement with a graft to LAD, diagonal and distal PLV branch. MMODL / IJN: [id number] /
--- NOTE | 2020-05-18 15:43 | P.GSCN ---
<Hillary Rivera - Last Filed: 05/18/20 15:43> History of Present Illness Consult date: 05/18/20 Reason for Consult: Coronary artery disease, aortic stenosis Requesting physician: Gwen Church History of present illness: This is a 59-year-old gentleman who follows on an outpatient basis with Dr. Lu. He has a previous medical history of coronary artery disease with previous stent to the circumflex coronary artery in 2005, aortic stenosis, hypertension, hyperlipidemia, DVT to the left lower extremity, chronic kidney disease status post kidney and pancreas transplant in 2008, diabetes mellitus, COPD, squamous cell skin carcinoma with removal on the left arm with subsequent wound formation followed by amputation 03/03/2020 at [facility], gout, Charcot foot, and recent hospitalization for pneumonia with gram-negative sepsi s. This gentleman had a heart catheterization back in July 2019 which demonstrated patent stent to the circumflex coronary artery with diffuse disease distally, 60% lesion in the LAD and tight lesion in the diagonal coronary artery. The plan at that time was for medical management. Over the course of the next several months he had multiple medical issues as stated previously. He followed up with Dr. CORY Church and was recommended to undergo heart catheterization with FFR to determine progression of coronary artery disease. Cardiac catheterization was completed today, FFR/IFR of the LAD were performed and found to be significant at 0.84/0.85. In addition the patient was found to have progression of disease in the circumflex with 2 chronic total occlusions, the proximal was able to be opened with balloon angioplasty, however the distal was unable to be opened. Due to these findings along with the patient's history of aortic stenosis consultation was placed for Dr. Aguilar for aortic valve replacement along with coronary artery bypass surgery. Of note, the patient's last echocardiogram was completed in July of this year which demonstrated EF 55-60%, severe aortic stenosis with peak/mean gradient 68.93 mmHg/40.03 mmHg, mild mitral regurgitation with severe mitral annular calcification, and mild tricuspid regurgitation. Review of Systems Review of systems was completed and was negative except as noted - Respiratory Reports dyspnea - Gastrointestinal Reports heartburn Past Medical History Past Medical History: Coronary Artery Disease (CAD), Cancer, COPD, Diabetes Mellitus, Deep Vein Thrombosis (DVT), Hypertension, Neurologic Disorder, Pneumonia, Renal Disease, Skin Disorder, Vascular Disorder Additional Past Medical History / Comment(s): Charcot rt foot , hx diabetes-had pancreas transplant, murmur, DVT L leg, poor circulation, bilateral feet and hand neuropathy, diabetic retinopathy, psoriasis, wound rt ankle and R heel-both now healed, R dosal foot healed -, hx squamous skin cancer 10/2018 small area of osteomylitis R foot, pt had been in end stage renal disease and had hemodialysis for 3 yrs then had kidneys and pancreas transplant In 2008 at [facility], TMJ, gout, osteopenia, multiple malignant cutanous lesions with removals. History of Any Multi-Drug Resistant Organisms: C-DIFF Year Discovered:: ?5 yrs ago MDRO Source:: stool Past Surgical History: Heart Catheterization With Stent, Orthopedic Surgery Additional Past Surgical History / Comment(s): kidney & pancreas transplant 2008, cataracts removed, bilateral eye vitrectomy, bilateral eye RK, surgery to reconnect rt achilles tendon with dehisence and then several debridements of wound to R ankle and R heel, skin lesion removal-basal and squamous cell cancer, A/V fistula L upper arm removed , parathyroidectomy, R wrist fx with surgery. Squamous cell carcinoma removed September 2016, and again in january 2018, november 2018.left arm amputation march 03, 2020 Past Anesthesia/Blood Transfusion Reactions: No Reported Reaction Additional Past Anesthesia/Blood Transfusion Reaction / Comm: Pt states he has received blood in the past without reaction. Date of Last Stent Placement:: 2005 Past Psychological History: No Psychological Hx Reported Smoking Status: Never smoker Past Alcohol Use History: None Reported Past Drug Use History: None Reported - Past Family History Father Family Medical History: CVA/TIA, Vascular Disorder Additional Family Medical History / Comment(s): cva x2. Father is at the age of 84 yrs. Mother Family Medical History: Osteoarthritis (OA) Additional Family Medical History / Comment(s): Mother isalive Medications and Allergies Home Medications Medication Instructions Recorded Confirmed Type Cholecalciferol [Vitamin D3 (25 5,000 unit PO BID@0800,199905/21/14 05/18/20 History Mcg = 1000 Iu)] Pravastatin Sodium [Pravachol] 40 mg PO HS 05/21/14 05/18/20 History Tacrolimus [Prograf] 0.5 mg PO HS@199905/21/14 05/18/20 History allopurinoL [Zyloprim] 300 mg PO HS 05/21/14 05/18/20 History predniSONE 5 mg PO QAM 05/21/14 05/18/20 History Magnesium Oxide [Mag-Ox] 400 mg PO HS 08/01/14 05/18/20 History Multivitamin/Iron/Folic Acid 1 tab PO DAILY@0800 08/01/14 05/18/20 History [Centrum Complete Multivit Tab] carvediloL [Coreg] 6.25 mg PO BID@08,199904/02/15 05/18/20 History Omeprazole [PriLOSEC] 20 mg PO QAM 05/18/15 05/18/20 History Aspirin 81 mg PO HS@199911/08/16 05/18/20 History Tacrolimus [Prograf] 0.5 mg PO QAM 01/09/19 05/18/20 History Ascorbic Acid [Vitamin C] 1,000 mg PO DAILY@0800 06/19/19 05/18/20 History Halobetasol Propionate [Ultravate] 1 applic TOPICAL BID PRN 06/19/19 05/18/20 History amLODIPine [Norvasc] 10 mg PO QAM 06/19/19 05/18/20 History Calcium Carbonate [Calcium] 600 mg PO BID 08/06/19 05/18/20 History Cinnamon Bark [Cinnamon] 2,000 mg PO HS 08/06/19 05/18/20 History Ferrous Sulfate [Iron (65 MG 325 mg PO HS 08/06/19 05/18/20 History Elemental)] Losartan [Cozaar] 50 mg PO HS 08/06/19 05/18/20 History Potassium Chloride [Klor-Con 20] 20 meq PO BID-W/MEALS 08/06/19 05/18/20 History Sodium Bicarbonate Tab 650 mg PO BID 08/06/19 05/18/20 History Albuterol Inhaler [Ventolin Hfa 1 - 2 puff INHALATION RT-Q6H PRN 04/02/20 05/18/20 History Inhaler] HYDROcodone/APAP 5-325MG [[place] 1 tab PO Q6H PRN 04/02/20 05/18/20 History 5-325] Atorvastatin Calcium [Lipitor] 40 mg PO HS #90 tablet 05/18/20 Rx Allergies Allergy/AdvReac Type Severity Reaction Status Date / Time No Known Allergies Allergy Verified 05/13/20 14:38 Surgical - Exam Vital Signs Temp Pulse Resp BP Pulse Ox 97.8 F 69 16 218/91 95 05/18/20 07:23 05/18/20 07:23 05/18/20 07:23 05/18/20 07:23 05/18/20 07:23 - General well developed, well nourished, no distress, no pain, chronically ill - Eyes normal ocular movement - ENT no hearing loss - Neck no masses, no bruits, trachea midline - Respiratory Lungs sounds clear but diminished bilaterally. Respirations even, nonlabored. Currently on room air with oxygen saturation 95%. No chest wall deformities. No clubbing or cyanosis present. - Cardiovascular S1, S2 present. Loud systolic murmur present. Regular rate and rhythm, sinus rhythm on telemetry. Palpable peripheral pulses bilaterally. Bilateral lower extremity edema present. - Abdomen Abdomen: soft, non tender, bowel sounds - Genitourinary Deferred - Rectum Deferred - Integumentary Left upper extremity status post amputation with compressive sleeve in place. Surgical incision well healed no rash, no growths - Neurologic normal coordination, normal sensation - Musculoskeletal normal posture - Psychiatric oriented to time, oriented to person, oriented to place, speech is normal, memory intact Results - Imaging Additional studies: Heart catheterization films and echocardiogram films reviewed with Dr. Aguilar Assessment and Plan Assessment: 1. Coronary artery disease, previous stent placement to the circumflex in 2005, FFR/IFR of the LAD 0.84/0.85 2. Severe aortic stenosis 3. Hypertension 4. Hyperlipidemia 5. History of DVT to the left lower extremity 6. History of chronic kidney disease status post kidney transplant in 2008 7. History of diabetes mellitus status post pancreas transplant in 2008 8. COPD 9. 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 Gout 11. Charcot foot 12. Recent hospitalization for pneumonia with gram-negative sepsis Plan: The patient was seen and examined in the extended stay unit with Dr. Aguilar. Chart says diagnostics were reviewed, heart catheterization films as well as echocardiogram films from July were reviewed in detail with Dr. Aguilar. Our recommendation is for transesophageal echocardiogram to evaluate further the aortic valve. If the valve is trileaflet surgical aortic valve replacement with versus TAVR with PCI options were discussed with the patient and his . If the aortic valve is bicuspid surgery would be the recommendation. Both courses of treatment were discussed in detail with the patient and his , as well as Dr. Church by Dr. Aguilar. We also discussed with the patient and his surgical aortic valve replacement should be completed in a center with transplant specialists available, this was agreeable to the patient and his . Our contact information was given to the patient for follow-up once transesophageal echocardiogram has been completed. More recommendations to follow. Thank you Dr. Church for this consult. We look forward to working with you care of your patient Seen and examined and agree with above Time with Patient: Greater than 30 <Leighton Aguilar - Last Filed: 05/21/20 08:08> Surgical - Exam Vital Signs Temp Pulse Resp BP Pulse Ox 97.8 F 69 16 218/91 95 05/18/20 07:23 05/18/20 07:23 05/18/20 07:23 05/18/20 07:23 05/18/20 07:23 Assessment and Plan Assessment: 59 yom with CAD and . Significant medical comorbidities increase his risk for CABG/SAVR. If aortic valve is trileaflet, patient likely will be as good or better candidate for PTCA/TAVR as CABG/AVR. If valve is bileaftet, better served with CABG/AVR. Discussed with Dr. Church. He believes valve is tricuspid but will perform SPENCER to better evaluate. Discussed above plan with patient, who understands and is in agreement. Follow up in office following SPENCER.
[2020-05-18] MEDS ORDERED: POTASSIUM CHLORIDE ER 20 MEQ TAB.ER PO SCH (17:30)
[2020-05-18 18:17] VITALS: BP 108/56; PULSE 69
[2020-05-18] MEDS ORDERED: TACROLIMUS 0.5 MG CAP PO SCH (20:00)
[2020-05-18] MEDS ORDERED: carvediloL 6.25 MG TAB PO SCH (20:00)
[2020-05-18] MEDS ORDERED: ASPIRIN 81 MG PO SCH (20:00)
[2020-05-18] MEDS ORDERED: CHOLECALCIFEROL 1,000 UNIT TAB PO SCH (20:00)
[2020-05-18] MEDS ORDERED: FERROUS SULFATE 325 MG TAB PO SCH (21:00)
[2020-05-18] MEDS ORDERED: NON FORMULARY DRUG (Cinnamon Bark [Cinnamon] 500 MG Capsule) PO SCH (21:00)
[2020-05-18] MEDS ORDERED: SODIUM BICARBONATE TAB 650 MG TAB PO SCH (21:00)
[2020-05-18] MEDS ORDERED: MAGNESIUM OXIDE 400 MG TAB PO SCH (21:00)
[2020-05-18] MEDS ORDERED: LOSARTAN 50 MG TAB PO SCH (21:00)
[2020-05-18] MEDS ORDERED: allopurinoL 300 MG TAB PO SCH (21:00)
[2020-05-18] MEDS ORDERED: NON FORMULARY DRUG (Calcium Carbonate [Calcium] 600 MG Tablet) PO SCH (21:00)
[2020-05-19] MEDS ORDERED: ASCORBIC ACID 500 MG TAB PO SCH (08:00)
[2020-05-19] MEDS ORDERED: MULTIVITAMINS, THERA 1 EACH TAB PO SCH (08:00)
[2020-05-19] MEDS ORDERED: TACROLIMUS 0.5 MG CAP PO SCH (09:00)
[2020-05-19] MEDS ORDERED: PANTOPRAZOLE 40 MG TABLET PO SCH (09:00)
[2020-05-19] MEDS ORDERED: amLODIPine 10 MG TAB PO SCH (09:00)
[2020-05-19] MEDS ORDERED: predniSONE 5 MG TAB PO SCH (09:00)
== END 2020-05-18 18:03 | disposition home or self-care (01) ==
LOC: CATHCVL 06:24
PROVIDERS: ATTEND Internal Medicine Interventional Cardiology
DX: I25.110 Atherosclerotic heart disease of native coronary artery with unstable angina pectoris (principal); I25.82 Chronic total occlusion of coronary artery; I35.0 Nonrheumatic aortic (valve) stenosis; I10 Essential (primary) hypertension; J44.9 Chronic obstructive pulmonary disease, unspecified; E11.42 Type 2 diabetes mellitus with diabetic polyneuropathy; E11.319 Type 2 diabetes mellitus with unspecified diabetic retinopathy without macular edema; L40.9 Psoriasis, unspecified; M10.9 Gout, unspecified; Z95.5 Presence of coronary angioplasty implant and graft; Z94.0 Kidney transplant status; Z94.83 Pancreas transplant status; Z85.828 Personal history of other malignant neoplasm of skin; Z87.01 Personal history of pneumonia (recurrent); Z86.718 Personal history of other venous thrombosis and embolism; Z86.19 Personal history of other infectious and parasitic diseases; Z98.41 Cataract extraction status, right eye; Z98.42 Cataract extraction status, left eye; Z98.890 Other specified postprocedural states; Z82.49 Family history of ischemic heart disease and other diseases of the circulatory system; Z82.61 Family history of arthritis; Z79.52 Long term (current) use of systemic steroids; Z79.02 Long term (current) use of antithrombotics/antiplatelets; Z79.899 Other long term (current) drug therapy; Z92.21 Personal history of antineoplastic chemotherapy
CPT/HCPCS: 93571; 92920; C1769 ×5; C1887 ×3; C1725; C1894; J2250; J2001; J0583; Q9967

== ENCOUNTER 2020-06-03 07:52 | Day surgery (SDC) | payer MEDICARE, BC ==
[2020-06-01 18:36] VITALS: BMI 30.4
[~2020-06-03 07:52] MED LIST changes: +ASPIRIN 325 MG TAB PO STA; +ATORVASTATIN 80 MG TAB PO STA
[2020-06-03] MEDS ORDERED: ASPIRIN 325 MG TAB PO ONE (08:29)
[2020-06-03] MEDS ORDERED: SODIUM CHLORIDE 0.9% 1,000 ML IV ONE (08:30)
[2020-06-03] MEDS ORDERED: LIDOCAINE 1% INJ 10MG/ML (20 ML MDV) ONE ×2 (08:44→09:26)
[2020-06-03] MEDS ORDERED: MIDAZOLAM 2 MG/2 ML VIAL IV ONE (08:56)
[2020-06-03 08:58] LABS: Basophils # (A) 0.1 k/uL (0-0.2); Basophils % (A) 1 %; Eosinophils # (A) 0.2 k/uL (0-0.7); Eosinophils % (A) 3 %; HCT 42.5 % (39.0-53.0); HGB 13.9 gm/dL (13.0-17.5); Lymphocytes # (A) 0.7 k/uL (1.0-4.8); Lymphocytes % (A) 9 %; MCH 33.5 pg (25.0-35.0); MCHC 32.7 g/dL (31.0-37.0); MCV 102.5 fL (80.0-100.0); Macrocytosis Slight; Mean Platelet Volume 7.2; Monocytes # (A) 0.7 k/uL (0-1.0); Monocytes % (A) 10 %; Neutrophils # (A) 5.4 k/uL (1.3-7.7); Neutrophils % (A) 75 %; Platelet Count 210 k/uL (150-450); RBC 4.14 m/uL (4.30-5.90); WBC 7.2 k/uL (3.8-10.6)
[2020-06-03] MEDS ORDERED: LIDOCAINE 1% INJ 10MG/ML (20 ML MDV) SQ ONE (09:04)
[2020-06-03 09:06] LABS: Calcium 9.5 mg/dL (8.4-10.2); Potassium 4.2 mmol/L (3.5-5.1)
[2020-06-03] MEDS ORDERED: fentaNYL (PF) 50 MCG/ML 2 ML AMP ONE (09:06)
[2020-06-03] MEDS ORDERED: fentaNYL (PF) 50 MCG/ML 2 ML AMP IV ONE (09:07)
[2020-06-03] MEDS ORDERED: HYDROmorphone 0.5 MG/0.5 ML SYRINGE IVP ONE (09:23)
[2020-06-03] MEDS ORDERED: HEPARIN SODIUM 1,000 UN/ML (10ML VL) ONE (09:43)
[2020-06-03] MEDS ORDERED: TIROFIBAN BOLUS 12.5MG/250 ML BAG IV ONE (09:50)
[2020-06-03] MEDS ORDERED: TIROFIBAN 12.5MG-250ML NS 250 ML IV ONE (09:51)
[2020-06-03] MEDS: SODIUM CHLORIDE 0.9% 1,000 ML IV SCH (10:00)
[2020-06-03] MEDS ORDERED: IOPAMIDOL-370 100ML BTL INJ ONE (10:13)
[2020-06-03] MEDS ORDERED: NITROGLYCERIN 1000MCG/10ML SYRINGE INTRACORON ONE (10:19)
[2020-06-03] MEDS ORDERED: CLOPIDOGREL 75 MG TAB ONE (10:22)
[2020-06-03] MEDS ORDERED: CLOPIDOGREL 75 MG TAB PO ONE (10:27)
[2020-06-03] MEDS ORDERED: IOPAMIDOL-370 50ML BTL INJ ONE (10:27)
[2020-06-03] MEDS ORDERED: HYDROcodone/APAP 5-325MG 1 EACH TAB PO PRN (11:01)
--- NOTE | 2020-06-03 11:11 | PTCA ---
PERCUTANEOUSTRANS CORORONARY ANGIOGRAPHY DATE OF SERVICE: 06/03/2020. PROCEDURE: 1. Transvenous temporary pacemaker from right femoral venous approach. 2. PTCA and stenting of the major diagonal branch with a drug-eluting stent. 3. PTCA and stenting of mid LAD with a drug-eluting stent. PERFORMED BY: Dr. Jose R Church. Moderate conscious sedation time was 83 minutes. Patient was administered Versed, he also received fentanyl and Dilaudid. Oxygen saturation, hemodynamics and EKG were monitored closely. CLINICAL INFORMATION: Mr. Junito Bush is a 59-year-old gentleman with a known history of renal and pancreatic transplantation performed at [place]. He has CAD and severe aortic stenosis. I performed the stenting of a circumflex vessel in 2005 with a 3.5 caliber 13 Cypher stent. This stent was still patent on recent diagnostic cardiac cath in April of this year. However, there was a distal obtuse marginal that I could not open. After multiple attempts, it was a chronic total occlusion of the PLV branch of circumflex. Patient had a significant mid LAD lesion of about 80% with an abnormal IFR of 0.84. He also has a tight diagonal lesion of 95%. He was advised intervention of this vessel. The patient was actually seen by the cardiac surgeon who felt that he is better off with the percutaneous coronary intervention and a wide percutaneous aortic implant rather than open surgery. Patient is therefore brought in today for the PTCA and stenting of LAD and diagonal. PROCEDURE NOTE: Under local anesthesia and strict aseptic precautions, a 6-Omani introducer was placed in the right femoral vein and a 6-Omani introducer in the right femoral artery. Initially, I planned on doing an orbital atherectomy and therefore I used a temporary pacemaker. Under fluoroscopic guidance, a transvenous temporary pacemaker was positioned in the right ventricular apex. The threshold was obtained, was 1 millivolt. A backup rate of 40 and mA of 5 and the pacemaker was set in a backup mode. I then advanced a 3.5 left Kerri guide catheter to cannulate the left coronary artery. I had difficulty with the femoral arterial access because of heavy calcification and I had to use a regular needle as opposed to a micropuncture needle because of calcification and the wire being deflected. Finally, a good access was achieved. A 3.5 left Kerri guide catheter was used to cannulate the left coronary artery. A long run-through wire was used to cross the LAD lesion. Wire was kept distally. A short whisper wire was used to cross the diagonal lesion. Wire was kept distally. I felt that the calcification that I was seeing was more in the aortic valve behind the LAD rather than within the vessel itself. I went ahead and dilated the diagonal lesion with a 2.25 caliber 12 mm NC Trek balloon and then deployed a 2.25 caliber 12 mm long Xience stent at 10 atmospheres. Excellent angiographic result was achieved. Patient did not have any chest pain or EKG changes. I then decided not to do an orbital atherectomy and I felt I could stent it because the calcium was not too much in the mid LAD. Having made the decision, I advised the patient and suggested that we will proceed with direct stenting. Over the long run-through wire I advanced a 3.25 caliber 15 mm long Xience stent and deployed this at 15 atmospheres. The proximal half of the stent was then post-dilated with a 4.0 caliber 8 mm long NC Trek balloon. Patient had chest pain and EKG changes. Excellent angiographic result without complication was achieved. The catheter and wires were taken out. The sheath was taken out and Angio- Seal device used to secure hemostasis. The femoral venous sheath was taken out after taking out the transvenous pacemaker and manual compression was used to secure hemostasis. Good hemostasis was secured. Patient tolerated procedure well. He was already on aspirin and Plavix but he received an additional 300 mg of Plavix. Excellent angiographic result without complication was achieved. The findings were discussed with the patient and and I expect he will be discharged tomorrow if he remains stable. MMODL / IJN: [id number] /
[2020-06-03] MEDS ORDERED: HYDROcodone/APAP 5-325MG 1 EACH TAB PO ONE (11:33)
[2020-06-03] MEDS ORDERED: CLOBETASOL PROP 0.05% CR 15GM TOPICAL PRN (13:58)
[2020-06-03] MEDS ORDERED: CALCIUM CARBONATE 500 MG CHEWABLE PO PRN (13:58)
[2020-06-03] MEDS: POTASSIUM CHLORIDE ER 20 MEQ TAB.ER PO SCH (16:30)
[2020-06-03] MEDS ORDERED: ASPIRIN 81 MG PO SCH (20:00)
[2020-06-03] MEDS ORDERED: TACROLIMUS 1 MG CAP PO SCH (20:00)
[2020-06-03] MEDS ORDERED: ATORVASTATIN 40 MG TAB PO SCH (21:00)
[2020-06-03] MEDS ORDERED: MAGNESIUM OXIDE 400 MG TAB PO SCH (21:00)
[2020-06-03] MEDS ORDERED: FERROUS SULFATE 325 MG TAB PO SCH (21:00)
[2020-06-03] MEDS ORDERED: LOSARTAN 50 MG TAB PO SCH (21:00)
[2020-06-03] MEDS ORDERED: CLOPIDOGREL 75 MG TAB PO SCH (21:00)
[2020-06-03] MEDS ORDERED: PANTOPRAZOLE 40 MG TABLET PO SCH (21:00)
[2020-06-03] MEDS ORDERED: allopurinoL 300 MG TAB PO SCH (21:00)
[2020-06-03] MEDS: CHOLECALCIFEROL 1,000 UNIT TAB PO SCH (21:51)
[2020-06-03] MEDS: MYCOPHENOLATE SODIUM DR 180 MG TABLET.DR PO SCH (21:51)
[2020-06-03] MEDS: CALCIUM CARBONATE 500 MG CHEWABLE PO SCH (21:52)
[2020-06-03] MEDS: SODIUM BICARBONATE TAB 650 MG TAB PO SCH (21:53)
[2020-06-03] MEDS: carvediloL 6.25 MG TAB PO SCH (21:53)
[2020-06-04] MEDS: SODIUM CHLORIDE 0.9% 1,000 ML IV SCH (02:38)
[2020-06-04] MEDS: POTASSIUM CHLORIDE ER 20 MEQ TAB.ER PO SCH (06:39)
[2020-06-04] MEDS ORDERED: ASCORBIC ACID 500 MG TAB PO SCH (08:00)
[2020-06-04] MEDS ORDERED: MULTIVITAMINS, THERA 1 EACH TAB PO SCH (08:00)
[2020-06-04 08:57] LABS: HCT 40.6 % (39.0-53.0); HGB 13.1 gm/dL (13.0-17.5); MCH 33.6 pg (25.0-35.0); MCHC 32.2 g/dL (31.0-37.0); MCV 104.2 fL (80.0-100.0); Macrocytosis Moderate; Mean Platelet Volume 7.2; Platelet Count 197 k/uL (150-450); WBC 7.5 k/uL (3.8-10.6)
[2020-06-04] MEDS ORDERED: predniSONE 5 MG TAB PO SCH (09:00)
[2020-06-04] MEDS ORDERED: amLODIPine 10 MG TAB PO SCH (09:00)
[2020-06-04] MEDS ORDERED: TACROLIMUS 1 MG CAP PO SCH (09:00)
[2020-06-04 09:04] LABS: Calcium 8.8 mg/dL (8.4-10.2)
[2020-06-04 09:41] LABS: Potassium 4.6 mmol/L (3.5-5.1)
[2020-06-04] MEDS: carvediloL 6.25 MG TAB PO SCH (10:22)
[2020-06-04] MEDS: SODIUM BICARBONATE TAB 650 MG TAB PO SCH (10:23)
[2020-06-04] MEDS: CALCIUM CARBONATE 500 MG CHEWABLE PO SCH (10:23)
[2020-06-04] MEDS: CHOLECALCIFEROL 1,000 UNIT TAB PO SCH (10:23)
[2020-06-04] MEDS: MYCOPHENOLATE SODIUM DR 180 MG TABLET.DR PO SCH (10:24)
[2020-06-04 11:55] VITALS: RESP 16
[2020-06-04 11:58] VITALS: BP 173/69; PULSE 75; TEMP 97.7
--- NOTE | 2020-06-04 16:56 | DS ---
DISCHARGE SUMMARY DATE OF ADMISSION: 06/03/2020 DATE OF DISCHARGE: 06/04/2020 DIAGNOSES: 1. Unstable angina. 2. Severe aortic stenosis. 3. Status post kidney and pancreatic transplant. 4. Hypertension. 5. History of previous percutaneous coronary intervention. Mr. Bush was admitted to the hospital yesterday mainly to perform PCI of a very complex LAD. He had a diagonal lesion that was stented with a drug-eluting stent and the LAD lesion was then addressed with another drug-eluting stent. Excellent angiographic result was achieved. Procedure was performed from the right femoral approach. Post-procedure course was uneventful. This morning he is doing well, asymptomatic. His EKG is unremarkable. Vital signs are stable. No JVD. S1, S2 heard normally. Ejection systolic murmur is audible. Lungs are clear. Abdomen and lower extremity exam unchanged. Plan is to discharge the patient today and I will see him in the office on Monday. Discharge instructions regarding activity, diet and medications were given. Patient's labs will be checked prior to discharge. EKG is unremarkable. Advised to see me next week in the office. MMODL / IJN: [id number] /
== END 2020-06-04 13:39 | disposition home or self-care (01) ==
LOC: CATHCVL 07:52 → 3NCARDOBS 13:38 → 3SCARD 14:12 → CATHCVL 06-04 13:39
PROVIDERS: ATTEND Internal Medicine Interventional Cardiology
DX: I25.110 Atherosclerotic heart disease of native coronary artery with unstable angina pectoris (principal); I25.84 Coronary atherosclerosis due to calcified coronary lesion; I25.82 Chronic total occlusion of coronary artery; I10 Essential (primary) hypertension; Z94.83 Pancreas transplant status; Z94.0 Kidney transplant status; Z95.5 Presence of coronary angioplasty implant and graft; I35.0 Nonrheumatic aortic (valve) stenosis; Z79.02 Long term (current) use of antithrombotics/antiplatelets; Z79.82 Long term (current) use of aspirin; Z79.52 Long term (current) use of systemic steroids; Z79.899 Other long term (current) drug therapy
CPT/HCPCS: 80048 ×2; 85025; 85027; C9600; C9601; C1769 ×7; C1760; C1887; C1725 ×2; C1894; C1874; J2250; J7507 ×2; J2001; J3010; J7518 ×2; J1644; J3246; J7512; J1170; Q9967 ×2; 33210

== ENCOUNTER 2020-06-24 09:28 | Day surgery (SDC) | payer MEDICARE, BC ==
[2020-06-19 13:58] VITALS: BMI 29.5
[~2020-06-24 09:28] MED LIST changes: -ALPRAZolam 0.25 MG TAB PO PRN; -ALPRAZolam 0.5 MG TAB PO PRN; -ASPIRIN 325 MG TAB PO STA; -ATORVASTATIN 80 MG TAB PO STA; +LACTATED RINGERS 1,000 ML IV SCH; -NITROGLYCERIN SL TABS 0.4 MG TAB SUBLINGUAL PRN; -SODIUM CHLORIDE 0.9% 1,000 ML in EMPTY BAG 1 BAG IV ONE
[2020-06-24] MEDS ORDERED: SODIUM CHLORIDE 0.9% 500 ML 500 ML IV ONE (10:00)
[2020-06-24] MEDS ORDERED: fentaNYL (PF) 50 MCG/ML 2 ML AMP ONE (10:28)
[2020-06-24] MEDS: BENZOCAINE SPRAY 1 CAN TOPICAL ONE ×2 (10:35→10:42)
[2020-06-24 10:48] VITALS: RESP 16
[2020-06-24] MEDS ORDERED: MIDAZOLAM 2 MG/2 ML VIAL IVP ONE (10:52)
[2020-06-24] MEDS ORDERED: fentaNYL (PF) 50 MCG/ML 2 ML AMP IVP ONE (10:52)
[2020-06-24] MEDS: MIDAZOLAM 2 MG/2 ML VIAL IVP ONE ×2 (10:55→10:56)
--- NOTE | 2020-06-24 11:34 | ECHOT ---
TRANSESOPHAGEAL ECHOCARDIOGRAM DATE OF SERVICE: 06/24/2020 PERFORMING PHYSICIAN: Kwaku Ochoa MD. PROCEDURE PERFORMED: Transesophageal echocardiogram. INDICATION: Aortic stenosis. COMPLICATION: None. LEVEL OF SEDATION: Moderate with sedation length of 12 minutes. PROCEDURE DESCRIPTION: After obtaining an informed consent, explaining the procedure, benefits, risks, complications and alternatives, the patient was brought to the transesophageal echocardiogram suite. A pulse oximetry and heart rate monitors were attached to the patient prior to the procedure. The patient's throat was sprayed using lidocaine locally. Following that, the patient was turned into left lateral position. A bite guard was placed and the patient was then sedated with the above doses of Versed and fentanyl in divided doses. Following that, the transesophageal echocardiogram probe was advanced through the bite guard into the mid esophagus where 2-D echocardiogram images as well as color Doppler images of various cardiac structures were obtained. We evaluated the interatrial septum using 2-D echocardiogram, color Doppler, and contrast study. The procedure was completed. There were no complications. FINDINGS: The left ventricular dimension and systolic function appeared to be within normal limits. The ejection fraction appeared to be in the range of 55% to 60%. Right ventricle appeared to be of normal size and function. The left atrium appeared to be mildly dilated. The right atrium appeared to be within normal limits. The aortic valve is severely calcified and thickened with evidence of severe aortic stenosis as well as severe aortic regurgitation. The mean gradient was 41 mmHg and there was reversal flow in the descending aorta. The mitral valve seems to be mildly thickened with mild to moderate MR. Normal tricuspid valve and pulmonic valve. CONCLUSION: 1. Normal left ventricular dimension and systolic function. 2. Normal right ventricular dimension and systolic function. 3. Mildly dilated left atrium and normal right atrium dimension. 4. Trileaflet aortic valve with evidence of severe aortic stenosis by gradient as well as by area. 5. There was severe aortic regurgitation as well. Reversal flow in the descending aorta was detected. 6. Normal mitral valve leaflets with mild to moderate MR. 7. Normal tricuspid valve and pulmonic valve. 8. No evidence of pericardial effusion. MMODL / IJN: [id number] /
[2020-06-24 11:55] VITALS: BP 121/58; PULSE 76
== END 2020-06-24 12:50 | disposition home or self-care (01) ==
LOC: CATHCVL 09:28
PROVIDERS: ATTEND Internal Medicine Interventional Cardiology
DX: I35.2 Nonrheumatic aortic (valve) stenosis with insufficiency (principal); I34.0 Nonrheumatic mitral (valve) insufficiency; I25.10 Atherosclerotic heart disease of native coronary artery without angina pectoris; I10 Essential (primary) hypertension; E78.5 Hyperlipidemia, unspecified; E66.3 Overweight; Z79.82 Long term (current) use of aspirin; Z79.02 Long term (current) use of antithrombotics/antiplatelets; Z79.52 Long term (current) use of systemic steroids; Z79.899 Other long term (current) drug therapy; Z94.0 Kidney transplant status; Z94.83 Pancreas transplant status; Z68.30 Body mass index [BMI] 30.0-30.9, adult
CPT/HCPCS: 93312; 93320; 93325; J2250; J3010

== ENCOUNTER 2020-07-08 07:40 | Day surgery (SDC) | payer MEDICARE, BC ==
[2020-07-03 12:03] VITALS: BMI 29.3
[2020-07-08 07:54] VITALS: TEMP 98.3
[2020-07-08 08:11] LABS: Glucose,Whole Blood 86 mg/dL (75-99)
[2020-07-08] MEDS ORDERED: LIDOCAINE 1% (10MG/ML) FOR IV START INTRADERMA ONE (08:11)
[2020-07-08] MEDS ORDERED: LIDOCAINE 1% INJ 10MG/ML (20 ML MDV) ONE (08:36)
[2020-07-08] MEDS ORDERED: PROPOFOL 10 MG/ML 20 ML VIAL IV ONE (08:36)
--- NOTE | 2020-07-08 08:42 | P.GSHP ---
History of Present Illness H&P Date: 07/08/20 CHIEF COMPLAINT: GERD HISTORY OF PRESENT ILLNESS: The patient is a 60-year-old male who presents reports gastroesophageal reflux disease. Upper endoscopy was offered for further evaluation and management. PAST MEDICAL HISTORY: Please see list. PAST SURGICAL HISTORY: Please see list. MEDICATIONS: Please see list. ALLERGIES: Please see list. SOCIAL HISTORY: No illicit drug use FAMILY HISTORY: No reports of Crohn disease or ulcerative colitis. REVIEW OF ORGAN SYSTEMS: CONSTITUTIONAL: No reports of fevers or chills. GI: Denies any blood in stools or constipation. PHYSICAL EXAM: VITAL SIGNS: Stable GENERAL: Well-developed and pleasant in no acute distress. HEENT: No scleral icterus. Extraocular movements grossly intact. Moist buccal mucosa. NECK: Supple without lymphadenopathy. CHEST: Unlabored respirations. Equal bilateral excursions. CARDIOVASCULAR: Regular rate and rhythm. Distal 2+ pulses. ABDOMEN: Soft, nondistended. MUSCULOSKELETAL: No clubbing, cyanosis, or edema. ASSESSMENT: 1. Gastroesophageal reflux disease PLAN: 1. Recommend proceeding with an upper endoscopy Past Medical History Past Medical History: Coronary Artery Disease (CAD), Cancer, COPD, Diabetes Mellitus, Deep Vein Thrombosis (DVT), Eye Disorder, GERD/Reflux, Hyperlipidemia, Hypertension, Neurologic Disorder, Pneumonia, Renal Disease, Skin Disorder, Vascular Disorder Additional Past Medical History / Comment(s): Charcot rt foot , hx DM- pancreas/kidney transplant, murmur, DVT L leg, poor circulation, bilat feet/hand neuropathy, diabetic retinopathy, psoriasis, hx wound rt ankle, R heel, R dosal foot healed; hx squamous skin cancer 10/2018 small area of osteomylitis R foot, hx end stage renal disease w/ hemodialysis x3 yrs then had kidneys/pancreas transplant In 2008 at [facility], TMJ, gout, osteopenia, multiple malignant cutanous lesions with removals. , diet control diabetic, double vision. pt states "mild cold symptoms, no fever" History of Any Multi-Drug Resistant Organisms: None Reported Date of last positivie culture/infection: ?5 yrs ago MDRO Source:: stool Past Surgical History: Heart Catheterization, Heart Catheterization With Stent, Orthopedic Surgery Additional Past Surgical History / Comment(s): kidney & pancreas transplant 2008, cataracts removed, bilateral eye vitrectomy, bilateral eye RK, surgery to reconnect rt achilles tendon with dehisence and then several debridements of wound to R ankle and R heel, skin lesion removal-basal and squamous cell cancer, A/V fistula L upper arm removed , parathyroidectomy, R wrist fx with surgery. Squamous cell carcinoma removed 09/2016, 01/2018, 11/2018. 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 c. cath 05/18/20-angioplast, stent in LAD & Diag on 06/03/2020, SPENCER Past Anesthesia/Blood Transfusion Reactions: No Reported Reaction Additional Past Anesthesia/Blood Transfusion Reaction / Comment(s): Pt states he has received blood in the past without reaction. Date of Last Stent Placement:: 06/03/2020 Smoking Status: Never smoker - Past Family History Father Family Medical History: CVA/TIA, Vascular Disorder Additional Family Medical History / Comment(s): blood clot left arm Mother Family Medical History: Osteoarthritis (OA) Additional Family Medical History / Comment(s): Mother isalive Medications and Allergies Home Medications Medication Instructions Recorded Confirmed Type Cholecalciferol [Vitamin D3 (25 5,000 unit PO BID@799,199905/21/14 07/08/20 History Mcg = 1000 Iu)] Tacrolimus [Prograf] 1 mg PO HS@199905/21/14 07/08/20 History allopurinoL [Zyloprim] 300 mg PO HS 05/21/14 07/08/20 History predniSONE 10 mg PO QAM 05/21/14 07/08/20 History Magnesium Oxide [Mag-Ox] 400 mg PO HS 08/01/14 07/08/20 History Multivitamin/Iron/Folic Acid 1 tab PO HS 08/01/14 07/08/20 History [Centrum Complete Multivit Tab] carvediloL [Coreg] 6.25 mg PO BID@08,199904/02/15 07/08/20 History Omeprazole [PriLOSEC] 20 mg PO HS 05/18/15 07/08/20 History Aspirin 81 mg PO HS 11/08/16 07/08/20 History Tacrolimus [Prograf] 1 mg PO QAM 01/09/19 07/08/20 History Ascorbic Acid [Vitamin C] 1,000 mg PO DAILY@0800 06/19/19 07/08/20 History Halobetasol Propionate [Ultravate] 1 applic TOPICAL BID PRN 06/19/19 07/08/20 History amLODIPine [Norvasc] 10 mg PO QAM 06/19/19 07/08/20 History Calcium Carbonate [Calcium] 600 mg PO BID 08/06/19 07/08/20 History Cinnamon Bark [Cinnamon] 2,000 mg PO HS 08/06/19 07/08/20 History Ferrous Sulfate [Iron (65 MG 325 mg PO HS 08/06/19 07/08/20 History Elemental)] Losartan [Cozaar] 50 mg PO HS 08/06/19 07/08/20 History Potassium Chloride [Klor-Con 20] 20 meq PO BID-W/MEALS 08/06/19 07/08/20 History Sodium Bicarbonate Tab 650 mg PO BID 08/06/19 07/08/20 History Albuterol Inhaler [Ventolin Hfa 1 - 2 puff INHALATION RT-Q6H PRN 04/02/2007/08 History Inhaler] HYDROcodone/APAP 5-325MG [[place] 1 tab PO Q6H PRN 04/02/20 07/08/20 History 5-325] Atorvastatin Calcium [Lipitor] 40 mg PO HS #90 tablet 05/18/20 07/08/20 Rx Calcium Carbonate [Tums] 500 - 1,000 mg PO QID PRN 06/01/20 07/08/20 History Clopidogrel [Plavix] 75 mg PO HS 06/01/20 07/08/[address] [Myfortic] 180 mg PO BID 06/01/20 07/08/20 History Allergies Allergy/AdvReac Type Severity Reaction Status Date / Time iodine AdvReac kidney and Verified 07/08/20 07:51 pancreas transplant concerns Surgical - Exam Vital Signs Temp Pulse Resp BP Pulse Ox 98.3 F 87 18 171/72 92 L 07/08/20 07:53 07/08/20 07:53 07/08/20 07:53 07/08/20 07:53 07/08/20 07:53
--- NOTE | 2020-07-08 08:55 | P.PCN ---
Date of Procedure: 07/08/20 Description of Procedure: PREOPERATIVE DIAGNOSIS: Gastroesophageal reflux disease. Active antiplatelet therapy Severe coronary artery disease Transplant recipient Chronic immunosuppression POSTOPERATIVE DIAGNOSIS: Gastritis, chronic and moderate Gastroesophageal reflux disease. Active antiplatelet therapy Severe coronary artery disease Transplant recipient Chronic immunosuppression OPERATION: Esophagogastroduodenoscopy SURGEON: Hayley Brunson MD ANESTHESIA: MAC. INDICATIONS: The patient is a 60-year-old male who presents with a history of reflux disease. Benefits and risks of the procedure were described. Informed consent was obtained. DESCRIPTION: The patient was brought into the endoscopy suite and laid in the left lateral decubitus position. An Olympus gastroscope was passed along the posterior oropharynx down to the distal esophagus where the squamocolumnar junction was encountered at 42 cm from the incisors. The stomach was entered and no bile reflux was found. Additional findings are listed below. Biopsies were avoided due to active antiplatelet therapy and high risk for bleeding. The first through third portion of the duodenum was examined and unremarkable. Retroflexion of the scope confirmed Hill grade 2 lower esophageal valve. The squamocolumnar junction demonstrated LA grade D erosive esophagitis using NF settings, 1 cm erosion. The stomach was desufflated. The patient tolerated the procedure well. FINDINGS: Squamocolumnar junction 42 cm from the incisors. Diaphragmatic hiatus at 42 cm. Hill grade 2 lower esophageal valve. LA grade D erosive esophagitis. No active duodenitis. Chronic gastritis, moderate to severe RECOMMENDATIONS: Upper endoscopy as needed. Recommend antacid therapy safe for kidneys with history of renal transplant Plan - Discharge Summary New Discharge Prescriptions: Continue Cholecalciferol [Vitamin D3 (25 Mcg = 1000 Iu)] 5,000 unit PO BID@ allopurinoL [Zyloprim] 300 mg PO HS Tacrolimus [Prograf] 1 mg PO HS@1999 predniSONE 10 mg PO QAM Multivitamin/Iron/Folic Acid [Centrum Complete Multivit Tab] 1 tab PO HS Magnesium Oxide [Mag-Ox] 400 mg PO HS carvediloL [Coreg] 6.25 mg PO BID@799,1999 Omeprazole [PriLOSEC] 20 mg PO HS Aspirin 81 mg PO HS Tacrolimus [Prograf] 1 mg PO QAM Halobetasol Propionate [Ultravate] 1 applic TOPICAL BID PRN PRN Reason: PSORIASIS amLODIPine [Norvasc] 10 mg PO QAM Ascorbic Acid [Vitamin C] 1,000 mg PO DAILY@0800 Calcium Carbonate [Calcium] 600 mg PO BID Cinnamon Bark [Cinnamon] 2,000 mg PO HS Ferrous Sulfate [Iron (65 MG Elemental)] 325 mg PO HS Losartan [Cozaar] 50 mg PO HS Potassium Chloride [Klor-Con 20] 20 meq PO BID-W/MEALS Sodium Bicarbonate Tab 650 mg PO BID Albuterol Inhaler [Ventolin Hfa Inhaler] 1 - 2 puff INHALATION RT-Q6H PRN PRN Reason: Shortness Of Breath HYDROcodone/APAP 5-325MG [Snyder 5-325] 1 tab PO Q6H PRN PRN Reason: Pain Atorvastatin Calcium [Lipitor] 40 mg PO HS #90 tablet Clopidogrel [Plavix] 75 mg PO HS Mycophenolate Sodium Dr [Myfortic] 180 mg PO BID Calcium Carbonate [Tums] 500 - 1,000 mg PO QID PRN PRN Reason: Indigestion Discharge Medication List Cholecalciferol [Vitamin D3 (25 Mcg = 1000 Iu)] 5,000 unit PO BID@799,199905/21/14 [History] Tacrolimus [Prograf] 1 mg PO HS@199905/21/14 [History] allopurinoL [Zyloprim] 300 mg PO HS 05/21/14 [History] predniSONE 10 mg PO QAM 05/21/14 [History] Magnesium Oxide [Mag-Ox] 400 mg PO HS 08/01/14 [History] Multivitamin/Iron/Folic Acid [Centrum Complete Multivit Tab] 1 tab PO HS 08/01/14 [History] carvediloL [Coreg] 6.25 mg PO BID@799,199904/02/15 [History] Omeprazole [PriLOSEC] 20 mg PO HS 05/18/15 [History] Aspirin 81 mg PO HS 11/08/16 [History] Tacrolimus [Prograf] 1 mg PO QAM 01/09/19 [History] Ascorbic Acid [Vitamin C] 1,000 mg PO DAILY@0800 06/19/19 [History] Halobetasol Propionate [Ultravate] 1 applic TOPICAL BID PRN 06/19/19 [History] amLODIPine [Norvasc] 10 mg PO QAM 06/19/19 [History] Calcium Carbonate [Calcium] 600 mg PO BID 08/06/19 [History] Cinnamon Bark [Cinnamon] 2,000 mg PO HS 08/06/19 [History] Ferrous Sulfate [Iron (65 MG Elemental)] 325 mg PO HS 08/06/19 [History] Losartan [Cozaar] 50 mg PO HS 08/06/19 [History] Potassium Chloride [Klor-Con 20] 20 meq PO BID-W/MEALS 08/06/19 [History] Sodium Bicarbonate Tab 650 mg PO BID 08/06/19 [History] Albuterol Inhaler [Ventolin Hfa Inhaler] 1 - 2 puff INHALATION RT-Q6H PRN 04/02/20 [History] HYDROcodone/APAP 5-325MG [Snyder 5-325] 1 tab PO Q6H PRN 04/02/20 [History] Atorvastatin Calcium [Lipitor] 40 mg PO HS #90 tablet 05/18/20 [Rx] Calcium Carbonate [Tums] 500 - 1,000 mg PO QID PRN 06/01/20 [History] Clopidogrel [Plavix] 75 mg PO HS 06/01/20 [History] Mycophenolate Sodium Dr [Myfortic] 180 mg PO BID 06/01/20 [History] Follow up Appointment(s)/Referral(s): Hayley Brunson MD [STAFF PHYSICIAN] - 07/14/20 Patient Instructions/Handouts: Gastritis (DC), Stuart Esophagus (DC), Diet for Stomach Ulcers and Gastritis (ED) Discharge Disposition: HOME SELF-CARE
[2020-07-08 09:09] VITALS: BP 119/62; PULSE 72; RESP 16
== END 2020-07-08 09:33 | disposition home or self-care (01) ==
LOC: ORWHC2ENDO 07:40
PROVIDERS: ATTEND Surgery Plastic and Reconstructive Surgery
DX: K22.10 Ulcer of esophagus without bleeding (principal); K29.50 Unspecified chronic gastritis without bleeding; I25.10 Atherosclerotic heart disease of native coronary artery without angina pectoris; I10 Essential (primary) hypertension; J44.9 Chronic obstructive pulmonary disease, unspecified; Z86.718 Personal history of other venous thrombosis and embolism; K21.9 Gastro-esophageal reflux disease without esophagitis; E78.5 Hyperlipidemia, unspecified; R29.90 Unspecified symptoms and signs involving the nervous system; Z87.01 Personal history of pneumonia (recurrent); A52.16 Charcot's arthropathy (tabetic); E11.610 Type 2 diabetes mellitus with diabetic neuropathic arthropathy; E11.42 Type 2 diabetes mellitus with diabetic polyneuropathy; Z94.0 Kidney transplant status; Z94.83 Pancreas transplant status; R01.1 Cardiac murmur, unspecified; E11.319 Type 2 diabetes mellitus with unspecified diabetic retinopathy without macular edema; L40.9 Psoriasis, unspecified; Z85.828 Personal history of other malignant neoplasm of skin; M86.8X7 Other osteomyelitis, ankle and foot; M26.609 Unspecified temporomandibular joint disorder, unspecified side; M10.9 Gout, unspecified; M85.89 Other specified disorders of bone density and structure, multiple sites; Z87.898 Personal history of other specified conditions; Z95.5 Presence of coronary angioplasty implant and graft; Z98.42 Cataract extraction status, left eye; Z98.41 Cataract extraction status, right eye; Z98.890 Other specified postprocedural states; E89.2 Postprocedural hypoparathyroidism; Z89.212 Acquired absence of left upper limb below elbow; Z82.3 Family history of stroke; Z82.49 Family history of ischemic heart disease and other diseases of the circulatory system; Z82.61 Family history of arthritis; Z79.02 Long term (current) use of antithrombotics/antiplatelets; Z79.82 Long term (current) use of aspirin; Z79.52 Long term (current) use of systemic steroids; Z79.899 Other long term (current) drug therapy; Z91.048 Other nonmedicinal substance allergy status
CPT/HCPCS: 43235; J2001; J2704

== ENCOUNTER 2020-07-12 09:44 | Inpatient (IN) | payer MEDICARE, BC ==
[2020-07-12] MEDS ORDERED: ONDANSETRON 4 MG/2 ML VIAL IVP STA (10:05)
[2020-07-12] MEDS ORDERED: SODIUM CHLORIDE 0.9% 1,000 ML IV STA (10:05)
[2020-07-12] MEDS ORDERED: SODIUM CHLORIDE 0.9% 500 ML 500 ML IV STA (10:05)
--- NOTE | 2020-07-12 10:09 | ED ---
SOB HPI - General Chief Complaint: Shortness of Breath Stated Complaint: Cough,RICHARDSON Time Seen by Provider: 07/12/20 09:54 Source: patient, RN notes reviewed Mode of arrival: ambulatory Limitations: no limitations - History of Present Illness Initial Comments: This is a 60-year-old male with a history of a pancreas and kidney transplant who presents with complaints of the onset yesterday but worse today shortness of breath cough dry heaves with nausea and rhinorrhea. No known exposure to Covid 19 or other infectious diseases no other recent problems. MD Complaint: shortness of breath, cough - Related Data Home Medications Medication Instructions Recorded Confirmed Cholecalciferol [Vitamin D3 (25 5,000 unit PO BID@0800,199905/21/14 07/12/20 Mcg = 1000 Iu)] allopurinoL [Zyloprim] 300 mg PO HS 05/21/14 07/12/20 Magnesium Oxide [Mag-Ox] 400 mg PO HS 08/01/14 07/12/20 Multivitamin/Iron/Folic Acid 1 tab PO HS 08/01/14 07/12/20 [Centrum Complete Multivit Tab] carvediloL [Coreg] 6.25 mg PO BID@0800,199904/02/15 07/12/20 Omeprazole [PriLOSEC] 20 mg PO HS 05/18/15 07/12/20 Aspirin 81 mg PO HS 11/08/16 07/12/20 Ascorbic Acid [Vitamin C] 1,000 mg PO DAILY@0800 06/19/19 07/12/20 Halobetasol Propionate [Ultravate] 1 applic TOPICAL DAILY PRN 06/19/19 07/12/20 amLODIPine [Norvasc] 10 mg PO QAM 06/19/19 07/12/20 Calcium Carbonate [Calcium] 600 mg PO BID 08/06/19 07/12/20 Cinnamon Bark [Cinnamon] 2,000 mg PO HS 08/06/19 07/12/20 Ferrous Sulfate [Iron (65 MG 325 mg PO HS 08/06/19 07/12/20 Elemental)] Losartan [Cozaar] 50 mg PO HS 08/06/19 07/12/20 Potassium Chloride [Klor-Con 20] 40 meq PO BID-W/MEALS 08/06/19 07/12/20 Sodium Bicarbonate Tab 650 mg PO BID 08/06/19 07/12/20 Albuterol Inhaler [Ventolin Hfa 1 - 2 puff INHALATION RT-Q6H PRN 04/02/20 07/12/20 Inhaler] Calcium Carbonate [Tums] 500 - 1,000 mg PO QID PRN 06/01/20 07/12/20 Clopidogrel [Plavix] 75 mg PO HS 06/01/20 07/12/[address] [Myfortic] 180 mg PO BID 06/01/20 07/12/20 Brimonidine Tartrate [Alphagan P 1 drops BOTH EYES DAILY 07/12/20 07/12/20 0.2% Ophth Soln] Latanoprost [Xalatan 0.005%] 1 drop BOTH EYES HS 07/12/20 07/12/20 Tacrolimus [Prograf] 1 mg PO Q12H 07/12/20 07/12/20 predniSONE 10 mg PO DAILY 07/12/20 07/12/20 Previous Rx's Medication Instructions Recorded Atorvastatin Calcium [Lipitor] 40 mg PO HS #90 tablet 05/18/20 Allergies Allergy/AdvReac Type Severity Reaction Status Date / Time iodine AdvReac kidney and Verified 07/12/20 11:34 pancreas transplant concerns Review of Systems ROS Statement: Those systems with pertinent positive or pertinent negative responses have been documented in the HPI. ROS Other: All systems not noted in ROS Statement are negative. Past Medical History Past Medical History: Cancer, Deep Vein Thrombosis (DVT), Hypertension, Pneumonia Additional Past Medical History / Comment(s): Charcot rt foot , hx DM- pancreas/kidney transplant, murmur, DVT L leg, poor circulation, bilat feet/hand neuropathy, diabetic retinopathy, psoriasis, hx wound rt ankle, R heel, R dosal foot healed; hx squamous skin cancer 10/2018 small area of osteomylitis R foot, hx end stage renal disease w/ hemodialysis x3 yrs then had kidneys/pancreas transplant In 2008 at [facility], TMJ, gout, osteopenia, multiple malignant cutanous lesions with removals. History of Any Multi-Drug Resistant Organisms: None Reported Date of last positivie culture/infection: ?5 yrs ago MDRO Source:: stool Past Surgical History: Heart Catheterization, Heart Catheterization With Stent, Orthopedic Surgery Additional Past Surgical History / Comment(s): kidney & pancreas transplant 2008, cataracts removed, bilateral eye vitrectomy, bilateral eye RK, surgery to reconnect rt achilles tendon with dehisence and then several debridements of wound to R ankle and R heel, skin lesion removal-basal and squamous cell cancer, A/V fistula L upper arm removed , parathyroidectomy, R wrist fx with surgery. Squamous cell carcinoma removed 09/2016, 01/2018, 11/2018. 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 c. cath 05/18/20 stent in LAD & Diag on 06/03/2020 Past Anesthesia/Blood Transfusion Reactions: No Reported Reaction Additional Past Anesthesia/Blood Transfusion Reaction / Comment(s): Pt states he has received blood in the past without reaction. Date of Last Stent Placement:: 06/03/2020 Past Psychological History: No Psychological Hx Reported Smoking Status: Never smoker Past Alcohol Use History: Occasional Past Drug Use History: None Reported - Past Family History Father Family Medical History: CVA/TIA, Vascular Disorder Additional Family Medical History / Comment(s): blood clot left arm Mother Family Medical History: Osteoarthritis (OA) Additional Family Medical History / Comment(s): Mother isalive General Exam - General Exam Comments Initial Comments: This is a well-developed well-nourished alert and awake oriented times female Limitations: no limitations General appearance: alert, in no apparent distress Head exam: Present: atraumatic, normocephalic, normal inspection Eye exam: Present: normal appearance, PERRL, EOMI. Absent: scleral icterus, conjunctival injection, periorbital swelling ENT exam: Present: mucous membranes moist, other (Rhinorrhea clear) Neck exam: Present: normal inspection. Absent: tenderness, meningismus, l ymphadenopathy Respiratory exam: Present: normal lung sounds bilaterally. Absent: respiratory distress, wheezes, rales, rhonchi, stridor Cardiovascular Exam: Present: regular rate, normal rhythm, normal heart sounds. Absent: systolic murmur, diastolic murmur, rubs, gallop, clicks GI/Abdominal exam: Present: soft, normal bowel sounds. Absent: distended, tenderness, guarding, rebound, rigid Extremities exam: Present: normal inspection, full ROM, normal capillary refill. Absent: tenderness, pedal edema, joint swelling, calf tenderness Back exam: Present: normal inspection Neurological exam: Present: alert, oriented X3, CN II-XII intact Psychiatric exam: Present: normal affect, normal mood Skin exam: Present: warm, dry, intact, normal color. Absent: rash Course Vital Signs 07/12/20 07/12/20 07/12/20 09:47 10:32 12:36 Temperature 100.4 F H 99.3 F Pulse Rate 97 93 Respiratory 18 18 19 Rate Blood Pressure 165/89 143/56 O2 Sat by Pulse 95 96 Oximetry Medical Decision Making - Medical Decision Making I did discuss findings with the patient he does have a mildly elevated troponin shortness of breath with fever he is Covid 19 positive. Hypomagnesemic. Patien t will be admitted I did discuss the case with Dr. López - Lab Data Result diagrams: 07/12/20 10:09 07/12/20 10:09 Lab Results 07/12/20 07/12/20 07/12/20 Range/Units 10:09 10:09 10:09 WBC 8.7 (3.8-10.6) k/uL RBC 4.62 (4.30-5.90) m/uL Hgb 14.8 (13.0-17.5) gm/dL Hct 45.1 (39.0-53.0) % MCV 97.6 D (80.0-100.0) fL MCH 32.0 (25.0-35.0) pg MCHC 32.8 (31.0-37.0) g/dL RDW 14.7 (11.5-15.5) % Plt Count 204 (150-450) k/uL MPV 7.1 Neutrophils % 83 % Lymphocytes % 3 % Monocytes % 9 % Eosinophils % 2 % Basophils % 0 % Neutrophils # 7.2 (1.3-7.7) k/uL Lymphocytes # 0.3 L (1.0-4.8) k/uL Monocytes # 0.8 (0-1.0) k/uL Eosinophils # 0.1 (0-0.7) k/uL Basophils # 0.0 (0-0.2) k/uL PT 12.3 H (9.0-12.0) sec INR 1.2 H (<1.2) APTT 27.8 (22.0-30.0) sec D-Dimer 1.21 H (<0.60) mg/L FEU Sodium 135 L (137-145) mmol/L Potassium 4.5 (3.5-5.1) mmol/L Chloride 105 (98-107) mmol/L Carbon Dioxide 21 L (22-30) mmol/L Anion Gap 9 mmol/L BUN 25 H (9-20) mg/dL Creatinine 1.18 (0.66-1.25) mg/dL Est GFR (CKD-EPI)AfAm 77 (>60 ml/min/1.73 sqM) Est GFR (CKD-EPI)NonAf 66 (>60 ml/min/1.73 sqM) Glucose 112 H (74-99) mg/dL Plasma Lactic Acid Hector (0.7-2.0) mmol/L Calcium 9.5 (8.4-10.2) mg/dL Magnesium 1.5 L (1.6-2.3) mg/dL Total Bilirubin 0.8 (0.2-1.3) mg/dL AST 39 (17-59) U/L ALT 21 (4-49) U/L Alkaline Phosphatase 66 (38-126) U/L Lactate Dehydrogenase 546 (313-618) U/L Creatine Kinase 604 H (55-170) U/L Troponin I (0.000-0.034) ng/mL C-Reactive Protein 54.0 H (<10.0) mg/L NT-Pro-B Natriuret Pep pg/mL Total Protein 6.8 (6.3-8.2) g/dL Albumin 4.0 (3.5-5.0) g/dL Lipase 91 (23-300) U/L Influenza Type A (PCR) (Not Detectd) Influenza Type B (PCR) (Not Detectd) RSV (PCR) (Not Detectd) SARS-CoV-2 (PCR) (Not Detectd) 07/12/20 07/12/20 07/12/20 Range/Units 10:09 10:09 10:09 WBC (3.8-10.6) k/uL RBC (4.30-5.90) m/uL Hgb (13.0-17.5) gm/dL Hct (39.0-53.0) % MCV (80.0-100.0) fL MCH (25.0-35.0) pg MCHC (31.0-37.0) g/dL RDW (11.5-15.5) % Plt Count (150-450) k/uL MPV Neutrophils % % Lymphocytes % % Monocytes % % Eosinophils % % Basophils % % Neutrophils # (1.3-7.7) k/uL Lymphocytes # (1.0-4.8) k/uL Monocytes # (0-1.0) k/uL Eosinophils # (0-0.7) k/uL Basophils # (0-0.2) k/uL PT (9.0-12.0) sec INR (<1.2) APTT (22.0-30.0) sec D-Dimer (<0.60) mg/L FEU Sodium (137-145) mmol/L Potassium (3.5-5.1) mmol/L Chloride (98-107) mmol/L Carbon Dioxide (22-30) mmol/L Anion Gap mmol/L BUN (9-20) mg/dL Creatinine (0.66-1.25) mg/dL Est GFR (CKD-EPI)AfAm (>60 ml/min/1.73 sqM) Est GFR (CKD-EPI)NonAf (>60 ml/min/1.73 sqM) Glucose (74-99) mg/dL Plasma Lactic Acid Hector 0.9 (0.7-2.0) mmol/L Calcium (8.4-10.2) mg/dL Magnesium (1.6-2.3) mg/dL Total Bilirubin (0.2-1.3) mg/dL AST (17-59) U/L ALT (4-49) U/L Alkaline Phosphatase (38-126) U/L Lactate Dehydrogenase (313-618) U/L Creatine Kinase (55-170) U/L Troponin I 0.041 H* (0.000-0.034) ng/mL C-Reactive Protein (<10.0) mg/L NT-Pro-B Natriuret Pep 2890 pg/mL Total Protein (6.3-8.2) g/dL Albumin (3.5-5.0) g/dL Lipase (23-300) U/L Influenza Type A (PCR) (Not Detectd) Influenza Type B (PCR) (Not Detectd) RSV (PCR) (Not Detectd) SARS-CoV-2 (PCR) (Not Detectd) 07/12/20 Range/Units 10:09 WBC (3.8-10.6) k/uL RBC (4.30-5.90) m/uL Hgb (13.0-17.5) gm/dL Hct (39.0-53.0) % MCV (80.0-100.0) fL MCH (25.0-35.0) pg MCHC (31.0-37.0) g/dL RDW (11.5-15.5) % Plt Count (150-450) k/uL MPV Neutrophils % % Lymphocytes % % Monocytes % % Eosinophils % % Basophils % % Neutrophils # (1.3-7.7) k/uL Lymphocytes # (1.0-4.8) k/uL Monocytes # (0-1.0) k/uL Eosinophils # (0-0.7) k/uL Basophils # (0-0.2) k/uL PT (9.0-12.0) sec INR (<1.2) APTT (22.0-30.0) sec D-Dimer (<0.60) mg/L FEU Sodium (137-145) mmol/L Potassium (3.5-5.1) mmol/L Chloride (98-107) mmol/L Carbon Dioxide (22-30) mmol/L Anion Gap mmol/L BUN (9-20) mg/dL Creatinine (0.66-1.25) mg/dL Est GFR (CKD-EPI)AfAm (>60 ml/min/1.73 sqM) Est GFR (CKD-EPI)NonAf (>60 ml/min/1.73 sqM) Glucose (74-99) mg/dL Plasma Lactic Acid Hector (0.7-2.0) mmol/L Calcium (8.4-10.2) mg/dL Magnesium (1.6-2.3) mg/dL Total Bilirubin (0.2-1.3) mg/dL AST (17-59) U/L ALT (4-49) U/L Alkaline Phosphatase (38-126) U/L Lactate Dehydrogenase (313-618) U/L Creatine Kinase (55-170) U/L Troponin I (0.000-0.034) ng/mL C-Reactive Protein (<10.0) mg/L NT-Pro-B Natriuret Pep pg/mL Total Protein (6.3-8.2) g/dL Albumin (3.5-5.0) g/dL Lipase (23-300) U/L Influenza Type A (PCR) Not Detected (Not Detectd) Influenza Type B (PCR) Not Detected (Not Detectd) RSV (PCR) Not Detected (Not Detectd) SARS-CoV-2 (PCR) Detected A (Not Detectd) - EKG Data -: EKG Interpreted by In EKG shows normal: sinus rhythm (Sinus rhythm a 91 appear interval 154 QRS 92 QT since QTC 366/450 with exodeviation LVH nonspecific ST configuration) - Radiology Data Radiology results: report reviewed (Imaging revealed no evidence of acute findings.), image reviewed Disposition Clinical Impression: COVID-19, Elevated troponin, Fever, Hypomagnesemia Disposition: ADMITTED IP TO THIS HOSP Condition: Fair Referrals: Greg Lu MD [Primary Care Provider] - 1-2 days
[2020-07-12 10:36] LABS: Basophils % (A) 0 %; Calcium 9.5 mg/dL (8.4-10.2); Eosinophils # (A) 0.1 k/uL (0-0.7); Eosinophils % (A) 2 %; HCT 45.1 % (39.0-53.0); HGB 14.8 gm/dL (13.0-17.5); Lymphocytes # (A) 0.3 k/uL (1.0-4.8); Lymphocytes % (A) 3 %; MCHC 32.8 g/dL (31.0-37.0); Magnesium 1.5 mg/dL (1.6-2.3); Mean Platelet Volume 7.1; Monocytes # (A) 0.8 k/uL (0-1.0); Monocytes % (A) 9 %; Neutrophils # (A) 7.2 k/uL (1.3-7.7); Neutrophils % (A) 83 %; Platelet Count 204 k/uL (150-450); Potassium 4.5 mmol/L (3.5-5.1); RBC 4.62 m/uL (4.30-5.90); RDW 14.7 % (11.5-15.5); Total Bilirubin 0.8 mg/dL (0.2-1.3); Total Protein 6.8 g/dL (6.3-8.2); WBC 8.7 k/uL (3.8-10.6)
--- NOTE | 2020-07-12 10:37 | XR ---
EXAMINATION TYPE: XR chest 1V portable DATE OF EXAM: 07/12/2020 COMPARISON: 04/06/2020 INDICATION: Suspected Covid 19 TECHNIQUE: Single frontal view of the chest is obtained. FINDINGS: The heart size is upper limits of normal. The pulmonary vasculature is normal. The lungs are clear. IMPRESSION: 1. No acute pulmonary process.
[2020-07-12 10:40] LABS: MCV 97.6 fL (80.0-100.0)
[2020-07-12 10:52] LABS: INR 1.2 (<1.2); Partial Thromboplastin Time 27.8 sec (22.0-30.0); Prothrombin Time 12.3 sec (9.0-12.0)
[2020-07-12 10:58] LABS: D-Dimer 1.21 mg/L FEU (<0.60)
[2020-07-12] MEDS ORDERED: NITROGLYCERIN SL TABS 0.4 MG TAB SUBLINGUAL PRN (14:22)
[2020-07-12] MEDS ORDERED: HEPARIN SODIUM,PORCINE 5,000 UNIT/ML 1 ML VIAL IV ONE (14:22)
[2020-07-12] MEDS ORDERED: CALCIUM CARBONATE 500 MG CHEWABLE PO PRN (14:24)
[2020-07-12] MEDS ORDERED: CLOBETASOL PROP 0.05% CR 15GM TOPICAL PRN (14:24)
[2020-07-12] MEDS: HEPARIN SOD,PORK IN 0.45% NACL 25,000 UNIT in 0.45% NACL 1 250ML.BAG IV SCH (14:52)
[2020-07-12] MEDS ORDERED: TACROLIMUS 1 MG CAP PO SCH (15:00)
[2020-07-12 16:42] LABS: Ferritin 190.4 ng/mL (22.0-322.0)
[2020-07-12] MEDS: POTASSIUM CHLORIDE ER 20 MEQ TAB.ER PO SCH (17:41)
[2020-07-12] MEDS: LATANOPROST 0.005% OPHTH DROPS 2.5 ML BTL BOTH EYES SCH (20:09)
[2020-07-12] MEDS: CALCIUM CARBONATE 500 MG CHEWABLE PO SCH (20:10)
[2020-07-12] MEDS: MYCOPHENOLATE SODIUM DR 180 MG TABLET.DR PO SCH (20:10)
[2020-07-12] MEDS: MAGNESIUM OXIDE 400 MG TAB PO SCH (20:10)
[2020-07-12] MEDS: carvediloL 6.25 MG TAB PO SCH (20:10)
[2020-07-12] MEDS: TACROLIMUS 1 MG CAP PO SCH (20:11)
[2020-07-12] MEDS: SODIUM BICARBONATE TAB 650 MG TAB PO SCH (20:11)
[2020-07-12] MEDS: allopurinoL 300 MG TAB PO SCH (20:11)
[2020-07-12] MEDS: ASPIRIN 81 MG PO SCH (20:11)
[2020-07-12] MEDS: CLOPIDOGREL 75 MG TAB PO SCH (20:11)
[2020-07-12] MEDS: MULTIVITAMINS, THERA 1 EACH TAB PO SCH (20:11)
[2020-07-12] MEDS: PANTOPRAZOLE 40 MG TABLET PO SCH (20:11)
[2020-07-12] MEDS: ATORVASTATIN 40 MG TAB PO SCH (20:11)
[2020-07-12] MEDS: FERROUS SULFATE 325 MG TAB PO SCH (20:11)
[2020-07-12] MEDS: CHOLECALCIFEROL 1,000 UNIT TAB PO SCH (20:11)
[2020-07-12] MEDS: LOSARTAN 50 MG TAB PO SCH (20:11)
[2020-07-12] MEDS ORDERED: NON FORMULARY DRUG (Cinnamon Bark [Cinnamon] 500 MG Capsule) PO SCH (21:00)
[2020-07-13 04:01] VITALS: RESP 18
[2020-07-13 06:00] LABS: Cholesterol 108 mg/dL (<200); HDL Cholesterol 46 mg/dL (40-60); LDL Cholesterol,Calculated 50 mg/dL (0-99); Triglycerides 60 mg/dL (<150)
[2020-07-13] MEDS: POTASSIUM CHLORIDE ER 20 MEQ TAB.ER PO SCH ×2 (06:37→17:30)
[2020-07-13] MEDS ORDERED: ASCORBIC ACID 500 MG TAB PO SCH (08:00)
[2020-07-13] MEDS ORDERED: CHOLECALCIFEROL 400 UNIT TAB PO SCH (09:00)
[2020-07-13] MEDS ORDERED: ASPIRIN 325 MG TAB PO SCH (09:00)
[2020-07-13] MEDS: SODIUM BICARBONATE TAB 650 MG TAB PO SCH ×2 (09:20→20:42)
[2020-07-13] MEDS: CHOLECALCIFEROL 1,000 UNIT TAB PO SCH ×2 (09:20→20:41)
[2020-07-13] MEDS: BRIMONIDINE TARTRATE 0.2% DROPS 5 ML BTL BOTH EYES SCH (09:21)
[2020-07-13] MEDS: MYCOPHENOLATE SODIUM DR 180 MG TABLET.DR PO SCH ×2 (09:21→20:41)
[2020-07-13] MEDS: CALCIUM CARBONATE 500 MG CHEWABLE PO SCH ×2 (09:21→20:42)
[2020-07-13] MEDS: ASCORBIC ACID 500 MG TAB PO SCH (09:21)
[2020-07-13] MEDS: TACROLIMUS 1 MG CAP PO SCH ×2 (09:21→20:41)
[2020-07-13] MEDS: ZINC SULFATE 220 MG CAP PO SCH (09:21)
[2020-07-13] MEDS: predniSONE 10 MG TAB PO SCH (09:21)
[2020-07-13] MEDS: carvediloL 6.25 MG TAB PO SCH ×2 (09:21→20:41)
[2020-07-13] MEDS: amLODIPine 10 MG TAB PO SCH (09:21)
[2020-07-13] MEDS: ALBUTEROL HFA INHALER INHALATION PRN (11:03)
--- NOTE | 2020-07-13 12:26 | P.HPIM ---
History of Present Illness H&P Date: 07/13/20 HISTORY OF PRESENT ILLNESS This is a 60-year-old male patient of Dr. Lu with a previous medical history significant for hypertension and hypertensive cardiovascular disease with left ventricular hypertrophy, history of DVT of the left lower extremity, history of the end-stage renal disease was on hemodialysis post kidney and pancreas transplant in 2008 at the [facility], chronic gout, Charcot foot, diabetes mellitus type 2, COPD, treated for right foot abscess with osteomyelitis in the fifth metatarsal, squamous cell skin cancer status post above elbow amputation. Patient underwent a heart catheterization with Dr. CORY Church in August of this year which time he was found to have an LAD lesion 50%, diagonal lesion 70% with plan to further evaluated LAD lesion by FFR. 05/18/2020, Dr. CORY Church performed PTCA of the chronic total occlusion of the distal circumflex marginal branch. FFR assessment was done of the mid LAD which was normal. 06/03/2020, patient underwent PTCA and stenting of the diagonal branch and mid LAD with Dr. CORY Church. SPENCER performed on 06/24/2020 revealed severe aortic stenosis, severe aortic regurgitation. His most recent hospitalization was in March which time he was treated for sepsis secondary to right-sided pneumonia. Patient complains of cough and in general not feeling well. He has shortness of breath with exertion. He denies having any fever or chills. He denies any recent exposure to anyone with Covid. Patient denies having chest pain. He has had some nausea, dry heaves and runny nose. Patient came into [facility] emergency center for evaluation. Temperature max 100.4, heart rate 97, blood pressure 165/89, pulse ox 95% on room air. Chest x-ray reveals no acute pulmonary process. CBC unremarkable except for lymphocytes of 0.3. Sodium 135, potassium 4.5, chloride 105, CO2 21, BUN 25 creatinine 1.18. Blood sugar 112. Magnesium 1.5, CK 604. C-reactive protein 54. Liver function tests normal. Lactic acid 0.9. Troponin 0.041, 0.055, 0.059. ProBNP 2890. Influenza A and B not detected. RSV not detected. COVID-19 detected. EKG is sinus rhythm with LVH. Patient was started on heparin drip and admitted to the cardiac stepdown unit. REVIEW OF SYSTEMS Constitutional: Denies fever, denies chills. No weight change. Reports w eakness, reports fatigue. EENT: No headache. No blurred vision or double vision, no loss of vision. No loss of Hearing, no ringing in the ears, no dizziness. Reports nasal drainage or congestion. No epistaxis. No sore throat. Lungs: Reports shortness of breath with exertion, Reports cough, denies sputum production. Denies hemoptysis. Denies wheezing. Cardiovascular: No chest pain, chronic lower extremity edema. No palpitations. No paroxysmal nocturnal dyspnea. No orthopnea. No lightheadedness or dizziness. No syncopal episodes. Abdominal: Denies abdominal discomfort. Reports nausea, vomiting. Denies diarrhea. No constipation. No bloody or tarry stools Genitourinary: No dysuria, increased frequency, urgency. No urinary retention. Musculoskeletal: No myalgias. Reports muscle weakness, no gait dysfunction, no frequent falls. No back pain. No neck pain. Integumentary: No wounds, no lesions. No rash or pruritus. No unusual bruising. No change in hair or nails. Neurologic: No aphasia. No facial droop. No change in mentation. No head injury. No headache. No paralysis. No paresthesia. Psychiatric: No depression. No anxiety. No mood swings. Endocrine: No abnormal blood sugars. No weight change. No excessive sweating or thirst. No cold intolerance. SOCIAL HISTORY Patient is a lifelong nonsmoker. No marijuana or illicit drug use. No alcohol use. He lives at home with his and daughter. Patient is independent and drives. FAMILY HISTORY Mother is alive at age 80 with history of TIA and need for valve replacement. Father at age 84 with history of CVA 2. Patient has 2 brothers and one has osteoarthritis. He does not have any sisters or children. PHYSICAL EXAMINATION Gen: This is a 1-year-old male patient resting in bed. He appears to be in no acute respiratory distress. HEENT: Head is atraumatic, normocephalic. Pupils equal, round. Sclerae is anicteric. NECK: Supple. No JVD. No lymphadenopathy. No thyromegaly. LUNGS: Diminished bilaterally. No wheezing. No intercostal retractions. HEART: Regular rate and rhythm. 3/6 systolic murmur at the fifth intercostal space. ABDOMEN: Soft. Bowel sounds are present. No masses. No tenderness. EXTREMITIES: trace bilat edema. No calf tenderness. Left above the elbow amputation. NEUROLOGICAL: Patient is awake, alert and oriented x3. Cranial nerves 2 through 12 are grossly intact. ASSESSMENT AND PLAN 1. Covid 19 infection. Consult with pulmonary medicine and infectious disease. Continue vitamin C, vitamin D, zinc, currently on heparin drip, continue prednisone 10 mg daily for now. 2. Elevated troponins. Cardiology consult. Patient currently on heparin drip. 3. Hypertension and hypertensive cardio vascular disease. Continue carvedilol 6.25 mg orally twice every day, amlodipine 10 mg orally once every day. Losartan 50 mg orally once every day. 4. History of kidney and pancreas transplant back in 2008 at the [facility]. Continue patient on Prograf, prednisone, CellCept. 5. Gout, chronic. Continue allopurinol 300 mg orally once every day. 6. Chronic diastolic heart failure. Echocardiogram from July 2019 reveals severe concentric left hypertrophy, EF 55-60%, severe aortic stenosis, severe mitral calcification, mild mitral regurgitation, mild tricuspid regurgitation. 7. Coronary disease status post multiple stenting. Consult with cardiology. Continue aspirin 81 mg daily, statin, Coreg. Continue Plavix 75 mg at bedtime. 8. History of diabetes mellitus type 2 post pancreatic transplant. 9. History of end-stage renal disease post kidney transplant. 10. Hyperlipidemia. Continue patient on Pravachol 40 mg orally once every day. 11. 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 12. History of DVT. Continue with heparin for now. 13. GERD. Protonix 4o mg IV push twice daily. 14. History of diabetic polyneuropathy. Stable. Continue gabapentin 100 mg at bedtime and daily as needed. 15. History of diabetic retinopathy. Stable. 16. History of psoriasis. Stable. 17. History of right foot abscess with osteomyelitis in the fifth metatarsal, status post bedside I&D and outpatient IV antibiotics, healed. 18. DVT prophylaxis. Continue patient on heparin. 19. GI prophylaxis. Continue PPI. Admit to inpatient. Estimate length of stay 2 midnights. CODE STATUS: full code. Discharge plan: Return home. Impression and plan of care have been directed as dictated by the signing physician. Lora Perez nurse practitioner acting as scribe for signing physician. Past Medical History Past Medical History: Cancer, Deep Vein Thrombosis (DVT), Hyperlipidemia, Hypertension, Pneumonia, Renal Disease, Skin Disorder, Thyroid Disorder Additional Past Medical History / Comment(s): Charcot rt foot , hx DM-mota creas/kidney transplant, murmur, DVT L leg, poor circulation, bilat feet/hand neuropathy, diabetic retinopathy, psoriasis, hx wound rt ankle, R heel, R dosal foot healed; hx squamous skin cancer 10/2018 small area of osteomylitis R foot, hx end stage renal disease w/ hemodialysis x3 yrs then had kidneys/pancreas transplant In 2008 at [facility], TMJ, gout, osteopenia, multiple malignant cutanous lesions with removals. History of Any Multi-Drug Resistant Organisms: None Reported Date of last positivie culture/infection: ?5 yrs ago MDRO Source:: stool Past Surgical History: Heart Catheterization, Heart Catheterization With Stent, Orthopedic Surgery Additional Past Surgical History / Comment(s): kidney & pancreas transplant 2008, cataracts removed, bilateral eye vitrectomy, bilateral eye RK, surgery to reconnect rt achilles tendon with dehisence and then several debridements of wound to R ankle and R heel, skin lesion removal-basal and squamous cell cancer, A/V fistula L upper arm removed , parathyroidectomy, R wrist fx with surgery. Squamous cell carcinoma removed 09/2016, 01/2018, 11/2018. 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 c. cath 05/18/20 stent in LAD & Diag on 06/03/2020 Past Anesthesia/Blood Transfusion Reactions: No Reported Reaction Additional Past Anesthesia/Blood Transfusion Reaction / Comment(s): Pt states he has received blood in the past without reaction. Date of Last Stent Placement:: 06/03/2020 Past Psychological History: No Psychological Hx Reported Additional Psychological History / Comment(s): Pt resides at home with his spouse. He no longer drives d/t vision but spouse drives. He is otherwise, independent. Smoking Status: Never smoker Past Alcohol Use History: Occasional Additional Past Alcohol Use History / Comment(s): Patient is a lifelong nonsmoker. No marijuana or illicit drug use. No alcohol use. Patient lives at home with his and dog. Past Drug Use History: None Reported - Past Family History Father Family Medical History: CVA/TIA, Vascular Disorder Additional Family Medical History / Comment(s): blood clot left arm Mother Family Medical History: Osteoarthritis (OA) Additional Family Medical History / Comment(s): Mother isalive Medications and Allergies Home Medications Medication Instructions Recorded Confirmed Type Cholecalciferol [Vitamin D3 (25 5,000 unit PO BID@08,199905/21/14 07/12/20 History Mcg = 1000 Iu)] allopurinoL [Zyloprim] 300 mg PO HS 05/21/14 07/12/20 History Magnesium Oxide [Mag-Ox] 400 mg PO HS 08/01/14 07/12/20 History Multivitamin/Iron/Folic Acid 1 tab PO HS 08/01/14 07/12/20 History [Centrum Complete Multivit Tab] carvediloL [Coreg] 6.25 mg PO BID@08,199904/02/15 07/12/20 History Omeprazole [PriLOSEC] 20 mg PO HS 05/18/15 07/12/20 History Aspirin 81 mg PO HS 11/08/16 07/12/20 History Ascorbic Acid [Vitamin C] 1,000 mg PO DAILY@0800 06/19/19 07/12/20 History Halobetasol Propionate [Ultravate] 1 applic TOPICAL DAILY PRN 06/19/19 07/12/20 History amLODIPine [Norvasc] 10 mg PO QAM 06/19/19 07/12/20 History Calcium Carbonate [Calcium] 600 mg PO BID 08/06/19 07/12/20 History Cinnamon Bark [Cinnamon] 2,000 mg PO HS 08/06/19 07/12/20 History Ferrous Sulfate [Iron (65 MG 325 mg PO HS 08/06/19 07/12/20 History Elemental)] Losartan [Cozaar] 50 mg PO HS 08/06/19 07/12/20 History Potassium Chloride [Klor-Con 20] 40 meq PO BID-W/MEALS 08/06/19 07/12/20 History Sodium Bicarbonate Tab 650 mg PO BID 08/06/19 07/12/20 History Albuterol Inhaler [Ventolin Hfa 1 - 2 puff INHALATION RT-Q6H PRN 04/02/20 07/12/20 History Inhaler] Atorvastatin Calcium [Lipitor] 40 mg PO HS #90 tablet 05/18/20 07/12/20 Rx Calcium Carbonate [Tums] 500 - 1,000 mg PO QID PRN 06/01/20 07/12/20 History Clopidogrel [Plavix] 75 mg PO HS 06/01/20 07/12/[address] [Myfortic] 180 mg PO BID 06/01/20 07/12/20 History Brimonidine Tartrate [Alphagan P 1 drops BOTH EYES DAILY 07/12/20 07/12/20 History 0.2% Ophth Soln] Latanoprost [Xalatan 0.005%] 1 drop BOTH EYES HS 07/12/20 07/12/20 History Tacrolimus [Prograf] 1 mg PO Q12H 07/12/20 07/12/20 History predniSONE 10 mg PO DAILY 07/12/20 07/12/20 History Allergies Allergy/AdvReac Type Severity Reaction Status Date / Time iodine AdvReac kidney and Verified 07/12/20 11:34 pancreas transplant concerns Physical Exam Vitals: Vital Signs Temp Pulse Pulse Resp BP BP Pulse Ox 07/13/20 04:00 98.4 F 64 18 150/73 96 07/13/20 02:00 65 20 07/12/20 23:43 65 20 122/56 94 L 07/12/20 20:00 98.5 F 79 18 160/66 95 07/12/20 15:44 98.8 F 91 16 131/76 90 L 07/12/20 14:54 93 18 146/66 96 07/12/20 12:36 99.3 F 93 19 143/56 96 07/12/20 10:32 18 07/12/20 09:47 100.4 F H 97 18 165/89 95 Intake and Output 07/12/20 07/13/20 07/13/20 22:59 06:59 14:59 Intake Total 305.667 63.707 Balance 305.667 63.707 Intake: Intake, IV Titration 65.667 63.707 Amount Heparin Sod,Pork in 0.45% 65.667 63.707 NaCl 25,000 unit In 0.45 % NaCl 1 250ml.bag @ 11. 023 UNITS/KG/HR 10 mls/hr IV .Q24H JESS Rx#: [id number] Oral 240 Other: Voiding Method Toilet Toilet # Voids 1 2 Weight 90.718 kg 93.5 kg Results CBC & Chem 7: 07/12/20 10:09 07/12/20 10:09 Labs: Abnormal Lab Results - Last 24 Hours (Table) 07/12/20 07/12/20 07/12/20 Range/Units 10:09 10:09 10:09 Lymphocytes # 0.3 L (1.0-4.8) k/uL PT 12.3 H (9.0-12.0) sec INR 1.2 H (<1.2) APTT (22.0-30.0) sec D-Dimer 1.21 H (<0.60) mg/L FEU Sodium 135 L (137-145) mmol/L Carbon Dioxide 21 L (22-30) mmol/L BUN 25 H (9-20) mg/dL Glucose 112 H (74-99) mg/dL Magnesium 1.5 L (1.6-2.3) mg/dL Creatine Kinase 604 H (55-170) U/L Troponin I (0.000-0.034) ng/mL C-Reactive Protein 54.0 H (<10.0) mg/L Procalcitonin (0.02-0.09) ng/mL SARS-CoV-2 (PCR) (Not Detectd) 07/12/20 07/12/20 07/12/20 Range/Units 10:09 10:09 10:09 Lymphocytes # (1.0-4.8) k/uL PT (9.0-12.0) sec INR (<1.2) APTT (22.0-30.0) sec D-Dimer (<0.60) mg/L FEU Sodium (137-145) mmol/L Carbon Dioxide (22-30) mmol/L BUN (9-20) mg/dL Glucose (74-99) mg/dL Magnesium (1.6-2.3) mg/dL Creatine Kinase (55-170) U/L Troponin I 0.041 H* (0.000-0.034) ng/mL C-Reactive Protein (<10.0) mg/L Procalcitonin 0.14 H (0.02-0.09) ng/mL SARS-CoV-2 (PCR) Detected A (Not Detectd) 07/12/20 07/12/20 07/12/20 Range/Units 14:45 17:15 20:40 Lymphocytes # (1.0-4.8) k/uL PT (9.0-12.0) sec INR (<1.2) APTT 82.8 H (22.0-30.0) sec D-Dimer (<0.60) mg/L FEU Sodium (137-145) mmol/L Carbon Dioxide (22-30) mmol/L BUN (9-20) mg/dL Glucose (74-99) mg/dL Magnesium (1.6-2.3) mg/dL Creatine Kinase (55-170) U/L Troponin I 0.055 H* 0.059 H* (0.000-0.034) ng/mL C-Reactive Protein (<10.0) mg/L Procalcitonin (0.02-0.09) ng/mL SARS-CoV-2 (PCR) (Not Detectd) 07/13/20 Range/Units 04:14 Lymphocytes # (1.0-4.8) k/uL PT (9.0-12.0) sec INR (<1.2) APTT >200.0 H* (22.0-30.0) sec D-Dimer (<0.60) mg/L FEU Sodium (137-145) mmol/L Carbon Dioxide (22-30) mmol/L BUN (9-20) mg/dL Glucose (74-99) mg/dL Magnesium (1.6-2.3) mg/dL Creatine Kinase (55-170) U/L Troponin I (0.000-0.034) ng/mL C-Reactive Protein (<10.0) mg/L Procalcitonin (0.02-0.09) ng/mL SARS-CoV-2 (PCR) (Not Detectd) Thrombosis Risk Factor Assmnt - Choose All That Apply Any of the Below Risk Factors Present?: Yes Each Factor Represents 1 point: Obesity (BMI >25) Each Risk Factor Represents 2 Points: Age 61-74 years Other congenital or acquired thrombophilia - If yes, enter type in comment: No Thrombosis Risk Factor Assessment Total Risk Factor Score: 3 Thrombosis Risk Factor Assessment Level: Moderate Risk
--- NOTE | 2020-07-13 15:06 | P.CRDCN ---
History of Present Illness Consult date: 07/13/20 History of present illness: CHIEF COMPLAINT: Elevated troponins HISTORY OF PRESENT ILLNESS: This is a 60-year old male with a past medical history significant for hypertension, hyperlipidemia, pancreas and kidney transplant, ESRD, and diabetes. Patient follows in the office with Dr. Church. We have been asked to see the patient in consultation for elevated troponins. It is noted that the patient has had multiple PCI in the past. He underwent cardiac cath with Dr. Church most recently in May 2020 with PTCA and stent ing of the diagonal branch and mid LAD. DIAGNOSTICS: EKG reveals sinus rhythm without signs of acute ischemia Chest xray: no acute pulmonary process Laboratory data: WBC 8.7. Hemoglobin 14.8. Platelet count 204. INR 1.2. D- dimer 1.21. Sodium 135. Potassium 4.5. BUN 25. Creatinine 1.18. Lactic acid 0.9. Troponin 0.041. 0.055. 0.059. Current home cardiac medications include Coreg 6.25 mg twice a day, Norvasc 10 mg daily, Losartan 50 mg daily, Plavix 75mg daily, aspirin 81 mg daily REVIEW OF SYSTEMS: Thorough review of systems not completed secondary to limited evaluation/examination and due to Covid19 PHYSICAL EXAM: Thorough physical exam not completed secondary to limited evaluation/examination and due to Covid19 ASSESSMENT: Acute Covid 19 Abnormal troponins, secondary to above, not indicative of acute coronary syndrome Coronary artery disease with previous multivessel PCI Hypertension Hyperlipidema End stage renal disease History of kidney and pancreas transplant PLAN: Continue IV heparin for now Obtain 2D echo to assess cardiac structure and function Resume home cardiac medications Further recommendations pending patient course Nurse practitioner note has been reviewed by physician. Signing provider agrees with the documented findings, assessment, and plan of care. Patient underwent a heart catheterization with Dr. CORY Church in August of this year which time he was found to have an LAD lesion 50%, diagonal lesion 70% with plan to further evaluated LAD lesion by FFR. 05/18/2020, Dr. CORY Church performed PTCA of the chronic total occlusion of the distal circumflex marginal branch. FFR assessment was done of the mid LAD which was normal. 06/03/2020, patient underwent PTCA and stenting of the diagonal branch and mid LAD with Dr. CORY Church. SPENCER performed on 06/24/2020 revealed severe aortic stenosis, severe aortic regurgitation. Past Medical History Past Medical History: Cancer, Deep Vein Thrombosis (DVT), Hyperlipidemia, Hypertension, Pneumonia, Renal Disease, Skin Disorder, Thyroid Disorder Additional Past Medical History / Comment(s): Charcot rt foot , hx DM- pancreas/kidney transplant, murmur, DVT L leg, poor circulation, bilat feet/hand neuropathy, diabetic retinopathy, psoriasis, hx wound rt ankle, R heel, R dosal foot healed; hx squamous skin cancer 10/2018 small area of osteomylitis R foot, hx end stage renal disease w/ hemodialysis x3 yrs then had kidneys/pancreas transplant In 2008 at [facility], TMJ, gout, osteopenia, multiple malignant cutanous lesions with removals. History of Any Multi-Drug Resistant Organisms: None Reported Date of last positivie culture/infection: ?5 yrs ago MDRO Source:: stool Past Surgical History: Heart Catheterization, Heart Catheterization With Stent, Orthopedic Surgery Additional Past Surgical History / Comment(s): kidney & pancreas transplant 2008, cataracts removed, bilateral eye vitrectomy, bilateral eye RK, surgery to reconnect rt achilles tendon with dehisence and then several debridements of wound to R ankle and R heel, skin lesion removal-basal and squamous cell cancer, A/V fistula L upper arm removed , parathyroidectomy, R wrist fx with surgery. Squamous cell carcinoma removed 09/2016, 01/2018, 11/2018. 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 c. cath 05/18/20 stent in LAD & Diag on 06/03/2020 Past Anesthesia/Blood Transfusion Reactions: No Reported Reaction Additional Past Anesthesia/Blood Transfusion Reaction / Comment(s): Pt states he has received blood in the past without reaction. Date of Last Stent Placement:: 06/03/2020 Past Psychological History: No Psychological Hx Reported Additional Psychological History / Comment(s): Pt resides at home with his spouse. He no longer drives d/t vision but spouse drives. He is otherwise, independent. Smoking Status: Never smoker Past Alcohol Use History: Occasional Additional Past Alcohol Use History / Comment(s): Patient is a lifelong nonsmoker. No marijuana or illicit drug use. No alcohol use. Patient lives at home with his and dog. Past Drug Use History: None Reported - Past Family History Father Family Medical History: CVA/TIA, Vascular Disorder Additional Family Medical History / Comment(s): blood clot left arm Mother Family Medical History: Osteoarthritis (OA) Additional Family Medical History / Comment(s): Mother isalive Medications and Allergies Home Medications Medication Instructions Recorded Confirmed Type Cholecalciferol [Vitamin D3 (25 5,000 unit PO BID@0800,199905/21/14 07/12/20 History Mcg = 1000 Iu)] allopurinoL [Zyloprim] 300 mg PO HS 05/21/14 07/12/20 History Magnesium Oxide [Mag-Ox] 400 mg PO HS 08/01/14 07/12/20 History Multivitamin/Iron/Folic Acid 1 tab PO HS 08/01/14 07/12/20 History [Centrum Complete Multivit Tab] carvediloL [Coreg] 6.25 mg PO BID@0800,199904/02/15 07/12/20 History Omeprazole [PriLOSEC] 20 mg PO HS 05/18/15 07/12/20 History Aspirin 81 mg PO HS 11/08/16 07/12/20 History Ascorbic Acid [Vitamin C] 1,000 mg PO DAILY@0800 06/19/19 07/12/20 History Halobetasol Propionate [Ultravate] 1 applic TOPICAL DAILY PRN 06/19/19 07/12/20 History amLODIPine [Norvasc] 10 mg PO QAM 06/19/19 07/12/20 History Calcium Carbonate [Calcium] 600 mg PO BID 08/06/19 07/12/20 History Cinnamon Bark [Cinnamon] 2,000 mg PO HS 08/06/19 07/12/20 History Ferrous Sulfate [Iron (65 MG 325 mg PO HS 08/06/19 07/12/20 History Elemental)] Losartan [Cozaar] 50 mg PO HS 08/06/19 07/12/20 History Potassium Chloride [Klor-Con 20] 40 meq PO BID-W/MEALS 08/06/19 07/12/20 History Sodium Bicarbonate Tab 650 mg PO BID 08/06/19 07/12/20 History Albuterol Inhaler [Ventolin Hfa 1 - 2 puff INHALATION RT-Q6H PRN 04/02/20 07/12/20 History Inhaler] Atorvastatin Calcium [Lipitor] 40 mg PO HS #90 tablet 05/18/20 07/12/20 Rx Calcium Carbonate [Tums] 500 - 1,000 mg PO QID PRN 06/01/20 07/12/20 History Clopidogrel [Plavix] 75 mg PO HS 06/01/20 07/12/[address] [Myfortic] 180 mg PO BID 06/01/20 07/12/20 History Brimonidine Tartrate [Alphagan P 1 drops BOTH EYES DAILY 07/12/20 07/12/20 History 0.2% Ophth Soln] Latanoprost [Xalatan 0.005%] 1 drop BOTH EYES HS 07/12/20 07/12/20 History Tacrolimus [Prograf] 1 mg PO Q12H 07/12/20 07/12/20 History predniSONE 10 mg PO DAILY 07/12/20 07/12/20 History Allergies Allergy/AdvReac Type Severity Reaction Status Date / Time iodine AdvReac kidney and Verified 07/12/20 11:34 pancreas transplant concerns Physical Exam Vitals: Vital Signs Temp Pulse Pulse Resp BP BP Pulse Ox 07/13/20 14:00 18 07/13/20 11:57 98.3 F 76 18 119/49 91 L 07/13/20 08:00 98.1 F 74 18 129/59 97 07/13/20 04:00 98.4 F 64 18 150/73 96 07/13/20 02:00 65 20 07/12/20 23:43 65 20 122/56 94 L 07/12/20 20:00 98.5 F 79 18 160/66 95 07/12/20 15:44 98.8 F 91 16 131/76 90 L 07/12/20 14:54 93 18 146/66 96 Intake and Output 07/12/20 07/13/20 07/13/20 22:59 06:59 14:59 Intake Total 305.667 63.707 780 Output Total 600 Balance 305.667 63.707 180 Intake: Intake, IV Titration 65.667 63.707 Amount Heparin Sod,Pork in 0.45% 65.667 63.707 NaCl 25,000 unit In 0.45 % NaCl 1 250ml.bag @ 11. 023 UNITS/KG/HR 10 mls/hr IV .Q24H JESS Rx#: [id number] Oral 240 780 Output: Urine 600 Other: Voiding Method Toilet Toilet # Voids 1 2 Weight 90.718 kg 93.5 kg Results 07/12/20 10:09 07/12/20 10:09 Cardiac Enzymes 07/12/20 07/12/20 Range/Units 14:45 17:15 Troponin I 0.055 H* 0.059 H* (0.000-0.034) ng/mL Coagulation 07/12/20 07/13/20 07/13/20 Range/Units 20:40 04:14 10:58 APTT 82.8 H >200.0 H* 39.8 H (22.0-30.0) sec Lipids 07/13/20 Range/Units 04:14 Triglycerides 60 (<150) mg/dL Cholesterol 108 (<200) mg/dL HDL Cholesterol 46 (40-60) mg/dL Current Medications Generic Name Dose Route Start Last Admin Trade Name Freq PRN Reason Stop Dose Admin Albuterol Sulfate 2 puff 07/12/20 14:24 07/13/20 11:03 Albuterol Hfa Inhaler INHALATION 2 puff RT-Q6H PRN Administration Shortness Of Breath Allopurinol 300 mg 07/12/20 21:00 07/12/20 20:11 Allopurinol 300 Mg Tab PO 300 mg HS JESS Administration Amlodipine Besylate 10 mg 07/13/20 09:00 07/13/20 09:21 Amlodipine 10 Mg Tab PO 10 mg QAM JESS Administration Ascorbic Acid 1,000 mg 07/13/20 09:00 07/13/20 09:21 Ascorbic Acid 500 Mg Tab PO 1,000 mg DAILY JESS Administration Aspirin 81 mg 07/12/20 21:00 07/12/20 20:11 Aspirin 81 Mg PO 81 mg HS JESS Administration Atorvastatin Calcium 40 mg 07/12/20 21:00 07/12/20 20:11 Atorvastatin 40 Mg Tab PO 40 mg HS JESS Administration Brimonidine Tartrate 1 drops 07/13/20 09:00 07/13/20 09:21 Brimonidine Tartrate 0.2% Drops 5 Ml Btl BOTH EYES Not Given DAILY JESS Calcium Carbonate/Glycine 500 mg 07/12/20 21:00 07/13/20 09:21 Calcium Carbonate 500 Mg Chewable PO 500 mg BID JESS Administration Calcium Carbonate/Glycine 1,000 mg 07/12/20 14:24 Calcium Carbonate 500 Mg Chewable PO QID PRN Indigestion Carvedilol 6.25 mg 07/12/20 20:00 07/13/20 09:21 Carvedilol 6.25 Mg Tab PO 6.25 mg BID@ JESS Administration Cholecalciferol 5,000 unit 07/12/20 20:00 07/13/20 09:20 Cholecalciferol 1,000 Unit Tab PO 5,000 unit BID@ JESS Administration Cholecalciferol 400 unit 07/13/20 14:00 Cholecalciferol 400 Unit Tab PO DAILY JESS Clobetasol Propionate 1 applic 07/12/20 14:24 Clobetasol Prop 0.05% Cr 15gm TOPICAL DAILY PRN PSORIASIS Clopidogrel Bisulfate 75 mg 07/12/20 21:00 07/12/20 20:11 Clopidogrel 75 Mg Tab PO 75 mg HS JESS Administration Ferrous Sulfate 325 mg 07/12/20 21:00 07/12/20 20:11 Ferrous Sulfate 325 Mg Tab PO 325 mg HS JESS Administration Heparin Sodium/Sodium Chloride 250 mls @ 10 mls/hr 07/12/20 14:30 07/13/20 06:24 25,000 unit/ Sodium Chloride IV 6.023 units/kg/hr .Q24H JESS 5.464 mls/hr Titration Protocol 11.023 UNITS/KG/HR Latanoprost 1 drops 07/12/20 21:00 07/12/20 20:09 Latanoprost 0.005% Ophth Drops 2.5 Ml Btl BOTH EYES 1 drops HS JESS Administration Losartan Potassium 50 mg 07/12/20 21:00 07/12/20 20:11 Losartan 50 Mg Tab PO 50 mg HS JESS Administration Magnesium Oxide 400 mg 07/12/20 21:00 07/12/20 20:10 Magnesium Oxide 400 Mg Tab PO 400 mg HS JESS Administration Multivitamins 1 each 07/12/20 21:00 07/12/20 20:11 Multivitamins, Thera 1 Each Tab PO 1 each HS JESS Administration Mycophenolate Sodium 180 mg 07/12/20 21:00 07/13/20 09:[address] 180 Mg Tablet.Dr PO 180 mg BID JESS Administration Nitroglycerin 0.4 mg 07/12/20 14:22 Nitroglycerin Sl Tabs 0.4 Mg Tab SUBLINGUAL Q5M PRN Chest Pain Pantoprazole Sodium 40 mg 07/12/20 21:00 07/12/20 20:11 Pantoprazole 40 Mg Tablet PO 40 mg HS JESS Administration Potassium Chloride 40 meq 07/12/20 17:30 07/13/20 06:37 Potassium Chloride Er 20 Meq Tab.Er PO 40 meq BID-W/MEALS JESS Administration Prednisone 10 mg 07/13/20 09:00 07/13/20 09:21 Prednisone 10 Mg Tab PO 10 mg DAILY JESS Administration Sodium Bicarbonate 650 mg 07/12/20 21:00 07/13/20 09:20 Sodium Bicarbonate Tab 650 Mg Tab PO 650 mg BID JESS Administration Tacrolimus 1 mg 07/12/20 21:00 07/13/20 09:21 Tacrolimus 1 Mg Cap PO 1 mg Q12H JESS Administration Zinc Sulfate 220 mg 07/13/20 09:00 07/13/20 09:21 Zinc Sulfate 220 Mg Cap PO 220 mg DAILY JESS Administration Intake and Output 07/12/20 07/13/20 07/13/20 22:59 06:59 14:59 Intake Total 305.667 63.707 780 Output Total 600 Balance 305.667 63.707 180 Intake: Intake, IV Titration 65.667 63.707 Amount Heparin Sod,Pork in 0.45% 65.667 63.707 NaCl 25,000 unit In 0.45 % NaCl 1 250ml.bag @ 11. 023 UNITS/KG/HR 10 mls/hr IV .Q24H JESS Rx#: [id number] Oral 240 780 Output: Urine 600 Other: Voiding Method Toilet Toilet # Voids 1 2 Weight 90.718 kg 93.5 kg 07/12/20 10:09 07/12/20 10:09
[2020-07-13] MEDS: HEPARIN SOD,PORK IN 0.45% NACL 25,000 UNIT in 0.45% NACL 1 250ML.BAG IV SCH (15:08)
--- NOTE | 2020-07-13 16:25 | P.CNPUL ---
History of Present Illness Consult date: 07/13/20 Reason for consult: cough, other Chief complaint: Fatigue, fever, coughing History of present illness: 60-year-old white male patient of Dr. Lu, with a previous medical history significant for hypertension, hypertensive heart disease, previous history of DVT, end-stage renal disease previously on hemodialysis, status post renal and pancreatic transplant in [address] [facility], maintained on Prograf and prednisone on a regular basis, diabetes mellitus type 2, COPD, CAD with recent history of intervention in April 2020. Patient had a transesophageal echocardiogram in May 2020 which revealed severe aortic stenosis, and severe aortic regurgitation. She was also recently treated for a right-sided pneumonia. Patient came into the hospital on 07/12/2020 for evaluation of feeling very fatigued, coughing, he is admitted to having some fever, dry heaves with nausea, and a runny nose. he was on room air on presentation with a pulse ox of 95%, did have a low-grade fever, chest x-ray showed no acute pulmonary process. Lab work showed lymphopenia with lymphocyte count 0.3, white blood cell count was 8.7, d-dimer was 1.21, sodium was 135, CO2 is 21, the rest of electrolytes were unremarkable, B1 is 25 creatinine is 1.18, plasma lactic acid was 0.9, troponins topped at 0.059 with the third set, proBNP was 2890, pro-calcitonin level was 0.14, influenza screen was negative, RSV was negative, COVID 19 PCR was positive. Cardiology was consulted in view of positive troponins, patient was started on heparin infusion, and consultation was requested in regards to COVID 19 treatment Review of Systems All systems: negative Constitutional: Reports malaise, Reports weakness, Denies chills, Denies fever Eyes: denies blurred vision, denies pain Ears, nose, mouth and throat: Denies headache, Denies sore throat Cardiovascular: Denies chest pain, Denies shortness of breath Respiratory: Reports cough, Reports dyspnea Gastrointestinal: Denies abdominal pain, Denies diarrhea, Denies nausea, Denies vomiting Musculoskeletal: Denies myalgias Integumentary: Denies pruritus, Denies rash Neurological: Denies numbness, Denies weakness Psychiatric: Denies anxiety, Denies depression Endocrine: Denies fatigue, Denies weight change Past Medical History Past Medical History: Cancer, Deep Vein Thrombosis (DVT), Hyperlipidemia, Hypertension, Pneumonia, Renal Disease, Skin Disorder, Thyroid Disorder Additional Past Medical History / Comment(s): Charcot rt foot , hx DM- pancreas/kidney transplant, murmur, DVT L leg, poor circulation, bilat feet/hand neuropathy, diabetic retinopathy, psoriasis, hx wound rt ankle, R heel, R dosal foot healed; hx squamous skin cancer 10/2018 small area of osteomylitis R foot, hx end stage renal disease w/ hemodialysis x3 yrs then had kidneys/pancreas transplant In 2008 at [facility], TMJ, gout, osteopenia, multiple malignant cutanous lesions with removals. History of Any Multi-Drug Resistant Organisms: None Reported Date of last positivie culture/infection: ?5 yrs ago MDRO Source:: stool Past Surgical History: Heart Catheterization, Heart Catheterization With Stent, Orthopedic Surgery Additional Past Surgical History / Comment(s): kidney & pancreas transplant 2008, cataracts removed, bilateral eye vitrectomy, bilateral eye RK, surgery to reconnect rt achilles tendon with dehisence and then several debridements of wound to R ankle and R heel, skin lesion removal-basal and squamous cell cancer, A/V fistula L upper arm removed , parathyroidectomy, R wrist fx with surgery. Squamous cell carcinoma removed 09/2016, 01/2018, 11/2018. 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 c. cath 05/18/20 stent in LAD & Diag on 06/03/2020 Past Anesthesia/Blood Transfusion Reactions: No Reported Reaction Additional Past Anesthesia/Blood Transfusion Reaction / Comment(s): Pt states he has received blood in the past without reaction. Date of Last Stent Placement:: 06/03/2020 Past Psychological History: No Psychological Hx Reported Additional Psychological History / Comment(s): Pt resides at home with his spouse. He no longer drives d/t vision but spouse drives. He is otherwise, independent. Smoking Status: Never smoker Past Alcohol Use History: Occasional Additional Past Alcohol Use History / Comment(s): Patient is a lifelong nonsmoker. No marijuana or illicit drug use. No alcohol use. Patient lives at home with his and dog. Past Drug Use History: None Reported - Past Family History Father Family Medical History: CVA/TIA, Vascular Disorder Additional Family Medical History / Comment(s): blood clot left arm Mother Family Medical History: Osteoarthritis (OA) Additional Family Medical History / Comment(s): Mother isalive Medications and Allergies Home Medications Medication Instructions Recorded Confirmed Type Cholecalciferol [Vitamin D3 (25 5,000 unit PO BID@08,199905/21/14 07/12/20 History Mcg = 1000 Iu)] allopurinoL [Zyloprim] 300 mg PO HS 05/21/14 07/12/20 History Magnesium Oxide [Mag-Ox] 400 mg PO HS 08/01/14 07/12/20 History Multivitamin/Iron/Folic Acid 1 tab PO HS 08/01/14 07/12/20 History [Centrum Complete Multivit Tab] carvediloL [Coreg] 6.25 mg PO BID@0800,199904/02/15 07/12/20 History Omeprazole [PriLOSEC] 20 mg PO HS 05/18/15 07/12/20 History Aspirin 81 mg PO HS 11/08/16 07/12/20 History Ascorbic Acid [Vitamin C] 1,000 mg PO DAILY@0800 06/19/19 07/12/20 History Halobetasol Propionate [Ultravate] 1 applic TOPICAL DAILY PRN 06/19/19 07/12/20 History amLODIPine [Norvasc] 10 mg PO QAM 06/19/19 07/12/20 History Calcium Carbonate [Calcium] 600 mg PO BID 08/06/19 07/12/20 History Cinnamon Bark [Cinnamon] 2,000 mg PO HS 08/06/19 07/12/20 History Ferrous Sulfate [Iron (65 MG 325 mg PO HS 08/06/19 07/12/20 History Elemental)] Losartan [Cozaar] 50 mg PO HS 08/06/19 07/12/20 History Potassium Chloride [Klor-Con 20] 40 meq PO BID-W/MEALS 08/06/19 07/12/20 History Sodium Bicarbonate Tab 650 mg PO BID 08/06/19 07/12/20 History Albuterol Inhaler [Ventolin Hfa 1 - 2 puff INHALATION RT-Q6H PRN 04/02/20 07/12/20 History Inhaler] Atorvastatin Calcium [Lipitor] 40 mg PO HS #90 tablet 05/18/20 07/12/20 Rx Calcium Carbonate [Tums] 500 - 1,000 mg PO QID PRN 06/01/20 07/12/20 History Clopidogrel [Plavix] 75 mg PO HS 06/01/20 07/12/[address] [Myfortic] 180 mg PO BID 06/01/20 07/12/20 History Brimonidine Tartrate [Alphagan P 1 drops BOTH EYES DAILY 07/12/20 07/12/20 History 0.2% Ophth Soln] Latanoprost [Xalatan 0.005%] 1 drop BOTH EYES HS 07/12/20 07/12/20 History Tacrolimus [Prograf] 1 mg PO Q12H 07/12/20 07/12/20 History predniSONE 10 mg PO DAILY 07/12/20 07/12/20 History Allergies Allergy/AdvReac Type Severity Reaction Status Date / Time iodine AdvReac kidney and Verified 07/12/20 11:34 pancreas transplant concerns Physical Exam Vitals: Vital Signs Temp Pulse Resp BP Pulse Ox 07/13/20 14:00 18 07/13/20 11:57 98.3 F 76 18 119/49 91 L 07/13/20 08:00 98.1 F 74 18 129/59 97 07/13/20 04:00 98.4 F 64 18 150/73 96 07/13/20 02:00 65 20 07/12/20 23:43 65 20 122/56 94 L 07/12/20 20:00 98.5 F 79 18 160/66 95 Intake and Output 07/13/20 07/13/20 07/13/20 06:59 14:59 22:59 Intake Total 63.707 826.717 Output Total 600 Balance 63.707 226.717 Intake: Intake, IV Titration 63.707 46.717 Amount Heparin Sod,Pork in 0.45% 63.707 46.717 NaCl 25,000 unit In 0.45 % NaCl 1 250ml.bag @ 11. 023 UNITS/KG/HR 10 mls/hr IV .Q24H ON LICENSE OF [facility] Rx#: [id number] Oral 780 Output: Urine 600 Other: Voiding Method Toilet # Voids 2 Weight 93.5 kg GENERAL EXAM: Alert, very pleasant 60-year-old white male, on 2 L of oxygen a pulse ox of 91-97%, comfortable in no apparent distress. HEAD: Normocephalic/atraumatic. EYES: Normal reaction of pupils, equal size. Conjunctiva pink, sclera white. NOSE: Clear with pink turbinates. THROAT: No erythema or exudates. NECK: No masses, no JVD, no thyroid enlargement, no adenopathy. CHEST: No chest wall deformity. Symmetrical expansion. LUNGS: Equal air entry with no crackles, wheeze, rhonchi or dullness. CVS: Regular rate and rhythm, normal S1 and S2, no gallops, no murmurs, no rubs ABDOMEN: Soft, nontender. No hepatosplenomegaly, normal bowel sounds, no guarding or rigidity. EXTREMITIES: No clubbing, no edema, no cyanosis, 2+ pulses and upper and lower extremities. MUSCULOSKELETAL: Muscle strength and tone normal. SPINE: No scoliosis or deformity SKIN: No rashes CENTRAL NERVOUS SYSTEM: Alert and oriented -3. No focal deficits, tone is normal in all 4 extremities. PSYCHIATRIC: Alert and oriented -3. Appropriate affect. Intact judgment and insight. Results - Laboratory Findings CBC and BMP: 07/12/20 10:09 07/12/20 10:09 PT/INR, D-dimer PT 12.3 sec (9.0-12.0) H 07/12/20 10:09 INR 1.2 (<1.2) H 07/12/20 10:09 D-Dimer 1.21 mg/L FEU (<0.60) H 07/12/20 10:09 Abnormal lab findings: Abnormal Labs 07/12/20 07/12/20 07/12/20 10:09 10:09 10:09 Lymphocytes # 0.3 L PT 12.3 H INR 1.2 H APTT D-Dimer 1.21 H Sodium 135 L Carbon Dioxide 21 L BUN 25 H Glucose 112 H Magnesium 1.5 L Creatine Kinase 604 H Troponin I C-Reactive Protein 54.0 H Procalcitonin SARS-CoV-2 (PCR) 07/12/20 07/12/20 07/12/20 10:09 10:09 10:09 Lymphocytes # PT INR APTT D-Dimer Sodium Carbon Dioxide BUN Glucose Magnesium Creatine Kinase Troponin I 0.041 H* C-Reactive Protein Procalcitonin 0.14 H SARS-CoV-2 (PCR) Detected A 07/12/20 07/12/20 07/12/20 14:45 17:15 20:40 Lymphocytes # PT INR APTT 82.8 H D-Dimer Sodium Carbon Dioxide BUN Glucose Magnesium Creatine Kinase Troponin I 0.055 H* 0.059 H* C-Reactive Protein Procalcitonin SARS-CoV-2 (PCR) 07/13/20 07/13/20 04:14 10:58 Lymphocytes # PT INR APTT >200.0 H* 39.8 H D-Dimer Sodium Carbon Dioxide BUN Glucose Magnesium Creatine Kinase Troponin I C-Reactive Protein Procalcitonin SARS-CoV-2 (PCR) - Diagnostic Findings Chest x-ray: report reviewed, image reviewed Additional studies: EKG Assessment and Plan Plan: Assessment: #1. Acute COVID 19 pneumonitis, patient presented to the emergency department on 07/12/2020 for evaluation of weakness, fever, and cough, cold and 19 PCR was positive on 07/12/2020 #2. Acute hypoxic respiratory failure, mild, patient is requiring 2 L of oxygen #3. Elevated d-dimer, at 1.21 on presentation, likely related to COVID 19 pneumonitis, currently on heparin infusion #4. Troponin leak, cardiology is following, and patient was started on heparin infusion #5. Coronary artery disease with previous history of multivessel PCI #6. Aortic valve stenosis #7. Hypertension #8. Hyperlipidemia #9. End-stage renal disease status post renal transplant in 2008 #10. Status post pancreatic transplant in 2008 #11. Diabetes mellitus type 2 with diabetic retinopathy #12. Previous history of DVT in the left leg #13. History of skin cancer #14. Previous history of osteomyelitis, diabetic wounds, Plan: We'll continue with current medical treatment, patient denies any significant shortness of breath, he reports a cough, and some mild symptoms, chest x-ray showed no acute pulmonary infiltrates, we'll continue to follow, and manage the patient's symptoms, cardiology is following, and patient has heparin infusing. If the heparin drip should be discontinued per cardiology will consider switching him over to Lovenox, otherwise maintenance dose of prednisone, monitor fever, oxygenation pattern, we will add vitamin C, zinc, vitamin D, and melatonin, follow-up chest x-ray in the morning I performed a history & physical examination of the patient and discussed their management with my nurse practitioner, Trena Lovelace. I reviewed the nurse practitioner's note and agree with the documented findings and plan of care. Lung sounds are positive for mild crackles. The findings and the impression was discussed with the patient. I attest to the documentation by the nurse practitioner.
[2020-07-13] MEDS: CHOLECALCIFEROL 400 UNIT TAB PO SCH (17:30)
[2020-07-13] MEDS: allopurinoL 300 MG TAB PO SCH (20:41)
[2020-07-13] MEDS: FERROUS SULFATE 325 MG TAB PO SCH (20:41)
[2020-07-13] MEDS: PANTOPRAZOLE 40 MG TABLET PO SCH (20:42)
[2020-07-13] MEDS: LOSARTAN 50 MG TAB PO SCH (20:42)
[2020-07-13] MEDS: MAGNESIUM OXIDE 400 MG TAB PO SCH (20:42)
[2020-07-13] MEDS: MULTIVITAMINS, THERA 1 EACH TAB PO SCH (20:42)
[2020-07-13] MEDS: CLOPIDOGREL 75 MG TAB PO SCH (20:42)
[2020-07-13] MEDS: ATORVASTATIN 40 MG TAB PO SCH (20:42)
[2020-07-13] MEDS: ASPIRIN 81 MG PO SCH (20:42)
[2020-07-13] MEDS: LATANOPROST 0.005% OPHTH DROPS 2.5 ML BTL BOTH EYES SCH (20:56)
--- NOTE | 2020-07-13 22:45 | P.CONS ---
History of Present Illness - Reason for Consult Consult date: 07/13/20 covid 19 Requesting physician: Greg Lu - Chief Complaint dry heaves and shortness of breath x 1 day - History of Present Illness Patient is a 60-year male with a past medical history significant for end-stage renal disease and this patient previously was on hemodialysis the patient status post pancreas and kidney transplant and is being maintained on immunosuppressive medication in the form of Prograf and prednisone patient presented to [facility] ER yesterday morning for evaluation of increasing shortness of breath and cough along with a dry heaves symptoms started the day of presentation to the hospital patient did have some rhinorrhea but no other URI symptoms patient cough is mild in intensity and dry nature denies having any chest pain significant shortness of breath no vomiting no diarrhea on arrival to the ER the patient did have a low-grade fever 100.4 degrees forearm height patient has been satting 95 to 96% on room air patient d id have a normal white count with lymphopenia D-dimer is 1.21 liver enzymes are normal CRP of 54 rosado PCR came back positive influenza PCR was negative patient did have a chest x-ray no acute pulmonary process patient is currently on heparin drip as he did have elevated troponin per cardiology he has been continue his prednisone zinc has been added infectious disease was consulted for further management. Review of Systems Positive point has been mentioned in HPI rest of the systems are negative Past Medical History Past Medical History: Cancer, Deep Vein Thrombosis (DVT), Hyperlipidemia, Hypertension, Pneumonia, Renal Disease, Skin Disorder, Thyroid Disorder Additional Past Medical History / Comment(s): Charcot rt foot , hx DM- pancreas/kidney transplant, murmur, DVT L leg, poor circulation, bilat feet/hand neuropathy, diabetic retinopathy, psoriasis, hx wound rt ankle, R heel, R dosal foot healed; hx squamous skin cancer 10/2018 small area of osteomylitis R foot, hx end stage renal disease w/ hemodialysis x3 yrs then had kidneys/pancreas transplant In 2008 at [facility], TMJ, gout, osteopenia, multiple malignant cutanous lesions with removals. History of Any Multi-Drug Resistant Organisms: None Reported Year Discovered:: ?5 yrs ago MDRO Source:: stool Past Surgical History: Heart Catheterization, Heart Catheterization With Stent, Orthopedic Surgery Additional Past Surgical History / Comment(s): kidney & pancreas transplant 2008, cataracts removed, bilateral eye vitrectomy, bilateral eye RK, surgery to reconnect rt achilles tendon with dehisence and then several debridements of wound to R ankle and R heel, skin lesion removal-basal and squamous cell cancer, A/V fistula L upper arm removed , parathyroidectomy, R wrist fx with surgery. S quamous cell carcinoma removed 09/2016, 01/2018, 11/2018. 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 c. cath 05/18/20 stent in LAD & Diag on 06/03/2020 Past Anesthesia/Blood Transfusion Reactions: No Reported Reaction Additional Past Anesthesia/Blood Transfusion Reaction / Comm: Pt states he has received blood in the past without reaction. Date of Last Stent Placement:: 06/03/2020 Past Psychological History: No Psychological Hx Reported Additional Psychological History / Comment(s): Pt resides at home with his spouse. He no longer drives d/t vision but spouse drives. He is otherwise, independent. Smoking Status: Never smoker Past Alcohol Use History: Occasional Additional Past Alcohol Use History / Comment(s): Patient is a lifelong nonsmoker. No marijuana or illicit drug use. No alcohol use. Patient lives at home with his and dog. Past Drug Use History: None Reported - Past Family History Father Family Medical History: CVA/TIA, Vascular Disorder Additional Family Medical History / Comment(s): blood clot left arm Mother Family Medical History: Osteoarthritis (OA) Additional Family Medical History / Comment(s): Mother isalive Medications and Allergies Home Medications Medication Instructions Recorded Confirmed Type Cholecalciferol [Vitamin D3 (25 5,000 unit PO BID@0800,199905/21/14 07/12/20 History Mcg = 1000 Iu)] allopurinoL [Zyloprim] 300 mg PO HS 05/21/14 07/12/20 History Magnesium Oxide [Mag-Ox] 400 mg PO HS 08/01/14 07/12/20 History Multivitamin/Iron/Folic Acid 1 tab PO HS 08/01/14 07/12/20 History [Centrum Complete Multivit Tab] carvediloL [Coreg] 6.25 mg PO BID@0800,199904/02/15 07/12/20 History Omeprazole [PriLOSEC] 20 mg PO HS 05/18/15 07/12/20 History Aspirin 81 mg PO HS 11/08/16 07/12/20 History Ascorbic Acid [Vitamin C] 1,000 mg PO DAILY@0800 06/19/19 07/12/20 History Halobetasol Propionate [Ultravate] 1 applic TOPICAL DAILY PRN 06/19/19 07/12/20 History amLODIPine [Norvasc] 10 mg PO QAM 06/19/19 07/12/20 History Calcium Carbonate [Calcium] 600 mg PO BID 08/06/19 07/12/20 History Cinnamon Bark [Cinnamon] 2,000 mg PO HS 08/06/19 07/12/20 History Ferrous Sulfate [Iron (65 MG 325 mg PO HS 08/06/19 07/12/20 History Elemental)] Losartan [Cozaar] 50 mg PO HS 08/06/19 07/12/20 History Potassium Chloride [Klor-Con 20] 40 meq PO BID-W/MEALS 08/06/19 07/12/20 History Sodium Bicarbonate Tab 650 mg PO BID 08/06/19 07/12/20 History Albuterol Inhaler [Ventolin Hfa 1 - 2 puff INHALATION RT-Q6H PRN 04/02/20 1 09/12/19 History Inhaler] Atorvastatin Calcium [Lipitor] 40 mg PO HS #90 tablet 05/18/20 07/12/20 Rx Calcium Carbonate [Tums] 500 - 1,000 mg PO QID PRN 06/01/20 07/12/20 History Clopidogrel [Plavix] 75 mg PO HS 06/01/20 07/12/[address] [Myfortic] 180 mg PO BID 06/01/20 07/12/20 History Brimonidine Tartrate [Alphagan P 1 drops BOTH EYES DAILY 07/12/20 07/12/20 History 0.2% Ophth Soln] Latanoprost [Xalatan 0.005%] 1 drop BOTH EYES HS 07/12/20 07/12/20 History Tacrolimus [Prograf] 1 mg PO Q12H 07/12/20 07/12/20 History predniSONE 10 mg PO DAILY 07/12/20 07/12/20 History Allergies Allergy/AdvReac Type Severity Reaction Status Date / Time iodine AdvReac kidney and Verified 07/12/20 11:34 pancreas transplant concerns Physical Exam Vitals: Vital Signs Temp Pulse Resp BP Pulse Ox 07/13/20 19:51 97.6 F 64 18 128/55 98 07/13/20 16:00 98.2 F 74 18 145/71 93 L 07/13/20 14:00 18 07/13/20 11:57 98.3 F 76 18 119/49 91 L 07/13/20 08:00 98.1 F 74 18 129/59 97 07/13/20 04:00 98.4 F 64 18 150/73 96 07/13/20 02:00 65 20 07/12/20 23:43 65 20 122/56 94 L Intake and Output 07/13/20 07/13/20 07/13/20 06:59 14:59 22:59 Intake Total 63.707 826.717 240 Output Total 600 Balance 63.707 226.717 240 Intake: Intake, IV Titration 63.707 46.717 Amount Heparin Sod,Pork in 0.45% 63.707 46.717 NaCl 25,000 unit In 0.45 % NaCl 1 250ml.bag @ 11. 023 UNITS/KG/HR 10 mls/hr IV .Q[facility]H [facility] Rx#: [id number] Oral 780 240 Output: Urine 600 Other: Voiding Method Toilet # Voids 2 Weight 93.5 kg GENERAL DESCRIPTION: Middle-aged male lying in bed, no distress. No tachypnea or accessory muscle of respiration use. HEENT: Shows Pallor , no scleral icterus. Oral mucous membrane is dry. NECK: Trachea central, no thyromegaly. LUNGS: Unlabored breathing. Decrease intensity of breath sounds. No wheeze or crackle. HEART: S1, S2, regular rate and rhythm. ABDOMEN: Soft, no tenderness , guarding or rigidity EXTREMITIES: No edema of feet. SKIN: No rash, no masses palpable. NEUROLOGICAL: The patient is awake, alert, oriented x3, mood and affect normal Results CBC & Chem 7: 07/12/20 10:09 07/12/20 10:09 Labs: Abnormal Lab Results - Last 24 Hours (Table) 07/13/20 07/13/20 Range/Units 04:14 10:58 APTT >200.0 H* 39.8 H (22.0-30.0) sec Microbiology - Last 24 Hours (Table) 07/12/20 10:35 Blood Culture - Preliminary Blood No Growth after 24 hours Assessment and Plan Assessment: 1-patient presented to hospital with dry heaves rhinorrhea and some shortness of breath hospital have low-grade fever patient did have positive Covid test chest x-ray has been negative for acute pulmonary process and the patient did not have significant hypoxia was satting about 96% on my evaluation possible mild COVID-19 infection he also have elevated troponin currently being anticoagulated and has been maintained on his prednisone, patient hopefully will recover without the need for aggressive however will monitor his clinical course closely if develops any hypoxemia or more significant chest x-ray will consider starting the patient on remdesivir (1) COVID-19 Current Visit: Yes Status: Acute Code(s): U07.1 - COVID-19 SNOMED Code(s): 079834840 Plan: 1 patient to continue heparin per weakness work-up per cardiology prednisone and zinc sulfate- 2-droplet isolation respiratory support We will follow on clinical condition and cultures to further adjust medication if needed Thank you for this consultation we will follow the patient along with you Time with Patient: Greater than 30
[2020-07-14] MEDS: HEPARIN SOD,PORK IN 0.45% NACL 25,000 UNIT in 0.45% NACL 1 250ML.BAG IV SCH (05:53)
[2020-07-14] MEDS: POTASSIUM CHLORIDE ER 20 MEQ TAB.ER PO SCH ×2 (06:43→18:03)
--- NOTE | 2020-07-14 08:30 | ECHOF ---
Referral Reason:LV function MEASUREMENTS -------- HEIGHT: 175.3 cm WEIGHT: 93.4 kg BP: / RVIDd: 2.9 cm (< 3.3) IVSd: 1.4 cm (0.6 - 1.1) LVIDd: 4.8 cm (3.9 - 5.3) LVPWd: 1.3 cm (0.6 - 1.1) IVSs: 1.8 cm LVIDs: 3.3 cm LVPWs: 2.0 cm LA Diam: 4.4 cm (2.7 - 3.8) LAESV Index (A-L): 41.89 ml/m Ao Diam: 3.6 cm (2.0 - 3.7) AV Cusp: 1.2 cm (1.5 - 2.6) MV EXCURSION: 11.800 mm (> 18.000) MV EF SLOPE: 34 mm/s (70 - 150) EPSS: 1.0 cm MV E Bonilla: 0.81 m/s MV DecT: 207 ms MV A Bonilla: 1.29 m/s MV E/A Ratio: 0.63 AV maxP.47 mmHg AV meanP.62 mmHg AR PHT: 824 ms RAP: 5.00 mmHg RVSP: 36.80 mmHg FINDINGS -------- Sinus rhythm. This was a technically good study. The left ventricular size is normal. There is moderate concentric left ventricular hypertrophy. O verall left ventricular systolic function is low-normal with, an EF between 50 - 55 %. The right ventricle is normal in size. LA is severely dilated >40 ml/m2 The right atrium is normal in size. Interatrial and interventricular septum intact. There is moderate to severe aortic valve sclerosis. There is [id number] aortic regurgitation. There is moderate aortic stenosis present. Peak/mean gradient across the Aortic Valve is 56.47mm Hg / 27.62mmHg. The mitral valve leaflets are mildly thickened. Moderate mitral annular calcification present. T he peak and mean MV gradients are 9.07mmHg 3.40mmHg as measured by doppler. Mild tricuspid regurgitation present. There is mild pulmonary hypertension. The right ventricular systolic pressure, as measured by Doppler, is 36.80mmHg. There is no pulmonic regurgitation present. The aortic root size is normal. Normal inferior vena cava with normal inspiratory collapse consistent with estimated right atrial pre ssure of 5 mmHg. There is no pericardial effusion. CONCLUSIONS -------- 1. The left ventricular size is normal. 2. There is moderate concentric left ventricular hypertrophy. 3. Overall left ventricular systolic function is low-normal with, an EF between 50 - 55 %. 4. LA is severely dilated >40 ml/m2 5. There is moderate to severe aortic valve sclerosis. 6. There is [id number] aortic regurgitation. 7. There is moderate aortic stenosis present. 8. Peak/mean gradient across the Aortic Valve is 56.47mmHg / 27.62mmHg. 9. The mitral valve leaflets are mildly thickened. 10. Moderate mitral annular calcification present. 11. The peak and mean MV gradients are 9.07mmHg 3.40mmHg as measured by doppler. 12. Mild tricuspid regurgitation present. 13. There is mild pulmonary hypertension. 14. The right ventricular systolic pressure, as measured by Doppler, is 36.80mmHg. 15. There is no pulmonic regurgitation present. 16. There is no pericardial effusion. POLICY SERVICE COORDINATOR: Felisha Fu RDCS
[2020-07-14] MEDS: SODIUM BICARBONATE TAB 650 MG TAB PO SCH ×2 (08:47→20:44)
[2020-07-14] MEDS: ASCORBIC ACID 500 MG TAB PO SCH (08:48)
[2020-07-14] MEDS: ZINC SULFATE 220 MG CAP PO SCH (08:48)
[2020-07-14] MEDS: predniSONE 10 MG TAB PO SCH (08:48)
[2020-07-14] MEDS: amLODIPine 10 MG TAB PO SCH (08:48)
[2020-07-14] MEDS: CHOLECALCIFEROL 1,000 UNIT TAB PO SCH ×2 (08:48→20:44)
[2020-07-14] MEDS: carvediloL 6.25 MG TAB PO SCH ×2 (08:48→20:44)
[2020-07-14] MEDS: CALCIUM CARBONATE 500 MG CHEWABLE PO SCH ×2 (08:48→20:44)
[2020-07-14] MEDS: BRIMONIDINE TARTRATE 0.2% DROPS 5 ML BTL BOTH EYES SCH (08:50)
[2020-07-14] MEDS: CHOLECALCIFEROL 400 UNIT TAB PO SCH (08:50)
[2020-07-14] MEDS: MYCOPHENOLATE SODIUM DR 180 MG TABLET.DR PO SCH ×2 (08:50→20:45)
[2020-07-14] MEDS: TACROLIMUS 1 MG CAP PO SCH ×2 (08:50→20:45)
--- NOTE | 2020-07-14 11:07 | P.PN ---
Subjective Progress Note Date: 07/14/20 HISTORY OF PRESENT ILLNESS This is a 60-year-old male patient of Dr. 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 Patient underwent a heart catheterization with Dr. CORY Church in August of this year which time he was found to have an LAD lesion 50%, diagonal lesion 70% with plan to further evaluated LAD lesion by FFR. 05/18/2020, Dr. CORY Church performed PTCA of the chronic total occlusion of the distal circumflex marginal branch. FFR assessment was done of the mid LAD which was normal. 06/03/2020, patient underwent PTCA and stenting of the diagonal branch and mid LAD with Dr. CORY Church. SPENCER performed on 06/24/2020 revealed severe aortic stenosis, severe aortic regurgitation. His most recent hospitalization was in March which time he was treated for sepsis secondary to right-sided pneumonia. Patient complains of cough and in general not feeling well. He has shortness of breath with exertion. He denies having any fever or chills. He denies any recent exposure to anyone with Covid. Patient denies having chest pain. He has had some nausea, dry heaves and runny nose. Patient came into [facility] emergency center for evaluation. Temperature max 100.4, heart rate 97, blood pressure 165/89, pulse ox 95% on room air. Chest x-ray reveals no acute pulmonary process. CBC unremarkable except for lymphocytes of 0.3. Sodium 135, potassium 4.5, chloride 105, CO2 21, BUN 25 creatinine 1.18. Blood sugar 112. Magnesium 1.5, CK 604. C-reactive protein 54. Liver function tests normal. Lactic acid 0.9. Troponin 0.041, 0.055, 0.059. ProBNP 2890. Influenza A and B not detected. RSV not detected. COVID-19 detected. EKG is sinus rhythm with LVH. Patient was started on heparin drip and admitted to the cardiac stepdown unit. 07/14: Patient has been seen by cardiology and heparin drip was continued. Echocardiogram reveals EF of 50-55%, moderate to severe aortic valve sclerosis, mild to moderate aortic regurgitation, moderate aortic stenosis, mild tricuspid regurgitation, mild pulmonary hypertension. Patient has been by pulmonary medicine and infectious disease with no change in medications. Patient currently denies having any chest pain, no shortness of breath at rest, reports occasional cough. He denies any abdominal symptoms. No nausea or vomiting, no diarrhea. Patient's is also tested positive for Covid 19. REVIEW OF SYSTEMS Constitutional: Denies fever, denies chills. No weight change. Reports weakness, reports fatigue. EENT: No headache. No blurred vision or double vision, no loss of vision. No loss of Hearing, no ringing in the ears, no dizziness. Reports nasal drainage or congestion. No epistaxis. No sore throat. Lungs: Reports shortness of breath with exertion, Reports cough, denies sputum production. Denies hemoptysis. Denies wheezing. Cardiovascular: No chest pain, chronic lower extremity edema. No palpitations. No paroxysmal nocturnal dyspnea. No orthopnea. No lightheadedness or dizziness. No syncopal episodes. Abdominal: Denies abdominal discomfort. Denies nausea, vomiting. Denies diarrhea. No constipation. No bloody or tarry stools Genitourinary: No dysuria, increased frequency, urgency. No urinary retention. Musculoskeletal: No myalgias. Reports muscle weakness, no gait dysfunction, no frequent falls. No back pain. No neck pain. Integumentary: No wounds, no lesions. No rash or pruritus. No unusual bruising. No change in hair or nails. Neurologic: No aphasia. No facial droop. No change in mentation. No head injury. No headache. No paralysis. No paresthesia. Psychiatric: No depression. No anxiety. No mood swings. Endocrine: No abnormal blood sugars. No weight change. No excessive sweating or thirst. No cold intolerance. PHYSICAL EXAMINATION Gen: This is a 1-year-old male patient is sitting on the side of the bed. He appears to be in no acute respiratory distress. HEENT: Head is atraumatic, normocephalic. Pupils equal, round. Sclerae is anicteric. NECK: Supple. No JVD. No lymphadenopathy. No thyromegaly. LUNGS: Diminished bilaterally. No wheezing. No intercostal retractions. HEART: Regular rate and rhythm. 3/6 systolic murmur at the fifth intercostal space. ABDOMEN: Soft. Bowel sounds are present. No masses. No tenderness. EXTREMITIES: trace bilat edema. No calf tenderness. Left above the elbow amputation. NEUROLOGICAL: Patient is awake, alert and oriented x3. Cranial nerves 2 through 12 are grossly intact. ASSESSMENT AND PLAN 1. Covid 19 infection. Consult with pulmonary medicine and infectious disease appreciated. Continue vitamin C, vitamin D, zinc, currently on heparin drip, continue prednisone 10 mg daily for now. 2. Elevated troponins. Cardiology consult appreciated. Patient currently on heparin drip. 3. Hypertension and hypertensive cardio vascular disease. Continue carvedilol 6.25 mg orally twice every day, amlodipine 10 mg orally once every day. Losartan 50 mg orally once every day. 4. History of kidney and pancreas transplant back in 2008 at the [facility]. Continue patient on Prograf, prednisone, CellCept. 5. Gout, chronic. Continue allopurinol 300 mg orally once every day. 6. Chronic diastolic heart failure. Echocardiogram from July 2019 reveals severe concentric left hypertrophy, EF 55-60%, severe aortic stenosis, severe mitral calcification, mild mitral regurgitation, mild tricuspid regurgitation. 7. Coronary disease status post multiple stenting. Consult with cardiology. Continue aspirin 81 mg daily, statin, Coreg. Continue Plavix 75 mg at bedtime. 8. History of diabetes mellitus type 2 post pancreatic transplant. 9. History of end-stage renal disease post kidney transplant. 10. Hyperlipidemia. Continue patient on Pravachol 40 mg orally once every day. 11. 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 12. History of DVT. Continue with heparin for now. 13. GERD. Protonix 4o mg IV push twice daily. 14. History of diabetic polyneuropathy. Stable. Continue gabapentin 100 mg at bedtime and daily as needed. 15. History of diabetic retinopathy. Stable. 16. History of psoriasis. Stable. 17. History of right foot abscess with osteomyelitis in the fifth metatarsal, status post bedside I&D and outpatient IV antibiotics, healed. 18. DVT prophylaxis. Continue patient on heparin. 19. GI prophylaxis. Continue PPI. CODE STATUS: full code. Discharge plan: Return home. Impression and plan of care have been directed as dictated by the signing physician. Lora Perez nurse practitioner acting as scribe for signing p hysician. Objective - Vital Signs Vital signs: Vital Signs Temp 97.6 F 07/13/20 19:51 Pulse 65 07/14/20 04:00 Resp 18 07/14/20 04:00 BP 152/69 07/14/20 04:00 Pulse Ox 95 07/14/20 04:00 Intake & Output 07/13/20 07/14/20 07/14/20 18:59 06:59 18:59 Intake Total 1066.717 223.909 Output Total 600 Balance 466.717 223.909 Weight 92 kg Intake: Intake, IV Titration 46.717 73.909 Amount Heparin Sod,Pork in 0.45% 46.717 73.909 NaCl 25,000 unit In 0.45 % NaCl 1 250ml.bag @ 11. 023 UNITS/KG/HR 10 mls/hr IV .Q24H [facility] Rx#: [id number] Oral 1020 150 Output: Urine 600 Other: Voiding Method Toilet # Voids 2 - Labs CBC & Chem 7: 07/12/20 10:09 07/12/20 10:09 Labs: Abnormal Lab Results - Last 24 Hours (Table) 07/13/20 07/13/20 07/14/20 Range/Units 10:58 21:33 03:46 APTT 39.8 H 42.5 H >200.0 H* (22.0-30.0) sec Microbiology - Last 24 Hours (Table) 07/12/20 10:35 Blood Culture - Preliminary Blood No Growth after 24 hours
[2020-07-14] MEDS: ALBUTEROL HFA INHALER INHALATION PRN ×2 (11:57→21:33)
--- NOTE | 2020-07-14 12:07 | P.PN ---
Subjective Progress Note Date: 07/14/20 Principal diagnosis: Fatigue, fever, cough 60-year-old white male patient of Dr. Lu, with a previous medical history significant for hypertension, hypertensive heart disease, previous history of DVT, end-stage renal disease previously on hemodialysis, status post renal and pancreatic transplant in 2008 at the [facility], maintained on Prograf and prednisone on a regular basis, diabetes mellitus type 2, COPD, CAD with recent history of intervention in April 2020. Patient had a transesophageal echocardiogram in May 2020 which revealed severe aortic st enosis, and severe aortic regurgitation. She was also recently treated for a right-sided pneumonia. Patient came into the hospital on 07/12/2020 for evaluation of feeling very fatigued, coughing, he is admitted to having some fever, dry heaves with nausea, and a runny nose. he was on room air on presentation with a pulse ox of 95%, did have a low-grade fever, chest x-ray showed no acute pulmonary process. Lab work showed lymphopenia with lymphocyte count 0.3, white blood cell count was 8.7, d-dimer was 1.21, sodium was 135, CO2 is 21, the rest of electrolytes were unremarkable, B1 is 25 creatinine is 1.18, plasma lactic acid was 0.9, troponins topped at 0.059 with the third set, proBNP was 2890, pro-calcitonin level was 0.14, influenza screen was negative, RSV was negative, COVID 19 PCR was positive. Cardiology was consulted in view of positive troponins, patient was started on heparin infusion, and consultation was requested in regards to COVID 19 treatment On 07/14/2020 patient seen in follow-up on selective care unit, he is currently on 2 L of oxygen his pulse ox is between 93-95%, he states he is feeling good, no specific complaints, no worsening dyspnea, no abdominal pain, no chest discomfort, vital signs have been stable, he has been afebrile, pro-calcitonin level was low at 0.14. He remains on heparin infusion in view of positive troponins, patient has had no complaints of chest discomfort. Cardiology is following Objective - Vital Signs Vital signs: Vital Signs Temp 97.6 F 07/13/20 19:51 Pulse 58 L 07/14/20 08:00 Resp 18 07/14/20 08:00 BP 142/54 07/14/20 08:00 Pulse Ox 93 L 07/14/20 08:00 Intake & Output 07/13/20 07/14/20 07/14/20 18:59 06:59 18:59 Intake Total 1066.717 223.909 320 Output Total 600 Balance 466.717 223.909 320 Weight 92 kg Intake: Intake, IV Titration 46.717 73.909 Amount Heparin Sod,Pork in 0.45% 46.717 73.909 NaCl 25,000 unit In 0.45 % NaCl 1 250ml.bag @ 11. 023 UNITS/KG/HR 10 mls/hr IV .Q24H JESS Rx#: [id number] Oral 1020 150 320 Output: Urine 600 Other: Voiding Method Toilet # Voids 2 - Exam GENERAL EXAM: Alert, very pleasant 60-year-old white male, on 2 L of oxygen a pulse ox of 91-97%, comfortable in no apparent distress. HEAD: Normocephalic/atraumatic. EYES: Normal reaction of pupils, equal size. Conjunctiva pink, sclera white. NOSE: Clear with pink turbinates. THROAT: No erythema or exudates. NECK: No masses, no JVD, no thyroid enlargement, no adenopathy. CHEST: No chest wall deformity. Symmetrical expansion. LUNGS: Equal air entry with no crackles, wheeze, rhonchi or dullness. CVS: Regular rate and rhythm, normal S1 and S2, no gallops, no murmurs, no rubs ABDOMEN: Soft, nontender. No hepatosplenomegaly, normal bowel sounds, no guarding or rigidity. EXTREMITIES: No clubbing, no edema, no cyanosis, 2+ pulses and upper and lower extremities. MUSCULOSKELETAL: Muscle strength and tone normal. SPINE: No scoliosis or deformity SKIN: No rashes CENTRAL NERVOUS SYSTEM: Alert and oriented -3. No focal deficits, tone is normal in all 4 extremities. PSYCHIATRIC: Alert and oriented -3. Appropriate affect. Intact judgment and insight. - Labs CBC & Chem 7: 07/12/20 10:09 07/12/20 10:09 Labs: Abnormal Lab Results - Last 24 Hours (Table) 07/13/20 07/14/20 07/14/20 Range/Units 21:33 03:46 10:35 APTT 42.5 H >200.0 H* 45.8 H (22.0-30.0) sec Microbiology - Last 24 Hours (Table) 07/12/20 10:35 Blood Culture - Preliminary Blood No Growth after 24 hours Assessment and Plan Plan: Assessment: #1. Acute COVID 19 pneumonitis, patient presented to the emergency department on 07/12/2020 for evaluation of weakness, fever, and cough, cold and 19 PCR was positive on 07/12/2020 #2. Acute hypoxic respiratory failure, mild, patient is requiring 2 L of oxygen #3. Elevated d-dimer, at 1.21 on presentation, likely related to COVID 19 pneumonitis, currently on heparin infusion #4. Troponin leak, cardiology is following, and patient was started on heparin infusion #5. Coronary artery disease with previous history of multivessel PCI #6. Aortic valve stenosis #7. Hypertension #8. Hyperlipidemia #9. End-stage renal disease status post renal transplant in 2008 #10. Status post pancreatic transplant in 2008 #11. Diabetes mellitus type 2 with diabetic retinopathy #12. Previous history of DVT in the left leg #13. History of skin cancer #14. Previous history of osteomyelitis, diabetic wounds, Plan: Patient has been clinically stable, no worsening dyspnea, remains on a maintenance dose of prednisone, left in follow-up chest x-ray today, cardiology is following the patient remains on heparin infusion for positive troponins, from pulmonary perspective his been stable, and can be considered for discharge home once cleared by cardiology. I performed a history & physical examination of the patient and discussed their management with my nurse practitioner, Trena Lovelace. I reviewed the nurse practitioner's note and agree with the documented findings and plan of care. Lung sounds are positive for mild crackles. The findings and the impression was discussed with the patient. I attest to the documentation by the nurse practitioner. Time with Patient: Less than 30
--- NOTE | 2020-07-14 14:16 | P.PN ---
Subjective Progress Note Date: 07/14/20 CHIEF COMPLAINT: Elevated troponins HISTORY OF PRESENT ILLNESS: This is a 60 year old male admitted to the hospital secondary to Covid. Cardiology is following for abnormal troponins. Echocardiogram completed reveals ejection fraction 50-55%, mild to moderate aortic regurgitation, moderate aortic stenosis, mild tricuspid regurgitation, and mild pulmonary hypertension PHYSICAL EXAM: Thorough physical exam not completed secondary to limited evaluation/examination and due to Covid19 ASSESSMENT: Acute Covid 19 Abnormal troponins, secondary to above, not indicative of acute coronary syndrome Coronary artery disease with previous multivessel PCI Hypertension Hyperlipidema End stage renal disease History of kidney and pancreas transplant PLAN: Continue supportive care Continue IV heparin per Dr. Grace Continue current cardiac medications Further recommendations pending patient course Nurse practitioner note has been reviewed by physician. Signing provider agrees with the documented findings, assessment, and plan of care. Objective - Vital Signs Vital signs: Vital Signs Temp 97.6 F 07/13/20 19:51 Pulse 70 07/14/20 12:00 Resp 18 07/14/20 12:00 BP 145/64 07/14/20 12:00 Pulse Ox 95 07/14/20 12:00 Intake & Output 07/13/20 07/14/20 07/14/20 18:59 06:59 18:59 Intake Total 1066.717 223.909 320 Output Total 600 Balance 466.717 223.909 320 Weight 92 kg Intake: Intake, IV Titration 46.717 73.909 Amount Heparin Sod,Pork in 0.45% 46.717 73.909 NaCl 25,000 unit In 0.45 % NaCl 1 250ml.bag @ 11. 023 UNITS/KG/HR 10 mls/hr IV .Q24H JESS Rx#: [id number] Oral 1020 150 320 Output: Urine 600 Other: Voiding Method Toilet # Voids 2 - Labs CBC & Chem 7: 07/12/20 10:09 07/12/20 10:09 Labs: Abnormal Lab Results - Last 24 Hours (Table) 07/13/20 07/14/20 07/14/20 Range/Units 21:33 03:46 10:35 APTT 42.5 H >200.0 H* 45.8 H (22.0-30.0) sec Microbiology - Last 24 Hours (Table) 07/12/20 10:35 Blood Culture - Preliminary Blood No Growth after 48 hours
--- NOTE | 2020-07-14 14:18 | XR ---
EXAMINATION TYPE: XR chest 1V portable DATE OF EXAM: 07/14/2020 COMPARISON: 07/12/2020 INDICATION: Covid 19 TECHNIQUE: Single frontal view of the chest is obtained. FINDINGS: The heart size is normal. The pulmonary vasculature is normal. Very minimal plate atelectasis may be at the right costophrenic angle. Lungs otherwise appear clear. IMPRESSION: 1. Suggestion of minimal plate atelectasis right costophrenic angle.
[2020-07-14] MEDS: PANTOPRAZOLE 40 MG TABLET PO SCH (20:43)
[2020-07-14] MEDS: CLOPIDOGREL 75 MG TAB PO SCH (20:43)
[2020-07-14] MEDS: allopurinoL 300 MG TAB PO SCH (20:44)
[2020-07-14] MEDS: ASPIRIN 81 MG PO SCH (20:44)
[2020-07-14] MEDS: ATORVASTATIN 40 MG TAB PO SCH (20:44)
[2020-07-14] MEDS: FERROUS SULFATE 325 MG TAB PO SCH (20:44)
[2020-07-14] MEDS: MULTIVITAMINS, THERA 1 EACH TAB PO SCH (20:44)
[2020-07-14] MEDS: LOSARTAN 50 MG TAB PO SCH (20:45)
[2020-07-14] MEDS: MAGNESIUM OXIDE 400 MG TAB PO SCH (20:46)
[2020-07-14] MEDS: LATANOPROST 0.005% OPHTH DROPS 2.5 ML BTL BOTH EYES SCH (22:01)
--- NOTE | 2020-07-14 22:35 | PN ---
PROGRESS NOTE DATE OF SERVICE: 07/14/2020 REASON FOR FOLLOWUP: COVID-19 infection. INTERVAL HISTORY: The patient was seen on rounds early this afternoon. The patient has been afebrile and breathing comfortably. He denies having any chest pain or shortness of breath. Minimal cough. No nausea. No vomiting. No abdominal pain or diarrhea. PHYSICAL EXAMINATION: Blood pressure 133/64 with a pulse of 69, temperature 97.6. He is 96% on 2 L nasal cannula. General description is a middle-aged male up in the bed in no distress. RESPIRATORY SYSTEM: Unlabored breathing with decreased intensity of breath sounds. No wheeze. HEART: S1, S2. Regular rate and rhythm. ABDOMEN: Soft. No tenderness. LABS/IMAGING: No new labs done today. Chest x-ray with minimal atelectasis. DIAGNOSTIC IMPRESSION AND PLAN: Patient admitted to hospital with shortness of breath which is multifactorial in this patient who did have a component of COVID-19 infection, mild, and no significant pulmonary process seen on the chest x-ray. The patient's fever resolved. Currently on heparin, prednisone and zinc; to continue along with respiratory support and monitor his clinical course closely. MMODL / IJN: [id number] /
[2020-07-15] MEDS: POTASSIUM CHLORIDE ER 20 MEQ TAB.ER PO SCH ×2 (06:26→15:15)
[2020-07-15] MEDS: CHOLECALCIFEROL 400 UNIT TAB PO SCH (08:16)
[2020-07-15] MEDS: ASCORBIC ACID 500 MG TAB PO SCH (08:16)
[2020-07-15] MEDS: MYCOPHENOLATE SODIUM DR 180 MG TABLET.DR PO SCH ×2 (08:16→21:14)
[2020-07-15] MEDS: SODIUM BICARBONATE TAB 650 MG TAB PO SCH ×2 (08:16→21:14)
[2020-07-15] MEDS: ZINC SULFATE 220 MG CAP PO SCH (08:16)
[2020-07-15] MEDS: CHOLECALCIFEROL 1,000 UNIT TAB PO SCH ×2 (08:16→21:13)
[2020-07-15] MEDS: TACROLIMUS 1 MG CAP PO SCH ×2 (08:16→21:14)
[2020-07-15] MEDS: predniSONE 10 MG TAB PO SCH (08:17)
[2020-07-15] MEDS: amLODIPine 10 MG TAB PO SCH (08:17)
[2020-07-15] MEDS: carvediloL 6.25 MG TAB PO SCH ×2 (08:17→21:14)
[2020-07-15] MEDS: CALCIUM CARBONATE 500 MG CHEWABLE PO SCH ×2 (08:17→21:13)
[2020-07-15] MEDS: BRIMONIDINE TARTRATE 0.2% DROPS 5 ML BTL BOTH EYES SCH (08:56)
[2020-07-15 10:09] LABS: Albumin 3.6 g/dL (3.5-5.0); Calcium 9.1 mg/dL (8.4-10.2); Magnesium 1.4 mg/dL (1.6-2.3); Potassium 4.4 mmol/L (3.5-5.1); Total Bilirubin 0.5 mg/dL (0.2-1.3); Total Protein 6.4 g/dL (6.3-8.2)
[2020-07-15] MEDS ORDERED: MAGNESIUM SULFATE-D5W PMX 1 GM in DEXTROSE/WATER 1 100ML.BAG IVPB ONE (12:00)
--- NOTE | 2020-07-15 12:56 | P.PN ---
Subjective Progress Note Date: 07/15/20 Principal diagnosis: Fatigue, fever, cough 60-year-old white male patient of Dr. Lu, with a previous medical history significant for hypertension, hypertensive heart disease, previous history of DVT, end-stage renal disease previously on hemodialysis, status post renal and pancreatic transplant in 2008 at the [facility] [place], maintained on Prograf and prednisone on a regular basis, diabetes mellitus type 2, COPD, CAD with recent history of intervention in April 2020. Patient had a transesophageal echocardiogram in May 2020 which revealed severe aortic st enosis, and severe aortic regurgitation. She was also recently treated for a right-sided pneumonia. Patient came into the hospital on 07/12/2020 for evaluation of feeling very fatigued, coughing, he is admitted to having some fever, dry heaves with nausea, and a runny nose. he was on room air on presentation with a pulse ox of 95%, did have a low-grade fever, chest x-ray showed no acute pulmonary process. Lab work showed lymphopenia with lymphocyte count 0.3, white blood cell count was 8.7, d-dimer was 1.21, sodium was 135, CO2 is 21, the rest of electrolytes were unremarkable, B1 is 25 creatinine is 1.18, plasma lactic acid was 0.9, troponins topped at 0.059 with the third set, proBNP was 2890, pro-calcitonin level was 0.14, influenza screen was negative, RSV was negative, COVID 19 PCR was positive. Cardiology was consulted in view of positive troponins, patient was started on heparin infusion, and consultation was requested in regards to COVID 19 treatment On 07/14/2020 patient seen in follow-up on selective care unit, he is currently on 2 L of oxygen his pulse ox is between 93-95%, he states he is feeling good, no specific complaints, no worsening dyspnea, no abdominal pain, no chest discomfort, vital signs have been stable, he has been afebrile, pro-calcitonin level was low at 0.14. He remains on heparin infusion in view of positive troponins, patient has had no complaints of chest discomfort. Cardiology is following On 07/15/2020 patient seen in follow-up on selective care unit. Patient is calm and comfortable, looks to be in no acute distress, breathing comfortably, no worsening dyspnea, was satting 93% on 2 L of oxygen this morning, currently on room air with a pulse ox of 94%, vital signs are stable, his been afebrile, hemodynamically patient has been stable, repeat chest x-ray today was reviewed showing minimal plate atelectasis at the right costophrenic angle. He is on his maintenance dose prednisone 10 mg daily, he is on vitamins C, D and zinc, he is on a daily dose of Lovenox 40 mg daily. Has had no acute events overnight. Denied any chest pain. Minimal cough, no nausea or vomiting no abdominal pain or diarrhea. Objective - Vital Signs Vital signs: Vital Signs Temp 98.0 F 07/15/20 08:00 Pulse 79 07/15/20 12:00 Resp 18 07/15/20 12:00 BP 146/68 07/15/20 12:00 Pulse Ox 94 L 07/15/20 12:00 Intake & Output 07/14/20 07/15/20 07/15/20 18:59 06:59 18:59 Intake Total 800 200 Balance 800 200 Weight 92 kg Intake: Intake, IV Titration 0 Amount Magnesium Sulfate-D5w Pmx 0 1 gm In Dextrose/Water 1 100ml.bag @ 100 mls/hr IVPB ONCE ONE Rx#: [id number] Oral 800 200 Other: Voiding Method Toilet # Voids 1 2 1 - Exam GENERAL EXAM: Alert, very pleasant 60-year-old white male, on 2 L of oxygen a pulse ox of 91-97%, comfortable in no apparent distress. HEAD: Normocephalic/atraumatic. EYES: Normal reaction of pupils, equal size. Conjunctiva pink, sclera white. NOSE: Clear with pink turbinates. THROAT: No erythema or exudates. NECK: No masses, no JVD, no thyroid enlargement, no adenopathy. CHEST: No chest wall deformity. Symmetrical expansion. LUNGS: Equal air entry with no crackles, wheeze, rhonchi or dullness. CVS: Regular rate and rhythm, normal S1 and S2, no gallops, no murmurs, no rubs ABDOMEN: Soft, nontender. No hepatosplenomegaly, normal bowel sounds, no guarding or rigidity. EXTREMITIES: No clubbing, no edema, no cyanosis, 2+ pulses and upper and lower extremities. MUSCULOSKELETAL: Muscle strength and tone normal. SPINE: No scoliosis or deformity SKIN: No rashes CENTRAL NERVOUS SYSTEM: Alert and oriented -3. No focal deficits, tone is normal in all 4 extremities. PSYCHIATRIC: Alert and oriented -3. Appropriate affect. Intact judgment and insight. - Labs CBC & Chem 7: 07/12/20 10:09 07/15/20 07:53 Labs: Abnormal Lab Results - Last 24 Hours (Table) 07/15/20 07/15/20 Range/Units 07:53 07:53 APTT 67.9 H (22.0-30.0) sec Sodium 136 L (137-145) mmol/L BUN 25 H (9-20) mg/dL Glucose 112 H (74-99) mg/dL Magnesium 1.4 L (1.6-2.3) mg/dL Microbiology - Last 24 Hours (Table) 07/12/20 10:35 Blood Culture - Preliminary Blood No Growth after 72 hours Assessment and Plan Plan: Assessment: #1. Acute COVID 19 pneumonitis, patient presented to the emergency department on 07/12/2020 for evaluation of weakness, fever, and cough, COVID 19 PCR was positive on 07/12/2020 #2. Acute hypoxic respiratory failure, mild, patient is requiring 2 L of oxygen #3. Elevated d-dimer, at 1.21 on presentation, likely related to COVID 19 pneumonitis, initially on heparin for positive troponins, which has now been switched to prophylactic dose Lovenox #4. Troponin leak, cardiology is following #5. Coronary artery disease with previous history of multivessel PCI #6. Aortic valve stenosis #7. Hypertension #8. Hyperlipidemia #9. End-stage renal disease status post renal transplant in 2008 #10. Status post pancreatic transplant in 2008 #11. Diabetes mellitus type 2 with diabetic retinopathy #12. Previous history of DVT in the left leg #13. History of skin cancer #14. Previous history of osteomyelitis, diabetic wounds, Plan: Patient has been clinically stable, no acute events overnight, minimal cough, no fever or chills, from pulmonary perspective patient can be considered for discharge home today if cleared by medicine and cardiology. I performed a history & physical examination of the patient and discussed their management with my nurse practitioner, Trena Lovelace. I reviewed the nurse practitioner's note and agree with the documented findings and plan of care. Lung sounds are positive for mild crackles. The findings and the impression was discussed with the patient. I attest to the documentation by the nurse practitioner. Time with Patient: Less than 30
[2020-07-15] MEDS: ALBUTEROL HFA INHALER INHALATION PRN ×2 (13:24→16:59)
[2020-07-15] MEDS: ENOXAPARIN 40 MG/0.4 ML SYRINGE SQ SCH (15:15)
--- NOTE | 2020-07-15 15:39 | P.PN ---
Subjective Progress Note Date: 07/15/20 CHIEF COMPLAINT: Elevated troponins HISTORY OF PRESENT ILLNESS: This is a 60 year old male admitted to the hospital secondary to Covid. Cardiology is following for abnormal troponins. He remains on heparin drip this morning. PHYSICAL EXAM: Thorough physical exam not completed secondary to limited evaluation/examination and due to Covid19 ASSESSMENT: Acute Covid 19 Abnormal troponins, secondary to above, not indicative of acute coronary syndrome Coronary artery disease with previous multivessel PCI Hypertension Hyperlipidema End stage renal disease History of kidney and pancreas transplant PLAN: Continue supportive care Discontinue IV heparin Continue current cardiac medications Patient may be discharged from a cardiac standpoint. We will sign off. Please reconsult if needed. Nurse practitioner note has been reviewed by physician. Signing provider agrees with the documented findings, assessment, and plan of care. Objective - Vital Signs Vital signs: Vital Signs Temp 98.0 F 07/15/20 08:00 Pulse 79 07/15/20 12:00 Resp 18 07/15/20 12:00 BP 146/68 07/15/20 12:00 Pulse Ox 94 L 07/15/20 12:00 Intake & Output 07/14/20 07/15/20 07/15/20 18:59 06:59 18:59 Intake Total 800 680 Output Total 300 Balance 800 380 Weight 92 kg Intake: Intake, IV Titration 0 Amount Magnesium Sulfate-D5w Pmx 0 1 gm In Dextrose/Water 1 100ml.bag @ 100 mls/hr IVPB ONCE ONE Rx#: [id number] Oral 800 680 Output: Urine 300 Other: Voiding Method Toilet # Voids 1 2 1 - Labs CBC & Chem 7: 07/12/20 10:09 07/15/20 07:53 Labs: Abnormal Lab Results - Last 24 Hours (Table) 07/15/20 07/15/20 Range/Units 07:53 07:53 APTT 67.9 H (22.0-30.0) sec Sodium 136 L (137-145) mmol/L BUN 25 H (9-20) mg/dL Glucose 112 H (74-99) mg/dL Magnesium 1.4 L (1.6-2.3) mg/dL Microbiology - Last 24 Hours (Table) 07/12/20 10:35 Blood Culture - Preliminary Blood No Growth after 72 hours
--- NOTE | 2020-07-15 15:51 | PN ---
PROGRESS NOTE DATE OF SERVICE: 07/15/2020 REASON FOR FOLLOWUP: COVID-19 Infection. INTERVAL COURSE: The patient is currently afebrile. The patient is feeling better. Breathing comfortably. Currently on room air. Denies having any chest pain. Very minimal cough. No nausea, no vomiting. No abdominal pain, no diarrhea. PHYSICAL EXAMINATION: Blood pressure 146/68, pulse of 89, temperature 98, pulse ox 94% on room air. General description is a middle-aged male, up in the chair in no distress. RESPIRATORY SYSTEM: Unlabored breathing with decreased breath sounds at the base, no wheeze. HEART: S1, S2. Regular rate and rhythm. ABDOMEN: Soft, no tenderness. LABS: BUN of 25, creatinine 1.15. DIAGNOSTIC IMPRESSION AND PLAN: Patient with acute COVID-19 infection, mild in this patient with overall improvement. Currently on heparin, with elevated troponin on prednisone and zinc and blood without any antviral therapy. Continue support care. MMODL / IJN: [id number] / MTDD
[2020-07-15] MEDS: allopurinoL 300 MG TAB PO SCH (21:13)
[2020-07-15] MEDS: LOSARTAN 50 MG TAB PO SCH (21:13)
[2020-07-15] MEDS: ATORVASTATIN 40 MG TAB PO SCH (21:13)
[2020-07-15] MEDS: PANTOPRAZOLE 40 MG TABLET PO SCH (21:14)
[2020-07-15] MEDS: FERROUS SULFATE 325 MG TAB PO SCH (21:14)
[2020-07-15] MEDS: MAGNESIUM OXIDE 400 MG TAB PO SCH (21:14)
[2020-07-15] MEDS: MULTIVITAMINS, THERA 1 EACH TAB PO SCH (21:14)
[2020-07-15] MEDS: ASPIRIN 81 MG PO SCH (21:14)
[2020-07-15] MEDS: CLOPIDOGREL 75 MG TAB PO SCH (21:14)
[2020-07-15] MEDS: LATANOPROST 0.005% OPHTH DROPS 2.5 ML BTL BOTH EYES SCH (21:14)
[2020-07-16] MEDS: POTASSIUM CHLORIDE ER 20 MEQ TAB.ER PO SCH (06:39)
[2020-07-16 06:41] VITALS: TEMP 97.9
[2020-07-16] MEDS: carvediloL 6.25 MG TAB PO SCH (08:29)
[2020-07-16] MEDS: ZINC SULFATE 220 MG CAP PO SCH (08:29)
[2020-07-16] MEDS: MYCOPHENOLATE SODIUM DR 180 MG TABLET.DR PO SCH (08:30)
[2020-07-16] MEDS: amLODIPine 10 MG TAB PO SCH (08:30)
[2020-07-16] MEDS: CHOLECALCIFEROL 400 UNIT TAB PO SCH (08:30)
[2020-07-16] MEDS: ASCORBIC ACID 500 MG TAB PO SCH (08:30)
[2020-07-16] MEDS: SODIUM BICARBONATE TAB 650 MG TAB PO SCH (08:30)
[2020-07-16] MEDS: CALCIUM CARBONATE 500 MG CHEWABLE PO SCH (08:30)
[2020-07-16] MEDS: predniSONE 10 MG TAB PO SCH (08:30)
[2020-07-16] MEDS: TACROLIMUS 1 MG CAP PO SCH (08:30)
[2020-07-16] MEDS: CHOLECALCIFEROL 1,000 UNIT TAB PO SCH (08:30)
[2020-07-16] MEDS: ENOXAPARIN 40 MG/0.4 ML SYRINGE SQ SCH (08:31)
[2020-07-16] MEDS: ALBUTEROL HFA INHALER INHALATION PRN (09:07)
--- NOTE | 2020-07-16 09:23 | P.PN ---
Subjective Progress Note Date: 07/15/20 HISTORY OF PRESENT ILLNESS This is a 60-year-old male patient of Dr. Lu with a previous medical history significant for hypertension and hypertensive cardiovascular dis ease with left ventricular hypertrophy, history of DVT of the left lower extremity, history of the end-stage renal disease was on hemodialysis post kidney and pancreas transplant in [address] [facility], chronic gout, Charcot foot, diabetes mellitus type 2, COPD, treated for right foot abscess with osteomyelitis in the fifth metatarsal, squamous cell skin cancer status post above elbow amputation. Patient underwent a heart catheterization with Dr. CORY Church in August of this year which time he was found to have an LAD lesion 50%, diagonal lesion 70% with plan to further evaluated LAD lesion by FFR. 05/18/2020, Dr. CORY Church performed PTCA of the chronic total occlusion of the distal circumflex marginal branch. FFR assessment was done of the mid LAD which was normal. 06/03/2020, patient underwent PTCA and stenting of the diagonal branch and mid LAD with Dr. CORY Church. SPENCER performed on 06/24/2020 revealed severe aortic stenosis, severe aortic regurgitation. His most recent hospitalization was in March which time he was treated for sepsis secondary to right-sided pneumonia. Patient complains of cough and in general not feeling well. He has shortness of breath with exertion. He denies having any fever or chills. He denies any recent exposure to anyone with Covid. Patient denies having chest pain. He has had some nausea, dry heaves and runny nose. Patient came into [facility] emergency center for evaluation. Temperature max 100.4, heart rate 97, blood pressure 165/89, pulse ox 95% on room air. Chest x-ray reveals no acute pulmonary process. CBC unremarkable except for lymphocytes of 0.3. Sodium 135, potassium 4.5, chloride 105, CO2 21, BUN 25 creatinine 1.18. Blood sugar 112. Magnesium 1.5, CK 604. C-reactive protein 54. Liver function tests normal. Lactic acid 0.9. Troponin 0.041, 0.055, 0.059. ProBNP 2890. Influenza A and B not detected. RSV not detected. COVID-19 detected. EKG is sinus rhythm with LVH. Patient was started on heparin drip and admitted to the cardiac stepdown unit. 07/14: Patient has been seen by cardiology and heparin drip was continued. Echocardiogram reveals EF of 50-55%, moderate to severe aortic valve sclerosis, mild to moderate aortic regurgitation, moderate aortic stenosis, mild tricuspid regurgitation, mild pulmonary hypertension. Patient has been by pulmonary medicine and infectious disease with no change in medications. Patient currently denies having any chest pain, no shortness of breath at rest, reports occasional cough. He denies any abdominal symptoms. No nausea or vomiting, no diarrhea. Patient's is also tested positive for Covid 19. 07/15: Patient continues to deny chest pain. We will discontinue heparin drip and start Lovenox subcu. He does complain of nosebleed. His pulse ox is 93 and 94% on 2 L nasal cannula. He has been afebrile, heart rate 66, blood pressure 160 lower 64. Repeat blood work reveals sodium 136 otherwise electrolytes no rmal, BUN 25 and creatinine 1.15. Blood sugar 112. Magnesium 1.4 and will be replaced. Repeat chest x-ray reveals minimal plate atelectasis right costophrenic angle. Incentive spirometry added. Anticipate discharge home tomorrow. REVIEW OF SYSTEMS Constitutional: Denies fever, denies chills. No weight change. Reports weakness, reports fatigue. EENT: No headache. No blurred vision or double vision, no loss of vision. No loss of Hearing, no ringing in the ears, no dizziness. Reports nasal drainage or congestion. Reports epistaxis. No sore throat. Lungs: Reports shortness of breath with exertion, Reports cough, denies sputum production. Denies hemoptysis. Denies wheezing. Cardiovascular: No chest pain, chronic lower extremity edema. No palpitations. No paroxysmal nocturnal dyspnea. No orthopnea. No lightheadedness or dizziness. No syncopal episodes. Abdominal: Denies abdominal discomfort. Denies nausea, vomiting. Denies diarrhea. No constipation. No bloody or tarry stools Genitourinary: No dysuria, increased frequency, urgency. No urinary retention. Musculoskeletal: No myalgias. Reports muscle weakness, no gait dysfunction, no frequent falls. No back pain. No neck pain. Integumentary: No wounds, no lesions. No rash or pruritus. No unusual bruising. No change in hair or nails. Neurologic: No aphasia. No facial droop. No change in mentation. No head injury. No headache. No paralysis. No paresthesia. Psychiatric: No depression. No anxiety. No mood swings. Endocrine: No abnormal blood sugars. No weight change. No excessive sweating or thirst. No cold intolerance. PHYSICAL EXAMINATION Gen: This is a 1-year-old male patient is sitting on the side of the bed. He appears to be in no acute respiratory distress. HEENT: Head is atraumatic, normocephalic. Pupils equal, round. Sclerae is anict jeovany. NECK: Supple. No JVD. No lymphadenopathy. No thyromegaly. LUNGS: Diminished bilaterally. No wheezing. No intercostal retractions. HEART: Regular rate and rhythm. 3/6 systolic murmur at the fifth intercostal space. ABDOMEN: Soft. Bowel sounds are present. No masses. No tenderness. EXTREMITIES: trace bilat edema. No calf tenderness. Left above the elbow amputation. NEUROLOGICAL: Patient is awake, alert and oriented x3. Cranial nerves 2 through 12 are grossly intact. ASSESSMENT AND PLAN 1. Covid 19 infection. Consult with pulmonary medicine and infectious disease appreciated. Continue vitamin C, vitamin D, zinc, currently on heparin drip and transition to Lovenox, continue prednisone 10 mg daily for now. 2. Elevated troponins. Cardiology consult appreciated. Patient currently on heparin drip. 3. Hypertension and hypertensive cardio vascular disease. Continue carvedilol 6.25 mg orally twice every day, amlodipine 10 mg orally once every day. Losartan 50 mg orally once every day. 4. History of kidney and pancreas transplant back in [address] [facility]. Continue patient on Prograf, prednisone, CellCept. 5. Gout, chronic. Continue allopurinol 300 mg orally once every day. 6. Chronic diastolic heart failure. Echocardiogram from July 2019 reveals severe concentric left hypertrophy, EF 55-60%, severe aortic stenosis, severe mitral calcification, mild mitral regurgitation, mild tricuspid regurgitation. 7. Coronary disease status post multiple stenting. Consult with cardiology. Continue aspirin 81 mg daily, statin, Coreg. Continue Plavix 75 mg at bedtime. 8. History of diabetes mellitus type 2 post pancreatic transplant. 9. History of end-stage renal disease post kidney transplant. 10. Hyperlipidemia. Continue patient on Pravachol 40 mg orally once every day. 11. 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 12. History of DVT. Continue with heparin for now. 13. GERD. Protonix 4o mg IV push twice daily. 14. History of diabetic polyneuropathy. Stable. Continue gabapentin 100 mg at bedtime and daily as needed. 15. History of diabetic retinopathy. Stable. 16. History of psoriasis. Stable. 17. History of right foot abscess with osteomyelitis in the fifth metatarsal, status post bedside I&D and outpatient IV antibiotics, healed. 18. DVT prophylaxis. Lovenox. 19. GI prophylaxis. Continue PPI. CODE STATUS: full code. Discharge plan: Return home. Impression and plan of care have been directed as dictated by the signing physician. Lora Perez nurse practitioner acting as scribe for signing physician. Objective - Vital Signs Vital signs: Vital Signs Temp 98.1 F 07/15/20 03:45 Pulse 78 07/15/20 03:45 Resp 18 07/15/20 03:45 BP 151/51 07/15/20 03:45 Pulse Ox 93 L 07/15/20 03:45 Intake & Output 07/14/20 07/15/20 07/15/20 18:59 06:59 18:59 Intake Total 800 Balance 800 Weight 92 kg Intake: Oral 800 Other: Voiding Method Toilet # Voids 1 2 - Labs CBC & Chem 7: 07/12/20 10:09 07/15/20 07:53 Labs: Abnormal Lab Results - Last 24 Hours (Table) 07/14/20 07/15/20 Range/Units 10:35 07:53 APTT 45.8 H 67.9 H (22.0-30.0) sec Microbiology - Last 24 Hours (Table) 07/12/20 10:35 Blood Culture - Preliminary Blood No Growth after 48 hours
--- NOTE | 2020-07-16 09:28 | P.DS ---
Providers Date of admission: 07/12/20 14:22 Expected date of discharge: 07/16/20 Attending physician: Dianne López MD Consults: 07/13/20 08:22 Consult Physician Routine Consulting Provider: Babar Holt Consult Reason/Comments: covid, autoimmune Do you want consulting provider notified?: Yes Consult Physician Routine Consulting Provider: Sweta Serrano Consult Reason/Comments: covid, autoimmune Do you want consulting provider notified?: Yes Primary care physician: [facility] Course: HISTORY OF PRESENT ILLNESS This is a 60-year-old male patient of Dr. 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 Patient underwent a heart catheterization with Dr. CORY Church in August of this year which time he was found to have an LAD lesion 50%, diagonal lesion 70% with plan to further evaluated LAD lesion by FFR. 05/18/2020, Dr. CORY Church performed PTCA of the chronic total occlusion of the distal circumflex marginal branch. FFR assessment was done of the mid LAD which was normal. 06/03/2020, patient underwent PTCA and stenting of the diagonal branch and mid LAD with Dr. CORY Church. SPENCER performed on 06/24/2020 revealed severe aortic stenosis, severe aortic regurgitation. His most recent hospitalization was in March which time he was treated for sepsis secondary to right-sided pneumonia. Patient complains of cough and in general not feeling well. He has shortness of breath with exertion. He denies having any fever or chills. He denies any recent exposure to anyone with Covid. Patient denies having chest pain. He has had some nausea, dry heaves and runny nose. Patient came into [facility] emergency center for evaluation. Temperature max 100.4, heart rate 97, blood pressure 165/89, pulse ox 95% on room air. Chest x-ray reveals no acute pulmonary process. CBC unremarkable except for lymphocytes of 0.3. Sodium 135, potassium 4.5, chloride 105, CO2 21, BUN 25 creatinine 1.18. Blood sugar 112. Magnesium 1.5, CK 604. C-reactive protein 54. Liver function tests normal. Lactic acid 0.9. Troponin 0.041, 0.055, 0.059. ProBNP 2890. Influenza A and B not detected. RSV not detected. COVID-19 detected. EKG is sinus rhythm with LVH. Patient was started on heparin drip and admitted to the cardiac stepdown unit. 07/14: Patient has been seen by cardiology and heparin drip was continued. Echocardiogram reveals EF of 50-55%, moderate to severe aortic valve sclerosis, mild to moderate aortic regurgitation, moderate aortic stenosis, mild tricuspid regurgitation, mild pulmonary hypertension. Patient has been by pulmonary medicine and infectious disease with no change in medications. Patient currently denies having any chest pain, no shortness of breath at rest, reports occasional cough. He denies any abdominal symptoms. No nausea or vomiting, no diarrhea. Patient's is also tested positive for Covid 19. 07/15: Patient continues to deny chest pain. We will discontinue heparin drip and start Lovenox subcu. He does complain of nosebleed. His pulse ox is 93 and 94% on 2 L nasal cannula. He has been afebrile, heart rate 66, blood pressure 160 lower 64. Repeat blood work reveals sodium 136 otherwise electrolytes normal, BUN 25 and creatinine 1.15. Blood sugar 112. Magnesium 1.4 and will be replaced. Repeat chest x-ray reveals minimal plate atelectasis right costophrenic angle. Incentive spirometry added. Anticipate discharge home tomorrow. 07/16: Patient denies any complaints of chest pain, shortness of breath. He still has occasional cough. Pulse ox is 92-94% on room air, heart rate 69, blood pressure 124/72. Cardiology signed off his case. Patient will be discharged home today in stable condition. ASSESSMENT AND PLAN 1. Covid 19 infection. 2. Elevated troponins. 3. Hypertension and hypertensive cardio vascular disease. 4. History of kidney and pancreas transplant back in 2008 at the [facility]. 5. Gout, chronic. 6. Chronic diastolic heart failure. 7. Coronary disease status post multiple stenting. 8. History of diabetes mellitus type 2 post pancreatic transplant. 9. History of end-stage renal disease post kidney transplant. 10. Hyperlipidemia. 11. 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 12. History of DVT. 13. GERD. 14. History of diabetic polyneuropathy. 15. History of diabetic retinopathy. 16. History of psoriasis. 17. History of right foot abscess with osteomyelitis in the fifth metatarsal Discharge plan: Return home. Impression and plan of care have been directed as dictated by the signing physician. Lora Perez nurse practitioner acting as scribe for signing physician. Patient Condition at Discharge: Fair Plan - Discharge Summary Discharge Rx Participant: No New Discharge Prescriptions: New Zinc Sulfate [Orazinc] 220 mg PO DAILY cap Cholecalciferol [Vitamin D3] 400 unit PO DAILY tab Continue Cholecalciferol [Vitamin D3 (25 Mcg = 1000 Iu)] 5,000 unit PO BID@0800,1999 allopurinoL [Zyloprim] 300 mg PO HS Multivitamin/Iron/Folic Acid [Centrum Complete Multivit Tab] 1 tab PO HS Magnesium Oxide [Mag-Ox] 400 mg PO HS carvediloL [Coreg] 6.25 mg PO BID@799,1999 Omeprazole [PriLOSEC] 20 mg PO HS Aspirin 81 mg PO HS Halobetasol Propionate [Ultravate] 1 applic TOPICAL DAILY PRN PRN Reason: PSORIASIS amLODIPine [Norvasc] 10 mg PO QAM Ascorbic Acid [Vitamin C] 1,000 mg PO DAILY@0800 Calcium Carbonate [Calcium] 600 mg PO BID Cinnamon Bark [Cinnamon] 2,000 mg PO HS Ferrous Sulfate [Iron (65 MG Elemental)] 325 mg PO HS Losartan [Cozaar] 50 mg PO HS Potassium Chloride [Klor-Con 20] 40 meq PO BID-W/MEALS Sodium Bicarbonate Tab 650 mg PO BID Albuterol Inhaler [Ventolin Hfa Inhaler] 1 - 2 puff INHALATION RT-Q6H PRN PRN Reason: Shortness Of Breath Atorvastatin Calcium [Lipitor] 40 mg PO HS #90 tablet Clopidogrel [Plavix] 75 mg PO HS Mycophenolate Sodium Dr [Myfortic] 180 mg PO BID Calcium Carbonate [Tums] 500 - 1,000 mg PO QID PRN PRN Reason: Indigestion Tacrolimus [Prograf] 1 mg PO Q12H predniSONE 10 mg PO DAILY Latanoprost [Xalatan 0.005%] 1 drop BOTH EYES HS Brimonidine Tartrate [Alphagan P 0.2% Ophth Soln] 1 drops BOTH EYES DAILY Discharge Medication List Cholecalciferol [Vitamin D3 (25 Mcg = 1000 Iu)] 5,000 unit PO BID@799,199905/21/14 [History] allopurinoL [Zyloprim] 300 mg PO HS 05/21/14 [History] Magnesium Oxide [Mag-Ox] 400 mg PO HS 08/01/14 [History] Multivitamin/Iron/Folic Acid [Centrum Complete Multivit Tab] 1 tab PO HS 08/01/14 [History] carvediloL [Coreg] 6.25 mg PO BID@08,199904/02/15 [History] Omeprazole [PriLOSEC] 20 mg PO HS 05/18/15 [History] Aspirin 81 mg PO HS 11/08/16 [History] Ascorbic Acid [Vitamin C] 1,000 mg PO DAILY@0800 06/19/19 [History] Halobetasol Propionate [Ultravate] 1 applic TOPICAL DAILY PRN 06/19/19 [History] amLODIPine [Norvasc] 10 mg PO QAM 06/19/19 [History] Calcium Carbonate [Calcium] 600 mg PO BID 08/06/19 [History] Cinnamon Bark [Cinnamon] 2,000 mg PO HS 08/06/19 [History] Ferrous Sulfate [Iron (65 MG Elemental)] 325 mg PO HS 08/06/19 [History] Losartan [Cozaar] 50 mg PO HS 08/06/19 [History] Potassium Chloride [Klor-Con 20] 40 meq PO BID-W/MEALS 08/06/19 [History] Sodium Bicarbonate Tab 650 mg PO BID 08/06/19 [History] Albuterol Inhaler [Ventolin Hfa Inhaler] 1 - 2 puff INHALATION RT-Q6H PRN 04/02/20 [History] Atorvastatin Calcium [Lipitor] 40 mg PO HS #90 tablet 05/18/20 [Rx] Calcium Carbonate [Tums] 500 - 1,000 mg PO QID PRN 06/01/20 [History] Clopidogrel [Plavix] 75 mg PO HS 06/01/20 [History] Mycophenolate Sodium Dr [Myfortic] 180 mg PO BID 06/01/20 [History] Brimonidine Tartrate [Alphagan P 0.2% Ophth Soln] 1 drops BOTH EYES DAILY 07/12/20 [History] Latanoprost [Xalatan 0.005%] 1 drop BOTH EYES HS 07/12/20 [History] Tacrolimus [Prograf] 1 mg PO Q12H 07/12/20 [History] predniSONE 10 mg PO DAILY 07/12/20 [History] Cholecalciferol [Vitamin D3] 400 unit PO DAILY tab 07/16/20 [Rx] Zinc Sulfate [Orazinc] 220 mg PO DAILY cap 07/16/20 [Rx] Follow up Appointment(s)/Referral(s): Babar Holt MD [STAFF PHYSICIAN] - 08/19/20 1:00 pm Gwen Church MD [STAFF PHYSICIAN] - 08/04/20 2:15 pm Greg Lu MD [Primary Care Provider] - 07/17/20 1:30 pm (Telehealth visit with Anh PHILLIPS ) Patient Instructions/Handouts: Chest Pain (DC), Hypomagnesemia (DC), Pneumonia (DC), Shortness of Breath (DC) Discharge Disposition: HOME SELF-CARE
[2020-07-16 10:23] VITALS: BP 124/72; PULSE 69
--- NOTE | 2020-07-16 21:36 | P.PN ---
Progress Note - Text Progress Note Date: 07/16/20 REASON FOR FOLLOWUP: COVID-19 Infection. INTERVAL COURSE: The patient is afebrile. The patient is Breathing comfortably on room air. Denies having any chest pain. Very minimal cough. No nausea, no vomiting. No abdominal pain, no diarrhea. PHYSICAL EXAMINATION: Blood pressure 140/60, pulse of 89, temperature 98, pulse ox 94% on room air. General description is a middle-aged male, up in the chair in no distress. RESPIRATORY SYSTEM: Unlabored breathing with decreased breath sounds at the base, no wheeze. HEART: S1, S2. Regular rate and rhythm. ABDOMEN: Soft, no tenderness. LABS: Reviewed DIAGNOSTIC IMPRESSION AND PLAN: Patient with acute COVID-19 infection, mild in this patient with overall improvement. Currently on Lovenox, prednisone and zinc and Continue support care.
== END 2020-07-16 12:49 | disposition home or self-care (01) | DRG 177 ==
LOC: EC 09:44 → 3SCARD 14:22
PROVIDERS: ADMIT Internal Medicine; ATTEND Internal Medicine
DX: U07.1 COVID-19 (principal); J12.89 Other viral pneumonia; J96.01 Acute respiratory failure with hypoxia; I50.32 Chronic diastolic (congestive) heart failure; J44.0 Chronic obstructive pulmonary disease with (acute) lower respiratory infection; I13.2 Hypertensive heart and chronic kidney disease with heart failure and with stage 5 chronic kidney disease, or end stage renal disease; A52.16 Charcot's arthropathy (tabetic); Z94.0 Kidney transplant status; Z94.83 Pancreas transplant status; K21.9 Gastro-esophageal reflux disease without esophagitis; E11.22 Type 2 diabetes mellitus with diabetic chronic kidney disease; E11.319 Type 2 diabetes mellitus with unspecified diabetic retinopathy without macular edema; E11.42 Type 2 diabetes mellitus with diabetic polyneuropathy; E11.610 Type 2 diabetes mellitus with diabetic neuropathic arthropathy; E78.5 Hyperlipidemia, unspecified; E83.42 Hypomagnesemia; I25.10 Atherosclerotic heart disease of native coronary artery without angina pectoris; Z95.5 Presence of coronary angioplasty implant and graft; I27.20 Pulmonary hypertension, unspecified; I35.2 Nonrheumatic aortic (valve) stenosis with insufficiency; R04.0 Epistaxis; M85.80 Other specified disorders of bone density and structure, unspecified site; M10.9 Gout, unspecified; Z79.02 Long term (current) use of antithrombotics/antiplatelets; Z79.52 Long term (current) use of systemic steroids; Z79.82 Long term (current) use of aspirin; Z79.899 Other long term (current) drug therapy; Z85.828 Personal history of other malignant neoplasm of skin; Z86.718 Personal history of other venous thrombosis and embolism; R79.1 Abnormal coagulation profile; Z87.01 Personal history of pneumonia (recurrent); E66.9 Obesity, unspecified; Z68.29 Body mass index [BMI] 29.0-29.9, adult; R79.89 Other specified abnormal findings of blood chemistry; Z88.8 Allergy status to other drugs, medicaments and biological substances; Z98.42 Cataract extraction status, left eye; Z98.41 Cataract extraction status, right eye; E89.2 Postprocedural hypoparathyroidism; Z89.2 Acquired absence of upper limb above wrist
CPT/HCPCS: 36415; 71045; 80053; 80061; 82550; 82728; 83605; 83615; 83690; 83735; 83880; 84145; 84484; 85025; 85379; 85610; 85730; 86140; 87040; 87636; 93005; 93306; 94640; 96361; 96365; 96375; 96376; 99285

== ENCOUNTER 2020-07-23 10:06 | Emergency (ER) | payer MEDICARE, BC ==
[2020-07-23] MEDS ORDERED: ALBUTEROL HFA INHALER INHALATION STA (10:42)
--- NOTE | 2020-07-23 10:47 | ED ---
General Adult HPI - General Chief complaint: Shortness of Breath Stated complaint: AMD COVID+ Time Seen by Provider: 07/23/20 10:06 Source: patient, EMS, RN notes reviewed, old records reviewed Mode of arrival: EMS Limitations: altered mental status, physical limitation - History of Present Illness Initial comments: This is a 60-year-old male who presents emergency Department with a past medical history significant for diabetes and a pancreas and kidney transplant. Patient was found with an altered level of consciousness by family members today and they called EMS. Patient does know where he is and what day it is. Patient states he is very short of breath and he thinks it started to occur more last night. Patient states she was diagnosed with COVID on July 12. Patient denies any vomiting. Patient denies any chest pain. Patient denies headache patient denies numbness or focal weakness. Patient states she does have general fatigue. - Related Data Home Medications Medication Instructions Recorded Confirmed Cholecalciferol [Vitamin D3 (25 5,000 unit PO BID@0800,199905/21/14 07/23/20 Mcg = 1000 Iu)] allopurinoL [Zyloprim] 300 mg PO HS 05/21/14 07/23/20 Magnesium Oxide [Mag-Ox] 400 mg PO HS 08/01/14 07/23/20 Multivitamin/Iron/Folic Acid 1 tab PO HS 08/01/14 07/23/20 [Centrum Complete Multivit Tab] carvediloL [Coreg] 6.25 mg PO BID@0800,199904/02/15 07/23/20 Omeprazole [PriLOSEC] 20 mg PO HS 05/18/15 07/23/20 Aspirin 81 mg PO HS 11/08/16 07/23/20 Ascorbic Acid [Vitamin C] 1,000 mg PO DAILY@0800 06/19/19 07/23/20 Halobetasol Propionate [Ultravate] 1 applic TOPICAL DAILY PRN 06/19/19 07/23/20 amLODIPine [Norvasc] 10 mg PO QAM 06/19/19 07/23/20 Calcium Carbonate [Calcium] 600 mg PO BID 08/06/19 07/23/20 Cinnamon Bark [Cinnamon] 2,000 mg PO HS 08/06/19 07/23/20 Ferrous Sulfate [Iron (65 MG 325 mg PO HS 08/06/19 07/23/20 Elemental)] Losartan [Cozaar] 50 mg PO HS 08/06/19 07/23/20 Potassium Chloride [Klor-Con 20] 40 meq PO BID-W/MEALS 08/06/19 07/23/20 Sodium Bicarbonate Tab 650 mg PO BID 08/06/19 07/23/20 Albuterol Inhaler [Ventolin Hfa 1 - 2 puff INHALATION RT-Q6H PRN 04/02/20 07/23/20 Inhaler] Calcium Carbonate [Tums] 500 - 1,000 mg PO QID PRN 06/01/20 07/23/20 Clopidogrel [Plavix] 75 mg PO HS 06/01/20 07/23/[address] [Myfortic] 180 mg PO BID 06/01/20 07/23/20 Brimonidine Tartrate [Alphagan P 1 drops BOTH EYES DAILY 07/12/20 07/23/20 0.2% Ophth Soln] Latanoprost [Xalatan 0.005%] 1 drop BOTH EYES HS 07/12/20 07/23/20 Tacrolimus [Prograf] 1 mg PO Q12H 07/12/20 07/23/20 predniSONE 10 mg PO DAILY 07/12/20 07/23/20 Previous Rx's Medication Instructions Recorded Atorvastatin Calcium [Lipitor] 40 mg PO HS #90 tablet 05/18/20 Zinc Sulfate [Orazinc] 220 mg PO DAILY cap 07/16/20 Allergies Allergy/AdvReac Type Severity Reaction Status Date / Time iodine AdvReac kidney and Verified 07/23/20 11:51 pancreas transplant concerns Review of Systems ROS Statement: Those systems with pertinent positive or pertinent negative responses have been documented in the HPI. ROS Other: All systems not noted in ROS Statement are negative. Past Medical History Past Medical History: Cancer, Deep Vein Thrombosis (DVT), Hyperlipidemia, Hypertension, Pneumonia, Renal Disease, Skin Disorder, Thyroid Disorder Additional Past Medical History / Comment(s): Charcot rt foot , hx DM-mota creas/kidney transplant, murmur, DVT L leg, poor circulation, bilat feet/hand neuropathy, diabetic retinopathy, psoriasis, hx wound rt ankle, R heel, R dosal foot healed; hx squamous skin cancer 10/2018 small area of osteomylitis R foot, hx end stage renal disease w/ hemodialysis x3 yrs then had kidneys/pancreas transplant In 2008 at [facility], TMJ, gout, osteopenia, multiple malignant cutanous lesions with removals. History of Any Multi-Drug Resistant Organisms: None Reported Date of last positivie culture/infection: ?5 yrs ago MDRO Source:: stool Past Surgical History: Heart Catheterization, Heart Catheterization With Stent, Orthopedic Surgery Additional Past Surgical History / Comment(s): kidney & pancreas transplant 2009, cataracts removed, bilateral eye vitrectomy, bilateral eye RK, surgery to reconnect rt achilles tendon with dehisence and then several debridements of wound to R ankle and R heel, skin lesion removal-basal and squamous cell cancer, A/V fistula L upper arm removed , parathyroidectomy, R wrist fx with surgery. Squamous cell carcinoma removed 09/2016, 01/2018, 11/2018. 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 c. cath 05/18/20 stent in LAD & Diag on 06/03/2020 Past Anesthesia/Blood Transfusion Reactions: No Reported Reaction Additional Past Anesthesia/Blood Transfusion Reaction / Comment(s): Pt states he has received blood in the past without reaction. Date of Last Stent Placement:: 06/03/2020 Past Psychological History: No Psychological Hx Reported Smoking Status: Never smoker Past Alcohol Use History: Occasional Past Drug Use History: None Reported - Past Family History Father Family Medical History: CVA/TIA, Vascular Disorder Additional Family Medical History / Comment(s): blood clot left arm Mother Family Medical History: Osteoarthritis (OA) Additional Family Medical History / Comment(s): Mother isalive General Exam - General Exam Comments Initial Comments: GENERAL: Patient is well-developed and well-nourished. Patient is nontoxic and well- hydrated and is in mild distress. ENT: Neck is soft and supple. No significant lymphadenopathy is noted. Oropharynx is clear. Moist mucous membranes. Neck has full range of motion without elici ting any pain. EYES: The sclera were anicteric and conjunctiva were pink and moist. Extraocular m ovements were intact and pupils were equal round and reactive to light. Eyelids were unremarkable. PULMONARY: Unlabored respirations. Good breath sounds bilaterally. No audible rales rhonchi or wheezing was noted. CARDIOVASCULAR: There is a regular rate and rhythm without any murmurs gallops or rubs. ABDOMEN: Soft and nontender with normal bowel sounds. SKIN: Skin is clear with no lesions or rashes and otherwise unremarkable. NEUROLOGIC: Patient is alert and oriented 3. Patient's cranial nerves II through XII are grossly intact motor and sensory grossly intact. MUSCULOSKELETAL: Normal extremities with adequate strength and full range of motion. Patient has amputation of the left forearm LYMPHATICS: No significant lymphadenopathy is noted PSYCHIATRIC: Normal psychiatric evaluation. Limitations: altered mental status, physical limitation Course Vital Signs 07/23/20 07/23/20 07/23/20 10:16 10:35 10:39 Temperature 103.3 F H Pulse Rate 109 H 109 H 108 H Respiratory 31 H 34 H 50 H Rate Blood Pressure 92/24 108/42 O2 Sat by Pulse 94 L 91 L 97 Oximetry 07/23/20 07/23/20 07/23/20 10:40 10:50 11:00 Temperature Pulse Rate 107 H 107 H 105 H Respiratory 53 H 37 H 55 H Rate Blood Pressure 108/42 85/36 85/36 O2 Sat by Pulse 97 Oximetry 07/23/20 07/23/20 12:00 13:01 Temperature 100.2 F H Pulse Rate 104 H 105 H Respiratory 40 H 40 H Rate Blood Pressure 104/91 101/78 O2 Sat by Pulse 96 96 Oximetry Procedures - Intubation Laryngoscope: Enriquez Size: 3 ET Tube Size: 7.5 ET Tube Uncuffed: No Tube Secured Location: teeth Tube Placement Confirmation: visualized tube passing through cords, equal breath sounds bilaterally, no breath sounds over epigastrium, confirmation by capnometry Intubation Complications: none - Sepsis Sepsis Focused Exam #1 Time Sepsis Criteria Met: 11:25 Sepsis Focused Exam Date: 07/23/20 Sepsis Focused Exam Time: 13:25 Sepsis Focused Exam Complete: Yes Vital Signs & RN Notes Reviewed: Yes Capillary Refill: < 2 Seconds: Fingers Peripheral Pulses: Normal: Radial (R) Skin Color: Normal for Patient Respiratory Exam: normal lung sounds Cardiovascular Exam: tachycardia Medical Decision Making - Medical Decision Making EKG shows sinus tachycardia with occasional PAC at 113 bpm MN interval 118 QRS is 86 QT interval 332 QTC is 455. Patient's EKG shows T-wave inversions in leads V4 V5 and V6. Patient also has T-wave inversions in 1 and aVL. Chest x-ray shows bilateral infiltrates with some mild congestion Patienton BiPAP better oxygenate. Spoke with Dr. Aly he agreed to admit the patient admitted the patient wrote admitting orders. After the patient was admitted nursing called me back into the room because the patient heart rate became bradycardia into the 40s I felt a pulse at that time I started cycling the blood pressure and then I will also patient's pulse at that point time we started CPR. Epinephrine was given ACLS protocol was followed patient went into asystole after 4 doses of epinephrine patient had a rhythm and had a blood pressure and pulse. Patient was intubated by myself. After pulses returned again a repeat EKG showed sinus bradycardia 57 bpm MN interval is 210 QRS is 96 QT interval 410 QTC is 399. Patient's EKG shows some ST segment depression in precordial leads V2 through V6. His troponin was 2.2 Patient bradycardia down and lost pulses for a third time. Because of the patient's downtime previously in the speed with which the patient returned to asystole after previous CPR at this point time the patient was pronounced at 1427. Spoke with the emergency medical tech. - Lab Data Result diagrams: 07/23/20 10:47 07/23/20 10:47 Lab Results 07/23/20 07/23/20 07/23/20 Range/Units 10:12 10:46 10:47 WBC 33.7 H (3.8-10.6) k/uL RBC 4.49 (4.30-5.90) m/uL Hgb 14.5 (13.0-17.5) gm/dL Hct 43.4 (39.0-53.0) % MCV 96.6 (80.0-100.0) fL MCH 32.3 (25.0-35.0) pg MCHC 33.5 (31.0-37.0) g/dL RDW 14.6 (11.5-15.5) % Plt Count 224 (150-450) k/uL MPV 7.9 Neutrophils % (Manual) 84 % Band Neuts % (Manual) 11 % Lymphocytes % (Manual) 3 % Monocytes % (Manual) 2 % Neutrophils # (Manual) 32.00 H (1.3-7.7) k/uL Lymphocytes # (Manual) 1.01 (1.0-4.8) k/uL Monocytes # (Manual) 0.67 (0-1.0) k/uL Nucleated RBCs 0 (0-0) /100 WBC Manual Slide Review Performed Toxic Granulation Present RBC Morphology Normal PT (9.0-12.0) sec INR (<1.2) APTT (22.0-30.0) sec D-Dimer (<0.60) mg/L FEU VBG pH 7.30 L (7.31-7.41) VBG pCO2 34 L (37-51) mmHg VBG HCO3 16 L (24-28) mmol/L Sodium (137-145) mmol/L Potassium (3.5-5.1) mmol/L Chloride (98-107) mmol/L Carbon Dioxide (22-30) mmol/L Anion Gap mmol/L BUN (9-20) mg/dL Creatinine (0.66-1.25) mg/dL Est GFR (CKD-EPI)AfAm (>60 ml/min/1.73 sqM) Est GFR (CKD-EPI)NonAf (>60 ml/min/1.73 sqM) Glucose (74-99) mg/dL Lactic Ac Sepsis Rflx Plasma Lactic Acid Hector (0.7-2.0) mmol/L Calcium (8.4-10.2) mg/dL Magnesium (1.6-2.3) mg/dL Total Bilirubin (0.2-1.3) mg/dL AST (17-59) U/L ALT (4-49) U/L Alkaline Phosphatase (38-126) U/L Lactate Dehydrogenase (313-618) U/L Troponin I 2.200 H* (0.000-0.034) ng/mL C-Reactive Protein (<10.0) mg/L Total Protein (6.3-8.2) g/dL Albumin (3.5-5.0) g/dL 07/23/20 07/23/20 07/23/20 Range/Units 10:47 10:47 10:47 WBC (3.8-10.6) k/uL RBC (4.30-5.90) m/uL Hgb (13.0-17.5) gm/dL Hct (39.0-53.0) % MCV (80.0-100.0) fL MCH (25.0-35.0) pg MCHC (31.0-37.0) g/dL RDW (11.5-15.5) % Plt Count (150-450) k/uL MPV Neutrophils % (Manual) % Band Neuts % (Manual) % Lymphocytes % (Manual) % Monocytes % (Manual) % Neutrophils # (Manual) (1.3-7.7) k/uL Lymphocytes # (Manual) (1.0-4.8) k/uL Monocytes # (Manual) (0-1.0) k/uL Nucleated RBCs (0-0) /100 WBC Manual Slide Review Toxic Granulation RBC Morphology PT 13.5 H (9.0-12.0) sec INR 1.4 H (<1.2) APTT 31.5 H (22.0-30.0) sec D-Dimer 10.63 H (<0.60) mg/L FEU VBG pH (7.31-7.41) VBG pCO2 (37-51) mmHg VBG HCO3 (24-28) mmol/L Sodium 133 L (137-145) mmol/L Potassium 5.4 H (3.5-5.1) mmol/L Chloride 105 (98-107) mmol/L Carbon Dioxide 16 L (22-30) mmol/L Anion Gap 12 mmol/L BUN 36 H (9-20) mg/dL Creatinine 3.70 H (0.66-1.25) mg/dL Est GFR (CKD-EPI)AfAm 19 (>60 ml/min/1.73 sqM) Est GFR (CKD-EPI)NonAf 17 (>60 ml/min/1.73 sqM) Glucose 87 (74-99) mg/dL Lactic Ac Sepsis Rflx Plasma Lactic Acid Hector 8.1 H* (0.7-2.0) mmol/L Calcium 9.4 (8.4-10.2) mg/dL Magnesium 1.3 L (1.6-2.3) mg/dL Total Bilirubin 1.0 (0.2-1.3) mg/dL AST 124 H (17-59) U/L ALT 68 H (4-49) U/L Alkaline Phosphatase 52 (38-126) U/L Lactate Dehydrogenase 1179 H (313-618) U/L Troponin I (0.000-0.034) ng/mL C-Reactive Protein 177.2 H (<10.0) mg/L Total Protein 5.7 L (6.3-8.2) g/dL Albumin 3.2 L (3.5-5.0) g/dL 07/23/20 Range/Units 11:44 WBC (3.8-10.6) k/uL RBC (4.30-5.90) m/uL Hgb (13.0-17.5) gm/dL Hct (39.0-53.0) % MCV (80.0-100.0) fL MCH (25.0-35.0) pg MCHC (31.0-37.0) g/dL RDW (11.5-15.5) % Plt Count (150-450) k/uL MPV Neutrophils % (Manual) % Band Neuts % (Manual) % Lymphocytes % (Manual) % Monocytes % (Manual) % Neutrophils # (Manual) (1.3-7.7) k/uL Lymphocytes # (Manual) (1.0-4.8) k/uL Monocytes # (Manual) (0-1.0) k/uL Nucleated RBCs (0-0) /100 WBC Manual Slide Review Toxic Granulation RBC Morphology PT (9.0-12.0) sec INR (<1.2) APTT (22.0-30.0) sec D-Dimer (<0.60) mg/L FEU VBG pH (7.31-7.41) VBG pCO2 (37-51) mmHg VBG HCO3 (24-28) mmol/L Sodium (137-145) mmol/L Potassium (3.5-5.1) mmol/L Chloride (98-107) mmol/L Carbon Dioxide (22-30) mmol/L Anion Gap mmol/L BUN (9-20) mg/dL Creatinine (0.66-1.25) mg/dL Est GFR (CKD-EPI)AfAm (>60 ml/min/1.73 sqM) Est GFR (CKD-EPI)NonAf (>60 ml/min/1.73 sqM) Glucose (74-99) mg/dL Lactic Ac Sepsis Rflx Y Plasma Lactic Acid Hector (0.7-2.0) mmol/L Calcium (8.4-10.2) mg/dL Magnesium (1.6-2.3) mg/dL Total Bilirubin (0.2-1.3) mg/dL AST (17-59) U/L ALT (4-49) U/L Alkaline Phosphatase (38-126) U/L Lactate Dehydrogenase (313-618) U/L Troponin I (0.000-0.034) ng/mL C-Reactive Protein (<10.0) mg/L Total Protein (6.3-8.2) g/dL Albumin (3.5-5.0) g/dL Critical Care Time Critical Care Time: Yes Total Critical Care Time: 35 Disposition Clinical Impression: Acute renal failure, COVID-19, Pneumonia, Sepsis, Cardiopulmonary arrest Disposition: Time of Disposition: 12:44 Preliminary Cause of : Cardiopulmonary arrest
[2020-07-23] MEDS: ACETAMINOPHEN TAB 500 MG TAB PO STA ×2 (10:50→11:27)
[2020-07-23] MEDS ORDERED: SODIUM CHLORIDE 0.9% 1,000 ML IV STA (11:13)
[2020-07-23] MEDS: IBUPROFEN 600 MG TAB PO STA ×2 (11:15→11:27)
[2020-07-23 11:24] LABS: HCT 43.4 % (39.0-53.0); HGB 14.5 gm/dL (13.0-17.5); MCH 32.3 pg (25.0-35.0); MCHC 33.5 g/dL (31.0-37.0); MCV 96.6 fL (80.0-100.0); Mean Platelet Volume 7.9; Platelet Count 224 k/uL (150-450); RBC 4.49 m/uL (4.30-5.90); RDW 14.6 % (11.5-15.5); WBC 33.7 k/uL (3.8-10.6)
--- NOTE | 2020-07-23 11:26 | XR ---
EXAM: XR Chest, 1 View CLINICAL HISTORY: Suspected COVID-19 pneumonia TECHNIQUE: Frontal view of the chest. COMPARISON: July 14, 2020. FINDINGS: Allowing for portable technique, little interval change in cardiomediastinal silhouette. Mild central vascular congestion. Low lung volumes. Mild patchy atelectasis or infiltrates in the lower lungs, slightly increased since prior. No large pleural effusions. Vascular graft projected over the left axilla. IMPRESSION: Mild patchy atelectasis or infiltrates in the lower lungs, slightly increased since prior. No large pleural effusions. Mild central vascular congestion.
[2020-07-23] MEDS ORDERED: ACETAMINOPHEN IV (For NPO) 1,000 MG in EMPTY BAG 1 BAG IVPB STA (11:29)
[2020-07-23 11:39] LABS: INR 1.4 (<1.2); Partial Thromboplastin Time 31.5 sec (22.0-30.0); Prothrombin Time 13.5 sec (9.0-12.0)
[2020-07-23 11:42] LABS: D-Dimer 10.63 mg/L FEU (<0.60)
[2020-07-23] MEDS ORDERED: IBUPROFEN IV 400 MG in SODIUM CHLORIDE 0.9% 100 ML IV ONE (11:43)
[2020-07-23 11:46] LABS: Albumin 3.2 g/dL (3.5-5.0); C Reactive Protein 177.2 mg/L (<10.0); Calcium 9.4 mg/dL (8.4-10.2); Magnesium 1.3 mg/dL (1.6-2.3); Potassium 5.4 mmol/L (3.5-5.1); Total Protein 5.7 g/dL (6.3-8.2)
[2020-07-23] MEDS ORDERED: SODIUM CHLORIDE 0.9% 2,000 ML IV ONE (11:48)
[2020-07-23 12:00] LABS: VBG PH 7.3 (7.31-7.41)
[2020-07-23 12:11] LABS: Band Neutrophils % 11 %; Lymphocytes # (M) 1.01 k/uL (1.0-4.8); Monocytes # (M) 0.67 k/uL (0-1.0); Neutrophils % (M) 84 %; Nucleated Red Blood Cells 0 /100 WBC (0-0); Total Cells Counted 200; Toxic Granulation Present
[2020-07-23] MEDS ORDERED: SODIUM CHLORIDE 0.9% 1,000 ML IV SCH (12:45)
[2020-07-23] MEDS ORDERED: AZITHROMYCIN 500 MG in SODIUM CHLORIDE 0.9% 250 ML IVPB STA (12:45)
[2020-07-23] MEDS ORDERED: PNEUMONIA PROTOCOL UTILIZED 1 EACH MISC PO PRN (12:45)
[2020-07-23] MEDS ORDERED: dexAMETHasone 2 MG TAB PO STA (12:49)
[2020-07-23 13:01] VITALS: TEMP 100.2
[2020-07-23] MEDS ORDERED: DEXAMETHASONE SOD PHOSPHATE 10 MG/ML 1 ML VIAL IV STA (13:06)
[2020-07-23] MEDS ORDERED: EPINEPHrine 10 ML SYRINGE (0.1 MG/ML) ONE (13:44)
[2020-07-23] MEDS ORDERED: ALBUTEROL HFA INHALER INHALATION PRN (14:34)
[2020-07-23] MEDS ORDERED: CALCIUM CARBONATE 500 MG CHEWABLE PO PRN (14:34)
[2020-07-23] MEDS ORDERED: CLOBETASOL PROP 0.05% CR 15GM TOPICAL PRN (14:34)
[2020-07-23 15:34] VITALS: BP 169/91; PULSE 58; RESP 10
[2020-07-23] MEDS ORDERED: POTASSIUM CHLORIDE ER 20 MEQ TAB.ER PO SCH (17:30)
[2020-07-23] MEDS ORDERED: TACROLIMUS 1 MG CAP PO SCH (18:00)
[2020-07-23 19:11] LABS: Ferritin 880.7 ng/mL (22.0-322.0)
[2020-07-23] MEDS ORDERED: CHOLECALCIFEROL 1,000 UNIT TAB PO SCH (20:00)
[2020-07-23] MEDS ORDERED: carvediloL 6.25 MG TAB PO SCH (20:00)
[2020-07-23] MEDS ORDERED: CALCIUM CARB-VIT D 500MG-200UN 1 EACH TAB PO SCH (21:00)
[2020-07-23] MEDS ORDERED: ASPIRIN 81 MG PO SCH (21:00)
[2020-07-23] MEDS ORDERED: FERROUS SULFATE 325 MG TAB PO SCH (21:00)
[2020-07-23] MEDS ORDERED: DOXYCYCLINE 100 MG in SODIUM CHLORIDE 0.9% 100 ML IVPB SCH (21:00)
[2020-07-23] MEDS ORDERED: CLOPIDOGREL 75 MG TAB PO SCH (21:00)
[2020-07-23] MEDS ORDERED: MYCOPHENOLATE SODIUM DR 180 MG TABLET.DR PO SCH (21:00)
[2020-07-23] MEDS ORDERED: LOSARTAN 50 MG TAB PO SCH (21:00)
[2020-07-23] MEDS ORDERED: PANTOPRAZOLE 40 MG TABLET PO SCH (21:00)
[2020-07-23] MEDS ORDERED: MAGNESIUM OXIDE 400 MG TAB PO SCH (21:00)
[2020-07-23] MEDS ORDERED: allopurinoL 300 MG TAB PO SCH (21:00)
[2020-07-23] MEDS ORDERED: SODIUM BICARBONATE TAB 650 MG TAB PO SCH (21:00)
[2020-07-23] MEDS ORDERED: ATORVASTATIN 40 MG TAB PO SCH (21:00)
[2020-07-23] MEDS ORDERED: NON FORMULARY DRUG (Cinnamon Bark [Cinnamon] 500 MG Capsule) PO SCH (21:00)
[2020-07-23] MEDS ORDERED: MULTIVITAMINS, THERA 1 EACH TAB PO SCH (21:00)
[2020-07-23] MEDS ORDERED: LATANOPROST 0.005% OPHTH DROPS 2.5 ML BTL BOTH EYES SCH (21:00)
[2020-07-24] MEDS ORDERED: ASCORBIC ACID 500 MG TAB PO SCH (08:00)
[2020-07-24] MEDS ORDERED: amLODIPine 10 MG TAB PO SCH (09:00)
[2020-07-24] MEDS ORDERED: ZINC SULFATE 220 MG CAP PO SCH (09:00)
[2020-07-24] MEDS ORDERED: predniSONE 10 MG TAB PO SCH (09:00)
[2020-07-24] MEDS ORDERED: dexAMETHasone 2 MG TAB PO SCH (09:00)
[2020-07-24] MEDS ORDERED: BRIMONIDINE TARTRATE 0.2% DROPS 5 ML BTL BOTH EYES SCH (09:00)
== END 2020-07-23 16:35 | disposition expired ==
LOC: EC 10:06 → 3SCARD 12:49 → UNDOADMIN 12:49 → 3SCARD 13:38 → 2SICU 14:42 → EC 16:35
DX: I46.9 Cardiac arrest, cause unspecified (principal); U07.1 COVID-19; J12.89 Other viral pneumonia; N17.9 Acute kidney failure, unspecified; A41.89 Other specified sepsis; E78.5 Hyperlipidemia, unspecified; E07.9 Disorder of thyroid, unspecified; E11.40 Type 2 diabetes mellitus with diabetic neuropathy, unspecified; M10.9 Gout, unspecified; E11.22 Type 2 diabetes mellitus with diabetic chronic kidney disease; N18.9 Chronic kidney disease, unspecified; I12.9 Hypertensive chronic kidney disease with stage 1 through stage 4 chronic kidney disease, or unspecified chronic kidney disease; Z79.01 Long term (current) use of anticoagulants; Z79.82 Long term (current) use of aspirin; Z79.02 Long term (current) use of antithrombotics/antiplatelets; Z79.899 Other long term (current) drug therapy; Z91.041 Radiographic dye allergy status; Z89.202 Acquired absence of left upper limb, unspecified level; Z94.83 Pancreas transplant status; Z85.828 Personal history of other malignant neoplasm of skin; Z94.0 Kidney transplant status; Z86.718 Personal history of other venous thrombosis and embolism; Z95.5 Presence of coronary angioplasty implant and graft; Z98.42 Cataract extraction status, left eye; Z98.41 Cataract extraction status, right eye; Z96.1 Presence of intraocular lens; Z99.2 Dependence on renal dialysis
CPT/HCPCS: 36415; 94660; 94640; 92950; 93005; 85379; 80053; 82728; 82803; 83605; 83615; 83735; 84484; 85025; 85610; 85730; 86140; 87040; 84145; 71045; 99291; 96365; 96367; 96375 ×3; 31500; J1100; J0456; J0696; J0131; J1741; 94002